=== PATIENT | female | born 1955 | race Caucasian/White ===

== ENCOUNTER 2024-04-11 13:03 | Inpatient (IN) | payer MEDICARE, SELFPAY ==
[2024-04-11] VITALS (7 sets, daily range): BP systolic 118–136; BP diastolic 56–98; BMI 32.7; BMI 31.6
--- NOTE | 2024-04-11 09:28 | ED.CVA ---
History of Present Illness
General
Chief Complaint: CVA/TIA Symptoms
Source: patient and ambulance crew
Exam Limitations: none
Time Seen by Provider: 04/11/24 09:20
Onset of Stroke Symptoms
Onset of symptoms known: Yes
Date of onset of symptoms: 04/09/24
History of Present Illness
History of Present Illness:
See MDM
Past History
Past History
ED Past Medical History: Psychiatric (Anxiety/depression, takes Lexapro 20, Wellbutrin 150, Requip 2 mg for restless leg, temazepam 15 mg at bedtime) and Other (Chronic arthritic pain, takes hydrocodone 7.5/325 as needed.)
ED Past Surgical History: Other (N/A)
Social History
Tobacco: Vaping
Alcohol: None
Living: with family
Phy Exam
Physical Exam
Physical Exam:
See MDM
NIH Stroke Score
Level of Consciousness: 0 - Alert
LOC questions: 0-Answers both correctly
LOC Commands: 0-Performs both correctly
Best Gaze: 0-Normal
Visual Goodman: 0=Normal, no visual loss
Facial palsy: 0=Normal, symmetrical
Motor - Right Arm: 0=No drift 10 seconds
Motor - Left Arm: 0=No drift 10 seconds
Motor - Right Le-No drift 5 seconds
Motor - Left Le-No drift 5 seconds
Limb Ataxia: 0-Absent
Sensation: 0-Normal
Best Language: 0-No aphasia
Dysarthria: 1-Mild slurring
Extinction and Inattention: 0-No abnormality
Total Score:: 1
Course
Orders/Labs/Results
Orders:
Orders
04/11/24 09:24
ECG [Electrocardiogram (*1)] Urgent
Reason for Study: Chest Pain
EKG- Treatment ONCE
04/11/24 09:26
CT Head W/o Iv Contrast Urgent
Comment:
Reason For Exam: slurred speech x 2 days
Cardiac Monitoring- Treatment ONCE
04/11/24 09:27
Electrocardiogram (*1) Stat
Reason for Study: Other
Other Reason for Exam: neuro symptoms
EKG- Treatment ONCE
04/11/24 09:34
Complete Blood Count/With Diff Urgent
Comprehensive Metabolic Panel Urgent
PTT Urgent
Prothrombin Time Urgent
Troponin I Urgent
04/11/24 10:56
Consult Neurology [NEUROLOGY CONSULT] Routine
Consulting Provider: Lin Calles
Was physician already notified: Yes
Aspirin Chewable [Low Strength Aspirin] 324 mg PO NOW STA
Abnormal Lab Results
04/11/24
09:34
WBC 4.1 L 10^3/uL
(4.8-10.8)
RBC 3.38 L 10^6/uL
(4.20-5.40)
Hgb 10.2 L g/dL
(12.0-16.0)
Hct 31.3 L %
(37.0-47.0)
MCHC 32.6 L g/dL
(33.0-37.0)
MPV 11.2 H fL
(7.4-10.4)
Monocytes % 12.2 H %
(1.7-9.3)
Eosinophils % 9.7 H %
(0-6)
BUN 20 H mg/dl
(7-17)
Total Protein 5.8 L g/dl
(6.3-8.2)
04/11/24 09:34
04/11/24 09:34
Vital Signs
Initial and Last Documented VS:
Initial Vital Signs
Pulse Resp BP
83 17 133/98
04/11/24 09:22 04/11/24 09:22 04/11/24 09:22
Last Documented Vital Signs
Temp Pulse Resp BP Pulse Ox
97.9 F 81 16 133/98 92
04/11/24 09:27 04/11/24 09:45 04/11/24 09:45 04/11/24 09:27 04/11/24 09:45
MDM/Problems Addressed
Differential Diagnosis Includes:
HPI and MDM Narrative:
68-year-old female presenting with slurred speech and word finding issues. She noted the symptoms on Sunday taking her evening pills. She had the sensation that a pill was stuck in her throat. She started to cough and gag and realized that her
voice was hoarse. Ever since then, she noted that her speech was slurred and she intermittently has word finding issues. She did develop jaw numbness and tingling last night but that has subsided. She called her PCP this morning and was
instructed to go to the hospital
On exam, she is well-appearing nontoxic. I do appreciate some slurred speech. No other focal neurodeficits noted. Given duration of symptoms, she is not a lytic candidate if this were to be a stroke. Will obtain CT head, basic blood work and
ultimately discussed case with neurology
Physical exam
General: Well appearing and non-toxic
HEENT: protecting airway
Neck: appears supple
CV: No evidence of cyanosis. Regular rate and rhythm
Resp: No accessory muscle use
Abd: Non-distended
Extremities: No deformities
Neuro: alert. Slurred speech. No other focal neurodeficits noted
Psych: Normal affect
Skin: Intact
Problems Addressed including Acute and Chronic Conditions affecting care:
1. Dysarthria
Acuity: acute
Prognosis: stable
Details: Potentially in the setting of subacute stroke. Will obtain CT head and discussed case with neurology
Updates
Labs without clinical significance. Given persistent symptoms, will admit. CT head negative. Neuro made aware
Differential Diagnosis (but not limited to): Stroke, hyponatremia, medication reaction
Testing considered: CT angiogram but NIH stroke scale to low for large territory clot suspicion
Drug therapy (if applicable): OTC meds, please see d/c instruction regarding Rx drugs
Amount and/or Complexity of Data Reviewed
Clinical info obtained from: Patient
External data reviewed: N/A
Labs I independently reviewed (but not limited to): Troponin normal
Radiology: The CT scan was personally and independently reviewed. In addition, official CT report reviewed.
Pulse Ox: not hypoxic
EKG independently reviewed: Sinus rhythm, normal axis, no STEMI
Information Security: Sinus rhythm
Critical Care: N/A
Risk of Complication:
Social Determinants of health: Good social support
Discussed with other providers: Hospitalist, neurologist
Escalation of Care includes Admit/Obs: Given persistent symptoms, will admit for stroke workup
Occasional wrong word or 'sound a like' substitutions may have occurred due to the inherent limitations of voice recognition software. Read the chart carefully and recognize, using context, where substitutions have occurred.
*Critical Care Note
Total Time (30-74mins, 75-104mins- exclusive of procedures): Not Applicable
ED Attending Note
-
Portions of this chart may have been created with voice recognition software.� Occasional wrong word or��sound alike� substitutions may have occurred due to the inherent limitations of voice recognition software.
Discharge Plan
Departure
Patient Disposition: Admit
Date of Disposition: 04/11/24
Time of Disposition: 10:58
Admit to: Telemetry
Presentation/result/management discussed w/ accepting MD/DO: Hospitalist
Discharge Problem:
Dysarthria
Prescriptions:
No Action
ropinirole [Requip] 1 mg Tablet
1 mg PO Q6H
hydrocodone-acetaminophen 7.5-325 mg Tablet
1 tab PO Q6H PRN (Reason: pain)
buspirone [BuSpar] 10 mg Tablet
10 mg PO BID
escitalopram oxalate [Lexapro] 10 mg Tablet
10 mg PO DAILY
bupropion HCl [Wellbutrin XL] 300 mg Tablet Extended Release 24 Hr
300 mg PO DAILY
Multivitamin Gummies 200 mcg Tablet,Chewable
1 tab PO DAILY
Thc Vape
inhalation
Rx Instructions:
THC Vape - unknown dose or usage
Referrals:
UNKNOWN - PT DOES,NOT KNOW [Family Provider] -
Interventions
Interventions:
*Risk Screen - Suicide Last Done: 04/11/24 09:27
*General Assessment Last Done: 04/11/24 09:27
*Neglect/Abuse Screening Last Done: 04/11/24 09:27
ED- Pulmonary Assessment Last Done: 04/11/24 09:49
ED- Neurological Assessment Last Done: 04/11/24 09:49
ED- Cardiac Assessment Last Done: 04/11/24 09:49
Discharge Date and Time
Print Language: HUNGARIAN
[2024-04-11 10:01] LABS: ALT (SGPT) 18 U/L (0-35); AST (SGOT) 28 U/L (14-36); Albumin 3.6 g/dl (3.5-5.0); Alkaline Phosphatase 95 U/L (38-126); Blood Urea Nitrogen 20 mg/dl (7-17); Calcium 9.2 mg/dl (8.4-10.2); Carbon Dioxide 29 mmol/L (22-30); Chloride 102 mmol/L (98-107); Estimated Creatinine Clearance 85 ml/min; Glucose 89 mg/dl (70-99); Potassium 4.4 mmol/L (3.5-5.1); Sodium 140 mmol/L (135-145); Total Bilirubin 0.2 mg/dl (0.2-1.3); Total Protein 5.8 g/dl (6.3-8.2); eGFR > 60.00
[2024-04-11 10:02] LABS: % Basophils 1.2 % (0-2); % Eosinophils 9.7 % (0-6); % Immature Granulocytes 0.2 % (0-0.5); % Lymphocytes 28.5 % (20.5-51.1); % Monocytes 12.2 % (1.7-9.3); % Neutrophils 48.2 % (42.2-75.2); Absolute Basophils 0.1 10^3/uL (0-0.2); Absolute Eosinophils 0.4 10^3/uL (0-0.7); Absolute Lymphocytes 1.2 10^3/uL (1.2-3.4); Absolute Monocytes 0.5 10^3/uL (0.1-0.6); Hematocrit 31.3 % (37.0-47.0); Hemoglobin 10.2 g/dL (12.0-16.0); Mean Corp Hgb Conc. 32.6 g/dL (33.0-37.0); Mean Corpuscular Hgb 30.2 pg (27.0-31.0); Mean Corpuscular Volume 92.6 fL (81.0-99.0); Mean Platelet Volume 11.2 fL (7.4-10.4); Nucleated Red Blood Cells % 0 %; Platelet Count 317 10^3/uL (130-400); Red Blood Cell Count 3.38 10^6/uL (4.20-5.40); Red Cell Dist. Width 13.8 % (11.5-14.5); White Blood Cell Count 4.1 10^3/uL (4.8-10.8)
[2024-04-11 10:06] LABS: INR 1.13; PT 14.4 Sec (11.4-14.6)
[2024-04-11 10:07] LABS: APTT 27.6 Sec (23.4-35.0)
[2024-04-11 10:12] LABS: Troponin I < 0.012 ng/ml
[2024-04-11] MEDS: LOW STRENGTH ASPIRIN 324 MG PO (11:03)
--- NOTE | 2024-04-11 11:39 | W.PN.NEURO.1 ---
Today's Communication / Plan
-
.
Subjective/Objective
Subjective Data
Requesting physician: Allen Vance DO
Reason for consultation: dysarthria
Date of Service: April 11, 2024
Neurology consultation note
CC: change in swallowing
HPI: This is a 68-year-old woman who presented to [facility] on April 11, 2024 with dysphagia and dysarthria. According to the patient she developed difficulty swallowing after a pill got caught as well as slurred speech on
04/09/2024. Since then, she has had trouble swallowing liquids well as intermittent nasal regurgitation and intermittent dysarthria. She has had loose dentures since 2009.
Ms. Seaman endorses transient numbness in her bilateral chin lasting for 45 minutes last night, affecting both sides of her chin. No tongue numbness, sialorrhea, dyspnea, diplopia, headaches, motor or additional sensory .deficits
ER VS:133/98, afebrile
EKG: NSR, QTc Int : 462 ms
PDMP:Oxycodone Hcl (Ir) 5 Mg 30 tabs filled in on 03/11/2024, 40 tabs filled in on 02/27/2024, Hydrocodone-Acetamin 7.5-325 120 tabs filled in on 02/14/2024
Labs: WBC�4.1, hemoglobin�10.2, normal sodium, platelets, creatinine, glucose.
CT head- mild diffuse cortical atrophy
PMH: L Chappell's palsy, anemia, chronic pain s-me, MDD, RASHARD, RLS, left Dupuytren contractures, lumbar spinal stenosis
PSH: gastric bypass, left hand surgery, R TKA, BL cataract surgery
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
FH: Not contributory to current presentation
All: Penicillin
ROS:Constitutional: Negative. Negative for chills, fever and unexpected weight change.
HENT: Negative for ear pain, hearing loss, tinnitus and trouble swallowing.
Eyes: Negative. Negative for photophobia, pain and visual disturbance.
Respiratory: Negative for cough and shortness of breath.
Cardiovascular: Negative for chest pain, palpitations
Gastrointestinal: Positive for dysphagia
Endocrine: Negative. Negative for cold intolerance.
Musculoskeletal: Positive for back pain, generalized arthralgias
Skin: Negative for rash.
Allergic/Immunologic: Negative. Negative for immunocompromised state.
Neurological: Positive for dysarthria
Psychiatric/Behavioral: Negative for behavioral problems, confusion and hallucinations.
General: Well developed. In no acute distress.
Cardio: Regular rate and rhythm without murmur. Extremities are without cyanosis or edema.
Neuro:
Mental Status: Alert, oriented to person, place, and date. Normal attention and recall. Good fund of knowledge. Follows complex requests across the midline. Comprehension, naming, and repetition intact. Immediate and delayed recall 3/3.
Cranial Nerves: . Pupils are equally round, surgical. EOMs full. Visual ferrer full to confrontation. No ptosis. No nystagmus. V1-V3 intact to light touch and pinprick bilaterally, symmetric. Face symmetric. Unable to whistle Normal hearing
AU. The palate elevated well. SCMs and traps 5/5. Tongue midline. Mild to moderate dysarthria including edentulous. Mild dysphonia.
Motor: Normal bulk and tone. No pronator or arm drift. Strength 5/5 throughout. No clonus.
Reflexes: Limited exam due to restlessness. Negative Bernie's bilaterally
Sensory: Normal vibration at the toes
Coordination: No dysmetria or tremor. Mild generalized chorea?
Gait: deferred
Bl pes cavus, hammer toes
Assessment and Plan:
I. Bulbar syndrome
II. RLS
III. Ambulatory dysfunction
-color television console monitor
-Aspiration precaution
-Dysphagia evaluation
-Please obtain brain MRI without rashard
-Mestinon trial
-Please check Lyme antibodies, MG panel, VGKC ab, ESR, CRP,-TFTs, lipoprotein-related protein 4 antibodies/agrin-binding receptor ab, SPEP, IgA; Voltage-gated calcium channel, ferritin, transferrin saturation
-Moderate regular exercise, reduce caffeine intake, regular walking, bicycling, soaking the affected limbs, and leg massage, including pneumatic compression.
-Supplemental iron if ferritin is < 50 ng/mL or transferrin saturation is < 20%
-Start Gabapentin 300 mg QHS
-Avoid medications, known to worsen RLS symptoms (dopamine antagonists, antihistamines, tricyclic antidepressants and SSRIs/SSRIs)
-Will follow
I personally reviewed all radiology and labs along with past medical records pertinent to current medical problems. Total time spent in patient care is 60 minutes.
Thank you for allowing us to participate in the care of this patient. We will continue to follow. Please do not hesitate to contact us with any questions or concerns.
Objective Data
Vital Signs
Temp Pulse Resp BP Pulse Ox
36.6 C 88 14 136/60 94
04/11/24 09:27 04/11/24 11:15 04/11/24 11:05 04/11/24 10:23 04/11/24 11:15
Lab Results
04/11/24 09:34
04/11/24 09:34
PT 14.4 Sec (11.4-14.6) 04/11/24 09:34
INR 1.13 04/11/24 09:34
APTT 27.6 Sec (23.4-35.0) 04/11/24 09:34
Sodium 140 mmol/L (135-145) 04/11/24 09:34
Potassium 4.4 mmol/L (3.5-5.1) 04/11/24 09:34
BUN 20 mg/dl (7-17) H 04/11/24 09:34
Glucose 89 mg/dl (70-99) 04/11/24 09:34
Calcium 9.2 mg/dl (8.4-10.2) 04/11/24 09:34
Patient Allergies
Penicillins Allergy (Severe, Verified 04/11/24 09:30)
Anaphylaxis
Vital Signs and Labs
-
Vital Signs and Labs:
Vital Signs
Temp Pulse Resp BP Pulse Ox
36.6 C 88 14 136/60 94
04/11/24 09:27 04/11/24 11:15 04/11/24 11:05 04/11/24 10:23 04/11/24 11:15
Lab Results
04/11/24 09:34
04/11/24 09:34
PT 14.4 Sec (11.4-14.6) 04/11/24 09:34
INR 1.13 04/11/24 09:34
APTT 27.6 Sec (23.4-35.0) 04/11/24 09:34
Sodium 140 mmol/L (135-145) 04/11/24 09:34
Potassium 4.4 mmol/L (3.5-5.1) 04/11/24 09:34
BUN 20 mg/dl (7-17) H 04/11/24 09:34
Glucose 89 mg/dl (70-99) 04/11/24 09:34
Calcium 9.2 mg/dl (8.4-10.2) 04/11/24 09:34
Home Medications
-
Home Medications
bupropion HCl 300 mg 24 hr tablet, extended release (Wellbutrin XL) 300 mg PO DAILY 10/11/22
buspirone 10 mg tablet 10 mg PO BID 10/11/22
escitalopram oxalate 10 mg tablet (Lexapro) 20 mg PO DAILY 10/11/22
hydrocodone 7.5 mg-acetaminophen 325 mg tablet 1 tab PO TIDPRN PRN SEVERE pain 10/11/22
ropinirole 1 mg tablet 2 mg PO TID 10/11/22
acetaminophen 325 mg tablet (Tylenol) 650 mg PO Q4HPRN PRN MILD PAIN 04/11/24
aspirin 81 mg tablet,delayed release 81 mg PO DAILY 04/11/24
cyclobenzaprine 5 mg tablet 5 mg PO HS 04/11/24
denosumab 60 mg/mL subcutaneous syringe (Prolia) 60 mg SC [id number] 04/11/24
trospium 20 mg tablet 20 mg PO BID 04/11/24
[2024-04-11 13:29] LABS: HDL Cholesterol 65 mg/dl; Iron 44 ug/dl (37-170); LDL Cholesterol, Calculated 54 mg/dl; Total Cholesterol 131 mg/dl (50-199); Triglyceride 60 mg/dl (10-149); Very Low Density Lipoprotein 12 mg/dl (0-30)
[2024-04-11 13:40] LABS: Percent Saturation 13 % (20-50); Total Iron Binding Capacity 318 ug/dl (265-497)
[2024-04-11 14:02] LABS: Glycohemoglobin (HgbA1c) 4.8 % (4.0-5.6)
[2024-04-11 14:29] LABS: Vitamin B12 236 pg/ml (239-931)
[2024-04-11 15:39] LABS: Erythrocyte Sed Rate 10 mm/hour (0-20)
--- NOTE | 2024-04-11 15:47 | HPS.HSE ---
Addendum entered and electronically signed by Caleb Fraser MD 04/11/24 22:50:
Attending Addendum-
I performed a history and physical exam of the patient and discussed his management with the resident. I reviewed the resident's note and agree with the documented findings and plan of care CC/HPI- patient presents to ED with dysphagia and
dysarthria. choking on pills. Currently patient states dysarthria is intermittent. 'its hard for me to follow commands' complains of RLS symptoms. Full 12 point ROS reviewed and negative except as documented Exam- vitals reviewed in EMR GEN-NAD
heart RRR lungs clear abd soft LE no edema right hi seroma present incision CDI Neuro dysarthria AAO x 3 chorea like movements UE sensation intact no cerebellar deficits poor visual tracking
Plan
# Dysarthria/Dysphagia
- r/o CVA vs TIA
- check MRI- WNL
- t/c MRA
- neuro c/s
- R/O MG- Mestinon trial
- pseudo bulbar vs bulbar
- VFSS, speech eval
- ABCD2 = 4 start dapt and statin
- monitor resp status closely
# S/P Right hip replacement 03/04
- cont asa
- WBAT
# Leukopenia
- repeat CBC in am
# MONISHA/Depression
- cont Lexapro, bupropion, buspirone
# RLS
- cont ropinerole
- start gabapentin
ACP
Patient consented to discuss, was alone, time spent explanation of advance directives, changes in health status, patient�s health care wishes if the patient becomes unable to make health decisions, goals of care, code status, and prognosis- 16
minutes
Time spent coordinating care, review of plan of care with resident, personally reviewed previous records in EMR, med rec, labs, radiology, d/w nursing, family and neuro total time documented is exclusive of any additional time listed that was spent
in advance care planning discussion -� 75 minutes
Original Note:
Family Physician
-
Family Physician: Dr. Leida Mendez
Chief Complaint
-
dysarthria; dysphagia; anomia
History of Present Illness
Sujatha Seaman, 68-year-old female with a history of dysphagia secondary to hiatal hernia and recent total right hip replacement on aspirin 81 mg, has been experiencing dysphagia and dysarthria since 04-09-24. Her symptoms began after she choked
on her pills. Also noted slurred speech and word-finding difficulties after that episode; the latter resolved, however the former has persisted. Continues to experience dysphagia as well. Also describes a brief episode of numbness in bilateral chin
last night, which lasted under an hour. Recent medical history is pertinent for total right hip replacement; she is on aspirin 81 mg for thromboprophylaxis. Does not use aspirin outside of that. No prior history of known cardiovascular or
cerebrovascular disease. No known history of neurological diseases besides restless leg syndrome.
Medical History
Past Medical History
Past Medical History: Reports Psychiatric (generalized anxiety disorder; persistent depressive disorder) and Other (restless leg syndrome; osteoarthritis; osteoporosis; overactive bladder)
Past Surgical History: Reports Orthopedic (right total hip replacement; left hand surgery)
Social History
Tobacco: Former Smoker (quit 5 years ago; 20-25 year 6-7 cigs per day)
Alcohol: Occasional
Drug: Marijuana (vaping and medical; stopped 1 year ago)
Living: With Family (with son who is POA)
Employment: Retired
Family History
Family History: Not pertinent
Allergies / Home Medications
Allergies reflects when Allergies were last updated in [facility].
Home Medications with original date entered in [facility]
Allergy/Medication List:
Allergies
Allergy/AdvReac Type Severity Reaction Status Date / Time
Penicillins Allergy Severe Anaphylaxis Verified 04/11/24 09:30
Home Medications
bupropion HCl 300 mg 24 hr tablet, extended release (Wellbutrin XL) 300 mg PO DAILY Depression 10/11/22
buspirone 10 mg tablet 10 mg PO BID Mental Health/Anxiety 10/11/22
escitalopram oxalate 10 mg tablet (Lexapro) 20 mg PO DAILY Depression 10/11/22
hydrocodone 7.5 mg-acetaminophen 325 mg tablet 1 tab PO TIDPRN PRN SEVERE pain 10/11/22
acetaminophen 325 mg tablet (Tylenol) 650 mg PO Q4HPRN PRN MILD PAIN 04/11/24
aspirin 81 mg tablet,delayed release 81 mg PO DAILY Blood Clot Prevention/Tx 04/11/24
cyclobenzaprine 5 mg tablet 5 mg PO HS pain/muscle spasms 04/11/24
denosumab 60 mg/mL subcutaneous syringe (Prolia) 60 mg SC [id number] osteoporosis 04/11/24
ropinirole 2 mg tablet 2 mg PO TID Restless legs 04/11/24
trospium 20 mg tablet 20 mg PO BID Urinary Issue 04/11/24
Review of Systems
-
History Source: Patient
Constitutional: Reports No Symptoms
EENT: Reports No Symptoms
Respiratory: Reports No Symptoms
Cardiac: Reports No Symptoms
Abdomen/GI: Reports No Symptoms
: Reports No Symptoms
Musculoskeletal: Reports No Symptoms
Skin: Reports No Symptoms
Neurological: Reports Other (difficulty swallowing; slurred speech)
Endocrine: Reports No Symptoms
Hematologic/Lymphatic: Reports No Symptoms
Psych: Reports No Symptoms
Physical Exam
Vital Signs
Vital Signs
Temp Pulse Resp BP Pulse Ox
97.9 F 88 14 136/60 94
04/11/24 09:27 04/11/24 11:15 04/11/24 11:05 04/11/24 10:23 04/11/24 11:15
Physical Exam
General: No Apparent Distress, Comfortable and Conversant
HEENT: NormoCephalic, Anicteric, Moist mucous membranes, Atraumatic and No Ptosis
Respiratory: Clear and Non Labored Respirations
Cardiac: S1/S2 and Regular Rhythm
Breast: Deferred by me
GI: Soft, Non Tender, Non Distended and No Hepatosplenomegaly
Rectal: Deferred by Provider
Genito-urinary: Deferred by me
Musculoskeletal: No Clubbing, No Cyanosis, Edema, Left Lower Extremity (1+ and chronic - at baseline per patient), Edema, Right Lower Extremity (1+ and chronic - at baseline per patient) and Other (right hip well-healing scar; underlying swelling
consistent with known seroma)
Skin: Warm, Dry and IV/Catheter Site
Neuro: Awake, Alert, Oriented and Other (dysmetria; dysphonia; dysarthria)
Hematologic/Lymphatic: No Lymphadenopathy
Psych: Calm and Intact Judgment/Insight
Laboratory Results
-
04/11/24 09:34
04/11/24 09:34
Laboratory Results
PT 14.4 Sec (11.4-14.6) 04/11/24 09:34
INR 1.13 04/11/24 09:34
APTT 27.6 Sec (23.4-35.0) 04/11/24 09:34
Total Bilirubin 0.2 mg/dl (0.2-1.3) 04/11/24 09:34
AST 28 U/L (14-36) 04/11/24 09:34
ALT 18 U/L (0-35) 04/11/24 09:34
Alkaline Phosphatase 95 U/L (38-126) 04/11/24 09:34
Troponin I < 0.012 ng/ml 04/11/24 09:34
Impression/Plan
-
Impression and plan
Bulbar syndrome or CVA/TIA
- ABCD2 Score for TIA 4 points; start DAPT and rosuvastatin.
- Monitor on telemetry.
- Aspiration precautions, speech therapy evaluation, video swallow study and soft+bite diet.
- Check MR brain.
- Trial of pyridostigmine to cover for myasthenia gravis; lab work to further evaluate for other etiologies.
- Start gabapentin.
- Neurology following.
Status-post total right hip replacement February 2024
Postprocedural seroma
- On aspirin 81 mg for thromboprophylaxis.
- Recovering well.
- Seroma stable and asymptomatic; will follow.
Restless leg syndrome
- Continue ropinirole.
Polyarticular osteoarthritis
- Continue pain management.
Generalized anxiety disorder
Persistent depressive disorder
- Continue bupropion, buspirone and escitalopram; can hold the latter for worsening RLS.
Thromboprophylaxis
- Enoxaparin.
Code status
- Full.
--- NOTE | 2024-04-11 16:37 | PTCARENOTE ---
pt admitted from ED Awake and Alert, oriented x3, NIH 1 for slight slurred speech. NSR. LCTA on RA abd soft NT +BSx4. skin CDI. right lateral hip scar s/p THR. +PP b/l trace b/l edema. CB in reach instructed for use.
[2024-04-11] MEDS: PLAVIX 300 MG PO (17:04)
[2024-04-11 17:05] LABS: C-Reactive Protein < 5.00 mg/L (0.0-10.00)
[2024-04-11] MEDS: LOVENOX 40 MG SC (17:05)
[2024-04-11] MEDS: CRESTOR 20 MG PO (17:05)
[2024-04-11 17:36] LABS: TSH Reflex To Free T4 1.92 uIU/ml (0.47-4.68)
[2024-04-11 17:40] LABS: Ferritin 29.6 ng/ml (11.1-264.0)
[2024-04-11] MEDS: MESTINON 60 MG PO ×2 (17:40→22:06)
[2024-04-11] MEDS: REQUIP 2 MG PO ×2 (17:43→22:06)
[2024-04-11] MEDS: BUSPAR 10 MG PO (22:06)
[2024-04-11] MEDS: FLEXERIL 5 MG PO (22:06)
[2024-04-11] MEDS: DETROL 1 MG PO (22:06)
--- NOTE | 2024-04-12 00:40 | PTCARENOTE ---
Patient is refusing scheduled gabapentin tonjason, states she has stopped taking that as of a couple of years ago because prior use caused her to lose balance and fall down a flight of stairs at home. She states she has not been taking that
medication for some time now. Will discuss with oncoming nurse in AM to discuss with MD.
--- NOTE | 2024-04-12 03:43 | W.PN.UPDATE ---
Update Note
Progress Note Update
RN notified ETHNOLOGY PROFESSOR patient's urine is very odorous, she is slightly confused, more forgetful tonight. Will check UA r/o UTI
[2024-04-12 03:52] VITALS: BP 110/66
[2024-04-12 07:15] LABS: Hematocrit 33.6 % (37.0-47.0); Hemoglobin 10.9 g/dL (12.0-16.0); Mean Corp Hgb Conc. 32.4 g/dL (33.0-37.0); Mean Corpuscular Hgb 30.5 pg (27.0-31.0); Mean Corpuscular Volume 94.1 fL (81.0-99.0); Mean Platelet Volume 11.1 fL (7.4-10.4); Platelet Count 323 10^3/uL (130-400); Red Blood Cell Count 3.57 10^6/uL (4.20-5.40); Red Cell Dist. Width 13.8 % (11.5-14.5); White Blood Cell Count 5.1 10^3/uL (4.8-10.8)
[2024-04-12 07:19] VITALS: BP 115/54
[2024-04-12 07:47] LABS: ALT (SGPT) 20 U/L (0-35); AST (SGOT) 32 U/L (14-36); Alkaline Phosphatase 93 U/L (38-126); Blood Urea Nitrogen 15 mg/dl (7-17); Calcium 9.5 mg/dl (8.4-10.2); Carbon Dioxide 32 mmol/L (22-30); Chloride 102 mmol/L (98-107); Estimated Creatinine Clearance 84 ml/min; Glucose 97 mg/dl (70-99); Potassium 4.2 mmol/L (3.5-5.1); Sodium 142 mmol/L (135-145); Total Bilirubin 0.3 mg/dl (0.2-1.3); Total Protein 6.3 g/dl (6.3-8.2); eGFR > 60.00
[2024-04-12] MEDS: BUSPAR 10 MG PO (09:04)
[2024-04-12] MEDS: DETROL 1 MG PO (09:04)
[2024-04-12] MEDS: MESTINON 60 MG PO (09:04)
[2024-04-12] MEDS: ASPIR LOW (ENTERIC COATED) 81 MG PO (09:04)
[2024-04-12] MEDS: WELLBUTRIN XL (24 hour extended release) 300 MG PO (09:04)
[2024-04-12] MEDS: PLAVIX 75 MG PO (09:04)
[2024-04-12] MEDS: REQUIP 2 MG PO (09:08)
--- NOTE | 2024-04-12 09:54 | W.PN.HOSP.TC ---
Today's Communication/Plan
-
- Continue pyridostigmine.
- CT chest.
- Replete iron and B12.
- Discontinue DAPT and gabapentin.
Assessment / Plan
Assessment / Plan
Assessment
Sujatha Seaman, 68-year-old female with a history of dysphagia secondary to hiatal hernia and recent total right hip replacement on aspirin 81 mg, has been experiencing dysphagia and dysarthria since 04-09-24. Her symptoms began after she choked
on her pills. Also noted slurred speech and word-finding difficulties after that episode; the latter resolved, however the former has persisted. Continues to experience dysphagia as well. Also describes a brief episode of numbness in bilateral chin
last night, which lasted under an hour. Recent medical history is pertinent for total right hip replacement; she is on aspirin 81 mg for thromboprophylaxis. Does not use aspirin outside of that. No prior history of known cardiovascular or
cerebrovascular disease. No known history of neurological diseases besides restless leg syndrome.
Impression and plan
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
- Significant improvement with pyridostigmine favors an NMJ disorder.
- NMJ work-up pending.
- CT head and MR brain with no acute changes; other blood work unremarkable.
- CT chest with IV contrast to evaluate for thymoma.
- Unlikely that this was a CVA/TIA; can stop DAPT and rosuvastatin.
- Discontinue telemetry.
- Aspiration precautions, speech therapy evaluation, video swallow study and soft+bite diet.
- Neurology following.
Iron deficiency anemia
Status-post gastric bypass
- History of MATHIEU treated with IV iron.
- IV ferric gluconate.
- Will refer to hematology for outpatient follow-up and potential infusions.
B12 deficiency
- Likely from the gastric bypass.
- IM cyanocobalamin.
Status-post total right hip replacement February 2024
Postprocedural seroma
- On aspirin 81 mg for thromboprophylaxis.
- Recovering well.
- Seroma stable and asymptomatic; will follow.
Restless leg syndrome
- Continue ropinirole.
- Patient has not tolerated gabapentin in the past and refused the medication.
- Discontinue gabapentin.
- Optimal iron stores will likely improve the restlessness.
Polyarticular osteoarthritis
- Continue pain management.
Generalized anxiety disorder
Persistent depressive disorder
- Continue bupropion, buspirone and escitalopram; can hold the latter for worsening RLS.
Overactive bladder
- Continue tolterodine.
- Pyridostigmine can potentially worsen the bladder issues.
- The overnight event was likely related to the medication; this does not warrant UTI work-up.
Thromboprophylaxis
- Enoxaparin.
Code status
- Full.
Anticipated Discharge: Today
Subjective/Interval History
-
Date of Service: April 12, 2024
Significant improvement in symptoms with pyridostigmine. Overnight urinary urgency likely related to the medication. No genitourinary symptoms to suspect a urinary tract infection.
Objective Data
-
Labs:
Laboratory Results
04/12/24
06:36
WBC 5.1
Hgb 10.9 L
Hct 33.6 L
Plt Count 323
Sodium 142
Potassium 4.2
Chloride 102
Carbon Dioxide 32 H
BUN 15
Creatinine 0.7
Glucose 97
Calcium 9.5
Total Bilirubin 0.3
AST 32
ALT 20
Alkaline Phosphatase 93
Vital Signs:
Vital Signs
Temp Pulse Resp BP Pulse Ox
98.0 F 68 16 115/54 98
04/12/24 07:19 04/12/24 07:19 04/12/24 07:19 04/12/24 07:19 04/12/24 07:19
I&O
04/11/24 04/12/24 04/13/24
06:59 06:59 05:59
Intake Total 360 / 360
Balance 360 / 360
Review of Systems
-
History Source: Patient
Constitutional: Reports No Symptoms
EENT: Reports No Symptoms Reported
Respiratory: Reports No Symptoms
Cardiac: Reports No Symptoms
Abdomen/GI: Reports No Symptoms
Breast: Reports No Symptoms
Genitourinary: Reports No Symptoms
Musculoskeletal: Reports No Symptoms
Skin: Reports No Symptoms
Neuro: Reports Other (mild difficulty swallowing - at baseline)
Endocrine: Reports No Symptoms
Hematologic / Lymphatic: Reports No Symptoms
Allergy / Immunology: Reports No Symptoms
Physical Exam
-
General: No Apparent Distress and Comfortable
HEENT: Normocephalic, Atraumatic, Moist Mucous Membranes, Anicteric, No Ptosis and Neck Non Tender
Respiratory: Clear to Auscultation and Non Labored Respirations
Cardiac: Regular Rhythm and S1/S2
GI: Soft, Nontender and Nondistended
Genito-urinary: No Costovertebral Tender
Musculoskeletal: No Clubbing, No Cyanosis, Edema, Right Lower Extrem (1+ and chronic - at baseline per patient) and Edema, Left Lower Extrem (1+ and chronic - at baseline per patient)
Skin: Warm and Dry
Neuro: Awake, Alert, Oriented and Other (dysmetria; slight dysphonia and dysarthria)
Psych: Calm and Intact Judgement/Insight
[2024-04-12] MEDS: CYANOCOBALAMIN 1000 MCG IM (10:39)
[2024-04-12] MEDS: FERRLECIT 110 MG IV (10:39)
--- NOTE | 2024-04-12 10:45 | W.PN.NEURO.1 ---
Today's Communication / Plan
-
.
Subjective/Objective
Subjective Data
Date of Service: April 12, 2024
Neurology follow up note
Ms. Seaman states that her dysarthria has resolved. No reports of diplopia, dyspnea or weakness she received 2 doses of pyridostigmine 60 mg.
Sujatha continues to have RLS symptoms. The patient states that her symptoms are being managed by her meat clerk and she has been taking Requip 2 mg 3 times a day for many years.
Ferritin level�29.6, transferrin saturation�13%.
Vit B12-236, normal TSH.
Brain MRI wo monisha(technically limited) no acute abnormaliteis.
PMH: L Chappell's palsy, anemia, chronic pain s-me, MDD, MONISHA, RLS, left Dupuytren contractures, lumbar spinal stenosis
PSH: gastric bypass, left hand surgery, R TKA, BL cataract surgery
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
FH: Not contributory to current presentation
All: Penicillin
ROS:Constitutional: Negative. Negative for chills, fever and unexpected weight change.
HENT: Negative for ear pain, hearing loss, tinnitus and trouble swallowing.
Eyes: Negative. Negative for photophobia, pain and visual disturbance.
Respiratory: Negative for cough and shortness of breath.
Cardiovascular: Negative for chest pain, palpitations
Gastrointestinal: Positive for dysphagia
Endocrine: Negative. Negative for cold intolerance.
Musculoskeletal: Positive for back pain, generalized arthralgias
Skin: Negative for rash.
Allergic/Immunologic: Negative. Negative for immunocompromised state.
Neurological: Positive for dysarthria
Psychiatric/Behavioral: Negative for behavioral problems, confusion and hallucinations.
General: Well developed. In no acute distress.
Cardio: Regular rate and rhythm without murmur. Extremities are without cyanosis or edema.
Neuro:
Mental Status: Alert, oriented to person, place, and date. Follows complex requests across midline. Fluent. No hemineglect
Cranial Nerves: . Pupils are equally round, surgical. EOMs full. Visual ferrer full to confrontation. No ptosis. No nystagmus. V1-V3 intact to light touch and pinprick bilaterally, symmetric. Face symmetric. Unable to whistle Normal hearing
AU. The palate elevated well. SCMs and traps 5/5. Tongue midline. Mild to moderate dysarthria including edentulous. Mild dysphonia.
Motor: Normal bulk and tone. No pronator or arm drift. Strength 5/5 throughout. No clonus.
Reflexes: Limited exam due to restlessness. Negative Bernie's bilaterally
Sensory: Normal vibration at the toes
Coordination: No dysmetria or tremor. Mild generalized chorea?
Gait: deferred
Bl pes cavus, hammer toes
Assessment and Plan:
I. Bulbar syndrome, resolved
II. RLS
III. Vit B12 deficiency
-Telemetry monitoring
-Please obtain brain MRI without monisha
-Continue Mestinon 60 mg 3 times a day
-Please follow up Lyme antibodies, MG panel, VGKC ab, ESR, lipoprotein-related protein 4 antibodies/agrin-binding receptor ab, SPEP, IgA;
-Start Fe SO4 325 mg QD
-Continue Gabapentin 300 mg QHS
-Start parenteral vitamin B12 1000 mcg IM once per week until the deficiency is corrected and then once per month or once every other month.
-Please check folate, MMA, HC, anti parietal cell ab, anti IF ab.
-OP neurology follow up in 2 weeks
I personally reviewed all radiology and labs along with past medical records pertinent to current medical problems. Total time spent in patient care is 60 minutes.
Thank you for allowing us to participate in the care of this patient. Please do not hesitate to contact us with any questions or concerns.
Objective Data
Vital Signs
Temp Pulse Resp BP Pulse Ox
36.7 C 68 16 115/54 98
04/12/24 07:19 04/12/24 07:19 04/12/24 07:19 04/12/24 07:19 04/12/24 07:19
Lab Results
04/12/24 06:36
04/12/24 06:36
PT 14.4 Sec (11.4-14.6) 04/11/24 09:34
INR 1.13 04/11/24 09:34
APTT 27.6 Sec (23.4-35.0) 04/11/24 09:34
Sodium 142 mmol/L (135-145) 04/12/24 06:36
Potassium 4.2 mmol/L (3.5-5.1) 04/12/24 06:36
BUN 15 mg/dl (7-17) 04/12/24 06:36
Glucose 97 mg/dl (70-99) 04/12/24 06:36
Calcium 9.5 mg/dl (8.4-10.2) 04/12/24 06:36
LDL Cholesterol, Calc 54 mg/dl 04/11/24 09:34
Vitamin B12 236 pg/ml (239-931) L 04/11/24 09:34
Patient Allergies
Penicillins Allergy (Severe, Verified 04/11/24 09:30)
Anaphylaxis
Vital Signs and Labs
-
Vital Signs and Labs:
Vital Signs
Temp Pulse Resp BP Pulse Ox
36.7 C 68 16 115/54 98
04/12/24 07:19 04/12/24 07:19 04/12/24 07:19 04/12/24 07:19 04/12/24 07:19
Lab Results
04/12/24 06:36
04/12/24 06:36
PT 14.4 Sec (11.4-14.6) 04/11/24 09:34
INR 1.13 04/11/24 09:34
APTT 27.6 Sec (23.4-35.0) 04/11/24 09:34
Sodium 142 mmol/L (135-145) 04/12/24 06:36
Potassium 4.2 mmol/L (3.5-5.1) 04/12/24 06:36
BUN 15 mg/dl (7-17) 04/12/24 06:36
Glucose 97 mg/dl (70-99) 04/12/24 06:36
Calcium 9.5 mg/dl (8.4-10.2) 04/12/24 06:36
LDL Cholesterol, Calc 54 mg/dl 04/11/24 09:34
Vitamin B12 236 pg/ml (239-931) L 04/11/24 09:34
Medications
-
Medications:
Generic Name Dose Route Start Last Admin
Trade Name Freq PRN Reason Stop Dose Admin
Acetaminophen 650 mg 04/11/24 15:54
Acetaminophen 325 Mg Tablet PO 05/09/24 15:53
Q4HPRN PRN
DE LEON, mild pain, or temp >100.4F
Hydrocodone Bitart/Acetaminophen 1 tablet 04/11/24 15:54
Hydrocodone 7.5 Mg/Acetaminophen 325 Mg Tablet PO 04/25/24 15:53
TIDPRN PRN
SEVERE pain
Bupropion HCl 300 mg 04/12/24 08:00 04/12/24 09:04
Bupropion (24hr) Extended Release 300 Mg Tablet PO 05/10/24 07:59 300 mg
DAILY ANDREA Administration
Buspirone HCl 10 mg 04/11/24 20:00 04/12/24 09:04
Buspirone 10 Mg Tablet PO 05/09/24 19:59 10 mg
BID ANDREA Administration
Cyanocobalamin 1,000 mcg 04/12/24 11:00
Cyanocobalamin (1000 Mcg/Ml) 1 Ml Vial IM 05/10/24 10:59
DAILY ANDREA
Cyclobenzaprine HCl 5 mg 04/11/24 22:00 04/11/24 22:06
Cyclobenzaprine 10 Mg Tablet PO 05/09/24 21:59 5 mg
HS ANDREA Administration
Enoxaparin Sodium 40 mg 04/11/24 18:00 04/11/24 17:05
Enoxaparin Sodium 40 Mg/0.4 Ml Syringe SC 05/09/24 17:59 40 mg
QPM ANDREA Administration
Escitalopram Oxalate 20 mg 04/13/24 08:00
Escitalopram 10 Mg Tablet PO 05/11/24 07:59
DAILY ANDREA
Ferrous Sulfate 325 mg 04/12/24 11:00
Ferrous Sulfate 325 Mg Tablet PO 05/10/24 10:59
DAILY ANDREA
Pyridostigmine [place] 60 mg 04/11/24 16:00 04/12/24 09:04
Pyridostigmine 60 Mg Tablet PO 05/09/24 15:59 60 mg
TID ANDREA Administration
Ropinirole HCl 2 mg 04/11/24 22:00 04/12/24 09:08
Ropinirole 2 Mg Tablet PO 05/09/24 21:59 2 mg
TID ANDREA Administration
Rosuvastatin Calcium 20 mg 04/11/24 18:00 04/11/24 17:05
Rosuvastatin (Crestor) 20 Mg Tablet PO 05/09/24 17:59 20 mg
QPM ANDREA Administration
Sodium Chloride 0 flush 04/11/24 17:00
Sodium Chloride 0.9% (Flush) Syringe IV 05/09/24 16:59
PER PROTOCOL ANDREA
Tolterodine Tartrate 1 mg 04/11/24 20:00 04/12/24 09:04
Tolterodine Tartrate 1 Mg Tablet PO 05/09/24 19:59 1 mg
BID ANDREA Administration
Home Medications
-
Home Medications
bupropion HCl 300 mg 24 hr tablet, extended release (Wellbutrin XL) 300 mg PO DAILY Depression 10/11/22
buspirone 10 mg tablet 10 mg PO BID Mental Health/Anxiety 10/11/22
escitalopram oxalate 10 mg tablet (Lexapro) 20 mg PO DAILY Depression 10/11/22
hydrocodone 7.5 mg-acetaminophen 325 mg tablet 1 tab PO TIDPRN PRN SEVERE pain 10/11/22
acetaminophen 325 mg tablet (Tylenol) 650 mg PO Q4HPRN PRN MILD PAIN 04/11/24
aspirin 81 mg tablet,delayed release 81 mg PO DAILY Blood Clot Prevention/Tx 04/11/24
cyclobenzaprine 5 mg tablet 5 mg PO HS pain/muscle spasms 04/11/24
denosumab 60 mg/mL subcutaneous syringe (Prolia) 60 mg SC [id number] osteoporosis 04/11/24
ropinirole 2 mg tablet 2 mg PO TID Restless legs 04/11/24
trospium 20 mg tablet 20 mg PO BID Urinary Issue 04/11/24
[2024-04-12 11:44] VITALS: BP 126/68
--- NOTE | 2024-04-12 11:55 | PTOTSP ---
ST Acute Care Evaluation
Pt currently presents with clinical signs of mild oral dysphagia characterized by prolonged mastication and bolus formation as well as known esophageal dysphagia as evidenced by pt's baseline diet of soft/ground foods, need to use slow intake, and
occasional self-elicited vomiting to reduce epigastric discomfort. Pt is at an elevated risk for aspiration 2/2 retrograde flow.
Recommendations:
- Continue with soft bite sized solids, thin liquids, meds one at a time with water. Choose foods you can tolerate.
- Aspiration & reflux precautions: HOB upright for all PO intake and for at least 60 minutes after intake; small bites/sips; small frequent meals; slow intake rate; alternate solids/liquids.
- RECEPTIONIST TELEPHONE OPERATOR to f/u briefly to monitor speech production and to re-educate pt about esophageal/reflux precautions.
- MD to consider GI consult - can be as an OP.
[2024-04-12] MEDS: FEOSOL 325 MG PO (13:14)
[2024-04-12] MEDS: LEXAPRO 20 MG PO (13:14)
--- NOTE | 2024-04-12 13:37 | W.DCSUMMARY ---
Documented by User: Genaro Rodriguez MD, Resident 04/12/24 14:28
Discharge Summary
Discharge Data
Date of Admission: 04/11/24
Date of Discharge: 04/12/24
-
Pending Results: Yes (Neuromuscular junction antibody panel results)
Hospital Course
Primary discharge diagnosis
* Acquired neuromuscular junction disorder/likely myasthenia gravis
Secondary discharge diagnoses
- Iron deficiency anemia
- Vitamin B12 deficiency
- Status-post gastric bypass
- Chronic dysphagia
- Hiatal hernia
- Restless leg syndrome
- Overactive bladder
- Status-post total right hip replacement February 2024
- Postprocedural seroma
- Polyarticular osteoarthritis
- Generalized anxiety disorder
- Persistent depressive disorder
Hospital course
Sujatha Seaman, age 68, presented to the emergency on 04-11-24 with 2 days of new-onset dysarthria and dysphonia, and worsening of known chronic dysphagia with oropharyngeal dysphagia. She was given loading doses of aspirin and clopidogrel to
initiate dual anti-platelet therapy for suspected cerebrovascular accident/transient ischemic attack. CT head and MR brain did not reveal any abnormalities that would account for her deficits. Evaluated by neurology; her presentation was found to be
more consistent with bulbar symptoms/acquired neuromuscular junction disorder and she was started on a trial of pyridostigmine. Patient noted significant improvement in her symptoms, and returned to her baseline after receiving the medication
according to the patient. Based on the rapid improvement on pyridostigmine, her condition was presumed to be a new-diagnosis of an acquired neuromuscular junction disorder. CT chest results did not reveal any mediastinal masses. Immunologic studies
for neuromuscular junction disorder were pending at the time of discharge.
Additionally, the patient was found to be deficient in iron and vitamin B12; both were repleted with intravenous and intramuscular therapy respectively. Throughout her hospital course, she remained hemodynamically stable and on the day of her
discharge, her symptoms had resolved. Other blood work was unremarkable. She will be discharged on pyridostigmine treatment and recommended to follow-up with outpatient neurology. Recommended to follow-up with hematology outpatient to consider
intravenous iron and intramuscular cyanocobalamin treatment long-term. Follow-up with primary within 1 week.
Discharge Plan
-
Patient Disposition: Home (Routine Discharge)
Discharge Diagnosis/Procedures: Acquired neuromuscular junction disorder/likely myasthenia gravis
Condition: Good
Diet: Grind all food and Chop all food
Activity: No restrictions
Driving Restrictions: As prior to admission
Bathing Restrictions: None
Blood Work: Ferritin+iron studies and B12 in 3 months
Instructions: Anemia caused by low iron, Vitamin B12 deficiency and folate deficiency, Myasthenia gravis
Referrals:
Wally Lopez DO [Active] - in one month
Milton Amaya MD [Active] - in one to two weeks
Leida Mendez DO [Non-Admitting Privileges] - in less than 1 week
Additional Discharge Medication Instructions: Start pyridostigmine 60 mg 3 times daily
Take vitamin B12 and oral iron supplement as directed
Prescriptions:
New
pyridostigmine bromide 60 mg tablet
60 mg PO TID 30 Days Qty: 90 3RF
ferrous sulfate 325 mg (65 mg iron) tablet
325 mg PO Q OTHER DAY 90 Days Qty: 45 10RF
cyanocobalamin (vitamin B-12) 1,500 mcg tablet,chewable
1,500 mcg PO DAILY 90 Days Qty: 90 10RF
Continued
hydrocodone-acetaminophen 7.5-325 mg Tablet
1 tab PO TIDPRN PRN (Reason: SEVERE pain)
buspirone 10 mg Tablet
10 mg PO BID
escitalopram oxalate [Lexapro] 10 mg Tablet
20 mg PO DAILY
bupropion HCl [Wellbutrin XL] 300 mg Tablet Extended Release 24 Hr
300 mg PO DAILY
acetaminophen [Tylenol] 325 mg Tablet
650 mg PO Q4HPRN PRN (Reason: MILD PAIN)
aspirin 81 mg Tablet,Delayed Release (Dr/Ec)
81 mg PO DAILY
cyclobenzaprine 5 mg Tablet
5 mg PO HS
trospium 20 mg Tablet
20 mg PO BID
Prolia 60 mg/mL Syringe
60 mg SC [id number]
ropinirole 2 mg tablet
2 mg PO TID
Discharge Orders:
Discharge Patient (As Directed); Ordered 04/12/24
Ordered By: Genaro Rodriguez
Discharge Date and Time
Print Language: BURMESE

Documented by User: Tanmay Sage DO 04/12/24 14:32
Discharge Summary
Discharge Data
Date of Admission: 04/11/24
Date of Discharge: 04/12/24
Discharge Plan
-
Patient Disposition: Home (Routine Discharge)
Discharge Diagnosis/Procedures: Acquired neuromuscular junction disorder/likely myasthenia gravis
Condition: Good
Diet: Grind all food and Chop all food
Activity: No restrictions
Driving Restrictions: As prior to admission
Bathing Restrictions: None
Blood Work: Ferritin+iron studies and B12 in 3 months
Instructions: Anemia caused by low iron, Vitamin B12 deficiency and folate deficiency, Myasthenia gravis
Referrals:
Wally Lopez DO [Active] - in one month
Milton Amaya MD [Active] - in one to two weeks
Leida Mendez DO [Non-Admitting Privileges] - in less than 1 week
Additional Discharge Medication Instructions: Start pyridostigmine 60 mg 3 times daily
Take vitamin B12 and oral iron supplement as directed
Prescriptions:
New
pyridostigmine bromide 60 mg tablet
60 mg PO TID 30 Days Qty: 90 3RF
ferrous sulfate 325 mg (65 mg iron) tablet
325 mg PO Q OTHER DAY 90 Days Qty: 45 10RF
cyanocobalamin (vitamin B-12) 1,500 mcg tablet,chewable
1,500 mcg PO DAILY 90 Days Qty: 90 10RF
Continued
hydrocodone-acetaminophen 7.5-325 mg Tablet
1 tab PO TIDPRN PRN (Reason: SEVERE pain)
buspirone 10 mg Tablet
10 mg PO BID
escitalopram oxalate [Lexapro] 10 mg Tablet
20 mg PO DAILY
bupropion HCl [Wellbutrin XL] 300 mg Tablet Extended Release 24 Hr
300 mg PO DAILY
acetaminophen [Tylenol] 325 mg Tablet
650 mg PO Q4HPRN PRN (Reason: MILD PAIN)
aspirin 81 mg Tablet,Delayed Release (Dr/Ec)
81 mg PO DAILY
cyclobenzaprine 5 mg Tablet
5 mg PO HS
trospium 20 mg Tablet
20 mg PO BID
Prolia 60 mg/mL Syringe
60 mg SC [id number]
ropinirole 2 mg tablet
2 mg PO TID
Discharge Orders:
Discharge Patient (As Directed); Ordered 04/12/24
Ordered By: Genaro Rodriguez
Discharge Date and Time
Print Language: BURMESE
[2024-04-12] MEDS: FLUAD (65 yr+) 2024-2025 FORMULA 0.5 ML IM (14:33)
[2024-04-12 14:57] LABS: Folate 15.4 ng/ml (2.76-20)
[2024-04-12 15:51] VITALS: BP 122/64
[2024-04-14 12:33] LABS: Transferrin 236 mg/dL (200-360)
[2024-04-14 12:34] LABS: Homocysteine 18 umol/L (0-15)
[2024-04-14 15:06] LABS: Lyme Antibody Screen, EIA Negative (Negative)
== END 2024-04-12 15:54 | disposition home or self-care (01) | DRG 57 ==
LOC: 3 WEST ACU 13:03
PROVIDERS: Psychiatry & Neurology Neurology; Student in an Organized Health Care Education/Training Program; ADMITTING PHYSICIAN Family Medicine; ATTENDING PHYSICIAN Internal Medicine; EMERGENCY PHYSICIAN Student in an Organized Health Care Education/Training Program
DX: G70.00 Myasthenia gravis without (acute) exacerbation (principal); M96.842 Postprocedural seroma of a musculoskeletal structure following a musculoskeletal system procedure; G25.81 Restless legs syndrome; M15.9 Polyosteoarthritis, unspecified; F34.1 Dysthymic disorder; F41.1 Generalized anxiety disorder; D50.9 Iron deficiency anemia, unspecified; E53.8 Deficiency of other specified B group vitamins; N32.81 Overactive bladder; Z98.84 Bariatric surgery status; K44.9 Diaphragmatic hernia without obstruction or gangrene; Z96.641 Presence of right artificial hip joint
CPT/HCPCS: 70450; 70551; 71046; 71260; 80053; 80061; 82607; 82728; 82746; 83036; 83090; 83516; 83540; 83550; 83921; 84443; 84466; 84484; 85025; 85027; 85610; 85652; 85730; 86041; 86140; 86340; 86618; 90662; 92610; 93005; 97162; 97166; 99285; G0008; J2916; Q9967

== ENCOUNTER 2024-04-24 11:14 | Inpatient (IN) | payer MEDICARE, SELFPAY ==
[2024-04-24] VITALS (42 sets, daily range): BP systolic 94–158; BP diastolic 47–79; PULSE 87–88; O2SAT 95; BMI 28.8; BMI 28.1
--- NOTE | 2024-04-24 08:36 | ED.GENMED ---
History of Present Illness
General
Chief Complaint: Weakness
Source: patient and records
Time Seen by Provider: 04/24/24 08:18
History of Present Illness
History of Present Illness:
68yoF with a history of recently diagnosed myasthenia gravis presenting for evaluation of weakness. Patient was recently hospitalized from 04/11/2024 to 04/12/2024 for slurred speech and stroke symptoms. She was evaluated by neurology and was
diagnosed with myasthenia gravis. She was discharged on pyridostigmine which she reports compliance with. Her dysphagia and speech difficulty was previously relieved with the pyridostigmine but she has not noticed any improvement with the
medication the past 2 days. She started to feel fatigued and nauseous starting yesterday. She has had 4 episodes of diarrhea in the past 24 hours. She also reports lightheadedness and feeling like she is going to pass out. Patient was scheduled for
an outpatient neurology appt this morning but was too weak to go to the appointment.
Past History
Past History
ED Past Medical History: Psychiatric (Anxiety/depression, takes Lexapro 20, Wellbutrin 150, Requip 2 mg for restless leg, temazepam 15 mg at bedtime) and Other (Chronic arthritic pain, takes hydrocodone 7.5/325 as needed.)
ED Past Surgical History: Other (N/A)
Social History
Tobacco: Vaping
Alcohol: None
Living: with family
Phy Exam
General Physical Exam
General Presentation: well appearing and no apparent distress
General age: appears stated age
General Skin: warm and dry
General Habitus: normal
General Mental: alert
ENT Exam
ENT Exam: normocephalic
Cardiovascular Exam
Cardiovascular Exam: regular rate/rhythm and no murmur
Pulmonary Exam
Pulmonary Exam: lungs clear, no respiratory distress, no crackles and no wheezing
Neurological Exam
Neurological Exam: alert, dysarthric and other (Mild dysarthria and dysphagia noted. Negative drift x4)
[place] Coma Scale
Eye Opening: Spontaneous
Verbal Response: Oriented
Motor Response: Obeys Commands
GCS Total Score: 15
Skin Exam
Skin Exam: normal color and warm/dry
Psychiatric Exam
Psychiatric Exam: normal mood/affect
Course
Orders/Labs/Results
Orders:
Orders
04/24/24 08:33
Electrocardiogram (*1) Urgent
Reason for Study: Fatigue / Weakness
Pft Nif [RESP] Urgent
04/24/24 08:34
EKG- Treatment ONCE
04/24/24 09:08
Complete Blood Count/With Diff Urgent
Comprehensive Metabolic Panel Urgent
Ferritin Urgent
Comment: ADD ON
Immunoglobulin Panel Urgent
Comment: ADD ON
Magnesium Urgent
Troponin I Urgent
04/24/24 09:12
NEUROLOGY CONSULT Urgent
Consulting Provider: Milton Amaya
Was physician already notified: Yes
04/24/24 09:24
Add On- LAB Routine
Comments:: Please add to today's labs or draw as routine
Tests Added?: Ferritin
04/24/24 09:25
Immune Globulin Per Pharmacy [Immune Globulin- Pharmacy To Place] 25 gram IV DIRECTED ONE
04/24/24 09:26
Add On- LAB Routine
Comments:: Please add to today's labs or draw as routine
Tests Added?: immunoglobulins
04/24/24 09:47
Speech Therapy Eval & Treat Routine
Treatment: Dysarthria, myasthenia gravis
04/24/24 09:50
0.9% Sodium Chloride 500 ml [Nss] 500 ml IV BOLUS
04/24/24 10:00
MethylPREDNISolone. [Solu-Medrol] 1,000 mg 0.9% Sodium Chloride 250 ml [Nss] 250 ml IV Q24H
04/24/24 22:00
0.9% Sodium Chloride [Nss (Preservative Free)] 8 ml IV HS
Famotidine [Pepcid] 20 mg IV HS
Abnormal Lab Results
04/24/24
09:08
RBC 3.67 L 10^6/uL
(4.20-5.40)
Hgb 11.3 L g/dL
(12.0-16.0)
Hct 35.0 L %
(37.0-47.0)
MCHC 32.3 L g/dL
(33.0-37.0)
MPV 11.0 H fL
(7.4-10.4)
Abs Immat Gran (auto) 0.1 H 10^3/uL
(0-0.05)
Absolute Neuts (auto) 7.8 H 10^3/uL
(1.4-6.5)
Absolute Lymphs (auto) 0.7 L 10^3/uL
(1.2-3.4)
Absolute Monos (auto) 0.9 H 10^3/uL
(0.1-0.6)
Immature Gran % 0.6 H %
(0-0.5)
Neutrophils % 82.5 H %
(42.2-75.2)
Lymphocytes % 7.0 L %
(20.5-51.1)
Chloride 97 L mmol/L
(98-107)
Carbon Dioxide 31 H mmol/L
(22-30)
BUN 19 H mg/dl
(7-17)
Glucose 113 H mg/dl
(70-99)
Total Protein 6.2 L g/dl
(6.3-8.2)
04/24/24 09:08
04/24/24 09:08
Vital Signs
Initial and Last Documented VS:
Initial Vital Signs
Temp Pulse Resp BP Pulse Ox
98.9 F 89 16 158/74 98
04/24/24 07:54 04/24/24 07:54 04/24/24 07:54 04/24/24 07:54 04/24/24 07:54
Last Documented Vital Signs
Temp Pulse Resp BP Pulse Ox
98.9 F 100 21 121/70 96
04/24/24 07:54 04/24/24 09:11 04/24/24 09:09 04/24/24 09:21 04/24/24 09:13
MDM/Problems Addressed
Differential Diagnosis Includes:
68yoF here with generalized weakness, fatigue, diarrhea x 1 day. Also having difficulty swallowing and speaking x 2 days. Recent diagnosis of myasthenia gravis and symptoms are not improving with pyridostigmine. She is afebrile and hemodynamically
stable. Mild dysarthria and dysphagia noted on exam. Differential diagnosis includes but is not limited to: Myasthenia gravis exacerbation, dehydration, electrolyte abnormality, CLARE, failure to thrive
Initial ED plan: Check cardiac labs, magnesium, and EKG. Will consult neurology and respiratory therapy to obtain NIF.
*EKG
Interpreted by ED Provider?: Yes
EKG Intrepretation Date: 04/24/24
Heart Rate: 81
Rate: normal
Rhythm: sinus
[place]: normal axis
Interval: normal interval
QRS Pattern: normal QRS
Ischemia: no ischemia
*Critical Care Note
Total Time (30-74mins, 75-104mins- exclusive of procedures): Not Applicable
Update Note
Update Note:
NIF -30. Patient was evaluated by neurology team. Patient initiated on IV Solu-Medrol and IVIG therapy. She was admitted for further evaluation and management.
ED Attending Note
-
Portions of this chart may have been created with voice recognition software.� Occasional wrong word or��sound alike� substitutions may have occurred due to the inherent limitations of voice recognition software.
Discharge Plan
Departure
Patient Disposition: Admit
Date of Disposition: 04/24/24
Time of Disposition: 09:30
Presentation/result/management discussed w/ accepting /DO: Hospitalist
Discharge Problem:
Acute exacerbation of myasthenia gravis
Prescriptions:
No Action
hydrocodone-acetaminophen 7.5-325 mg Tablet
1 tab PO TIDPRN PRN (Reason: SEVERE pain)
buspirone 10 mg Tablet
10 mg PO BID
escitalopram oxalate [Lexapro] 10 mg Tablet
20 mg PO DAILY
bupropion HCl [Wellbutrin XL] 300 mg Tablet Extended Release 24 Hr
300 mg PO DAILY
acetaminophen [Tylenol] 325 mg Tablet
650 mg PO Q4HPRN PRN (Reason: MILD PAIN)
aspirin 81 mg Tablet,Delayed Release (Dr/Ec)
81 mg PO DAILY
cyclobenzaprine 5 mg Tablet
5 mg PO HS
trospium 20 mg Tablet
20 mg PO BID
Prolia 60 mg/mL Syringe
60 mg SC [id number]
ropinirole 2 mg tablet
2 mg PO TID
pyridostigmine bromide 60 mg tablet
60 mg PO TID 30 Days Qty: 90 3RF
ferrous sulfate 325 mg (65 mg iron) tablet
325 mg PO Q OTHER DAY 90 Days Qty: 45 10RF
cyanocobalamin (vitamin B-12) 1,500 mcg tablet,chewable
1,500 mcg PO DAILY 90 Days Qty: 90 10RF
Referrals:
Leida Mendez DO [Family Provider] -
Interventions
Interventions:
*Risk Screen - Suicide Last Done: 04/24/24 07:54
*General Assessment Last Done: 04/24/24 09:11
*Neglect/Abuse Screening Last Done: 04/24/24 07:54
*ED COVID-19 Vaccine History Last Done: 04/24/24 09:11
ED- Cardiac Assessment Last Done: 04/24/24 09:24
ED- Neurological Assessment Last Done: 04/24/24 09:13
ED- Pulmonary Assessment Last Done: 04/24/24 09:13
Discharge Date and Time
Print Language: FRISIAN
[2024-04-24 09:19] LABS: % Basophils 0.5 % (0-2); % Eosinophils 0.2 % (0-6); % Immature Granulocytes 0.6 % (0-0.5); % Monocytes 9.2 % (1.7-9.3); % Neutrophils 82.5 % (42.2-75.2); Absolute Basophils 0.1 10^3/uL (0-0.2); Absolute Immature Granulocytes 0.1 10^3/uL (0-0.05); Absolute Lymphocytes 0.7 10^3/uL (1.2-3.4); Absolute Monocytes 0.9 10^3/uL (0.1-0.6); Absolute Neutrophils 7.8 10^3/uL (1.4-6.5); Hemoglobin 11.3 g/dL (12.0-16.0); Mean Corp Hgb Conc. 32.3 g/dL (33.0-37.0); Mean Corpuscular Hgb 30.8 pg (27.0-31.0); Mean Corpuscular Volume 95.4 fL (81.0-99.0); Nucleated Red Blood Cells % 0 %; Platelet Count 212 10^3/uL (130-400); Red Blood Cell Count 3.67 10^6/uL (4.20-5.40); Red Cell Dist. Width 14.4 % (11.5-14.5); White Blood Cell Count 9.5 10^3/uL (4.8-10.8)
--- NOTE | 2024-04-24 09:23 | CON.NEURO4 ---
Addendum entered and electronically signed by Milton Amaya MD 04/24/24 16:11:
Studies reviewed.
I have personally examined the patient. I reviewed and agree with the SURGICAL FORCEPS FABRICATOR's Note.
My addenda:
Awake, alert, interactive. No acute distress.
Speech nasal and rarely dysarthric.
Follows 2-step requests w/o difficulty. No tremor.
Extra-ocular movements with minimal reduction in upgaze bilaterally, otherwise intact.
Facial movements reduced bilaterally with horizontal smile. Hearing intact to normal conversational volume.
Normal UE movements bilaterally.
Neck: full ROM.
Chest: no dyspnea
Heart: no JVD
Ext: (-) Clubbing, (-) Cyanosis, (-) Edema
IMPRESSIONS/RECOMMENDATIONS:
Abrupt onset of exacerbation of myasthenia gravis as the patient is experiencing symptomatic dysphagia as well as limb weakness
With restless legs into open diagnosis previously secondary to low ferritin
Initiate immunoglobulin 400 mg/kg/day x 5 days
Initiate methylprednisolone 1 g IV x 5 days
Follow pulmonary function through repeated testing
Restart Pyridostigmine when patient able to take by mouth
Continue to provide IV iron
Close monitoring for respiratory support
D/W patient / family
All questions answered.
Will continue to follow patient.
Original Note:
Consultation - Neurology 4
-
CONSULTING PHYSICIAN: Milton Amaya MD
REFERRING PHYSICIAN: SAMANTHA/Jaelyn Patino PA-C
DICTATED BY: VALERIE Gandhi
DATE/TIME OF REQUEST: 04/24/24
DATE/TIME OF CONSULTATION: 04/24/24
Reason for Consultation: Concern for myasthenia gravis acute exacerbation
History of Present Illness:
This is a 68-year-old right-handed female who has presented to the hospital with report of severe dysarthria, difficulty swallowing, and weakness. Patient was previously hospitalized at from 04/11/24-04/12/24 with similar symptoms. MRI brain was
negative for any acute findings. Myasthenia antibody testing was positive and patient's symptoms improved with initiation of pyridostigmine.
From previous evaluation by Neurology Dr. Calles on 04/10/24:
'This is a 68-year-old woman who presented to [facility] on April 11, 2024 with dysphagia and dysarthria. According to the patient she developed difficulty swallowing after a pill got caught as well as slurred speech on
04/09/2024. Since then, she has had trouble swallowing liquids well as intermittent nasal regurgitation and intermittent dysarthria. She has had loose dentures since 2009.
Ms. Seaman endorses transient numbness in her bilateral chin lasting for 45 minutes last night, affecting both sides of her chin. No tongue numbness, sialorrhea, dyspnea, diplopia, headaches, motor or additional sensory deficits.'
Patient reports that since hospital discharge on 04/12/24 her speech had been back to normal at times but still wasn't completely normal and she was still feeling like food was getting stuck in her throat. She has been taking pyridostigmine 60mg TID
and reports tolerating it until two days ago. Two days ago on 04/22/24 she reports that her speech started sounding 'nasally'/dysarthric again and swallowing significantly worsened. When she goes to drink water, it is coming back up out of her nose
and food feels like it is stuck in her throat. She endorses being significantly incontinent of urine and started having to wear depends two days ago which is unusual for her. She had been tolerating pyridostigmine but yesterday she endorses several
episodes of explosive diarrhea. She had a R THR in 02/2024 and has been ambulating with a rolling walker or can since then. For the past two days she endorses being severely weak compared to baseline. She also notes feeling very nauseous, short of
breath and mildly dizzy, she denies any vomiting. This morning (04/24/24), she tried to shower prior to her outpatient Neurology appointment, and she was unable to brazing furnace feeder the shower or get herself dressed due to severe leg and arm fatigue,
prompting her to come to the ER for evaluation. She denies any headache, diplopia, numbness, chest pain, and palpitations.
Past Medical History: L Chappell's palsy, iron deficiency anemia, chronic pain syndrome, MDD, MONISHA, RLS, left Dupuytren contractures, osteoarthritis, lumbar spinal stenosis, vitamin B12 deficiency, stress incontinence
Surgical History: R DEE 02/2024, gastric bypass, left hand surgery, R TKR, BL cataract removal.
Family History: Reviewed and noncontributory.
Social History: Occasional alcohol. Former marijuana. Denies tobacco. Lives with son. 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
Allergies: Penicillins.
Home Medications: See below.
Review of Symptoms:
Patient denies any fever, headache, chest pain, or symptoms.
�Per the HPI.�All systems are reviewed negative except above.
Physical Exam:
The patient is afebrile, abdomen is nondistended, breathing is unlabored, skin is warm and dry, BLE +2 edema, R hip seroma.
Neurologic Examination:
The patient is awake, alert and oriented x 3. She is able to follow commands and answer questions appropriately. There is no aphasia. Speech is nasally/dysarthria. On cranial nerve assessment, pupils are 3 mm bilateral, round and reactive to light
and accommodation. Visual ferrer are full. Extraocular movements are intact. Facial sensations are intact and bilaterally symmetrical, there is no facial asymmetry but facial movements are diminished bilaterally. Hearing is intact bilaterally to
normal conversation volume. Tongue palate and uvula are midline. Sternocleidomastoid strengths are 5- on the right. Motor strengths are 5/5 bilateral upper and left lower extremities, RLE 4/5 (limited due to pain) on medical research [place] scale.
Neck flexion/extension 5/5. There is no drift or involuntary movement noted. Babinski is absent bilaterally. Sensations of touch, temperature and vibration are intact and bilaterally symmetrical. There was no extinction noted on double simultaneous
stimulation. Coordination is intact by finger to nose bilaterally.
Lab Results: See below.
Neuro Imaging:
1. MRI brain 04/11/24: Limited exam. No overt acute intracranial abnormality noted.
2. CT Chest 04/12/24: No acute findings in the chest. Scattered pulmonary micronodules which are likely infectious/inflammatory. No evidence of mediastinal lesion. Hepatic steatosis. Patulous esophagus with small hiatal hernia and postoperative
changes along the gastroesophageal junction.
Differentials for the patient's presentation include:
1. Acute exacerbation of myasthenia gravis.
2. RLS.
3. CT chest negative for thymoma.
Patient has the following risk factors for their symptoms: Myasthenia gravis
Recommendations:
-Initiate a 5 day course of IV immunoglobulin and methylprednisolone 1000mg IV.
-PT/OT/ST evaluations.
-Daily NIF testing.
-Holding pyridostigmine due to dysphagia.
-DVT prophylaxis.
-Will follow.
Discussed patient care with: Dr. Amaya, the patient, patient's son
Vital Signs and Labs
-
Vital Signs and Labs:
Vital Signs
Temp Pulse Resp BP Pulse Ox
98.9 F 124 21 125/65 96
04/24/24 07:54 04/24/24 10:00 04/24/24 09:09 04/24/24 10:00 04/24/24 09:13
Lab Results
04/24/24 09:08
04/24/24 09:08
Sodium 137 mmol/L (135-145) 04/24/24 09:08
Potassium 4.0 mmol/L (3.5-5.1) 04/24/24 09:08
BUN 19 mg/dl (7-17) H 04/24/24 09:08
Glucose 113 mg/dl (70-99) H 04/24/24 09:08
Calcium 9.2 mg/dl (8.4-10.2) 04/24/24 09:08
Medications
-
Active Medications
Generic Name Dose Route Start Last Admin
Trade Name Freq PRN Reason Stop Dose Admin
Famotidine 20 mg 04/24/24 22:00
Famotidine 20 Mg/2 Ml Vial IV 04/29/24 21:59
HS ANDREA
Methylprednisolone Sodium 258 mls @ 258 mls/hr 04/24/24 10:00 04/24/24 10:32
Succinate 1,000 mg/ Sodium IV 04/28/24 10:59 258 mls
Chloride Q24H ANDREA Administration
Immune Globulin 20 gram in 200 mls @ 0 mls/hr 04/24/24 10:00
Gammagard IV 04/28/24 10:01
DAILY@1000 ANDREA
Protocol
Per Protocol
Immune Globulin 5 gram in 50 mls @ 0 mls/hr 04/24/24 10:00
Gammagard IV 04/28/24 10:01
DAILY@1000 ANDREA
Protocol
Per Protocol
Sodium Chloride 8 ml 04/24/24 22:00
Nss 8 Ml Qhs IV 05/22/24 21:59
HS ANDREA
Home Medications
�Medication �Instructions �Recorded
bupropion HCl 300 mg 24 hr tablet, 300 mg PO DAILY Depression 10/11/22
extended release (Wellbutrin XL)
buspirone 10 mg tablet 10 mg PO BID Mental Health/Anxiety 10/11/22
hydrocodone 7.5 mg-acetaminophen 1 tab PO QIDPRN PRN SEVERE pain 10/11/22
325 mg tablet
cyclobenzaprine 5 mg tablet 5 mg PO HS pain/muscle spasms 04/11/24
denosumab 60 mg/mL subcutaneous 60 mg SC [id number] osteoporosis 04/11/24
syringe (Prolia)
ropinirole 2 mg tablet 4 mg PO TID Restless legs 04/11/24
pyridostigmine bromide 60 mg tablet 60 mg PO TID 30 days #90 tabs 04/12/24
acetaminophen 500 mg tablet 1,000 mg PO Q6HPRN PRN MILD PAIN 04/24/24
escitalopram oxalate 20 mg tablet 20 mg PO DAILY 04/24/24
loperamide 2 mg capsule 2 mg PO DAILY PRN DIARRHEA 04/24/24
[2024-04-24 09:35] LABS: ALT (SGPT) 20 U/L (0-35); AST (SGOT) 32 U/L (14-36); Albumin 3.8 g/dl (3.5-5.0); Alkaline Phosphatase 89 U/L (38-126); Blood Urea Nitrogen 19 mg/dl (7-17); Calcium 9.2 mg/dl (8.4-10.2); Carbon Dioxide 31 mmol/L (22-30); Chloride 97 mmol/L (98-107); Estimated Creatinine Clearance 67 ml/min; Glucose 113 mg/dl (70-99); Magnesium 1.9 mg/dl (1.6-2.3); Sodium 137 mmol/L (135-145); Total Bilirubin 0.5 mg/dl (0.2-1.3); Total Protein 6.2 g/dl (6.3-8.2); eGFR > 60.00
[2024-04-24 09:45] LABS: Troponin I < 0.012 ng/ml
[2024-04-24] MEDS: SOLU-MEDROL 258 MG IV (10:32)
[2024-04-24] MEDS: NSS 500 IV (10:36)
--- NOTE | 2024-04-24 11:23 | CM ---
CM reviewed chart. CM introduced self and role. Patient is here for Acute exacerbation of myasthenia gravis. She is independent. She lives in a split-level home. She has a ramp which enters into her home. She lives with her son (who is a
parapelegic) and '4 others'. She drives. She denies +SDOHs. Her PCP is Dr. Tonia Mendez and she uses the [facility] on [address]. 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
ANTICIPATED DISCHARGE DISPO: Discharge to home once medically cleared.
--- NOTE | 2024-04-24 11:45 | HPS.HSE ---
Family Physician
-
Family Physician: Leida Mendez,
Chief Complaint
-
Slurred speech/difficulty swallowing
History of Present Illness
Patient is a 68-year-old female with past medical history of recent diagnosed myasthenia gravis, depression/anxiety, history of iron deficiency anemia, history of gastric bypass, history of right TKR, restless leg syndrome, osteoarthritis, history
of vitamin B12 deficiency, overactive bladder came to ER for worsening swallowing difficulty and slurred speech. Patient has been diagnosed for myasthenia gravis earlier this month and was started on palliative treatment and discharged home.
Patient was having appropriate response and was feeling well overall. Over the last 2 to 3 days patient started having more generalized weakness/fatigue. Started to noticing having choking episode/regurgitation with food coming out of nose at
point. Patient also had slurring of words and change in speech. Denies any diplopia/neck weakness. Does have some dyspnea on exertion as well.
Patient denies of having any recent upper respiratory tract infection/afebrile/no productive cough reported.
Patient tachycardic in the ER although denies of having any chest pain/palpitation/dizziness episode.
No GI/ complaints.
Medical History
Past Medical History
Past Medical History: Reports Other
Additional Past Medical History:
myasthenia gravis, depression/anxiety, history of iron deficiency anemia, history of gastric bypass, history of right TKR, restless leg syndrome, osteoarthritis, history of vitamin B12 deficiency, overactive bladder
Past Surgical History: Reports None and Other
Social History
Tobacco: Non-smoker
Alcohol: Occasional
Drug: Marijuana (Not current )
Personal:
Living: With Family
Employment: Not Employed
Family History
Family History: Not pertinent
Allergies / Home Medications
Allergies reflects when Allergies were last updated in [facility].
Home Medications with original date entered in [facility]
Allergy/Medication List:
Allergies
Allergy/AdvReac Type Severity Reaction Status Date / Time
Penicillins Allergy Severe Anaphylaxis Verified 04/24/24 07:54
Home Medications
bupropion HCl 300 mg 24 hr tablet, extended release (Wellbutrin XL) 300 mg PO DAILY Depression 10/11/22
buspirone 10 mg tablet 10 mg PO BID Mental Health/Anxiety 10/11/22
hydrocodone 7.5 mg-acetaminophen 325 mg tablet 1 tab PO QIDPRN PRN SEVERE pain 10/11/22
cyclobenzaprine 5 mg tablet 5 mg PO HS pain/muscle spasms 04/11/24
denosumab 60 mg/mL subcutaneous syringe (Prolia) 60 mg SC [id number] osteoporosis 04/11/24
ropinirole 2 mg tablet 4 mg PO TID Restless legs 04/11/24
pyridostigmine bromide 60 mg tablet 60 mg PO TID 30 days #90 tabs 04/12/24
acetaminophen 500 mg tablet 1,000 mg PO Q6HPRN PRN MILD PAIN 04/24/24
escitalopram oxalate 20 mg tablet 20 mg PO DAILY 04/24/24
loperamide 2 mg capsule 2 mg PO DAILY PRN DIARRHEA 04/24/24
Review of Systems
-
A 12 point ROS was completed and negative except as noted: Yes
Physical Exam
Vital Signs
Vital Signs
Temp Pulse Resp BP Pulse Ox
98.9 F 125 32 126/70 92
04/24/24 07:54 04/24/24 11:00 04/24/24 11:00 04/24/24 11:00 04/24/24 11:00
Physical Exam
General: Well Developed, Well Nourished and No Apparent Distress
HEENT: NormoCephalic, Moist mucous membranes and Atraumatic
Respiratory: Clear
Cardiac: S1/S2 and Regular Rhythm; No Murmur or Rub
GI: Soft, Non Tender, Non Distended and Normal Bowel Sounds; No Organomegaly
Rectal: Deferred by Provider
Musculoskeletal: No Clubbing, No Cyanosis and No Edema
Skin: No Rash
Neuro: Nonfocal/grossly intact
Laboratory Results
-
04/24/24 09:08
04/24/24 09:08
Laboratory Results
Total Bilirubin 0.5 mg/dl (0.2-1.3) 04/24/24 09:08
AST 32 U/L (14-36) 04/24/24 09:08
ALT 20 U/L (0-35) 04/24/24 09:08
Alkaline Phosphatase 89 U/L (38-126) 04/24/24 09:08
Troponin I < 0.012 ng/ml 04/24/24 09:08
Data Reviewed
-
Lab Data: Labs Reviewed by me and Discussed with Patient
Impression/Plan
-
1. Myasthenia gravis flare up
-Recent diagnosis earlier in the month and was on pyridostigmine 60 mg 3 times daily
-Came in with difficulty with swallowing/dyspnea/slurred speech
-Evaluated by neurologist in ER, recommended to be started on IVIG/high-dose Solu-Medrol
-Patient to be admitted to IMU for closer monitor
-Check NIP/VC q6h
-O2 support if needed
-ST evaluation before starting diet
2 Depression/anxiety
-Maintain on home dose of Wellbutrin/escitalopram
-Hold buspirone as sedative in nature
3. Sinus tachycardia
-Related to pyridostigmine use ?
-No signs of secondary infection. monitor
history of iron deficiency anemia
history of gastric bypass
history of right TKR
restless leg syndrome
osteoarthritis
history of vitamin B12 deficiency
overactive bladder
DVT PPX - lovenox
Full code
Total time spent : 79 mins
I personally saw and examined the patient.
I have reviewed all diagnostic interpretations and treatment plans as written.
Time includes patient management by me, time spent at the patients bedside, time to review lab and imaging results, discussing patient care, documentation in the medical record, and time spent with the family or caregiver and discussing care plan
with RN/Consultants.
[2024-04-24] MEDS: GAMMAGARD 200 IV (12:13)
[2024-04-24] MEDS: GAMMAGARD 50 IV (12:14)
--- NOTE | 2024-04-24 13:09 | PTCARENOTE ---
1230: Patient arrived to IMU by stretcher. Patient assist x1 with rolling walker from stretcher to bed. Patient AOx3. Patient on RA with SpO2 greater than 92%. HR in 120's and patient asymptomatic. Dr. Segura made aware and lopressor ordered. IVIG
running per order. Call hernandez within reach, bed in lowest position, and wheels locked. Care ongoing at this time.
[2024-04-24] MEDS: LEXAPRO 20 MG PO (13:50)
[2024-04-24] MEDS: WELLBUTRIN XL (24 hour extended release) 300 MG PO (13:50)
--- NOTE | 2024-04-24 14:50 | PTOTSP ---
Speech Language Pathology
Pt seen for speech evaluation. Pt has finished 1 round of IVIG this date and already feels much better. She reported that both speech and swallowing are much improved since earlier this date. Mild dysarthria noted characterized by hypernasality
with nasal emission and imprecise consonant production. However, pt was 100% intelligible in both known and unknown contexts. Will monitor.
Pt also seen for clinical bedside swallow evaluation. Pt edentulous. Stated she has dentures, but she does not wear them to eat. Baseline diet is typically softer foods, with meats being pureed. This has been since gastric bypass and resultant
issues following this, not for an oropharyngeal dysphagia. P.O. trials of puree, regular solids, and thin liquids provided. Slightly prolonged mastication noted secondary to edentulous status. No overt signs of aspiration.
Recommend:
(1) IDDSI Level 6 (soft/bite-sized) and thin liquids, as this most resembles pt's baseline diet
(2) Aspiration precautions: sit upright, eat only when alert, take break if fatigued
(3) Meds as tolerated
(4) PUBLIC SPEAKING TEACHER to continue to follow
--- NOTE | 2024-04-24 15:53 | PTOTSP ---
pt currently requires supervision to complete simple ADLs, functional transfers, ambulation. pt reports feeling better after first treatment for myasthenia gravis. no acute OT needs identified at this time, will sign off.
[2024-04-24 16:17] LABS: IgA 174 mg/dl (70-400); IgG 696 mg/dl (700-1600); IgM 31 mg/dl (40-230)
[2024-04-24] MEDS: REQUIP 4 MG PO ×2 (17:02→21:56)
[2024-04-24] MEDS: LOVENOX 40 MG SC (17:02)
--- NOTE | 2024-04-24 17:08 | PTCARENOTE ---
Patient AOx3. Patient stated that speech and swallowing 'feels much better after IVIG infusion'. Patient cleared by speech for IDDSI 6. Patient on RA with SpO2 greater than 92%. Sinus arrhythmia on monitor. Assist x1 with RW. Call hernandez within reach,
bed in lowest position, wheels locked.
--- NOTE | 2024-04-24 21:40 | PTCARENOTE ---
received pt from day shift. pt aaox3. NSR on the monitor. Hygeine completed and ANDREA meds administered. (see MAR) Pt resting in bed with call hernandez in reach.
[2024-04-24] MEDS: LOPRESSOR 12.5 MG PO (21:55)
[2024-04-24] MEDS: NSS (PRESERVATIVE FREE) 8 ML IV (21:56)
[2024-04-24] MEDS: PEPCID 20 MG IV (21:56)
[2024-04-25] VITALS (28 sets, daily range): BP systolic 81–148; BP diastolic 50–103; BMI 28.2
--- NOTE | 2024-04-25 02:08 | RESPNOTE ---
pt disinterested at this time for VC and NIF
[2024-04-25 06:09] LABS: Hematocrit 35.2 % (37.0-47.0); Hemoglobin 11.2 g/dL (12.0-16.0); Mean Corp Hgb Conc. 31.8 g/dL (33.0-37.0); Mean Corpuscular Hgb 30.4 pg (27.0-31.0); Mean Corpuscular Volume 95.7 fL (81.0-99.0); Platelet Count 246 10^3/uL (130-400); Red Blood Cell Count 3.68 10^6/uL (4.20-5.40); Red Cell Dist. Width 13.8 % (11.5-14.5)
[2024-04-25 06:27] LABS: Blood Urea Nitrogen 23 mg/dl (7-17); Carbon Dioxide 29 mmol/L (22-30); Chloride 103 mmol/L (98-107); Estimated Creatinine Clearance 85 ml/min; Glucose 143 mg/dl (70-99); Potassium 5.1 mmol/L (3.5-5.1); Sodium 142 mmol/L (135-145); eGFR > 60.00
[2024-04-25] MEDS: LOPRESSOR 12.5 MG PO (08:15)
[2024-04-25] MEDS: REQUIP 4 MG PO (08:15)
[2024-04-25] MEDS: SOLU-MEDROL 258 MG IV (08:16)
[2024-04-25] MEDS: WELLBUTRIN XL (24 hour extended release) 300 MG PO (08:16)
[2024-04-25] MEDS: LEXAPRO 20 MG PO (08:16)
[2024-04-25] MEDS: GAMMAGARD 50 IV (10:19)
--- NOTE | 2024-04-25 10:41 | RESPNOTE ---
Pt was agitated by doing VC, didn't have a good seal and refused to perform NIF/ MIP
--- NOTE | 2024-04-25 11:21 | PTOTSP ---
Dysphagia Therapy
Worsened dysarthria and dysphagia observed. Patient with sensation of pharyngeal stasis, wet vocal quality, and coughing with small single sips of thin water.
Recommend:
1. Temporary NPO
2. Medications: non-oral
3. Aspiration Risk Hydration Protocol - hold at this time
4. Oral care 3x daily with suctioning
5. SENIOR RELIABILITY ENGINEER to continue to follow and determine if/when able to reinitiate oral diet and/or when video swallow study is appropriate.
[2024-04-25] MEDS: GAMMAGARD 200 IV (11:26)
[2024-04-25] MEDS: MESTINON PO ×6 (11:37→21:57)
--- NOTE | 2024-04-25 12:37 | CON.ONC ---
Documented by User: VALERIE Estevez 04/25/24 12:56
Impression
Impression
myasthenia gravis
Plan
Plan
management per neurology
[facility] starting today as recommended by neurology every other day for 5 treatments
daily cbc, bmp, magnesium, phosphorus, LDH, fibrinogen, coags.
Patient History
History of Present Illness
68-year-old female with past medical history of recent diagnosed myasthenia gravis presented the to ER for worsening swallowing difficulty and slurred speech. Patient has been diagnosed for myasthenia gravis earlier this month and was started
pyridostigmine by neurology and discharged home. Patient initially reported improvement of symptoms, however, over the last 2 to 3 days patient started having more generalized weakness/fatigue, choking episodes, and regurgitation of food, and
speech disturbance. She denies any diplopia/neck weakness. Brain MRI wo rashard(technically limited) no acute abnormalities.
Denies fever, chills, cough, sob at rest, n/v/d/c or abomimal pain.
Past-Medical/Surgical History
PMH myasthenia gravis, depression/anxiety, history of iron deficiency anemia,restless leg syndrome, osteoarthritis, history of vitamin B12 deficiency, overactive bladder
PSH R DEE 02/2024, gastric bypass, left hand surgery, R TKR, BL cataract removal.
Social occasional alcohol. Former marijuana. Denies tobacco. Lives with son. 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
Family non-contributory
Patient Medication
�Medication �Instructions �Recorded �Confirmed �Last Taken �Type
bupropion HCl 300 mg 24 hr tablet, 300 mg PO DAILY Depression 10/11/22 04/24/24 04/24/24 History
extended release (Wellbutrin XL)
buspirone 10 mg tablet 10 mg PO BID Mental Health/Anxiety 10/11/22 04/24/24 04/11/24 History
hydrocodone 7.5 mg-acetaminophen 1 tab PO QIDPRN PRN SEVERE pain 10/11/22 04/24/24 04/11/24 History
325 mg tablet
cyclobenzaprine 5 mg tablet 5 mg PO HS pain/muscle spasms 04/11/24 04/24/24 04/23/24 History
denosumab 60 mg/mL subcutaneous 60 mg SC [id number] osteoporosis 04/11/24 04/24/24 Unknown History
syringe (Prolia)
ropinirole 2 mg tablet 4 mg PO TID Restless legs 04/11/24 04/24/24 04/24/24 History
pyridostigmine bromide 60 mg tablet 60 mg PO TID 30 days #90 tabs 04/12/24 04/24/24 04/24/24 Rx
acetaminophen 500 mg tablet 1,000 mg PO Q6HPRN PRN MILD PAIN 04/24/24 04/24/24 04/24/24 History
escitalopram oxalate 20 mg tablet 20 mg PO DAILY 04/24/24 04/24/24 Unknown History
loperamide 2 mg capsule 2 mg PO DAILY PRN DIARRHEA 04/24/24 04/24/24 04/23/24 History
Active Medications
Generic Name Dose Route Start Last Admin
Trade Name Freq PRN Reason Stop Dose Admin
Acetaminophen 650 mg 04/24/24 12:26
Acetaminophen 325 Mg Tablet PO 05/22/24 12:25
Q4HPRN PRN
mild pain/DE LEON/temp> 100.4F
Bisacodyl 10 mg 04/24/24 12:26
Bisacodyl 10 Mg Rectal Suppository RECTAL 05/22/24 12:25
[id number] PRN
constipation
Bupropion HCl 300 mg 04/24/24 12:26 04/25/24 08:16
Bupropion (24hr) Extended Release 300 Mg Tablet PO 05/22/24 12:25 300 mg
DAILY ANDREA Administration
Enoxaparin Sodium 40 mg 04/24/24 18:00 04/24/24 17:02
Enoxaparin Sodium 40 Mg/0.4 Ml Syringe SC 05/22/24 17:59 40 mg
QPM ANDREA Administration
Escitalopram Oxalate 20 mg 04/24/24 12:26 04/25/24 08:16
Escitalopram 20 Mg Tablet PO 05/22/24 12:25 20 mg
DAILY ANDREA Administration
Famotidine 20 mg 04/24/24 22:00 04/24/24 21:56
Famotidine 20 Mg/2 Ml Vial IV 04/29/24 21:59 20 mg
HS ANDREA Administration
Methylprednisolone Sodium 258 mls @ 258 mls/hr 04/25/24 08:00 04/25/24 08:16
Succinate 1,000 mg/ Sodium IV 04/28/24 08:59 258 mls
Chloride Q24H ANDREA Administration
Metoprolol Tartrate 12.5 mg 04/24/24 20:00 04/25/24 08:15
Metoprolol 12.5 Mg Regular Release Dose (1/2 Of 25 Mg Tablet) PO 05/22/24 19:59 12.5 mg
BID ANDREA Administration
Polyethylene Glycol 17 grams 04/24/24 12:26
Polyethylene Glycol Powder 17 Grams Packet PO 05/22/24 12:25
DAILYPRN PRN
constipation
Pyridostigmine [place] 60 mg 04/25/24 10:00 04/25/24 12:24
Pyridostigmine 60 Mg Tablet PO 05/23/24 09:59 Not Given
QID ANDREA
Ropinirole HCl 4 mg 04/24/24 16:00 04/25/24 08:15
Ropinirole 2 Mg Tablet PO 05/22/24 15:59 4 mg
TID ANDREA Administration
Senna/Docusate Sodium 1 tablet 04/24/24 12:26
Docusate W/Senna (Sofie-Colace) Tablet PO 05/22/24 12:25
BIDPRN PRN
constipation
Sodium Chloride 8 ml 04/24/24 22:00 04/24/24 21:56
Nss 8 Ml Qhs IV 05/22/24 21:59 8 ml
HS ANDREA Administration
Sodium Chloride 0 flush 04/24/24 13:00
Sodium Chloride 0.9% (Flush) Syringe IV 05/22/24 12:59
PER PROTOCOL ANDREA
Review of Systems
-
ROS notable for HPI, otherwise negative
Physical Exam
-
HEENT: Moist Mucous Membranes; Negative Jaundice
Cardiology: S1 and S2
Pulmonary: Clear
GI: Soft
Extremities: Negative Edema
Skin: Warm
Psych: Calm
Labs
Lab Results
WBC 8.0 10^3/uL (4.8-10.8) 04/25/24 05:42
RBC 3.68 10^6/uL (4.20-5.40) L 04/25/24 05:42
Hgb 11.2 g/dL (12.0-16.0) L 04/25/24 05:42
Hct 35.2 % (37.0-47.0) L 04/25/24 05:42
MCV 95.7 fL (81.0-99.0) 04/25/24 05:42
MCH 30.4 pg (27.0-31.0) 04/25/24 05:42
MCHC 31.8 g/dL (33.0-37.0) L 04/25/24 05:42
RDW 13.8 % (11.5-14.5) 04/25/24 05:42
Plt Count 246 10^3/uL (130-400) 04/25/24 05:42
MPV 11.0 fL (7.4-10.4) H 04/25/24 05:42
Abs Immat Gran (auto) 0.1 10^3/uL (0-0.05) H 04/24/24 09:08
Absolute Neuts (auto) 7.8 10^3/uL (1.4-6.5) H 04/24/24 09:08
Absolute Lymphs (auto) 0.7 10^3/uL (1.2-3.4) L 04/24/24 09:08
Absolute Monos (auto) 0.9 10^3/uL (0.1-0.6) H 04/24/24 09:08
Absolute Eos (auto) 0.0 10^3/uL (0-0.7) 04/24/24 09:08
Absolute Basos (auto) 0.1 10^3/uL (0-0.2) 04/24/24 09:08
Immature Gran % 0.6 % (0-0.5) H 04/24/24 09:08
Neutrophils % 82.5 % (42.2-75.2) H 04/24/24 09:08
Lymphocytes % 7.0 % (20.5-51.1) L 04/24/24 09:08
Monocytes % 9.2 % (1.7-9.3) 04/24/24 09:08
Eosinophils % 0.2 % (0-6) 04/24/24 09:08
Basophils % 0.5 % (0-2) 04/24/24 09:08
Creatinine 0.7 mg/dL (0.6-1.0) 04/25/24 05:42
Vital Signs
Vital Signs
Temp Pulse Resp BP Pulse Ox
98.1 F 76 16 118/65 95
04/25/24 11:40 04/25/24 11:30 04/25/24 06:00 04/25/24 11:30 04/25/24 06:00

Documented by User: Tanmay Yang MD 04/25/24 15:12
Plan
Plan
management per neurology
[facility] starting today as recommended by neurology every other day for 5 treatments
daily cbc, bmp, magnesium, phosphorus, LDH, fibrinogen, coags.
Hematology Addendum:
Agree w/ FOREST OFFICER note and plan as outlined
-request by neurology to facilitate plasmapheresis treatment
-[place] was contacted and will coordinate plasmapheresis as per protocol for MG - as per neurology recommendations
-follow CBC, fibrinogen, coags daily
[2024-04-25 14:01] LABS: LDH 197 U/L (120-246); Magnesium 2.2 mg/dl (1.6-2.3); Phosphorus 3.8 mg/dl (2.5-4.5)
--- NOTE | 2024-04-25 14:33 | PTCARENOTE ---
Patient AAOx3, pleasant, tearful. States she is overwhelmed and scared. Comfort provided. Speech worse than yesterday. Patient reports tongue feels different today, MDs aware. IVIG DCd, to start plasmapheresis later today. Patient just returned from
getting R IJ apheresis catheter. Dressing CDI, patient with no complaints. Bed alarm on. Strict NPO. Speech to follow up. VSS. Continuing to closely monitor.
[2024-04-25 15:10] LABS: INR 1.09; PT 14.4 Sec (11.4-14.6)
[2024-04-25 15:11] LABS: APTT 34.6 Sec (23.4-35.0); Fibrinogen 516 MG/DL (199-459)
--- NOTE | 2024-04-25 15:23 | PTOTSP ---
Speech Language Pathology
Asked to return to see pt again, as pt is requesting to have her RLS meds and feels her swallowing is better. Initially 100% intelligible. Provided ice chip x2, sip of thin water, and 1/4 tsp of puree. Brief throat clear post thin water. With
puree, multiple swallows per bolus noted with pt endorsing pharyngeal residue, followed by throat clearing. During 10 minutes with pt, notable decrease in speech intelligibility noted secondary to fatigue. Discussed fatigue with MG and swallowing
fatiguing with talking. Discussed not talking for at least 20 minutes prior to attempting med.
Recommend:
(1) NPO
(2) Allow necessary meds with small sip of water if speech intelligible. If unintelligible, hold, as pt too fatigued to take P.O.
(3) Hold on ARHP until status more consistent
(4) PIPE WRAPPING MACHINE OPERATOR to continue to follow
--- NOTE | 2024-04-25 15:30 | W.PN.NEURO.1 ---
Addendum entered and electronically signed by Milton Amaya MD 04/25/24 17:57:
Studies reviewed.
I have personally examined the patient. I reviewed and agree with the CIGAR HEAD PEGGER's Note.
My addenda:
Awake, alert, interactive. No acute distress.
Speech thick to the point of unintelligible.
Follows 2-step requests w/o difficulty. No tremor.
Extra-ocular movements grossly intact. On the left eye nearly closing the eye, not on the right although lid does touch the iris
Facial movements reduced bilaterally equally. Hearing intact to normal conversational volume.
Normal UE movements reduced strength in bilateral upper extremities.
Neck: full ROM.
Chest: no dyspnea
Heart: no JVD
Ext: (-) Clubbing, (-) Cyanosis, (-) Edema
IMPRESSIONS/RECOMMENDATIONS:
Abrupt onset of exacerbation of myasthenia gravis
Suggested allergic reaction to initiation of immunoglobulin
Replace use of immunoglobulin with plasma exchange
Appreciate hematology consultation
Goal of plasma exchange will be 5 treatments leading to approximately 4 to 5 L of exchange
Continue methylprednisolone 1 g, IV, patient will have received 2 doses
Consider placement of Dobbhoff tube
Restart Pyridostigmine when oral access has been regained
Follow respiratory status
D/W patient
Will continue to follow patient.
Original Note:
Today's Communication / Plan
-
-may need to switch to plasmapheresis if no improvement of symptoms on IVIG
-continue methylprednisone
-consider Dobbhoff if unable to tolerate PO, would benefit from pyridostigmine
Neuro Assessment/Plan
Assessment
This is a 68-year-old right-handed female who has presented to the hospital with report of severe dysarthria, difficulty swallowing, and weakness. Patient was previously hospitalized at from 04/11/24-04/12/24 with similar symptoms. MRI brain was
negative for any acute findings. Myasthenia antibody testing was positive. Dysarthria had improved on pyridostigmine, but then worsened with increased difficulty swallowing. Now receiving IVIG and on methylprednisone with no significant
improvement of symptoms. Unable to take pyridostigmine d/t dysphagia.
Plan
-pt was cleared for soft diet, will attempt to give oral pyridostigmine, can crush if needed
-continue IVIG, consider plasmapheresis if no improvement with IVIG
-continue methylprednisone 1000 mg IV
-continue ongoing speech evaluations
-continue PT/OT
-daily NIF, closely monitor respiratory status
-DVT prophylaxis
Subjective/Objective
Subjective Data
Date of Service: April 25, 2024
Pt feels speech has worsened.
Objective Data
Vital Signs
Temp Pulse Resp BP Pulse Ox
98.3 F 76 27 131/60 96
04/25/24 12:40 04/25/24 14:00 04/25/24 14:00 04/25/24 14:00 04/25/24 14:00
Lab Results
04/25/24 05:42
04/25/24 05:42
PT 14.4 Sec (11.4-14.6) 04/25/24 14:52
INR 1.09 04/25/24 14:52
APTT 34.6 Sec (23.4-35.0) 04/25/24 14:52
Sodium 142 mmol/L (135-145) 04/25/24 05:42
Potassium 5.1 mmol/L (3.5-5.1) D 04/25/24 05:42
BUN 23 mg/dl (7-17) H 04/25/24 05:42
Glucose 143 mg/dl (70-99) H 04/25/24 05:42
Calcium 9.0 mg/dl (8.4-10.2) 04/25/24 05:42
Phosphorus 3.8 mg/dl (2.5-4.5) 04/25/24 05:42
Patient Allergies
Penicillins Allergy (Severe, Verified 04/24/24 07:54)
Anaphylaxis
Review of Systems
-
History Source: Patient
Constitutional: Weakness
EENT: No Symptoms Reported
Respiratory: No Symptoms
Cardiac: No Symptoms
Abdomen/GI: Other (difficulty with swallowing)
Musculoskeletal: Muscle Weakness
Skin: No Symptoms
Neuro: Weakness, Speech Problem and See existing Neuro Note
Endocrine: No Symptoms
Hematologic / Lymphatic: No Symptoms
Allergy / Immunology: No Symptoms
Physical Exam
-
General: Appears in Distress and Other (tearful)
Eyes: Round OU, No Ptosis (left eye ptosis) and PERRLA
HEENT: Normocephalic
Neck: Full Range of Motion
Respiratory: No Dyspnea
Cardiac: Regular Rhythm
GI: Soft
Skin: Unremarkable
Extremities: No Clubbing
Psych: Other (tearful)
Extended Neurological Exam
Mood & Affect: Other (tearful)
Attention Span & Concentration: Awake, Alert and No Difficulty with 2 Step Request
Memory: Unremarkable
Tremor: Hand Tremor Absent and Head Tremor Absent
Involuntary Movement: None
Speech: Dysarthric (severe)
Cranial Nerve II: Left Eye: Pupillary Reactivity Unremarkable and Pupillary Size Unremarkable
Cranial Nerve II: Right Eye: Pupillary Reactivity Unremarkable and Pupillary Size Unremarkable
Cranial Nerves III, IV, : Extraocular Movement: Extraocular Movement Full in all Directions and Ptosis on Left
Cranial Nerve V: Facial Sensation: Facial Sensation Unremarkable to Cold
Cranial Nerve VII: Facial Symmetry: Normal Facial Symmetry
Cranial Nerve VIII: Hearing: Unremarkable Hearing to Normal Conversational Volume
Cranial Nerves IX, X: Palate Movement: Palate Elevation Symmetric
Cranial Nerve XI: Shoulder Shrug: Unremarkable
Cranial Nerve XII: Tongue Protusion: Midline
Muscle Strength, Overall: Full Throughout
Muscle Bulk & Tone: Bulk Unremarkable and Tone Unremarkable
Pronator Drift: No Drift in Upper Extremities
Coordination: [id number] Testing Unremarkable
Data Reviewed
-
Labs: Report Reviewed
Reviewed with: Physician, Nurse and Other (speech therapist)
--- NOTE | 2024-04-25 15:58 | CM ---
Chart reviewed and recommendation from physical therapy is home with visiting nurses, options reviewed with patient and she has selected [facility] visiting [facility].
[facility]
[phone]
--- NOTE | 2024-04-25 16:22 | W.PN.HOSP.TC ---
Today's Communication/Plan
-
see note
Assessment / Plan
Assessment / Plan
1. Myasthenia gravis flare up
-Recent diagnosis earlier in the month and was on pyridostigmine 60 mg 3 times daily
-Came in with difficulty with swallowing/dyspnea/slurred speech
-Check NIP/VC q12h
-Maintain on steroids per neurology
-Patient have tongue swelling/slurred speech today suspected allergic reaction to IVIG, stopping further IVIG
-Discussed with neurology and recommended to initiate plasmapheresis. Hemorrhage oncology requested
-[facility] consulted and patient underwent having temporary catheter
-[place] has been notified and consent has been obtained from patient. Son has been notified about the process as well.
-Neurology also recommended Dobbhoff tube placement as patient has been failing speech therapy evaluation today, GI help requested in this regard
2 Depression/anxiety
-Maintain on home dose of Wellbutrin/escitalopram
-Hold buspirone as sedative in nature
3. Sinus tachycardia -resolved
-Related to pyridostigmine use ?
history of iron deficiency anemia
history of gastric bypass
history of right TKR
restless leg syndrome
osteoarthritis
history of vitamin B12 deficiency
overactive bladder
DVT PPX - lovenox
Full code
Patient at high risk of respiratory compromise/need of invasive ventilation. Continue close monitoring at intermediate care unit.
Total critical care time 45 mins . Total critical care time documented does not include time spent on separately billed procedures or the services of residents, students, nurses or physician assistants. I personally saw and examined the patient. I
have reviewed all diagnostic interpretations and treatment plans as written. I was present for the alexander portions of any procedures performed and the inclusive time noted in any critical care statement. Critical care time includes patient management
by me, time spent at the patients bedside, time to review lab and imaging results, discussing patient care, documentation in the medical record, and time spent with the family or caregiver.
Anticipated Discharge: > 48 hours
Subjective/Interval History
-
Date of Service: April 25, 2024
Reported tongue swelling the morning and garbled speech
No dyspnea/hypoxia
Afebrile overnight
Objective Data
-
Labs:
Laboratory Results
04/25/24 04/25/24
05:42 14:52
WBC 8.0
Hgb 11.2 L
Hct 35.2 L
Plt Count 246
PT 14.4
INR 1.09
APTT 34.6
Sodium 142
Potassium 5.1 D
Chloride 103
Carbon Dioxide 29
BUN 23 H
Creatinine 0.7
Glucose 143 H
Calcium 9.0
Vital Signs:
Vital Signs
Temp Pulse Resp BP Pulse Ox
98.2 F 76 27 131/60 96
04/25/24 15:33 04/25/24 14:00 04/25/24 14:00 04/25/24 14:00 04/25/24 14:00
I&O
04/24/24 04/25/24 04/26/24
06:59 06:59 06:59
Intake Total 480 / 480
Balance 480 / 480
Review of Systems
-
Respiratory: Reports No Symptoms
Cardiac: Reports No Symptoms
Abdomen/GI: Reports No Symptoms
Physical Exam
-
General: No Apparent Distress and Comfortable
HEENT: Negative Oxygen
Respiratory: Clear to Auscultation
Cardiac: Regular Rhythm and S1/S2; Negative Murmur or Rub
GI: Soft, Nontender, Nondistended and Normal Bowel Sounds
Musculoskeletal: No Edema
Neuro: Awake, Alert, Oriented and Slurred Speech
Psych: Calm
--- NOTE | 2024-04-25 16:52 | RESPNOTE ---
Patient had a better seal, 'I'm feeling better then this morning', a leak remains with NIF
[2024-04-25] MEDS: REQUIP PO ×3 (17:08→21:57)
[2024-04-25] MEDS: LOVENOX 40 MG SC (19:17)
--- NOTE | 2024-04-25 19:52 | RESPNOTE ---
pt declines NIF and VC as plasmapheresis starting and pt feels overwhelmed
[2024-04-25] MEDS: HEPARIN 10000 UNITS INTRACATH (21:29)
[2024-04-25] MEDS: CALCIUM GLUCONATE 10% INJECTION 283 MG IV (21:29)
[2024-04-25] MEDS: LOPRESSOR PO ×2 (21:46→21:57)
[2024-04-25] MEDS: PEPCID 20 MG IV (21:46)
[2024-04-25] MEDS: NSS (PRESERVATIVE FREE) 8 ML IV (21:47)
[2024-04-26] VITALS (66 sets, daily range): BP systolic 62–154; BP diastolic 49–119; PULSE 49; BMI 28.2
--- NOTE | 2024-04-26 01:00 | PTCARENOTE ---
assumed care of patient. pt is AAOx3- able to make needs known. garbled speech, some words able to be understood, other times patient will write down what she needs. no complaints of pain. pt unable to swallow any pills safely. at start of shift pt
getting 1st round of plasmapheresis. 96% RA. pt able to walk into bathroom x1 with RW without issues. care ongoing.
[2024-04-26 06:02] LABS: % Immature Granulocytes 0.7 % (0-0.5); % Lymphocytes 4.2 % (20.5-51.1); % Monocytes 4.9 % (1.7-9.3); % Neutrophils 90.2 % (42.2-75.2); Absolute Immature Granulocytes 0.1 10^3/uL (0-0.05); Absolute Lymphocytes 0.5 10^3/uL (1.2-3.4); Absolute Monocytes 0.6 10^3/uL (0.1-0.6); Absolute Neutrophils 11.5 10^3/uL (1.4-6.5); Hematocrit 37.6 % (37.0-47.0); Hemoglobin 12.1 g/dL (12.0-16.0); Mean Corp Hgb Conc. 32.2 g/dL (33.0-37.0); Mean Corpuscular Hgb 30.8 pg (27.0-31.0); Mean Corpuscular Volume 95.7 fL (81.0-99.0); Mean Platelet Volume 11.9 fL (7.4-10.4); Nucleated Red Blood Cells % 0 %; Platelet Count 274 10^3/uL (130-400); Red Blood Cell Count 3.93 10^6/uL (4.20-5.40); Red Cell Dist. Width 13.5 % (11.5-14.5); White Blood Cell Count 12.7 10^3/uL (4.8-10.8)
[2024-04-26 06:08] LABS: INR 1.29; PT 16.4 Sec (11.4-14.6)
[2024-04-26 06:09] LABS: APTT 32.1 Sec (23.4-35.0); Fibrinogen 210 MG/DL (199-459)
[2024-04-26 06:30] LABS: Blood Urea Nitrogen 27 mg/dl (7-17); Calcium 9.2 mg/dl (8.4-10.2); Carbon Dioxide 30 mmol/L (22-30); Chloride 103 mmol/L (98-107); Estimated Creatinine Clearance 85 ml/min; Glucose 114 mg/dl (70-99); LDH 179 U/L (120-246); Magnesium 2.2 mg/dl (1.6-2.3); Phosphorus 2.9 mg/dl (2.5-4.5); Potassium 3.5 mmol/L (3.5-5.1); Sodium 144 mmol/L (135-145); eGFR > 60.00
[2024-04-26] MEDS: BENADRYL 50 MG IV (06:52)
[2024-04-26] MEDS: SOLU-MEDROL 258 MG IV (06:52)
--- NOTE | 2024-04-26 07:08 | W.PN.UPDATE ---
Update Note
Progress Note Update
Rapid response called. Patient noted to be tachycardia on the monitor, patient reported having difficulty breathing. RN noted left eye slightly droopy, also with audible stridor, RT confirmed no strider noted. Patient AAO, noted to protruding tongue
in and out, with thick speech. tachypneic 24, tachycardic 120, oxygen level 96-100%. Will give Benadryl IV 50mg , Methylprednisolone IV infusion, stat ABG. Distress likely due to Myasthenia Gravis flare up, will transfer patient to ICU.
[2024-04-26 07:16] LABS: Hematocrit 42.3 % (37.0-47.0); Hemoglobin 13.2 g/dL (12.0-16.0); Mean Corp Hgb Conc. 31.2 g/dL (33.0-37.0); Mean Corpuscular Hgb 30.3 pg (27.0-31.0); Mean Corpuscular Volume 97.2 fL (81.0-99.0); Mean Platelet Volume 11.3 fL (7.4-10.4); Platelet Count 333 10^3/uL (130-400); Red Blood Cell Count 4.35 10^6/uL (4.20-5.40); Red Cell Dist. Width 13.8 % (11.5-14.5); White Blood Cell Count 15.4 10^3/uL (4.8-10.8)
[2024-04-26 07:17] LABS: INR 1.17; PT 15.2 Sec (11.4-14.6)
[2024-04-26 07:18] LABS: APTT 30.1 Sec (23.4-35.0)
--- NOTE | 2024-04-26 07:22 | RR ---
A Rapid Response was called on this patient, please see Rapid Response form.
pt noted to be setting off bed alarm, HR 140s, pt restless and thrashing in bed. pt with an audible stridor, oxygen dropping to 88%, rapid response called, non-rebreather placed on patient. left eye noted to be droopy, which is new. pt more weak
this morning, unable to walk now. pt feels like tongue is swelling. speech now unable to be understood. TOOL KEEPER to floor, PATIENT ACCESS SPECIALIST at bedside, IV benadryl given STAT, IV steroids hung early per TOOL KEEPER. pt transferred to ICU. report given at bedside. son
called twice with no answer per TOOL KEEPER.
[2024-04-26 07:30] LABS: ALT (SGPT) 21 U/L (0-35); AST (SGOT) 31 U/L (14-36); Albumin 4.6 g/dl (3.5-5.0); Alkaline Phosphatase 50 U/L (38-126); Blood Urea Nitrogen 28 mg/dl (7-17); Calcium 9.7 mg/dl (8.4-10.2); Carbon Dioxide 30 mmol/L (22-30); Chloride 103 mmol/L (98-107); Estimated Creatinine Clearance 85 ml/min; Glucose 119 mg/dl (70-99); Potassium 3.6 mmol/L (3.5-5.1); Sodium 145 mmol/L (135-145); Total Bilirubin 0.5 mg/dl (0.2-1.3); Total Protein 6.7 g/dl (6.3-8.2); eGFR > 60.00
[2024-04-26 07:31] LABS: Troponin I < 0.012 ng/ml
[2024-04-26 07:40] LABS: B.E. 2.2 mmol/L; HCO3 29.1 mmol/L (21-28); O2 Saturation % 98.5 % (94-98); PCO2 54 mmHg (32-35); PO2 93 mmHg (83-108); pH 7.34 (7.35-7.45)
--- NOTE | 2024-04-26 07:45 | SUR.PHASEI ---
Pt arrived to Rm [id number] via bed from IMU at 0705 s/p Rapid response. Pt awake and in notable distress, sitting upright in bed w/ RR mid 30's and using accessory muscles to breathe. HR 130-140's. Sinus Tach. POx 97-98% on O2 at 2l/min via NC.
Bilateral breath sounds w/ few scattered bibasilar crackles and diminished in bases. Pt's tongue protruding from mouth. Speech garbled and very difficult to understand- pt also using gestures and writing to communicate. Pt flailing in bed- legs
moving continuously and at times jerking her whole body forward. Pt confirms hx of restless leg syndrome. [place] texts to Dr Segura and Dr Amaya w/ update on pt's condition. Phone call placed to Dr Segura at his request and update provided over phone-
telephone order for Racemic Epi via nebulizer and Hiflow received and Resp Therapy at bedside notified of orders- placed pt on Hiflow 50l/50% w/ minimal reported improvement from pt in dyspnea. Pox 98-100%. Physical assessment completed as
documented. Close supervision provided for pt safety- at times swinging legs OOB. Emotional support and comfort care provided.
[2024-04-26] MEDS: VAPONEFRIN NEBS 0.5 ML INH (08:00)
[2024-04-26] MEDS: ATIVAN 1 MG IV (08:11)
--- NOTE | 2024-04-26 08:15 | PTCARENOTE ---
Dr Segura to room at 0750 to evaluate pt. Ativan given as ordered per AUG. Pt remains restless- flailing arms/legs in bed. Dyspnea unchanged. Pt notable diaphoretic. Dr Segura to call pt's son w/ update.
--- NOTE | 2024-04-26 08:16 | W.PN.HOSP.TC ---
Today's Communication/Plan
-
see note
Assessment / Plan
Assessment / Plan
1. Myasthenia gravis flare up
-Recent diagnosis earlier in the month and was on pyridostigmine 60 mg 3 times daily
-Came in with difficulty with swallowing/dyspnea/slurred speech
-Maintained on 1g solumedrol daily
04/25
-Patient have tongue swelling/slurred speech 04/25 in morning suspected allergic reaction to IVIG, stopping further IVIG
-Discussed with neurology and recommended to initiate plasmapheresis. Hem/onc and IRAD consulted. Patient got a temp cath
-[facility] has been notified and consent has been obtained from patient. Son has been notified about the process as well.
-Neurology also recommended Dobbhoff tube placement as patient has been failing speech therapy evaluation today, GI help requested in this regard
04/26
-Patient had rapid response 7 in the morning and was in some resp distress/anxious and more restless
-Stat ABG showing Ph 7.35 pco2 54 and pow 93 on o2
-Moved to ICU for further monitoring, provided racemic epinephrine
-Provided Ativan 0.5mg x2 to help the restlessness- patient tiring herself out more with constant activity and feeling of dyspnea.
-Discussed with on-call ICU/Son/Patient and possibly may require to be intubated.
2 Depression/anxiety
-Unable to get oral meds currently with dysphagia. no oral access
3. Sinus tachycardia -resolved
-Related to pyridostigmine use ?
-again tachycardic today
history of iron deficiency anemia
history of gastric bypass
history of right TKR
restless leg syndrome
osteoarthritis
history of vitamin B12 deficiency
overactive bladder
DVT PPX - lovenox
Full code
Total critical care time 40 mins . Total critical care time documented does not include time spent on separately billed procedures or the services of residents, students, nurses or physician assistants. I personally saw and examined the patient. I
have reviewed all diagnostic interpretations and treatment plans as written. I was present for the alexander portions of any procedures performed and the inclusive time noted in any critical care statement. Critical care time includes patient management
by me, time spent at the patients bedside, time to review lab and imaging results, discussing patient care, documentation in the medical record, and time spent with the family or caregiver.
Anticipated Discharge: > 48 hours
Subjective/Interval History
-
Date of Service: April 26, 2024
patient had rapid response early in morning for worsening tongue swelling
having worsening dyspnea and patient dyspneic
afebrile in the night
Objective Data
-
Labs:
Laboratory Results
04/26/24 04/26/24 04/26/24
05:24 06:50 07:27
WBC 12.7 H 15.4 H
Hgb 12.1 13.2
Hct 37.6 42.3
Plt Count 274 333 D
PT 16.4 H 15.2 H
INR 1.29 1.17
APTT 32.1 30.1
HCO3 29.1 H
Sodium 144 145
Potassium 3.5 D 3.6
Chloride 103 103
Carbon Dioxide 30 30
BUN 27 H 28 H
Creatinine 0.7 0.7
Glucose 114 H 119 H
Calcium 9.2 9.7
Total Bilirubin 0.5
AST 31
ALT 21
Alkaline Phosphatase 50
Vital Signs:
Vital Signs
Temp Pulse Resp BP Pulse Ox
98.4 F 107 21 154/98 100
04/26/24 03:08 04/26/24 06:12 04/26/24 06:12 04/26/24 06:12 04/26/24 07:42
I&O
04/25/24 04/26/24 04/27/24
06:59 06:59 06:59
Intake Total 480 / 480
Balance 480 / 480
Review of Systems
-
Respiratory: Reports Trouble Breathing; Denies Wheezing
Cardiac: Reports No Symptoms
Abdomen/GI: Reports No Symptoms
Physical Exam
-
General: Respiratory Distress; Negative Comfortable
HEENT: Oxygen (High flow 50L/min)
Respiratory: Clear to Auscultation; Negative Crackles
Cardiac: Regular Rhythm, S1/S2 and Tachycardic
GI: Soft, Nontender and Nondistended
Neuro: Awake, Alert, Oriented and Slurred Speech
--- NOTE | 2024-04-26 08:35 | CON.INTV ---
Addendum entered and electronically signed by Dc Gallardo MD 04/26/24 11:15:
Family history: Noncontributory
Original Note:
Consultation
Consultation Request
Date/Time Consultation Requested: 04/26/2024803
Date/Time Consultation Performed: 04/26/2024 - 832
Requesting Provider: Dr. Segura
Performing Provider: Dr. Gallardo
Reason for Consultation: Respiratory distress
Medical History
-
Chief Complaint: Nausea/diarrhea + difficulty swallowing
History of Present Illness:
68-year-old female non-smoker with a past medical history of Chappell's palsy syndrome, chronic pain syndrome, MDD, RLS, diffusions contractures, vitamin B12 deficiency, lumbar spinal stenosis and stress incontinence who presents with nausea + diarrhea
x 1 day. She denied abdominal pain. She recently had an iron infusion due to MATHIEU. She is also been having difficulty swallowing liquids with intermittent nasal regurgitation and trouble speaking. She had chin numbness 1 day TRANSITIONAL CARE LIAISON for about 45
minutes. She was recently hospitalized from 04/11 - 04/12/2024 where she was diagnosed with suspected myasthenia gravis at the presenting with worsening dysphagia. She was started on trial of pyridostigmine at that time with improvement of her
symptoms. Her acetylcholine receptor binding antibody levels are elevated at 8.1 from 04/11/2024. In the ER she was afebrile to 98.9 �F, pulse rate 89, breathing at 16 breaths/minute, BP 158/74 and saturating 98% on room air. Her initial MIP was
30 cmH2O with VC 2.7 L (106% predicted). Initial labs significant for mild anemia to 11.3, serum bicarbonate level 31, troponin negative at <0.012, IgG level mildly low at 696, and IgM level also reduced at 31. In the ER she was given IVF with a
500cc bolus of NS 0.9% and solumedrol 1g. She was initially admitted to the IMU for further care with neurology consulted. She was continued on pulse dose steroids, IVIG and continued on Mestinon. Unfortunately she became more short of breath and
tachycardic and rapid response called this morning she was transferred to the ICU for further management and started on high flow nasal cannula. Pack Room Operator consulted for additional management/recommendations.
When I saw the patient she was in respiratory distress, with conversational dyspnea and accessory muscle use. Heart rate 125, BP 155/102, and saturating 96% on high flow nasal cannula at 50% FiO2. Decision made to intubate (see separate procedure
note).
PMHx: Chappell's palsy syndrome, MATHIEU, chronic pain syndrome, major depression disorder, MONISHA, RLS, history of left Dupuytren's contractures, osteoarthritis, lumbar spinal stenosis, vitamin B12 deficiency, stress incontinence
PSHx: R�DEE (02/2024), gastric bypass, left hand surgery, R�TKA, bilateral cataract resection
Past Medical History
Past Medical History: Other (Above as per HPI)
Past Surgical History: Other (Above as per HPI)
Social History
Tobacco: Non-smoker
Alcohol: Occasional
Drug: Other (Former THC)
Living: With Family (Son)
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
Allergies / Home Medications
Allergies
Allergy/AdvReac Type Severity Reaction Status Date / Time
Penicillins Allergy Severe Anaphylaxis Verified 04/24/24 07:54
Home Medications
�Medication �Instructions �Recorded �Confirmed �Last Taken �Type
bupropion HCl 300 mg 24 hr tablet, 300 mg PO DAILY Depression 10/11/22 04/24/24 04/24/24 History
extended release (Wellbutrin XL)
buspirone 10 mg tablet 10 mg PO BID Mental Health/Anxiety 10/11/22 04/24/24 04/11/24 History
hydrocodone 7.5 mg-acetaminophen 1 tab PO QIDPRN PRN SEVERE pain 10/11/22 04/24/24 04/11/24 History
325 mg tablet
cyclobenzaprine 5 mg tablet 5 mg PO HS pain/muscle spasms 04/11/24 04/24/24 04/23/24 History
denosumab 60 mg/mL subcutaneous 60 mg SC [id number] osteoporosis 04/11/24 04/24/24 Unknown History
syringe (Prolia)
ropinirole 2 mg tablet 4 mg PO TID Restless legs 04/11/24 04/24/24 04/24/24 History
pyridostigmine bromide 60 mg tablet 60 mg PO TID 30 days #90 tabs 04/12/24 04/24/24 04/24/24 Rx
acetaminophen 500 mg tablet 1,000 mg PO Q6HPRN PRN MILD PAIN 04/24/24 04/24/24 04/24/24 History
escitalopram oxalate 20 mg tablet 20 mg PO DAILY 04/24/24 04/24/24 Unknown History
loperamide 2 mg capsule 2 mg PO DAILY PRN DIARRHEA 04/24/24 04/24/24 04/23/24 History
Review of Systems
-
Unable to Obtain full review of systems at this time due to: Acuity
Vitals / Labs / Diagnostic Testing
Vital Signs
Temp Pulse Resp BP Pulse Ox
98.4 F 107 21 154/98 100
04/26/24 03:08 04/26/24 06:12 04/26/24 06:12 04/26/24 06:12 04/26/24 07:42
Lab Data
04/26/24 06:50
04/26/24 06:50
Laboratory Results
04/25/24 04/26/24 04/26/24
14:52 05:24 06:50
PT 14.4 16.4 H 15.2 H
INR 1.09 1.29 1.17
APTT 34.6 32.1 30.1
pH
pCO2
pO2
HCO3
O2 Delivery Level
04/26/24
07:27
PT
INR
APTT
pH 7.34 L
pCO2 54 H
pO2 93
HCO3 29.1 H
O2 Delivery Level
Diagnostic Testing:
Physical Exam
-
HEENT: Normocephalic and Anicteric
Cardiovascular: S1/S2, Peripheral Edema (negative) and Other (Tachycardic)
Respiratory: Wheeze (negative), Rales (negative), Rhonchi (negative), Accessory Resp Muscle Use (Positive) and Other (Respiratory distress)
GI: Soft, Non Distended, Non Tender and Normal Bowel Sounds
Neurology: Awake, Alert and Tremors (negative)
Skin: Warm and Dry
General: Respiratory Distress (positive), Fever (negative), Chills (negative) and Sweats (negative)
Assessment
-
Assessment: 68-year-old female non-smoker with a PMHx of Chappell's palsy syndrome, chronic pain syndrome, MDD, RLS, diffusions contractures, vitamin B12 deficiency, lumbar spinal stenosis and stress incontinence who presents with nausea + diarrhea x 1
day. She was recently hospitalized from 04/11 - 04/12/2024 where she was diagnosed with suspected MG and discharged home on pyridostigmine he advised to follow-up with neurology. Her acetylcholine receptor binding antibody levels are elevated at 8.1
from 04/11/2024. She has been having difficulty swallowing liquids with intermittent nasal regurgitation and trouble speaking. Also had chin numbness 1 day TRANSITIONAL CARE LIAISON for about 45 minutes. She was admitted to the IMU where her VC was found to be normal
and MIP was 30 cmH2O. She was started on pulse dose steroids, IVIG, continued on her Mestinon and neurology consulted. Unfortunately she became more tachypneic with worsening work of breathing and transferred to the ICU and started on high flow
nasal cannula. Pack Room Operator services consulted and she was ultimately intubated. She remains in the ICU for further care.
Chronic conditions TRANSITIONAL CARE LIAISON: Chappell's palsy syndrome, MATHIEU, chronic pain syndrome, major depression disorder, MONISHA, RLS, history of left Dupuytren's contractures, osteoarthritis, lumbar spinal stenosis, vitamin B12 deficiency, stress incontinence
Impression:
#Acute respiratory failure with hypoxia + hypercapnia due to respiratory muscle weakness with suspected MG (elevated AChR-Ab levels: 8.1 on 04/11/2024) now on high flow nasal cannula
#Suspected myasthenia gravis acute exacerbation on pulse dose steroids and s/p IVIG x 2 doses c/b tongue swelling
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
#Leukocytosis � likely steroid-induced
#History of RLS due to iron deficiency anemia on outpatient iron infusions
#Major depression disorder
#Osteoarthritis
#Lumbar spinal stenosis
#History of stress incontinence
Plan:
- Emergently intubated in the ICU by tongue and groove machine feeder
- Continue mechanical ventilation with daily SAT/SBT if clinically appropriate
- Titrate PEEP + FiO2 to maintain SpO2 >90-94%
- Maintain plateau pressure <30
- prn DuoNebs (not currently bronchospastic)
- prn suctioning
- Lightly sedated with goal RASS 0 to -1
- Continuous EtCO2 monitoring
- Continue with pulse dose steroids and maintain euglycemia with goal BG 140�180
- Neurology consulted and recs appreciated
- Continue Mestinon
- She reportedly had tongue swelling that is suspected to be an adverse reaction to IVIG --> hold off on additional IVIG for now and continue to monitor tongue for worsening edema
- May need Benadryl +/- epi for tongue swelling if worsens
- Of note, her vital capacity checked on admission was WNL; unable to adequately perform NIF/MIP due to poor seal (edentulous)
- Awaiting to start plasma exchange --> if little improvement in respiratory status despite PLEX and pulse-dose steroids, she may need trach - continue to monitor
- Maintain MAP>65
- Replete electrolytes with K>4, Mg>2
- Trend H/H and transfuse if needed to keep Hb>7g/dL; keep plt>20k, unless there is concern for bleeding then keep plt>50k
- Continue pepcid mainly due to tongue swelling; stress ulcer ppx not indicated currently
- Start tube feeds
- DVT ppx: LMWH
Critical care statement: A total of 40 minutes of critical care time was provided for this patient today. This includes management of unstable vital signs, evaluation of the patient at bedside, reviewing the patient's pertinent medical records
including radiographs, microbiology, laboratory evaluations, and discussion with primary team, consultants, pharmacy, nutrition, physical therapy, case management, charge nurse, critical care nursing, and respiratory therapy.
[2024-04-26] MEDS: ANECTINE 80 MG IV (09:00)
[2024-04-26] MEDS: AMIDATE 25 MG IV (09:00)
--- NOTE | 2024-04-26 09:07 | W.SUR.POST ---
Surgical Immediate Post Op
Note
Endotracheal Intubation Procedure
Date of procedure: 04/26/2024
Pre Op Diagnosis: Acute respiratory distress
Post Op Diagnosis: Same as above
Procedure Performed: Endotracheal intubation
Primary Surgeon/proceduralist: Dr. Gallardo
Secondary Surgeons: N/A
Anesthesia: RSI with 25 mg etomidate +80 mg succinylcholine
Estimated Blood Loss: None
Fluids: N/A
Drains/Shunts: N/A
Specimens/Cultures: N/A
Doppler/Duplex/Angio (Y/N): N/A
Complications: No immediate complications
Operative Findings: Verbal consent obtained by patient due to emergent nature of clinical status. Patient was preoxygenated with 100% FiO2 via high flow nasal cannula and then changed to BVM for further support. RSI given with etomidate 25 mg +
succinylcholine 80 mg and then successfully intubated using video laryngoscope with size S3 blade. ETT size 7.5 used. Cords were easily visualized with no swelling or abnormality seen. ETT passed through the glottis without resistance. Stylette
removed and successful intubation confirmed with color capnometry and presence of bilateral breath sounds. CXR is pending and vent settings were communicated with respiratory therapist.
[2024-04-26] MEDS: SUBLIMAZE 50 MCG IV ×4 (09:18→20:30)
[2024-04-26] MEDS: PRECEDEX 100 IV (09:58)
[2024-04-26] MEDS: DIPRIVAN 100 IV ×3 (09:59→21:28)
[2024-04-26 10:05] LABS: B.E. 0 mmol/L; HCO3 26.8 mmol/L (21-28); O2 Saturation % 99.8 % (94-98); PCO2 52 mmHg (32-35); PO2 164 mmHg (83-108); pH 7.32 (7.35-7.45)
[2024-04-26] MEDS: MESTINON 60 MG PO ×4 (10:08→22:11)
[2024-04-26] MEDS: LEXAPRO 20 MG PO (10:08)
[2024-04-26] MEDS: LOPRESSOR 12.5 MG PO (10:08)
[2024-04-26] MEDS: WELLBUTRIN XL (24 hour extended release) PO (10:09)
--- NOTE | 2024-04-26 10:29 | W.PN.NEURO.1 ---
Today's Communication / Plan
-
Appreciate hematology oncology assistance with plasma exchange
Continue plasma exchange for total of 5, tomorrow will be the second
continue methylprednisone 1000 mg IV total of 5 doses, patient has received 2 doses
Replace ropinirole with rotigotine patch if unable to provide via Dobbhoff tube
Neuro Assessment/Plan
Assessment
Acute onset of severe dysarthria, difficulty swallowing, and weakness, due to myasthenia gravis exacerbation for unclear reasons
Patient experienced likely allergic reaction to immunoglobulins on 04/25/2024
Replaced immunoglobulins (single dose) with plasmapheresis due to probable allergic reaction, patient has received plasma exchange since 04/25/2024
Intubated 04/26/2024 due to airway protection need
Plan
Appreciate hematology oncology assistance with plasma exchange
Continue plasma exchange for total of 5, tomorrow will be the second
continue methylprednisone 1000 mg IV total of 5 doses, patient has received 2 doses
Replace ropinirole with rotigotine patch if unable to provide via Dobbhoff tube
Attempt extubation when possible
Attempt to reduce sedation when possible
Will follow
Subjective/Objective
Subjective Data
Date of Service: April 26, 2024
Objective Data
Vital Signs
Temp Pulse Resp BP Pulse Ox
36.9 C 117 21 132/84 99
04/26/24 03:08 04/26/24 10:08 04/26/24 06:12 04/26/24 10:08 04/26/24 09:54
Lab Results
04/26/24 06:50
04/26/24 06:50
PT 15.2 Sec (11.4-14.6) H 04/26/24 06:50
INR 1.17 04/26/24 06:50
APTT 30.1 Sec (23.4-35.0) 04/26/24 06:50
Sodium 145 mmol/L (135-145) 04/26/24 06:50
Potassium 3.6 mmol/L (3.5-5.1) 04/26/24 06:50
BUN 28 mg/dl (7-17) H 04/26/24 06:50
Glucose 119 mg/dl (70-99) H 04/26/24 06:50
Calcium 9.7 mg/dl (8.4-10.2) 04/26/24 06:50
Phosphorus 2.9 mg/dl (2.5-4.5) 04/26/24 05:24
Patient Allergies
Penicillins Allergy (Severe, Verified 04/24/24 07:54)
Anaphylaxis
Review of Systems
-
Unable to obtain full review of systems at this time due to: Patient Intubation and Lethargy
History Source: Patient
All other systems: Reviewed and negative
Physical Exam
-
General: No Apparent Distress, Intubated, Appears Stated Age and Other (Near continuous restless movements of bilateral lower extremities)
Eyes: Round OU, [place] Conjunctivae and No Ptosis
HEENT: Anicteric and Moist Mucous Membranes
Neck: Full Range of Motion
Respiratory: No Dyspnea
Cardiac: No JVD
GI: Non-distended
Skin: Unremarkable
Extremities: No Clubbing, No Cyanosis, No Edema and Other ([place]ammertoes)
Psych: Unable to Assess
Extended Neurological Exam
Mood & Affect: Unable to Assess
Attention Span & Concentration: Unresponsive to Verbal Stimuli; Negative Awake, Alert, Interactive or Unresponsive to Physical Stimuli
Memory: Unable to Assess
Tremor: Hand Tremor Absent and Head Tremor Absent
Speech: Unable to Assess
Cranial Nerve II: Left Eye: Unable to Assess Visual Goodman
Cranial Nerve II: Right Eye: Unable to Assess Visual Goodman
Cranial Nerve VII: Facial Symmetry: Normal Facial Symmetry
Cranial Nerve VIII: Hearing: Unable to Assess
Cranial Nerves IX, X: Palate Movement: Unable to Assess
Cranial Nerve XI: Shoulder Shrug: Other (Grossly intact)
Muscle Strength, Overall: Spontaneously Moves (All extremities)
Muscle Bulk & Tone: Bulk Unremarkable and Tone Unremarkable
Pronator Drift: Unable to Assess
Cold Sensation: Unable to Assess
Vibration Sensation: Unable to Assess
Touch Sensation: Unremarkable
Coordination: Unable to Assess
Gait & Station: Unable to Assess
Data Reviewed
-
Labs: Report Reviewed
Reviewed with: Physician and Nurse
Old Records: Summarized
Past History
Past History
ED Past Medical History: Psychiatric (Anxiety/depression, takes Lexapro 20, Wellbutrin 150, Requip 2 mg for restless leg, temazepam 15 mg at bedtime), Other (Myasthenia gravis, restless leg syndrome) and Other (Chronic arthritic pain, takes
hydrocodone 7.5/325 as needed.)
ED Past Surgical History: Other (N/A)
Social History
Tobacco: Vaping
Alcohol: None
Living: with family
Employment: Retired
Family History
Family History: Other (Reviewed and noncontributory)
Medications
-
Medications:
Generic Name Dose Route Start Last Admin
Trade Name Freq PRN Reason Stop Dose Admin
Acetaminophen 650 mg 04/24/24 12:26
Acetaminophen 325 Mg Tablet PO 05/22/24 12:25
Q4HPRN PRN
mild pain/DE LEON/temp> 100.4F
Bisacodyl 10 mg 04/24/24 12:26
Bisacodyl 10 Mg Rectal Suppository RECTAL 05/22/24 12:25
[id number] PRN
constipation
Bupropion HCl 300 mg 04/24/24 12:26 04/26/24 10:09
Bupropion (24hr) Extended Release 300 Mg Tablet PO 05/22/24 12:25 Not Given
DAILY ANDREA
Enoxaparin Sodium 40 mg 04/24/24 18:00 04/25/24 19:17
Enoxaparin Sodium 40 Mg/0.4 Ml Syringe SC 05/22/24 17:59 40 mg
QPM ANDREA Administration
Escitalopram Oxalate 20 mg 04/24/24 12:26 04/26/24 10:08
Escitalopram 20 Mg Tablet PO 05/22/24 12:25 20 mg
DAILY ANDREA Administration
Famotidine 20 mg 04/24/24 22:00 04/25/24 21:46
Famotidine 20 Mg/2 Ml Vial IV 04/29/24 21:59 20 mg
HS ANDREA Administration
Fentanyl Citrate 50 mcg 04/26/24 09:11 04/26/24 09:48
Fentanyl (50 Mcg/Ml) 100 Mcg/2 Ml Ampul IV 05/10/24 09:10 50 mcg
[id number] PRN Administration
see protocol
Protocol
Heparin Sodium 0 units 04/27/24 10:00
Heparin (1000 Units/Ml) 10,000 Units/10 Ml Vial INTRACATH 04/27/24 10:01
ONCE ONE
Methylprednisolone Sodium 258 mls @ 258 mls/hr 04/25/24 08:00 04/26/24 06:52
Succinate 1,000 mg/ Sodium IV 04/28/24 08:59 258 mls
Chloride Q24H ANDREA Administration
Albumin Human 12.5 grams in 250 mls @ 1,666.667 mls/hr 04/27/24 10:00
Albumin 5% INTRACATH 04/27/24 11:56
.Q9M ANDREA
Calcium Gluconate 3,300 mg/ 283 mls @ 0 mls/hr 04/27/24 10:00
Sodium Chloride IV 04/27/24 10:01
ONCE ONE
As Directed
Propofol 1,000,000 mcg in 100 mls @ 0 mls/hr 04/26/24 09:15 04/26/24 09:59
Diprivan IV 100 mls
PER PROTOCOL ANDREA Administration
Protocol
Per Protocol
Dexmedetomidine HCl 400 mcg in 100 mls @ 0 mls/hr 04/26/24 09:45 04/26/24 09:58
Precedex IV 100 mls
PER PROTOCOL ANDREA Administration
Protocol
Per Protocol
Metoprolol Tartrate 12.5 mg 04/24/24 20:00 04/26/24 10:08
Metoprolol 12.5 Mg Regular Release Dose (1/2 Of 25 Mg Tablet) PO 05/22/24 19:59 12.5 mg
BID ANDREA Administration
Midazolam HCl 1 mg 04/26/24 12:30
Midazolam (Preservative Free) 1 Mg/Ml 2 Ml Vial IV 05/24/24 12:29
Q2HPRN PRN
Agitation/anxiety
Polyethylene Glycol 17 grams 04/24/24 12:26
Polyethylene Glycol Powder 17 Grams Packet PO 05/22/24 12:25
DAILYPRN PRN
constipation
Polyethylene Glycol 17 grams 04/27/24 08:00
Polyethylene Glycol Powder 17 Grams Packet TUBE 05/25/24 07:59
DAILY ANDREA
Pyridostigmine [place] 60 mg 04/25/24 10:00 04/26/24 10:08
Pyridostigmine 60 Mg Tablet PO 05/23/24 09:59 60 mg
QID ANDREA Administration
Ropinirole HCl 4 mg 04/24/24 16:00 04/25/24 21:57
Ropinirole 2 Mg Tablet PO 05/22/24 15:59 Not Given
TID ANDREA
Rotigotine 4 mg 04/26/24 11:15
Rotigotine (Neupro) 4 Mg Patch TRANSDERM 05/24/24 11:14
DAILY ANDREA
Senna/Docusate Sodium 1 tablet 04/24/24 12:26
Docusate W/Senna (Sofie-Colace) Tablet PO 05/22/24 12:25
BIDPRN PRN
constipation
Sodium Chloride 8 ml 04/24/24 22:00 04/25/24 21:47
Nss 8 Ml Qhs IV 05/22/24 21:59 8 ml
HS ANDREA Administration
Sodium Chloride 0 flush 04/24/24 13:00
Sodium Chloride 0.9% (Flush) Syringe IV 05/22/24 12:59
PER PROTOCOL ANDREA
[2024-04-26] MEDS: VERSED 2 MG IV (10:33)
--- NOTE | 2024-04-26 10:35 | PTCARENOTE ---
Dr Gallardo to bedside at 0850 and pre-intubation meds (Etomidate/Succinylcholine) administered w/ supervision prior to intubation (see MAR). Resp Therapy placed pt on vent at ordered settings (AC 18/450/.40/+5). POx 99-100%. Bilateral breath sounds
equal. Bilateral soft wrist restraints applied per order. DHT placed w/o difficulty to 55cm noah w/ auscultation of air bolus over region of stomach. Waiting on ordered CXR to confirm placement prior to administering ordered PO meds per Dr Gallardo.
Pt's son here to visit- updated on pt's condition/plan of care.
At 0918 pt moving all extremities restlessly and grimacing. Fentanyl bolus given and Propofol gtt started per protocol.
1004- Dr Amaya to bedside to evaluate pt. DHT advanced to 60cm noah per Dr Gallardo and OK to administer PO meds via tube w/o repeat CXR.Pt remains restless/pulling on restraints and flailing legs. Precedex gtt started per order.
1033- pt remains restless/agitated despite max Propofol. Dr Gallardo made aware- Versed 2mg IV ordered and given w/o change in pt's restlessness.
[2024-04-26] MEDS: REQUIP 4 MG TUBE ×3 (10:45→22:11)
--- NOTE | 2024-04-26 11:30 | PTCARENOTE ---
Pt's SBP in 70-80's w/ MAP <65. Dr Monae notified- Levophed gtt started per order to keep MAP >65
[2024-04-26 12:55] LABS: Glucose - Point of Care 197 mg/dl (70-99)
[2024-04-26] MEDS: REQUIP PO (13:03)
--- NOTE | 2024-04-26 13:04 | PTCARENOTE ---
Pt continues to move restlessly in bed, attempts to sit up. pulling on restraints. Dr Monae aware- order for Zyprexa received.
[2024-04-26] MEDS: ZYPREXA 10 MG IM (13:12)
[2024-04-26] MEDS: STERILE WATER FOR INJECTION 2.1 ML IM (13:13)
[2024-04-26] MEDS: NOVOLOG FLEXPEN-MODERATE RESISTANCE 1 UNITS SC ×2 (13:47→19:12)
--- NOTE | 2024-04-26 14:15 | PTCARENOTE ---
Pt w/ intermittent periods of restless legs/agitation. Precedex gtt off at 1215 due to zhen in 50's. Continuing to monitor closely, providing emotional support to pt and her son. At Dr Segura's request, TT to heme/onc Nataliia PADILLA confirming
plasmaphoresis scheduled for tomorrow- 'it is set up every other day for five doses'.
--- NOTE | 2024-04-26 15:30 | PTCARENOTE ---
Pt found to be incont of large soft formed BM. Pericare provided. Bladder scan due to no urine output since arrival to ICU. Bladder scan= 412ml. Straight cath completed w/ 400ml cloudy malik urine. Pt continues to rest quietly w/ intermittent
restlessness. Frequent comfort care/emotional support.
--- NOTE | 2024-04-26 17:45 | PTCARENOTE ---
Pt's HR 40's to 70's[address] Dr Monae notified- EKG completed as ordered. Pt's son and her sister in room. Tapering Propofol.
[2024-04-26 18:24] LABS: Glucose - Point of Care 196 mg/dl (70-99)
[2024-04-26] MEDS: LOVENOX 40 MG SC (19:12)
[2024-04-26] MEDS: LOPRESSOR PO (19:25)
--- NOTE | 2024-04-26 20:00 | PTCARENOTE ---
Received pt. intubated and sedated on propofol gtt. Awakens briefly to voice and touch. Follows some simple commands but gets agitated quickly when awoken. Restraints in place for safety. SB/SR with PACs on tele. HR 50-70s. Occasionally dips to 48
but comes back up quickly. On levophed gtt to maintain MAP>65- titrating as able. Trace LE edema. + pulses. Afebrile. #7.5 ETT @ 24cm- moved to center. Tolerating A/C 22/450/+5/40%. Spo2 98%. Lungs CTA but dim at bases. Dobhoff in place. Placement
verified. Hypoactive bowel sounds. Straight cath'd on dayshift- will monitor bladder scans PRN. R DL PICC with propofol and levophed gtts. See worklist.
Spoke with [facility]- they confirmed orders needed for plasmapheresis tomorrow morning, they will be here 9-9:30AM.
Family at bedside- updated.
[2024-04-26] MEDS: NSS (PRESERVATIVE FREE) 8 ML IV (20:31)
[2024-04-26] MEDS: PEPCID 20 MG IV (20:31)
[2024-04-26] MEDS: LEVOPHED 250 IV (22:18)
[2024-04-26 22:59] LABS: Triglycerides 351 mg/dl (10-149)
[2024-04-27] VITALS (77 sets, daily range): BP systolic 78–140; BP diastolic 48–90; BMI 27.2
[2024-04-27] MEDS: NOVOLOG FLEXPEN-MODERATE RESISTANCE SC ×2 (00:15→05:45)
[2024-04-27 00:21] LABS: Glucose - Point of Care 129 mg/dl (70-99)
--- NOTE | 2024-04-27 00:23 | PTCARENOTE ---
Pt reassessed. No changes. Weaning levophed gtt.
[2024-04-27] MEDS: SUBLIMAZE 50 MCG IV ×2 (00:53→05:52)
[2024-04-27] MEDS: DIPRIVAN 100 IV ×4 (01:39→21:10)
[2024-04-27] MEDS: VERSED 1 MG IV (01:56)
[2024-04-27 03:59] LABS: % Basophils 0.2 % (0-2); % Immature Granulocytes 0.5 % (0-0.5); % Lymphocytes 7.6 % (20.5-51.1); % Monocytes 7.7 % (1.7-9.3); Absolute Immature Granulocytes 0.1 10^3/uL (0-0.05); Absolute Lymphocytes 0.9 10^3/uL (1.2-3.4); Absolute Monocytes 0.9 10^3/uL (0.1-0.6); Hemoglobin 11.5 g/dL (12.0-16.0); Mean Corp Hgb Conc. 32.9 g/dL (33.0-37.0); Mean Corpuscular Hgb 29.9 pg (27.0-31.0); Mean Corpuscular Volume 91.1 fL (81.0-99.0); Mean Platelet Volume 11.5 fL (7.4-10.4); Nucleated Red Blood Cells % 0 %; Platelet Count 349 10^3/uL (130-400); Red Blood Cell Count 3.84 10^6/uL (4.20-5.40); Red Cell Dist. Width 14.1 % (11.5-14.5); White Blood Cell Count 11.9 10^3/uL (4.8-10.8)
[2024-04-27 04:21] LABS: Blood Urea Nitrogen 39 mg/dl (7-17); Calcium 8.7 mg/dl (8.4-10.2); Carbon Dioxide 24 mmol/L (22-30); Chloride 108 mmol/L (98-107); Estimated Creatinine Clearance 85 ml/min; Glucose 121 mg/dl (70-99); LDH 216 U/L (120-246); Magnesium 2.3 mg/dl (1.6-2.3); Phosphorus 2.2 mg/dl (2.5-4.5); Potassium 3.2 mmol/L (3.5-5.1); Sodium 144 mmol/L (135-145); eGFR > 60.00
--- NOTE | 2024-04-27 04:39 | PTCARENOTE ---
Pt. has not voided this shift. Bladder scan = 387. SUPERVISOR FISHING notified. Order for nix for acute retention. 16F nix placed. 350ml malik/yellow output. UA collected. Pt. bathed with CHG. Labs drawn. Pt. on 35mcg propofol, RASS 0. Following commands,
nodding head yes and no. Resting when undisturbed mostly. Levophed gtt off. Monitoring
[2024-04-27 04:47] LABS: B.E. 3.3 mmol/L; HCO3 24.4 mmol/L (21-28); O2 Saturation % 98.7 % (94-98); PCO2 26 mmHg (32-35); PO2 85 mmHg (83-108); pH 7.58 (7.35-7.45)
[2024-04-27 04:55] LABS: APTT 30.5 Sec (23.4-35.0); INR 1.21; PT 15.6 Sec (11.4-14.6)
[2024-04-27 05:12] LABS: Urine Albumin Trace (Neg - Trace); Urine Bilirubin Negative (Negative); Urine Character Very Cloudy (Clear); Urine Color Yellow; Urine Glucose Negative (Negative); Urine Ketone 2+ (Negative); Urine Leukocyte 1+ (Negative); Urine Nitrite Negative (Negative); Urine Occult Blood Negative (Negative); Urine Urobilinogen Negative (Neg - 1+)
[2024-04-27 05:12] LABS: Fibrinogen 187 MG/DL (199-459)
[2024-04-27 05:25] LABS: Urine Bacteria Many (Negative); Urine Red Blood Cell 0-2 /HPF (0-2); Urine White Cell 30-40 /HPF (0-5)
[2024-04-27] MEDS: KCL ELIXIR 40 MEQ TUBE (05:48)
[2024-04-27 05:55] LABS: Glucose - Point of Care 113 mg/dl (70-99)
--- NOTE | 2024-04-27 06:07 | PTCARENOTE ---
QTc 437 on AM EKG. APPLICATIONS PROCESSOR notified. Wellbutrin put on hold. Remains SB/SR, HR 50s-60s.
[2024-04-27] MEDS: NSS (PRESERVATIVE FREE) 8 ML IV ×2 (08:05→19:18)
[2024-04-27] MEDS: PEPCID 20 MG IV ×2 (08:05→19:19)
[2024-04-27] MEDS: LOPRESSOR PO ×2 (08:05→20:20)
[2024-04-27] MEDS: MESTINON 60 MG PO (08:05)
[2024-04-27] MEDS: REQUIP 4 MG TUBE ×3 (08:05→22:00)
[2024-04-27] MEDS: SOLU-MEDROL 258 MG IV (08:06)
[2024-04-27] MEDS: MIRALAX TUBE (08:06)
[2024-04-27] MEDS: LEXAPRO 20 MG PO (08:12)
--- NOTE | 2024-04-27 08:25 | PTCARENOTE ---
Assumed care of pt at 0715 following shift report. Pt arousable to name, calmly following commands and nodding/shaking head appropriately. Denies c/of pain. Remains on vent at ordered settings as documented. Pox 99%. No respiratory distress noted.
Oropharyngeal suctioned for large amounts of clear secretions, small amount of clear secretions via ETT. Oral care provided. Reynolds patent and draining clear malik urine. Reynolds hygiene completed. Rt nare DHT noted at 60 cm w/ placement confirmed
w/auscultation of air bolus. Tube feedings started as ordered: Vital 1.2 @ 10ml/hr w/ q1hr auto water flush of 10ml/hr. Turned and repositioned. Hygiene and comfort care provided. Safe environment maintained.
--- NOTE | 2024-04-27 08:27 | W.PN.INTV ---
Today's Communication / Plan
Recommendations
Continue mechanical ventilation
Continue PLEX
Pulse dose steroids
Maintain euglycemia while on steroids
Start lidocaine drip and monitor for worsening ectopy
Cardiology consulted and recs pending
Mestinon
Continue to monitor tongue swelling
Daily SAT/SBT
If difficulty weaning from ventilator then she may need tracheostomy for long-term vent weaning
Tube feeds
Continue with ICU level of care
Assessment
-
Assessment: 68-year-old female non-smoker with a PMHx of Chappell's palsy syndrome, chronic pain syndrome, MDD, RLS, diffusions contractures, vitamin B12 deficiency, lumbar spinal stenosis and stress incontinence who presents with nausea + diarrhea x 1
day. She was recently hospitalized from 04/11 - 04/12/2024 where she was diagnosed with suspected MG and discharged home on pyridostigmine he advised to follow-up with neurology. Her acetylcholine receptor binding antibody levels are elevated at 8.1
from 04/11/2024. She has been having difficulty swallowing liquids with intermittent nasal regurgitation and trouble speaking. Also had chin numbness 1 day RN CONCURRENT REVIEW for about 45 minutes. She was admitted to the IMU where her VC was found to be normal
and MIP was 30 cmH2O. She was started on pulse dose steroids, IVIG, continued on her Mestinon and neurology consulted. Unfortunately she became more tachypneic with worsening work of breathing and transferred to the ICU and started on high flow
nasal cannula. Paper Plate Machine Tender services consulted and she was ultimately intubated. She remains in the ICU for further care.
Chronic conditions RN CONCURRENT REVIEW: Chappell's palsy syndrome, MATHIEU, chronic pain syndrome, major depression disorder, MONISHA, RLS, history of left Dupuytren's contractures, osteoarthritis, lumbar spinal stenosis, vitamin B12 deficiency, stress incontinence
Impression:
#Acute respiratory failure with hypoxia + hypercapnia due to respiratory muscle weakness with suspected MG (elevated AChR-Ab levels: 8.1 on 04/11/2024) now on mechanical ventilation
- Intubated 04/26/2024 in ICU
#NSVT
#Suspected myasthenia gravis acute exacerbation on pulse dose steroids + PLEX s/p IVIG x 2 doses c/b tongue swelling
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
#Leukocytosis � likely steroid-induced
#History of RLS due to iron deficiency anemia on outpatient iron infusions
#Major depression disorder
#Osteoarthritis
#Lumbar spinal stenosis
#History of stress incontinence
Plan:
- Emergently intubated in the ICU by airworthiness inspector on 04/26/2024
- Continue mechanical ventilation with daily SAT/SBT if clinically appropriate
- Titrate PEEP + FiO2 to maintain SpO2 >90-94%
- Maintain plateau pressure <30
- prn DuoNebs (not currently bronchospastic)
- prn suctioning
- Lightly sedate with goal RASS 0 to -1
- Continuous EtCO2 monitoring
- Continue with pulse dose steroids and maintain euglycemia with goal BG 140�180
- Neurology consulted and recs appreciated
- Continue Mestinon
- She reportedly had tongue swelling that is suspected to be an adverse reaction to IVIG --> hold off on additional IVIG for now and continue to monitor tongue for worsening edema
- May need Benadryl +/- epi for tongue swelling if worsens
- Of note, her vital capacity checked on admission was WNL; unable to adequately perform NIF/MIP due to poor seal (edentulous)
- Started first plasma exchange on 04/25/2024 --> getting her 2nd session today (04/27) --> if little improvement in respiratory status despite PLEX and pulse-dose steroids, she may need trach - continue to monitor
- Given her prolonged QTc which is >500ms and with increasing period of VT, lidocaine gtt started on 04/27/2024 and cardiology consulted
- Maintain MAP>65
- Replete electrolytes with K>4, Mg>2
- Trend H/H and transfuse if needed to keep Hb>7g/dL; keep plt>20k, unless there is concern for bleeding then keep plt>50k
- Continue pepcid mainly due to tongue swelling; stress ulcer ppx not indicated currently
- Start tube feeds
- DVT ppx: LMWH
Critical care statement: A total of 42 minutes of critical care time was provided for this patient today. This includes management of unstable vital signs, evaluation of the patient at bedside, reviewing the patient's pertinent medical records
including radiographs, microbiology, laboratory evaluations, and discussion with primary team, consultants, pharmacy, nutrition, physical therapy, case management, charge nurse, critical care nursing, and respiratory therapy.
Subjective Dataa
Subjective Data
Date of Service:
Date of Service: April 27, 2024
Chief Complaint: Paper Plate Machine Tender Follow Up
Subjective:
Patient seen and evaluated this morning. Second plasmapheresis session starting this morning. Heart rate 53, saturating 97% and BP 136/72. Currently sedated on propofol at 30mcg/kg/min and on Levophed at 4mcg/min. Currently intubated on AC/CMV
at 18/450/5/40%, with PIP 18 cmH2O, VTe 431mL and breathing at 19 breaths/min. She is awake, calm, following all commands and in no acute distress.
Review of Systems
General: Unobtainable - Sedation (Intubated)
Objective Data
Data Reviewed
Vital Signs / I&O / Oxygen:
Vital Signs
Temp Pulse Resp BP Pulse Ox
98.5 F 53 18 88/51 97
04/27/24 07:33 04/27/24 08:05 04/27/24 06:30 04/27/24 06:30 04/27/24 07:47
Intake and Output
04/26/24 04/27/24 04/28/24
06:59 06:59 06:59
Intake Total 696.5 / 696.5
Output Total 795 / 795
Balance -98.5 / -98.5
SaO2 [A/C] 40
SaO2 97
Nasal Cannula flow liters per 2
minute
Physical Exam
General: Respiratory Distress (negative), Comfortable, Chills (negative) and Sweats (negative)
HEENT: Normocephalic, Anicteric and Other (ETT in place)
Cardiovascular: S1-S2 and Peripheral Edema (Trace lower extremity edema (L>R))
Respiratory: Wheeze (negative), Crackles (negative), Rhonchi (negative), Non-Labored Respirations and ET Tube (Mechanical breath sounds heard bilaterally)
GI: Soft, Non Distended, Non Tender and Normal Bowel Sounds
Neurology: Awake, Alert and Tremors (negative)
Skin: Warm, Dry, Cyanosis (negative) and Jaundice (negative)
Labs/Micro/Reports
Lab Data
04/27/24 03:40
04/27/24 03:40
Laboratory Results
04/26/24 04/27/24 04/27/24
09:51 03:40 04:25
PT 15.6 H
INR 1.21
APTT 30.5
pH 7.32 L 7.58 H
pCO2 52 H 26 L
pO2 164 H 85
HCO3 26.8 24.4
O2 Delivery Level
--- NOTE | 2024-04-27 08:52 | W.PN.NEURO.1 ---
Today's Communication / Plan
-
Continue plasma exchange for total of 5, second on 04/27/2024
continue methylprednisone 1000 mg IV total of 5 doses, fourth dose on 04/27/2024
Due to bradycardia, will reduce dosing of pyridostigmine from 60 mg 4 times a day to dosing of 30 mg 4 times a day
Neuro Assessment/Plan
Assessment
Acute onset of severe dysarthria, difficulty swallowing, and weakness, due to myasthenia gravis exacerbation for unclear reasons
Patient experienced likely allergic reaction to immunoglobulins on 04/25/2024
Replaced immunoglobulins (single dose) with plasmapheresis due to probable allergic reaction, patient has received plasma exchange since 04/25/2024
Intubated 04/26/2024 due to airway protection need
Plan
Continue plasma exchange for total of 5, second on 04/27/2024
continue methylprednisone 1000 mg IV total of 5 doses, fourth dose on 04/27/2024
Due to bradycardia, will reduce dosing of pyridostigmine from 60 mg 4 times a day to dosing of 30 mg 4 times a day
Continue ropinirole 4 mg 3 times a day via Dobbhoff tube
Attempt extubation when possible
Attempt to reduce sedation when possible
Will follow
Subjective/Objective
Subjective Data
Date of Service: April 27, 2024
Patient unable to provide history due to intubation.
Objective Data
Vital Signs
Temp Pulse Resp BP Pulse Ox
36.9 C 53 18 88/51 97
04/27/24 07:33 04/27/24 08:05 04/27/24 06:30 04/27/24 06:30 04/27/24 07:47
Lab Results
04/27/24 03:40
04/27/24 03:40
PT 15.6 Sec (11.4-14.6) H 04/27/24 03:40
INR 1.21 04/27/24 03:40
APTT 30.5 Sec (23.4-35.0) 04/27/24 03:40
Sodium 144 mmol/L (135-145) 04/27/24 03:40
Potassium 3.2 mmol/L (3.5-5.1) L 04/27/24 03:40
BUN 39 mg/dl (7-17) H 04/27/24 03:40
Glucose 121 mg/dl (70-99) H 04/27/24 03:40
Calcium 8.7 mg/dl (8.4-10.2) 04/27/24 03:40
Phosphorus 2.2 mg/dl (2.5-4.5) L 04/27/24 03:40
Patient Allergies
Penicillins Allergy (Severe, Verified 04/24/24 07:54)
Anaphylaxis
immune globulin,gamma (IgG) human Allergy (Verified 04/26/24 10:48)
Unknown
Review of Systems
-
Unable to obtain full review of systems at this time due to: Patient Intubation and Lethargy
History Source: Patient
All other systems: Reviewed and negative
Physical Exam
-
General: No Apparent Distress, Intubated, Appears Stated Age and Restrained
Eyes: Round OU, [place] Conjunctivae and No Ptosis
HEENT: Anicteric and Moist Mucous Membranes
Neck: Full Range of Motion
Respiratory: No Dyspnea
Cardiac: No JVD
GI: Non-distended
Skin: Unremarkable
Extremities: No Clubbing, No Cyanosis, No Edema and Other (Hammertoes)
Psych: Unable to Assess
Extended Neurological Exam
Mood & Affect: Unable to Assess
Attention Span & Concentration: Awake, Interactive and Other (Does follow some single step requests, appears to nod head appropriately); Negative Alert
Memory: Unable to Assess
Tremor: Hand Tremor Absent and Head Tremor Absent
Speech: Unable to Assess
Cranial Nerve II: Left Eye: Pupillary Size Unremarkable and Visual Goodman Grossly Intact
Cranial Nerve II: Right Eye: Pupillary Size Unremarkable and Visual Goodman Grossly Intact
Cranial Nerves III, IV, : Extraocular Movement: Ptosis on Right and Other (moderate resistance to passive eyelid opening bilaterally); Negative Ptosis on Left
Cranial Nerve VII: Facial Symmetry: Normal Facial Symmetry
Cranial Nerve VIII: Hearing: Unremarkable Hearing to Normal Conversational Volume
Cranial Nerves IX, X: Palate Movement: Unable to Assess
Cranial Nerve XI: Shoulder Shrug: Other (Grossly intact)
Cranial Nerve XII: Tongue Protusion: Unable to Assess
Muscle Strength, Overall: Reduced (Bilateral lower extremities 4- out of 5, questionably reduced left upper extremity 4- out of 5, 4 out of 5 in the right upper extremity)
Muscle Bulk & Tone: Bulk Unremarkable and Tone Unremarkable
Pronator Drift: Unable to Assess
Cold Sensation: Unable to Assess
Vibration Sensation: Unable to Assess
Coordination: Unable to Assess
Gait & Station: Unable to Assess
Data Reviewed
-
Labs: Report Reviewed
Reviewed with: Nurse and Patient
Old Records: Summarized
Past History
Past History
ED Past Medical History: Psychiatric (Anxiety/depression, takes Lexapro 20, Wellbutrin 150, Requip 2 mg for restless leg, temazepam 15 mg at bedtime), Other (Myasthenia gravis, restless leg syndrome) and Other (Chronic arthritic pain, takes
hydrocodone 7.5/325 as needed.)
ED Past Surgical History: Other (N/A)
Social History
Tobacco: Vaping
Alcohol: None
Living: with family
Employment: Retired
Family History
Family History: Other (Reviewed and noncontributory)
Medications
-
Medications:
Generic Name Dose Route Start Last Admin
Trade Name Freq PRN Reason Stop Dose Admin
Acetaminophen 650 mg 04/24/24 12:26
Acetaminophen 325 Mg Tablet PO 05/22/24 12:25
Q4HPRN PRN
mild pain/DE LEON/temp> 100.4F
Bisacodyl 10 mg 04/24/24 12:26
Bisacodyl 10 Mg Rectal Suppository RECTAL 05/22/24 12:25
[id number] PRN
constipation
Bupropion HCl 300 mg 04/24/24 12:26 04/26/24 10:09
Bupropion (24hr) Extended Release 300 Mg Tablet PO 05/22/24 12:25 Not Given
DAILY ANDREA
Enoxaparin Sodium 40 mg 04/24/24 18:00 04/26/24 19:12
Enoxaparin Sodium 40 Mg/0.4 Ml Syringe SC 05/22/24 17:59 40 mg
QPM ANDREA Administration
Escitalopram Oxalate 20 mg 04/24/24 12:26 04/27/24 08:12
Escitalopram 20 Mg Tablet PO 05/22/24 12:25 20 mg
DAILY ANDREA Administration
Famotidine 20 mg 04/26/24 20:00 04/27/24 08:05
Famotidine 20 Mg Iv Push Bid IV 05/24/24 19:59 20 mg
BID ANDREA Administration
Fentanyl Citrate 50 mcg 04/26/24 09:11 04/27/24 05:52
Fentanyl (50 Mcg/Ml) 100 Mcg/2 Ml Ampul IV 05/10/24 09:10 50 mcg
[id number] PRN Administration
see protocol
Protocol
Heparin Sodium 0 units 04/27/24 10:00
Heparin (1000 Units/Ml) 10,000 Units/10 Ml Vial INTRACATH 04/27/24 10:01
ONCE ONE
Methylprednisolone Sodium 258 mls @ 258 mls/hr 04/25/24 08:00 04/27/24 08:06
Succinate 1,000 mg/ Sodium IV 04/28/24 08:59 258 mls
Chloride Q24H ANDREA Administration
Albumin Human 12.5 grams in 250 mls @ 1,666.667 mls/hr 04/27/24 10:00
Albumin 5% INTRACATH 04/27/24 11:56
.Q9M ANDREA
Calcium Gluconate 3,300 mg/ 283 mls @ 0 mls/hr 04/27/24 10:00
Sodium Chloride IV 04/27/24 10:01
ONCE ONE
As Directed
Propofol 1,000,000 mcg in 100 mls @ 0 mls/hr 04/26/24 09:15 04/27/24 08:49
Diprivan IV 100 mls
PER PROTOCOL ANDREA Administration
Protocol
Per Protocol
Dexmedetomidine HCl 400 mcg in 100 mls @ 0 mls/hr 04/26/24 09:45 04/26/24 09:58
Precedex IV 100 mls
PER PROTOCOL ANDREA Administration
Protocol
Per Protocol
Norepinephrine Bitartrate 4 mg in 250 mls @ 0 mls/hr 04/26/24 11:45 04/26/24 22:18
Levophed IV 250 mls
PER PROTOCOL ANDREA Administration
Protocol
Per Protocol
Insulin Aspart 0 units 04/26/24 12:00 04/27/24 05:45
Insulin Aspart Moderate Resistance 300 Units/3 Ml Pen.Injctr SC 05/24/24 11:59 Not Given
Q6 ANDREA
Protocol
Metoprolol Tartrate 12.5 mg 04/24/24 20:00 04/27/24 08:05
Metoprolol 12.5 Mg Regular Release Dose (1/2 Of 25 Mg Tablet) PO 05/22/24 19:59 Not Given
BID ANDREA
Midazolam HCl 1 mg 04/26/24 12:30 04/27/24 01:56
Midazolam (Preservative Free) 1 Mg/Ml 2 Ml Vial IV 05/24/24 12:29 1 mg
Q2HPRN PRN Administration
Agitation/anxiety
Polyethylene Glycol 17 grams 04/24/24 12:26
Polyethylene Glycol Powder 17 Grams Packet PO 05/22/24 12:25
DAILYPRN PRN
constipation
Polyethylene Glycol 17 grams 04/27/24 08:00 04/27/24 08:06
Polyethylene Glycol Powder 17 Grams Packet TUBE 05/25/24 07:59 Not Given
DAILY ANDREA
Pyridostigmine Roe 60 mg 04/25/24 10:00 04/27/24 08:05
Pyridostigmine 60 Mg Tablet PO 05/23/24 09:59 60 mg
QID ANDREA Administration
Ropinirole HCl 4 mg 04/26/24 10:40 04/27/24 08:05
Ropinirole 2 Mg Tablet TUBE 05/22/24 15:59 4 mg
TID ANDREA Administration
Senna/Docusate Sodium 1 tablet 04/24/24 12:26
Docusate W/Senna (Sofie-Colace) Tablet PO 05/22/24 12:25
BIDPRN PRN
constipation
Sodium Chloride 0 flush 04/24/24 13:00
Sodium Chloride 0.9% (Flush) Syringe IV 05/22/24 12:59
PER PROTOCOL ANDREA
Sodium Chloride 8 ml 04/26/24 20:00 04/27/24 08:05
Nss 8 Ml Bid IV 05/24/24 19:59 8 ml
BID ANDREA Administration
[2024-04-27] MEDS: CALCIUM GLUCONATE 10% INJECTION 283 MG IV (09:25)
[2024-04-27] MEDS: HEPARIN 10000 UNITS INTRACATH (09:27)
--- NOTE | 2024-04-27 09:35 | PTCARENOTE ---
Lucas Stoll RN in room to do plasmapheresis and provided ordered meds. Pt remains arousable to name- nodding/shaking head appropriately to questions. Continues to deny pain.
--- NOTE | 2024-04-27 09:51 | PTCARENOTE ---
Addendum entered by Holly Winn RN 04/27/24 09:52:
Dr Segura in room to evaluate pt. Updated on pt's bradycardia/rhythm, K=3.2 this AM. No new orders received at this time.
Original Note:
Phone call received from pt's son- update provided on pt's present condition/plan of care. Questions answered
--- NOTE | 2024-04-27 09:57 | W.PN.HOSP.TC ---
Today's Communication/Plan
-
see note
Assessment / Plan
Assessment / Plan
1. Myasthenia gravis flare up
-Recent diagnosis earlier in the month and was on pyridostigmine 60 mg 3 times daily
-Came in with difficulty with swallowing/dyspnea/slurred speech
-Maintained on 1g solumedrol daily
04/25
-Patient have tongue swelling/slurred speech 04/25 in morning suspected allergic reaction to IVIG, stopping further IVIG
-Discussed with neurology and recommended to initiate plasmapheresis. Hem/onc and IRAD consulted. Patient got a temp cath
-[facility] has been notified and consent has been obtained from patient. Son has been notified about the process as well.
-Neurology also recommended Dobbhoff tube placement as patient has been failing speech therapy evaluation today, GI help requested in this regard
04/26
-Patient had rapid response 7 in the morning and was in some resp distress/anxious and more restless
-Stat ABG showing Ph 7.35 pco2 54 and pow 93 on o2
-Moved to ICU for further monitoring, provided racemic epinephrine
-Provided Ativan 0.5mg x2 to help the restlessness- patient tiring herself out more with constant activity and feeling of dyspnea.
-Discussed with on-call licensed pesticide applicator and patient intubated electively for persistent dyspnea
04/27
-Patient was quite restless yesterday despite being on propofol, finally settled after resumption of Requip/Wellbutrin/BuSpar
-Getting second round of plasmapheresis today
-Dose 3/4 of solumedrol getting today
-Patient may not able to tolerate higher dose of pyridostigmine due to bradycardia
2. Ventilator dependent respiratory failure
-Intubated on 04/26 morning for airway protection and hypoxia/dyspnea
-ABG did not significant hypoxia, was requiring high flow o2 nonetheless.
2 Depression/anxiety
-Patient resumed back on home medication of Wellbutrin/buspirone/escitalopram through double
3. Sinus tachycardia -resolved
Sinus bradycardia
-Patient fluctuates between bradycardia and tachycardia already depending on mestinon use
-Lopressor as needed use ordered if patient gets tachycardic
history of iron deficiency anemia
history of gastric bypass
history of right TKR
restless leg syndrome
osteoarthritis
history of vitamin B12 deficiency
overactive bladder
DVT PPX - lovenox
Full code
Total critical care time 38 mins . Total critical care time documented does not include time spent on separately billed procedures or the services of residents, students, nurses or physician assistants. I personally saw and examined the patient. I
have reviewed all diagnostic interpretations and treatment plans as written. I was present for the alexander portions of any procedures performed and the inclusive time noted in any critical care statement. Critical care time includes patient management
by me, time spent at the patients bedside, time to review lab and imaging results, discussing patient care, documentation in the medical record, and time spent with the family or caregiver.
Anticipated Discharge: > 48 hours
Subjective/Interval History
-
Date of Service: April 27, 2024
patient sedated and mechanically ventilated
much more relaxed and calm today
afebrile in night
Objective Data
-
Labs:
Laboratory Results
04/27/24 04/27/24
03:40 04:25
WBC 11.9 H
Hgb 11.5 L
Hct 35.0 L
Plt Count 349
PT 15.6 H
INR 1.21
APTT 30.5
HCO3 24.4
Sodium 144
Potassium 3.2 L
Chloride 108 H
Carbon Dioxide 24
BUN 39 H
Creatinine 0.7
Glucose 121 H
Calcium 8.7
Vital Signs:
Vital Signs
Temp Pulse Resp BP Pulse Ox
98.5 F 53 18 88/51 97
04/27/24 07:33 04/27/24 08:05 04/27/24 06:30 04/27/24 06:30 04/27/24 07:47
I&O
04/26/24 04/27/24 04/28/24
06:59 06:59 06:59
Intake Total 696.5 / 696.5
Output Total 795 / 795
Balance -98.5 / -98.5
Review of Systems
-
Unable to obtain full review of systems at this time due to: Patient Intubation
Physical Exam
-
General: Comfortable
HEENT: Other (intubated on MV)
Respiratory: Clear to Auscultation
Cardiac: Regular Rhythm, S1/S2 and Bradycardic; Negative Murmur or Rub
GI: Soft and Nondistended
Neuro: Sedated
Psych: Calm
[2024-04-27] MEDS: NOVOLOG FLEXPEN-MODERATE RESISTANCE 1 UNITS SC (11:57)
[2024-04-27] MEDS: BUSPAR 10 MG PO ×2 (12:00→19:18)
[2024-04-27 12:07] LABS: Glucose - Point of Care 168 mg/dl (70-99)
--- NOTE | 2024-04-27 13:03 | PTCARENOTE ---
Pt continues to rest quietly, shaking head 'no' when asked if having any pain. HR 50-70's. Propofol and Levophed titrations per worklist documentation. No additional changes from previous assessment findings. Pt's sister visiting in room- updated
and questions answered. Ordered EKG obtained and Dr Segura notified of [id number]. No new orders received at this time.
--- NOTE | 2024-04-27 13:33 | W.PN.ONC ---
Today's Communication / Plan
-
plasmapheresis - 2nd of 5 planned treatments today
continue to monitor CBC, coags, fibrinogen
Impression
Impression
myasthenia gravis
Plan
Plan
management per neurology
continue plasmapheresis facilitated by [place] - as per neurology recommendations - every other day x5
daily cbc, fibrinogen, coags.
Subjective/Objective
Subjective/Objective
Intubated in ICU
Vital Signs:
Vital Signs
Temp Pulse Resp BP Pulse Ox
98.4 F 67 18 112/69 98
04/27/24 11:12 04/27/24 13:00 04/27/24 13:00 04/27/24 13:00 04/27/24 13:00
Lab Results:
Laboratory Data
WBC 11.9 10^3/uL (4.8-10.8) H 04/27/24 03:40
Hgb 11.5 g/dL (12.0-16.0) L 04/27/24 03:40
Plt Count 349 10^3/uL (130-400) 04/27/24 03:40
PT 15.6 Sec (11.4-14.6) H 04/27/24 03:40
INR 1.21 04/27/24 03:40
APTT 30.5 Sec (23.4-35.0) 04/27/24 03:40
eGFR > 60.00 04/27/24 03:40
Exam: unchanged
[2024-04-27] MEDS: MESTINON 30 MG PO ×3 (14:04→22:01)
--- NOTE | 2024-04-27 15:15 | PTCARENOTE ---
Pt with runs of Vtach and increased ventricular ectopy. TT to Nino Monae and [place]. New orders received. Labs drawn and sent
[2024-04-27] MEDS: CORDARONE 103 MG IV (15:37)
--- NOTE | 2024-04-27 15:45 | PTCARENOTE ---
Ordered Amio bolus infusing. Levophed gtt off. Prop decreased to 20mcg/kg/min. Pt's son and sister at bedside. Pt easily arousable and shakes head 'no' when questioned if having any pain. Will continue to monitor closely
[2024-04-27 15:51] LABS: ALT (SGPT) 15 U/L (0-35); AST (SGOT) 21 U/L (14-36); Albumin 3.9 g/dl (3.5-5.0); Alkaline Phosphatase < 20 U/L (38-126); Blood Urea Nitrogen 36 mg/dl (7-17); Calcium 8.3 mg/dl (8.4-10.2); Carbon Dioxide 26 mmol/L (22-30); Chloride 107 mmol/L (98-107); Estimated Creatinine Clearance 88 ml/min; Glucose 206 mg/dl (70-99); Phosphorus 2.6 mg/dl (2.5-4.5); Potassium 3.8 mmol/L (3.5-5.1); Sodium 145 mmol/L (135-145); Total Bilirubin 0.6 mg/dl (0.2-1.3); Total Protein 5.1 g/dl (6.3-8.2); eGFR > 60.00
--- NOTE | 2024-04-27 16:22 | PTCARENOTE ---
Pt now with very infrequent ectopy- SR in 60's. BP 101/61. Dr Monae update on lab results and rhythm- order for electrolyte replacement and Lido gtt received.
[2024-04-27] MEDS: NEUTRA-PHOS POWDER PACKET 500 MG TUBE (16:35)
[2024-04-27] MEDS: KCL ELIXIR 20 MEQ TUBE (16:35)
[2024-04-27] MEDS: XYLOCAINE 2 GRAM 500 IV (16:36)
--- NOTE | 2024-04-27 17:30 | PTCARENOTE ---
Lido gtt infusing - rare vent ectopy noted. Dr Ramirez in room to see pt. Pt's son remains at bedside. No additional changes noted
--- NOTE | 2024-04-27 17:40 | CON.CAR ---
Consultation
Consultation Request
Date/Time Consultation Requested: 04/27/2024 16: 30
Date/Time Consultation Performed: 04/27/2024 17: 00
Requesting Provider: Colton
Performing Provider: Ashley
Reason for Consultation: Ventricular tachycardia, prolonged QT interval
Medical History
Past Medical History
Past Medical History: Other (History of myasthenia gravis, depression/anxiety, history of iron deficiency anemia, history of gastric bypass, restless leg syndrome, osteoarthritis, B12 deficiency, overactive bladder)
Past Surgical History: Other (History of gastric bypass, history of right total knee replacement)
Social History
Tobacco: Non-Smoker
Alcohol: None
Drug: None
Personal:
Living: With Family
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
Family History
Family History: Reviewed & Not Pertinent
Allergies / Home Medications
Allergy/AdvReac Type Severity Reaction Status Date / Time
Penicillins Allergy Severe Anaphylaxis Verified 04/24/24 07:54
immune globulin,gamma (IgG) Allergy Unknown Verified 04/26/24 10:48
human
�Medication �Instructions �Recorded �Confirmed �Type
bupropion HCl 300 mg 24 hr tablet, 300 mg PO DAILY Depression 10/11/22 04/24/24 History
extended release (Wellbutrin XL)
buspirone 10 mg tablet 10 mg PO BID Mental Health/Anxiety 10/11/22 04/24/24 History
hydrocodone 7.5 mg-acetaminophen 1 tab PO QIDPRN PRN SEVERE pain 10/11/22 04/24/24 History
325 mg tablet
cyclobenzaprine 5 mg tablet 5 mg PO HS pain/muscle spasms 04/11/24 04/24/24 History
denosumab 60 mg/mL subcutaneous 60 mg SC [id number] osteoporosis 04/11/24 04/24/24 History
syringe (Prolia)
ropinirole 2 mg tablet 4 mg PO TID Restless legs 04/11/24 04/24/24 History
pyridostigmine bromide 60 mg tablet 60 mg PO TID 30 days #90 tabs 04/12/24 04/24/24 Rx
acetaminophen 500 mg tablet 1,000 mg PO Q6HPRN PRN MILD PAIN 04/24/24 04/24/24 History
escitalopram oxalate 20 mg tablet 20 mg PO DAILY 04/24/24 04/24/24 History
loperamide 2 mg capsule 2 mg PO DAILY PRN DIARRHEA 04/24/24 04/24/24 History
Review of Systems
-
History Source: Patient
All other systems: Negative unless noted
Constitutional: No Symptoms
EENT: No Symptoms
Respiratory: Trouble Breathing
Cardiac: No Symptoms
Abdomen/GI: Other (Presented with dysphagia)
: No Symptoms
Musculoskeletal: No Symptoms
Skin: No Symptoms
Neurological: Other (Presented with slurred speech)
Endocrine: No Symptoms
Hematologic/Lymphatic: No Symptoms
Physical Exam
Vital Signs
Temp Pulse Resp BP Pulse Ox
98.4 F 64 20 101/57 92
04/27/24 11:12 04/27/24 17:30 04/27/24 17:30 04/27/24 17:30 04/27/24 17:07
Lab Results
04/27/24 03:40
04/27/24 15:15
Troponin I < 0.012 ng/ml 04/26/24 06:50
General: Awake on the ventilator
Neck: Supple, no JVD, HJR, carotids +2 B/L, no bruits bilaterally.
Heart: Non displaced PMI, RRR, no murmurs, No S3, S4, no rubs.
Lungs: Scattered rhonchi
Abdomen: Normal bowel sounds, soft, non-tender, non-distended.
Extremities: No clubbing, cyanosis or edema bilaterally.
Neuro: Awake on the vent
Impression / Plan
-
Impression:
Nonsustained V. tach/prolonged QT interval
VDRF 04/27/2024
History of myasthenia gravis
History of anxiety/depression
History of gastric bypass
History of iron deficiency anemia
Anemia
Hyperglycemia
Plan:
She had episode of nonsustained V. tach in the setting of prolonged QT interval
This improved with IV amiodarone
Currently on IV lidocaine and agree with current plan
Etiology of prolonged QT interval is unclear at present
Will discuss further with EP
Will check echocardiogram in a.m.
Discussed with nursing staff as well as son at bedside
Data Reviewed
-
EKG: Tracing Personally Visualized and interpreted
Radiology: Report Reviewed by me
Medical Tests (Nuc Med, Echo etc): Report Reviewed by me
Labs: Labs Reviewed by me
Old Records: Reviewed
[2024-04-27] MEDS: LOVENOX 40 MG SC (18:02)
[2024-04-27] MEDS: NOVOLOG FLEXPEN-MODERATE RESISTANCE 3 UNITS SC (18:06)
[2024-04-27 18:17] LABS: Glucose - Point of Care 207 mg/dl (70-99)
--- NOTE | 2024-04-27 20:00 | PTCARENOTE ---
Received pt intubated and lightly sedated on propofol. Easily arousable to voice, calm, following commands, nodding head appropriately. SR with occasional PACs and PVCs on tele. HR 60s. QTc monitoring on (630-650). Remains on lidocaine gtt at
1mg/min. Levo remains off. Maintaining MAP>65. Trace LE edema. Afebrile. + pulses. #7.5 ETT 24 in the center. Tolerating A/C 18/450/+5/40%. Spo2 98%. Mouth care provided. Dh tube with vital 1.2 @ 10ml/hr with 10ml/hr h20 flush. Hypoactive bowel
sounds. Reynolds cath draining yellow/malik urine. See I&O. R DL PICC with prop and lido gtts. R HD cath in place. Turning q2
Family at bedside - questions answered.
[2024-04-27 23:50] LABS: Glucose - Point of Care 125 mg/dl (70-99)
[2024-04-28] VITALS (42 sets, daily range): BP systolic 90–142; BP diastolic 54–99; BMI 27.2
--- NOTE | 2024-04-28 | PTCARENOTE ---
Attempted to wean propofol but pt. became anxious/restless on 15mcg. Attempted to redirect and calm pt down but not effective. Increased back to 20mcg and pt. relaxed quickly. Remains SB/SR with occ. PACs and PVCs. HR high 50s-70. BP stable off
levophed.
[2024-04-28] MEDS: NOVOLOG FLEXPEN-MODERATE RESISTANCE SC ×2 (01:51→05:58)
[2024-04-28] MEDS: SUBLIMAZE 50 MCG IV (03:56)
[2024-04-28 04:03] LABS: % Basophils 0.1 % (0-2); % Immature Granulocytes 0.4 % (0-0.5); % Monocytes 5.7 % (1.7-9.3); % Neutrophils 82.8 % (42.2-75.2); Absolute Lymphocytes 0.8 10^3/uL (1.2-3.4); Absolute Monocytes 0.4 10^3/uL (0.1-0.6); Absolute Neutrophils 5.7 10^3/uL (1.4-6.5); Hematocrit 34.5 % (37.0-47.0); Mean Corp Hgb Conc. 31.9 g/dL (33.0-37.0); Mean Corpuscular Hgb 29.9 pg (27.0-31.0); Mean Corpuscular Volume 93.8 fL (81.0-99.0); Mean Platelet Volume 11.4 fL (7.4-10.4); Nucleated Red Blood Cells % 0 %; Platelet Count 254 10^3/uL (130-400); Red Blood Cell Count 3.68 10^6/uL (4.20-5.40); Red Cell Dist. Width 14.6 % (11.5-14.5); White Blood Cell Count 6.9 10^3/uL (4.8-10.8)
[2024-04-28 04:06] LABS: APTT 31.4 Sec (23.4-35.0); INR 1.31; PT 16.5 Sec (11.4-14.6)
[2024-04-28 04:13] LABS: HCO3 26.9 mmol/L (21-28); PCO2 30 mmHg (32-35); PO2 150 mmHg (83-108); pH 7.56 (7.35-7.45)
[2024-04-28 04:18] LABS: ALT (SGPT) 16 U/L (0-35); AST (SGOT) 21 U/L (14-36); Albumin 3.5 g/dl (3.5-5.0); Alkaline Phosphatase < 20 U/L (38-126); Blood Urea Nitrogen 33 mg/dl (7-17); Calcium 8.1 mg/dl (8.4-10.2); Carbon Dioxide 26 mmol/L (22-30); Chloride 109 mmol/L (98-107); Estimated Creatinine Clearance 88 ml/min; Glucose 111 mg/dl (70-99); LDH 179 U/L (120-246); Magnesium 2.2 mg/dl (1.6-2.3); Phosphorus 2.5 mg/dl (2.5-4.5); Potassium 3.7 mmol/L (3.5-5.1); Sodium 144 mmol/L (135-145); Total Bilirubin 0.5 mg/dl (0.2-1.3); Total Protein 4.9 g/dl (6.3-8.2); eGFR > 60.00
[2024-04-28 04:20] LABS: Fibrinogen 107 MG/DL (199-459)
--- NOTE | 2024-04-28 04:58 | PTCARENOTE ---
Pt. very cooperative with care, nodding yes and no, giving thumbs up, assisting with turning. Remains on 20mcg propofol. SB/SR HR 58-60s. Occ. ectopy noted. EKG obtained. QTc 614. [employer] aware. Lidocaine gtt continues at 1mg/min. ETT moved to left
side. Tolerating vent settings. Resting calmly when undisturbed. Suctioned orally for mod. thick clear secretions, mouth care provided. Bathed with CHG.
[2024-04-28] MEDS: DIPRIVAN 100 IV (05:54)
[2024-04-28 06:04] LABS: Glucose - Point of Care 110 mg/dl (70-99)
--- NOTE | 2024-04-28 07:30 | PTCARENOTE ---
Received pt intubated, sedated with bilateral soft wrist restraints intact. She awakened to verbal and tactile stimuli. She was informed of the time of day and the plan of care. She is communicating by nodding her head and using hand gestures.
PERRLA, good strength all extremities. Right eye slight ptosis. She denies feeling weaker on one side vs the other, denies any numbness or tingling anywhere, denies visual deficits, denies difficulty breathing, denies discomfort. #7.5 ETT secured
24 left lip. Tolerating current vent settings. Pulse ox 99%. Lungs CTA anteriorly/posteriorly. Good inspiratory effort. Right upper extremity DL PICC with Propofol@ 20cg/kg/min and other port with Lidocaine @ 1mg/min. Prolong QT. Discussed the plan
of care with Dr. Jaramillo and Dr. James Segura. Reviewed recent potassium level and QT/QTc. Right nare DHT secured @ 60cm. Tolerating tube feeds, no residual. Hypoactive BSX4. Reynolds catheter secured. Draining clear malik urine. Safe environment maintained.
Will continue supportive care.
--- NOTE | 2024-04-28 07:58 | W.PN.INTV ---
Today's Communication / Plan
Recommendations
Adjust ventilator
Spontaneous breathing trial
Pulse steroids
Plasma exchange
Appreciate neurology input
Monitor QTc
Assessment
-
Assessment: 68-year-old female non-smoker with a PMHx of Chappell's palsy syndrome, chronic pain syndrome, MDD, RLS, diffusions contractures, vitamin B12 deficiency, lumbar spinal stenosis and stress incontinence who presents with nausea + diarrhea x 1
day. She was recently hospitalized from 04/11 - 04/12/2024 where she was diagnosed with suspected MG and discharged home on pyridostigmine he advised to follow-up with neurology. Her acetylcholine receptor binding antibody levels are elevated at 8.1
from 04/11/2024. She has been having difficulty swallowing liquids with intermittent nasal regurgitation and trouble speaking. Also had chin numbness 1 day [employer] GU[employer] for about 45 minutes. She was admitted to the IMU where her VC was found to be normal
and MIP was 30 cmH2O. She was started on pulse dose steroids, IVIG, continued on her Mestinon and neurology consulted. Unfortunately she became more tachypneic with worsening work of breathing and transferred to the ICU and started on high flow
nasal cannula. Senior Branch Manager services consulted and she was ultimately intubated. She remains in the ICU for further care.
Chronic conditions W[employer]: Chappell's palsy syndrome, MATHIEU, chronic pain syndrome, major depression disorder, MONISHA, RLS, history of left Dupuytren's contractures, osteoarthritis, lumbar spinal stenosis, vitamin B12 deficiency, stress incontinence
Impression:
#Acute respiratory failure with hypoxia + hypercapnia due to respiratory muscle weakness with suspected MG (elevated AChR-Ab levels: 8.1 on 04/11/2024) now on mechanical ventilation
- Intubated 04/26/2024 in ICU
#NSVT/prolonged QTc
#Suspected myasthenia gravis acute exacerbation on pulse dose steroids + PLEX s/p IVIG x 2 doses c/b tongue swelling
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
#Leukocytosis � likely steroid-induced
#History of RLS due to iron deficiency anemia on outpatient iron infusions
#Major depression disorder
#Osteoarthritis
#Lumbar spinal stenosis
#History of stress incontinence
Plan:
Respiratory status stable on the ventilator
Ventilator settings reviewed
Airway pressures monitored
Wean FiO2
Spontaneous breathing trial once neurologic status stabilizes
VAP prevention protocol
Light sedation with goal RASS 0 to -1
Continuous end-tidal CO2 monitoring
Nebulizers as needed-currently not bronchospastic
Monitor neurologic status closely
Pulse steroids
Neurology following-correspondence reviewed
Mestinon continues
IVIG-first dose had some tongue swelling-discontinued
Plasmapheresis-status post 2 exchanges 04/25/2024 and 04/27/2024
Monitor QTc
Cardiology consulted-correspondence reviewed
Check echocardiogram
Amiodarone
Lidocaine drip as needed
Maintain MAP greater than 65
Replace electrolytes
Monitor hemoglobin
Transfuse as needed
DVT prophylaxis-low molecular weight heparin
GI prophylaxis while on the ventilator-PPI
Nutrition
Early mobilization/physical/Occupational Therapy
Critical care statement: A total of 50 minutes of critical care time was provided for this patient today. This includes management of unstable vital signs, evaluation of the patient at bedside, reviewing the patient's pertinent medical records
including radiographs, ventilator management, spontaneous breathing trial management, pressor management, microbiology, laboratory evaluations, and discussion with primary team, consultants, pharmacy, nutrition, physical therapy, case management,
charge nurse, critical care nursing, and respiratory therapy.
Subjective Dataa
Subjective Data
Date of Service:
Date of Service: April 28, 2024
Chief Complaint: Senior Branch Manager Follow Up and Pulmonary Follow Up
Subjective:
Still on the ventilator, no increased secretions, sedated, monitoring QTc,
Review of Systems
General: Unobtainable - Sedation
Objective Data
Data Reviewed
Vital Signs / I&O / Oxygen:
Vital Signs
Temp Pulse Resp BP Pulse Ox
97.5 F 64 18 108/62 99
04/28/24 04:27 04/28/24 06:30 04/28/24 06:30 04/28/24 06:30 04/28/24 07:51
Intake and Output
04/27/24 04/28/24 04/29/24
06:59 06:59 06:59
Intake Total 696.5 / 729.1 979.9 / 979.9
Output Total 795 / 820 935 / 935
Balance -98.5 / -90.9 44.9 / 44.9
SaO2 [A/C] 97
SaO2 99
Nasal Cannula flow liters per 2
minute
Physical Exam
General: Respiratory Distress (negative), Comfortable, Chills (negative) and Sweats (negative)
HEENT: Normocephalic, Anicteric and Other (ETT in place)
Cardiovascular: Regular Rhythm and Peripheral Edema (Trace lower extremity edema (L>R))
Respiratory: Wheeze (negative), Crackles (negative), Rhonchi (negative), Non-Labored Respirations and ET Tube (Mechanical breath sounds heard bilaterally)
GI: Soft, Non Distended, Non Tender and Normal Bowel Sounds
Neurology: Awake, Alert and Tremors (negative)
Skin: Warm, Dry, Cyanosis (negative), Jaundice (negative) and Rash (n)
Labs/Micro/Reports
Lab Data
04/28/24 03:37
04/28/24 03:37
Laboratory Results
04/28/24 04/28/24
03:36 03:37
PT 16.5 H
INR 1.31
APTT 31.4
pH 7.56 H
pCO2 30 L
pO2 150 H
HCO3 26.9
O2 Delivery Level
[2024-04-28] MEDS: MESTINON 30 MG PO ×4 (08:04→21:43)
[2024-04-28] MEDS: SOLU-MEDROL 258 MG IV (08:04)
--- NOTE | 2024-04-28 08:05 | W.PN.NEURO.1 ---
Today's Communication / Plan
-
.
Neuro Assessment/Plan
Assessment
Acute onset of severe dysarthria, difficulty swallowing, and weakness, due to myasthenia gravis exacerbation for unclear reasons
Patient experienced likely allergic reaction to immunoglobulins on 04/25/2024
Replaced immunoglobulins (single dose) with plasmapheresis due to probable allergic reaction, patient has received plasma exchange since 04/25/2024
Intubated 04/26/2024 due to airway protection need
Plan
Continue plasma exchange for total of 5, second on 04/27/2024
continue methylprednisone 1000 mg IV total of 5 doses, fourth dose on 04/27/2024
Due to bradycardia, will reduce dosing of pyridostigmine from 60 mg 4 times a day to dosing of 30 mg 4 times a day
Continue ropinirole 4 mg 3 times a day via Dobbhoff tube
Attempt extubation when possible
Attempt to reduce sedation when possible
Will follow
Subjective/Objective
Subjective Data
Date of Service: April 28, 2024
Neurology Follow-up Note.
HPI: This is a 68-year-old woman with recently diagnosed myasthenia gravis on Mestinon who presented to [facility] on 04/24/2024 with generalized weakness and worsening of dysarthria and dysphagia.
Ms. Seaman was started on methylprednisolone 1 g IV and IVIG. She developed angioedema on04/25/24 that felt to be secondary to IVIG and was switched to PLEX. Ms. Seaman was intubated for hypoxic respiratory failure on 04/26/2024.
24-hour events: Intermittently hypotensive down to 92/56, afebrile.
Day 3 on mechanical ventilation-CMV 40% on FIO2.
Off Propofol, Fentanyl and Precedex in AM
Labs:AcH receptor binding ab-8.1(0.0-0.4), striated muscle ab-positive <1:40 (04/12/2024).
Labs: ua(04/27/2024) LE 1+, EBC 30-40, alma-many
MH: seropositive generalized myasthenia gravis; h/o L Chappell's palsy, anemia, chronic pain s-me, MDD, MONISHA, RLS, left Dupuytren contractures, lumbar spinal stenosis
PSH: R IJ, gastric bypass, left hand surgery, R TKA, BL cataract surgery
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
FH: Not contributory to current presentation
All: Penicillin, IVIG
ROS: Limited due to intubation
General: Intubated
Cardio: Regular rate and rhythm
Neuro:
Mental Status: Awake follows complex requests consistently. No hemineglect.
Motor: Normal bulk and tone. No pronator or arm drift. All limbs are antigravity equally symmetrically purposeful
Reflexes: No clonus at the ankles
Sensory: Localizes noxious stim
Coordination: No tremors myoclonic movements
Gait: deferred
Assessment and Plan:
I. Seropositive generalized myasthenia gravis. Myasthenic crisis.
II. Acute hypoxic respiratory failure
III. RLS
-Avoid cerebral hypoperfusion
-Aspiration precautions
-Continue PLEX for 5 doses total(second treatment was on 04/27/2024)
-Continue Methylprednisone 1000 mg IV total of 5 doses(today is the last dose)
-Continue Mestinon 30 mg QID(higher doses caused bradycardia)
-Restart Fe SO4
-Continue Ropinirole 4 mg TID
I personally reviewed all radiology and labs along with past medical records pertinent to current medical problems. Total time spent in patient care is 35 minutes.
Thank you for allowing us to participate in the care of this patient. We will continue to follow. Please do not hesitate to contact us with any questions or concerns.
Objective Data
Vital Signs
Temp Pulse Resp BP Pulse Ox
36.4 C 64 18 108/62 99
04/28/24 04:27 04/28/24 06:30 04/28/24 06:30 04/28/24 06:30 04/28/24 07:51
Lab Results
04/28/24 03:37
04/28/24 03:37
PT 16.5 Sec (11.4-14.6) H 04/28/24 03:37
INR 1.31 04/28/24 03:37
APTT 31.4 Sec (23.4-35.0) 04/28/24 03:37
Sodium 144 mmol/L (135-145) 04/28/24 03:37
Potassium 3.7 mmol/L (3.5-5.1) 04/28/24 03:37
BUN 33 mg/dl (7-17) H 04/28/24 03:37
Glucose 111 mg/dl (70-99) H 04/28/24 03:37
Calcium 8.1 mg/dl (8.4-10.2) L 04/28/24 03:37
Phosphorus 2.5 mg/dl (2.5-4.5) 04/28/24 03:37
Patient Allergies
Penicillins Allergy (Severe, Verified 04/24/24 07:54)
Anaphylaxis
immune globulin,gamma (IgG) human Allergy (Verified 04/26/24 10:48)
Unknown
Vital Signs and Labs
-
Vital Signs and Labs:
Vital Signs
Temp Pulse Resp BP Pulse Ox
36.4 C 60 18 100/58 99
04/28/24 04:27 04/28/24 08:19 04/28/24 06:30 04/28/24 08:19 04/28/24 07:51
Lab Results
04/28/24 03:37
04/28/24 03:37
PT 16.5 Sec (11.4-14.6) H 04/28/24 03:37
INR 1.31 04/28/24 03:37
APTT 31.4 Sec (23.4-35.0) 04/28/24 03:37
Sodium 144 mmol/L (135-145) 04/28/24 03:37
Potassium 3.7 mmol/L (3.5-5.1) 04/28/24 03:37
BUN 33 mg/dl (7-17) H 04/28/24 03:37
Glucose 111 mg/dl (70-99) H 04/28/24 03:37
Calcium 8.1 mg/dl (8.4-10.2) L 04/28/24 03:37
Phosphorus 2.5 mg/dl (2.5-4.5) 04/28/24 03:37
Medications
-
Medications:
Generic Name Dose Route Start Last Admin
Trade Name Freq PRN Reason Stop Dose Admin
Acetaminophen 650 mg 04/24/24 12:26
Acetaminophen 325 Mg Tablet PO 05/22/24 12:25
Q4HPRN PRN
mild pain/DE LEON/temp> 100.4F
Bisacodyl 10 mg 04/24/24 12:26
Bisacodyl 10 Mg Rectal Suppository RECTAL 05/22/24 12:25
[id number] PRN
constipation
Bupropion HCl 300 mg 04/24/24 12:26 04/26/24 10:09
Bupropion (24hr) Extended Release 300 Mg Tablet PO 05/22/24 12:25 Not Given
DAILY ANDREA
Buspirone HCl 10 mg 04/27/24 11:00 04/28/24 08:15
Buspirone 10 Mg Tablet PO 05/25/24 10:59 10 mg
BID ANDREA Administration
Enoxaparin Sodium 40 mg 04/24/24 18:00 04/27/24 18:02
Enoxaparin Sodium 40 Mg/0.4 Ml Syringe SC 05/22/24 17:59 40 mg
QPM ANDREA Administration
Escitalopram Oxalate 20 mg 04/24/24 12:26 04/27/24 08:12
Escitalopram 20 Mg Tablet PO 05/22/24 12:25 20 mg
DAILY ANDREA Administration
Famotidine 20 mg 04/26/24 20:00 04/28/24 08:16
Famotidine 20 Mg Iv Push Bid IV 05/24/24 19:59 20 mg
BID ANDREA Administration
Fentanyl Citrate 50 mcg 04/26/24 09:11 04/28/24 03:56
Fentanyl (50 Mcg/Ml) 100 Mcg/2 Ml Ampul IV 05/10/24 09:10 50 mcg
[id number] PRN Administration
see protocol
Protocol
Methylprednisolone Sodium 258 mls @ 258 mls/hr 04/25/24 08:00 04/28/24 08:04
Succinate 1,000 mg/ Sodium IV 04/28/24 08:59 258 mls
Chloride Q24H ANDREA Administration
Propofol 1,000,000 mcg in 100 mls @ 0 mls/hr 04/26/24 09:15 04/28/24 05:54
Diprivan IV 100 mls
PER PROTOCOL ANDREA Administration
Protocol
Per Protocol
Norepinephrine Bitartrate 4 mg in 250 mls @ 0 mls/hr 04/26/24 11:45 04/26/24 22:18
Levophed IV 250 mls
PER PROTOCOL ANDREA Administration
Protocol
Per Protocol
Lidocaine HCl/Dextrose 2,000 mg in 500 mls @ 15 mls/hr 04/27/24 16:15 04/27/24 16:36
Xylocaine 2 Gram IV 500 mls
ORDERED RATE ANDREA Administration
1 MG/MIN
Insulin Aspart 0 units 04/26/24 12:00 04/28/24 05:58
Insulin Aspart Moderate Resistance 300 Units/3 Ml Pen.Injctr SC 05/24/24 11:59 Not Given
Q6 ANDREA
Protocol
Metoprolol Tartrate 12.5 mg 04/24/24 20:00 04/28/24 08:19
Metoprolol 12.5 Mg Regular Release Dose (1/2 Of 25 Mg Tablet) PO 05/22/24 19:59 12.5 mg
BID ANDREA Administration
Midazolam HCl 1 mg 04/26/24 12:30 04/27/24 01:56
Midazolam (Preservative Free) 1 Mg/Ml 2 Ml Vial IV 05/24/24 12:29 1 mg
Q2HPRN PRN Administration
Agitation/anxiety
Polyethylene Glycol 17 grams 04/24/24 12:26
Polyethylene Glycol Powder 17 Grams Packet PO 05/22/24 12:25
DAILYPRN PRN
constipation
Polyethylene Glycol 17 grams 04/27/24 08:00 04/28/24 08:15
Polyethylene Glycol Powder 17 Grams Packet TUBE 05/25/24 07:59 17 grams
DAILY ANDREA Administration
Pyridostigmine [place] 30 mg 04/27/24 09:58 04/28/24 08:04
Pyridostigmine 60 Mg Tablet PO 05/23/24 09:59 30 mg
QID ANDREA Administration
Ropinirole HCl 4 mg 04/26/24 10:40 04/28/24 08:15
Ropinirole 2 Mg Tablet TUBE 05/22/24 15:59 4 mg
TID ANDREA Administration
Senna/Docusate Sodium 1 tablet 04/24/24 12:26
Docusate W/Senna (Sfoie-Colace) Tablet PO 05/22/24 12:25
BIDPRN PRN
constipation
Sodium Chloride 0 flush 04/24/24 13:00
Sodium Chloride 0.9% (Flush) Syringe IV 05/22/24 12:59
PER PROTOCOL ANDREA
Sodium Chloride 8 ml 04/26/24 20:00 04/28/24 08:16
Nss 8 Ml Bid IV 05/24/24 19:59 8 ml
BID ANDREA Administration
Home Medications
-
Home Medications
bupropion HCl 300 mg 24 hr tablet, extended release (Wellbutrin XL) 300 mg PO DAILY Depression 10/11/22
buspirone 10 mg tablet 10 mg PO BID Mental Health/Anxiety 10/11/22
hydrocodone 7.5 mg-acetaminophen 325 mg tablet 1 tab PO QIDPRN PRN SEVERE pain 10/11/22
cyclobenzaprine 5 mg tablet 5 mg PO HS pain/muscle spasms 04/11/24
denosumab 60 mg/mL subcutaneous syringe (Prolia) 60 mg SC [id number] osteoporosis 04/11/24
ropinirole 2 mg tablet 4 mg PO TID Restless legs 04/11/24
pyridostigmine bromide 60 mg tablet 60 mg PO TID 30 days #90 tabs 04/12/24
acetaminophen 500 mg tablet 1,000 mg PO Q6HPRN PRN MILD PAIN 04/24/24
escitalopram oxalate 20 mg tablet 20 mg PO DAILY 04/24/24
loperamide 2 mg capsule 2 mg PO DAILY PRN DIARRHEA 04/24/24
[2024-04-28] MEDS: MIRALAX 17 GRAMS TUBE (08:15)
[2024-04-28] MEDS: BUSPAR 10 MG PO ×2 (08:15→19:56)
[2024-04-28] MEDS: REQUIP 4 MG TUBE ×3 (08:15→21:42)
[2024-04-28] MEDS: NSS (PRESERVATIVE FREE) 8 ML IV ×2 (08:16→19:56)
[2024-04-28] MEDS: PEPCID 20 MG IV ×2 (08:16→19:57)
[2024-04-28] MEDS: LOPRESSOR 12.5 MG PO ×2 (08:19→19:56)
--- NOTE | 2024-04-28 08:24 | W.PN.CARDCBS ---
Today's Communication / Plan
-
Renew lidocaine -hopefully to stop in 24 hours
Stop propofol-Precedex caused bradycardia, hopefully to extubate
Fentanyl as backup if unable to wean
Continue to hold Lexapro and bupropion
Supplementation of magnesium and potassium as needed
Impression / Plan
-
Impression:
Nonsustained V. tach/prolonged QT interval
VDRF 04/27/2024
History of myasthenia gravis
History of anxiety/depression
History of gastric bypass
History of iron deficiency anemia
Anemia
Hyperglycemia
Plan:
Overall stable, but QT interval remains very long. No nonsustained VT since yesterday afternoon. VT was polymorphic and consistent with torsade.
Patient is on lidocaine at 1 mg/min. Will continue for 24 hours.
We will need to stop propofol. Continue to hold escitalopram and bupropion.
Magnesium and potassium have been adequate but continue to monitor and supplement. Concerns regarding electrolyte shifts during plasmapheresis.
Patient hopefully to extubate. Await decision regarding spontaneous breathing trial.
Await echocardiogram.
Discussed with Dr. Segura and nursing. I spoke with son
Progress Note - Refined Syrup Operator
Subjective
Date of Service: April 28, 2024:
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 On bupropion, escitalopram, bupropion.
Awake, alert, being considered for spontaneous breathing trial, currently on propofol, Precedex stopped because of bradycardia, has fentanyl boluses. Patient denies any deviation in intake of citalopram, etc. receiving plasmapheresis.
PMH: As above, osteoarthritis, B12 deficiency, hyperactive bladder, restless legs, anemia
PSH: Gastric bypass, right total knee arthroplasty
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
ROS negative except as above/not readily obtainable
Outpatient meds: Wellbutrin, buspirone, cyclobenzaprine, escitalopram, hydroxy codon, Imodium, Prolia, pyridostigmine, ropinirole
Current meds: Wellbutrin on hold, escitalopram on hold, enoxaparin, metoprolol 12.5 twice daily, methylprednisolone 1000 mg every 24, polyethylene, propofol, ropinirole, insulin, norepinephrine, famotidine, pyridostigmine, buspirone
100/58, pulse 60, respiratory to 18, afebrile, sats 99%, Weight is 81 kg, elderly, alert, head neck exam unremarkable, lungs relatively clear, JVD okay, regular rate and rhythm, no obvious murmurs, abdomen benign extremities without edema, neuro
intact
Chest x-ray from the 16: Possible left lower lobe pneumonia versus atelectasis
White count 6.9, hemoglobin 11, platelets 254
7.56/30/250/27
Sodium 144, BUN/creatinine 33 and 0.6, potassium 3.7, magnesium 2.2
ECG sinus rhythm, marked QT prolongation, cannot exclude inferior NV
Objective
Labs:
04/28/24 03:37
04/28/24 03:37
Labs
Hgb 11.0 g/dL (12.0-16.0) L 04/28/24 03:37
Hct 34.5 % (37.0-47.0) L 04/28/24 03:37
Plt Count 254 10^3/uL (130-400) D 04/28/24 03:37
PT 16.5 Sec (11.4-14.6) H 04/28/24 03:37
INR 1.31 04/28/24 03:37
APTT 31.4 Sec (23.4-35.0) 04/28/24 03:37
Sodium 144 mmol/L (135-145) 04/28/24 03:37
Potassium 3.7 mmol/L (3.5-5.1) 04/28/24 03:37
BUN 33 mg/dl (7-17) H 04/28/24 03:37
Creatinine 0.6 mg/dL (0.6-1.0) 04/28/24 03:37
Glucose 111 mg/dl (70-99) H 04/28/24 03:37
Troponins
04/26/24
06:50
Troponin I < 0.012
Vital Signs and I&O:
Vital Signs
Temp Pulse Resp BP Pulse Ox
36.4 C 60 18 100/58 99
04/28/24 04:27 04/28/24 08:19 04/28/24 06:30 04/28/24 08:19 04/28/24 07:51
Vital Signs
Temp Pulse Resp BP Pulse Ox
36.4 C 60 18 100/58 99
04/28/24 04:27 04/28/24 08:19 04/28/24 06:30 04/28/24 08:19 04/28/24 07:51
Intake & Output
04/26/24 04/27/24 04/28/24 04/29/24
07:59 07:59 07:59 07:59
Intake Total 729.1 / 781.7 947.3 / 947.3
Output Total 820 / 830 910 / 910
Balance -90.9 / -48.3 37.3 / 37.3
Physical Exam
Physical Exam
See above
--- NOTE | 2024-04-28 08:54 | W.PN.HOSP.TC ---
Addendum entered and electronically signed by Sanjiv Segura MD 04/28/24 15:27:
Add on to diagnosis:
Asymptomatic bacteriuria
Acute delirium due to psych medication withdrawal and high dose steroid use related.
Addendum entered and electronically signed by Sanjiv Segura MD 04/28/24 09:53:
Hypokalemia
Hypophosphatemia
-Likely worsened by plasmapheresis
-Will provide pre-plasmapheresis potassium/magnesium/phosphorus to avoid any cardiac complication
-replace as needed
Original Note:
Today's Communication/Plan
-
see note
Assessment / Plan
Assessment / Plan
1. Myasthenia gravis flare up
-Recent diagnosis earlier in the month and was on pyridostigmine 60 mg 3 times daily
-Came in with difficulty with swallowing/dyspnea/slurred speech
-Maintained on 1g solumedrol daily
04/25
-Patient have tongue swelling/slurred speech 04/25 in morning suspected allergic reaction to IVIG, stopping further IVIG
-Discussed with neurology and recommended to initiate plasmapheresis. Hem/onc and IRAD consulted. Patient got a temp cath
-[place] has been notified and consent has been obtained from patient. Son has been notified about the process as well.
-Neurology also recommended Dobbhoff tube placement as patient has been failing speech therapy evaluation today, GI help requested in this regard
04/26
-Patient had rapid response 7 in the morning and was in some resp distress/anxious and more restless
-Stat ABG showing Ph 7.35 pco2 54 and pow 93 on o2
-Moved to ICU for further monitoring, provided racemic epinephrine
-Provided Ativan 0.5mg x2 to help the restlessness- patient tiring herself out more with constant activity and feeling of dyspnea.
-Discussed with on-call senior cognos developer and patient intubated electively for persistent dyspnea
04/27
-Patient was quite restless yesterday despite being on propofol, finally settled after resumption of Requip/Wellbutrin/BuSpar
-Getting second round of plasmapheresis today
-Dose 3/4 of solumedrol getting today
-Patient may not able to tolerate higher dose of pyridostigmine due to bradycardia
04/28
-Finished 4/4 of 1g solumedrol dosing
-Got Plasma-pharesis Sunday and sunday
-Discussed with senior cognos developer, may get trial of SBT
2. Ventilator dependent respiratory failure
-Intubated on 04/26 morning for airway protection and hypoxia/dyspnea
-ABG did not significant hypoxia, was requiring high flow o2 nonetheless.
3. QTc prolongation
Episode of NSVT
-Patient QTc of 650ms yesterday
-Medication reviewed and patient discontinued from Lexapro/wellbutrin
-Repleted potassium/magnesium/phosphorus, goal more than 4/2/2.5 respectively
-Patient had run of NSVT and started on lidocaine drip
-Cardiology involved in care and help appreciated
4. Low fibrinogen
-Fibrinogen ~ 110, INR 1.3
-Likely effect from plasmapheresis, patient is getting albumin as replacement
-No bleeding diathesis, continue monitoring
-on DVT PPX with lovenox and will need to be held if not improved
5. Depression/anxiety
-Patient resumed back on home medication of Wellbutrin/buspirone/escitalopram through double
6. Sinus tachycardia -resolved
Sinus bradycardia
-Patient fluctuates between bradycardia and tachycardia already depending on mestinon use
-Lopressor as needed use ordered if patient gets tachycardic
history of iron deficiency anemia
history of gastric bypass
history of right TKR
restless leg syndrome
osteoarthritis
history of vitamin B12 deficiency
overactive bladder
DVT PPX - lovenox
Full code
Case discussed with cardiology/senior cognos developer
Total critical care time 40 mins . Total critical care time documented does not include time spent on separately billed procedures or the services of residents, students, nurses or physician assistants. I personally saw and examined the patient. I
have reviewed all diagnostic interpretations and treatment plans as written. I was present for the alexander portions of any procedures performed and the inclusive time noted in any critical care statement. Critical care time includes patient management
by me, time spent at the patients bedside, time to review lab and imaging results, discussing patient care, documentation in the medical record, and time spent with the family or caregiver.
Anticipated Discharge: > 48 hours
Subjective/Interval History
-
Date of Service: April 28, 2024
Remains intubated on ventilator
Patient on lower dose of propofol and waking up without any issues
QTc remains prolonged, 614 ms
Had run of NSVT last evening
on small dose of levophed for BP support
Objective Data
-
Labs:
Laboratory Results
04/28/24 04/28/24
03:36 03:37
WBC 6.9
Hgb 11.0 L
Hct 34.5 L
Plt Count 254 D
PT 16.5 H
INR 1.31
APTT 31.4
HCO3 26.9
Sodium 144
Potassium 3.7
Chloride 109 H
Carbon Dioxide 26
BUN 33 H
Creatinine 0.6
Glucose 111 H
Calcium 8.1 L
Total Bilirubin 0.5
AST 21
ALT 16
Alkaline Phosphatase < 20 L
Vital Signs:
Vital Signs
Temp Pulse Resp BP Pulse Ox
98.7 F 60 18 100/58 99
04/28/24 08:37 04/28/24 08:19 04/28/24 06:30 04/28/24 08:19 04/28/24 08:37
I&O
04/27/24 04/28/24 04/29/24
06:59 06:59 06:59
Intake Total 696.5 / 729.1 979.9 / 1025.0 180.2 / 180.2
Output Total 795 / 820 935 / 960 50 / 50
Balance -98.5 / -90.9 44.9 / 65.0 130.2 / 130.2
Review of Systems
-
Unable to obtain full review of systems at this time due to: Acuity and Patient Intubation
Physical Exam
-
General: Comfortable
HEENT: Other (intubated on MV)
Respiratory: Clear to Auscultation
Cardiac: Regular Rhythm, S1/S2, Tachycardic and Bradycardic; Negative Murmur or Rub
GI: Soft and Nondistended
Neuro: Sedated
Psych: Calm
--- NOTE | 2024-04-28 10:16 | W.PN.INTV ---
Today's Communication / Plan
Recommendations
Spontaneous breathing trial
Continue steroids
Plasma exchange
Neurology appreciated
Cardiology following to monitor QTc
Assessment
-
Assessment: 68-year-old female with past medical history of recent diagnosis of myasthenia gravis, Chappell's palsy syndrome, chronic pain syndrome, depression/anxiety, iron deficiency anemia, gastric bypass, restless leg syndrome, osteoarthritis,
overactive bladder, iron deficiency anemia, vitamin D deficiency, lumbar spinal stenosis presented to the hospital hospital with increased difficulty swallowing and slurred speech. She was recently hospitalized from 04/11 to 04/12 where she presented
with similar symptoms. Improved with pyridostigmine. Acetylcholine receptor binding antibodies levels elevated at 8.1 and diagnosed with myasthenia gravis. Upon arriving here, she was admitted to IMU. She was started on steroids, IVIG and
continued on pyridostigmine with neurology following. Unfortunately, she started to develop increased tongue swelling suspected to be an allergic reaction to IVIG. Plasmapheresis was started. Her respiratory distress continued to worsen. She is
ultimately transferred to ICU and intubated on 04/26/2024. Cardiology now following as well due to prolonged QTc with unknown etiology on lidocaine drip. Heme-onc following for plasmapheresis. Today, patient growing increasingly awake and alert.
Able to write out thoughts on paper to let us know how she is doing.
Impression:
#Acute respiratory failure with hypoxemia and hypercapnia secondary to respiratory muscle weakness with myasthenia gravis (acetylcholine receptor antibodies 8.1 on 04/11/2024)
-Now on mechanical ventilation, intubated 04/26/2024 in ICU
#NSVT/prolonged QTc
#Myasthenia gravis acute exacerbation on pulse dose steroids + plasmapheresis s/p IVIG x2 complicated by tongue swelling
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
# Leukocytosis likely secondary to steroids
#History of restless leg syndrome due to history of MATHIEU on outpatient iron infusions
#Major depression disorder/anxiety
#Osteoarthritis
#Lumbar spinal stenosis
#History of stress incontinence
Plan:
Respiratory
-Acute respiratory failure with hypoxia�emergently intubated in ICU on 04/26/2024
- Continue mechanical ventilation with daily SAT/SBT if clinically appropriate
- Wean FiO2
- Maintain plateau pressure <30
- prn DuoNebs if bronchospastic
- prn suctioning/ VAP prevention protocol
- Light sedation with goal RASS 0 to -1
- Continuous EtCO2 monitoring
- Wean FiO2
- Spontaneous breathing trial once neurologic status stabilizes
Neurologic
-Currently light sedation with goal RASS 0 to -1
- Pulse steroids methylprednisone 1000 mg IV total of 4/4 doses today
- Neurology following
- Allergic reaction to IVIG with tongue swelling/edema -> plasmapheresis
- Plasmapheresis status post 2/5 exchanges on 04/25 and 04/27/2024 (every other day)
- Monitor fibrinogen and coags per hemeonc
- Continue pyridostigmine at lower dose 30mg QID (decreased due to bradycardia)
-Continue ropinirole 4 mg 3 times a day via Dobbhoff tube for restless leg
Cardiovascular
- Long QTc
- Monitor QTc
- Cardiology following
- NSVT on 04/27 -> 150cc amio now on lidocaine gtt
- Propofol discontinued, escitalopram and bupropion on hold
- Keep K > 4, mg > 2.5
- Echo pending
- Maintain MAP greater than 65
-Low fibrinogen
-Fibrinogen 107, INR 1.3
-Likely secondary to plasmapheresis - receiving albumin as replacement
-Monitor per heme/onc recommendation -no signs of active bleeding
- Monitor H&H -Transfuse <7
- Monitor ptl. Keep >20 unless signs of bleeding then keep >50
Gastric
- Hx gastric bypass surgery
- GI prophylaxis while on vent - famotidine rather than pantoprazole due to history of bypass
- Nutrition - Tube feeds 10 mls an hour of vital AF trickle feed due to gastric bypass
Renal
- On nix due to urinary retention - inserted 04/26. d/c 04/30
- Hx stress incontinence - wears depends at home
- U/A revealed E.coli - afebrile, denies any burning sensation, subprapubic tenderness -likely asymptomatic bacteriuria
- Hyperglycemia in setting of high dose steroids - maintain euglycemia goal 140-180 sliding scale insulin, AccuCheck
DVT - Lovenox 40
Early mobilization/PT/OT
Subjective Dataa
Subjective Data
Date of Service:
Date of Service: April 28, 2024
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
Objective Data
Data Reviewed
Vital Signs / I&O / Oxygen:
Vital Signs
Temp Pulse Resp BP Pulse Ox
98.7 F 60 18 100/58 99
04/28/24 08:37 04/28/24 08:19 04/28/24 06:30 04/28/24 08:19 04/28/24 08:37
Intake and Output
04/27/24 04/28/24 04/29/24
06:59 06:59 06:59
Intake Total 696.5 / 729.1 979.9 / 1025.0 180.2 / 180.2
Output Total 795 / 820 935 / 960 50 / 50
Balance -98.5 / -90.9 44.9 / 65.0 130.2 / 130.2
SaO2 [A/C] 99
SaO2 99
Nasal Cannula flow liters per 2
minute
Physical Exam
General: Respiratory Distress (negative), Comfortable, Fever (Negative), Chills (Negative) and Sweats (Negative)
HEENT: Normocephalic, Anicteric and Other (ETT in place)
Cardiovascular: Regular Rhythm and Peripheral Edema (Trace lower extremity edema (L>R))
Respiratory: Wheeze (negative), Crackles (negative), Rhonchi (negative), Non-Labored Respirations and ET Tube (Mechanical breath sounds heard bilaterally)
GI: Soft, Non Distended, Non Tender, Normal Bowel Sounds and Other (No suprapubic tenderness)
Neurology: Awake, Alert and Tremors (negative)
Skin: Warm, Dry, Cyanosis (negative), Jaundice (negative) and Rash (Negative)
Labs/Micro/Reports
Lab Data
04/28/24 03:37
04/28/24 03:37
Laboratory Results
04/28/24 04/28/24
03:36 03:37
PT 16.5 H
INR 1.31
APTT 31.4
pH 7.56 H
pCO2 30 L
pO2 150 H
HCO3 26.9
O2 Delivery Level
Microbiology
04/27/24 04:43 Urine Urine Culture - Preliminary
Escherichia coli
--- NOTE | 2024-04-28 10:41 | PN.CDI ---
CDI
- -
CDI:
Physician Documentation Request
Admit Date: 04/24/24 11:14
Dear Doctor Colton,
Patient admitted for Myasthenia gravis flare.
04/27 urine culture positive for e coli.
UA
Laboratory Tests
04/27/24
04:43
Urine Color Yellow
Urine Clarity Very cloudy
Ur Occult Blood Reflex Negative
Urine Nitrite (Reflex) Negative
Leukocyte Esterase Rfl 1+ A
Urine WBC (Reflex) 30-40 A
Urine Bacteria (Reflex) Many A
Could you please provide a diagnosis that supports the above lab abnormalities and additional evaluation/ monitoring:
UTI
Asymptomatic bacteruria
Other
Use of terms such as suspected, likely, concern for, or probable (associated with a specific diagnosis that is being evaluated, monitored, or treated as if it exists) are acceptable and can be coded in the inpatient setting, when documented at the
time of discharge.
Thank you,
Rachelle Valencia RN, BSN
CDI Specialist
tiger text
Please use your independent medical judgment in providing your response.
--- NOTE | 2024-04-28 10:44 | PN.CDI ---
CDI
- -
CDI:
Physician Documentation Request
Admit Date: 04/24/24 11:14
Dear Doctor Colton,
On the morning of 04/26 nursing notes state 'pt noted to be setting off bed alarm, HR 140s, pt restless and thrashing in bed.... Ativan given as ordered...
Pt remains restless/pulling on restraints and flailing legs'
Based on the above, could you clarify in the Progress Notes the most likely etiology of the altered mental status.
Encephalopathy - indicate type, such as metabolic, toxic, septic, alcoholic, anoxic, hypertensive etc. due to a specific condition such as UTI, CVA, hyponatremia etc.
Acute Delirium - indicate known or suspected etiology such as postoperative, due to opioids or other drugs etc. Can also indicate unknown or mixed etiologies.
Acute or subacute confusional state due to ____ (specify known or suspected etiology)
Other
Use of terms such as suspected, likely, concern for, or probable (associated with a specific diagnosis that is being evaluated, monitored, or treated as if it exists) are acceptable and can be coded in the inpatient setting, when documented at the
time of discharge.
Thank you,
Rachelle Valencia RN, BSN
CDI Specialist
tiger text
Please use your independent medical judgment in providing your response.
[2024-04-28 12:11] LABS: Glucose - Point of Care 158 mg/dl (70-99)
[2024-04-28] MEDS: KCL ELIXIR 40 MEQ PO (12:16)
[2024-04-28] MEDS: NOVOLOG FLEXPEN-MODERATE RESISTANCE 1 UNITS SC ×2 (12:16→17:38)
--- NOTE | 2024-04-28 14:26 | W.PN.ONC ---
Today's Communication / Plan
-
Tolerating pheresis well. Fibrinogen on the low side at 107, should improve by the morning. Continue to monitor closely.
Impression
Impression
myasthenia gravis
Plan
Plan
management per neurology
continue plasmapheresis facilitated by [place] - as per neurology recommendations - every other day x5
daily cbc, fibrinogen, coags.
Subjective/Objective
Subjective/Objective
She offers no new complaints. She remains on a ventilator. Examination is unchanged.
Vital Signs:
Vital Signs
Temp Pulse Resp BP Pulse Ox
98 F 65 29 114/68 94
04/28/24 11:32 04/28/24 13:00 04/28/24 13:00 04/28/24 13:00 04/28/24 12:00
Lab Results:
Laboratory Data
WBC 6.9 10^3/uL (4.8-10.8) 04/28/24 03:37
Hgb 11.0 g/dL (12.0-16.0) L 04/28/24 03:37
Plt Count 254 10^3/uL (130-400) D 04/28/24 03:37
PT 16.5 Sec (11.4-14.6) H 04/28/24 03:37
INR 1.31 04/28/24 03:37
APTT 31.4 Sec (23.4-35.0) 04/28/24 03:37
eGFR > 60.00 04/28/24 03:37
--- NOTE | 2024-04-28 14:39 | CM ---
CM following re: discharge planning.
Discussed in Rounds, reviewed pt's chart, met with pt. Per Rounds meeting, pt remains intubated, sedated with bilateral soft wrist restraints intact, awakened to verbal and tactile stimuli, spontaneous breathing trial today, continue supportive
care.
Original plan was to return back home with Alon[facility] VELASCO. PT and OT will re-evaluate the pt when clinically appropriate to determine a level of care at discharge.
D/C plan: uncertain at this time and will depend on pt's progress.
CM will follow with discharge plan updates as hospitalization progresses.
[2024-04-28 15:21] LABS: B.E. 2.6 mmol/L; HCO3 27.2 mmol/L (21-28); O2 Saturation % 99.7 % (94-98); PCO2 41 mmHg (32-35); PO2 124 mmHg (83-108); pH 7.43 (7.35-7.45)
--- NOTE | 2024-04-28 15:35 | PTCARENOTE ---
Dr. Leon informed of ABG result. Plan for extubation.
--- NOTE | 2024-04-28 15:45 | PTCARENOTE ---
Extubated to 3liters nasal cannula and titrated oxygen to maintain pulse ox >90%. Very moist non-productive cough. Gargly voice quality. Oropharyngeally suctioned three times for moderate amount of thick clear secretions, with improved moist cough.
She was instructed on the use of the yankauer and the incentive spirometer. She is not able to move the bellow with inspiration. Safe environment maintained.
--- NOTE | 2024-04-28 16:57 | PTCARENOTE ---
Repositioned in the bed. Pt asking to sit in the chair. She was placed in the chair position in the bed. Pulse ox probe replaced, ill fitting.
[2024-04-28] MEDS: LOVENOX 40 MG SC (17:34)
--- NOTE | 2024-04-28 17:47 | PTCARENOTE ---
Pt speech clearer. Pulse ox 98% on 6 liters, tapered to 4 liters nasal cannula. Prefers chair position and a cool room.
[2024-04-28 17:48] LABS: Glucose - Point of Care 171 mg/dl (70-99)
--- NOTE | 2024-04-28 17:53 | PTCARENOTE ---
Pt repositioned in the bed. Feet touching the foot board, RR 47, NRB mask off pulse ox 71%. Mask reapplied, repositioned, sitting upright. Pt's son is at the bedside.
[2024-04-28 20:51] LABS: Blood Urea Nitrogen 31 mg/dl (7-17); Calcium 8.2 mg/dl (8.4-10.2); Carbon Dioxide 28 mmol/L (22-30); Chloride 108 mmol/L (98-107); Estimated Creatinine Clearance 75 ml/min; Glucose 170 mg/dl (70-99); Magnesium 2.4 mg/dl (1.6-2.3); Potassium 4.8 mmol/L (3.5-5.1); Sodium 144 mmol/L (135-145); eGFR > 60.00
[2024-04-29] VITALS (29 sets, daily range): BP systolic 106–163; BP diastolic 57–141; PULSE 98; O2SAT 98; BMI 27.1
[2024-04-29] MEDS: NOVOLOG FLEXPEN-MODERATE RESISTANCE SC ×2 (00:39→07:30)
[2024-04-29] MEDS: XYLOCAINE 2 GRAM 500 IV (00:39)
[2024-04-29] MEDS: MELATONIN 10 MG PO ×2 (00:40→21:30)
[2024-04-29 00:49] LABS: Glucose - Point of Care 112 mg/dl (70-99)
--- NOTE | 2024-04-29 01:33 | PTCARENOTE ---
Pt received at 19:00, initial assessment as documented. Pt Ox3, soft speech. Received on 4L NC, titrated down to 2L. Pulse ox 95%. Shallow respirations, diminished at the bases. SR with prolonged QT, HR 60s-80s. Remains on Lidocaine gtt as ordered.
R nare DHT remains in place, TF infusing. Reynolds in place, malik urine, 40-65/hr. Safe environment maintained, call hernandez within reach, assisted with repositioning.
--- NOTE | 2024-04-29 03:32 | RESPNOTE ---
Got an order for NT suction for this PT, as she is unable to clear her secretions, which were pooled in the back of her throat. Performed NT suction with lube on a 14 F x 2 and got a large amt of thick hernandez secretions. PT stated that she felt much
better, sats improved as well.
[2024-04-29 03:40] LABS: % Basophils 0.1 % (0-2); % Immature Granulocytes 0.5 % (0-0.5); % Lymphocytes 5.9 % (20.5-51.1); % Monocytes 4.6 % (1.7-9.3); % Neutrophils 88.9 % (42.2-75.2); Absolute Immature Granulocytes 0.1 10^3/uL (0-0.05); Absolute Lymphocytes 1.2 10^3/uL (1.2-3.4); Absolute Neutrophils 18.6 10^3/uL (1.4-6.5); Hematocrit 41.1 % (37.0-47.0); Hemoglobin 12.9 g/dL (12.0-16.0); Mean Corp Hgb Conc. 31.4 g/dL (33.0-37.0); Mean Corpuscular Volume 95.6 fL (81.0-99.0); Mean Platelet Volume 11.5 fL (7.4-10.4); Nucleated Red Blood Cells % 0 %; Platelet Count 319 10^3/uL (130-400); Red Cell Dist. Width 14.6 % (11.5-14.5)
--- NOTE | 2024-04-29 03:41 | PTCARENOTE ---
Weak moist cough, unable to clear secretions. Attempted oropharyngeal suction, minimally successful. Respiratory NT suctioned pt, moderate amount of thick clear/yellow secretions. Desat with suctioning to mid 80s, NC increased to 6L immediately post
suction, and titrated back to 2L.
[2024-04-29 03:47] LABS: INR 1.13; PT 14.8 Sec (11.4-14.6)
[2024-04-29 03:48] LABS: APTT 25.5 Sec (23.4-35.0); Fibrinogen 194 MG/DL (199-459)
[2024-04-29 04:04] LABS: Blood Urea Nitrogen 30 mg/dl (7-17); Calcium 8.6 mg/dl (8.4-10.2); Carbon Dioxide 31 mmol/L (22-30); Chloride 108 mmol/L (98-107); Estimated Creatinine Clearance 75 ml/min; Glucose 117 mg/dl (70-99); LDH 231 U/L (120-246); Magnesium 2.5 mg/dl (1.6-2.3); Phosphorus 3.2 mg/dl (2.5-4.5); Potassium 4.2 mmol/L (3.5-5.1); Sodium 148 mmol/L (135-145); Triglycerides 140 mg/dl (10-149); eGFR > 60.00
[2024-04-29 05:38] LABS: Glucose - Point of Care 122 mg/dl (70-99)
--- NOTE | 2024-04-29 07:41 | W.PN.INTV ---
Today's Communication / Plan
Recommendations
Tolerated extubation
Speech therapy
Monitor DC and MIP
Plasma exchange
If remains stable then transfer to telemetry-pulmonary will follow briefly
Assessment
-
Assessment: 68-year-old female non-smoker with a PMHx of Chappell's palsy syndrome, chronic pain syndrome, MDD, RLS, diffusions contractures, vitamin B12 deficiency, lumbar spinal stenosis and stress incontinence who presents with nausea + diarrhea x 1
day. She was recently hospitalized from 04/11 - 04/12/2024 where she was diagnosed with suspected MG and discharged home on pyridostigmine he advised to follow-up with neurology. Her acetylcholine receptor binding antibody levels are elevated at 8.1
from 04/11/2024. She has been having difficulty swallowing liquids with intermittent nasal regurgitation and trouble speaking. Also had chin numbness 1 day CORPORATE SECRETARY for about 45 minutes. She was admitted to the IMU where her VC was found to be normal
and MIP was 30 cmH2O. She was started on pulse dose steroids, IVIG, continued on her Mestinon and neurology consulted. Unfortunately she became more tachypneic with worsening work of breathing and transferred to the ICU and started on high flow
nasal cannula. Redrying Machine Operator services consulted and she was ultimately intubated. She remains in the ICU for further care.
Chronic conditions CORPORATE SECRETARY: Chappell's palsy syndrome, MATHIEU, chronic pain syndrome, major depression disorder, MONISHA, RLS, history of left Dupuytren's contractures, osteoarthritis, lumbar spinal stenosis, vitamin B12 deficiency, stress incontinence
Impression:
#Acute respiratory failure with hypoxia + hypercapnia due to respiratory muscle weakness with suspected MG (elevated AChR-Ab levels: 8.1 on 04/11/2024) now on mechanical ventilation
- Intubated 04/26/2024 in ICU
#NSVT/prolonged QTc
#Suspected myasthenia gravis acute exacerbation on pulse dose steroids + PLEX s/p IVIG x 2 doses c/b tongue swelling
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
#Leukocytosis � likely steroid-induced
#History of RLS due to iron deficiency anemia on outpatient iron infusions
#Major depression disorder
#Osteoarthritis
#Lumbar spinal stenosis
#History of stress incontinence
Plan:
Tolerated extubation
Wean FiO2
Aspiration precautions
Speech therapy evaluation
Nebulizers as needed-currently not bronchospastic
Monitor VC and MIP
Monitor neurologic status closely
Pulse steroids
Neurology following-correspondence reviewed
Mestinon continues
IVIG-first dose had some tongue swelling-discontinued
Plasmapheresis-status post 2 exchanges 04/25/2024 and 04/27/2024 and 04/29/2024 pending
Continue to monitor QTc
Cardiology consulted-correspondence reviewed
Echocardiogram 04/28/2024-EF 50-55%, mild mitral regurgitation
Amiodarone Continues
Lidocaine drip if needed
Maintain MAP greater than 65
Replace electrolytes
Follow-up hemoglobin
Transfuse as needed
DVT prophylaxis-low molecular weight heparin
GI prophylaxis while on the ventilator-PPI
Nutrition-has nasogastric tube-if speech evaluation deems can safely swallow then we can discontinue nasogastric tube
Early mobilization/physical/Occupational Therapy
If remains stable and could be transferred out of ICU-pulmonary will follow briefly-monitor VC and MIP
Critical care statement: A total of 40 minutes of critical care time was provided for this patient today. This includes management of unstable vital signs, evaluation of the patient at bedside, reviewing the patient's pertinent medical records
including radiographs, ventilator management, spontaneous breathing trial management, pressor management, microbiology, laboratory evaluations, and discussion with primary team, consultants, pharmacy, nutrition, physical therapy, case management,
charge nurse, critical care nursing, and respiratory therapy.
Subjective Dataa
Subjective Data
Date of Service:
Date of Service: April 29, 2024
Chief Complaint: Redrying Machine Operator Follow Up and Pulmonary Follow Up
Subjective:
Tolerated extubation, some oral secretions, no complaints of shortness of breath, chest pain or abdominal pain
Review of Systems
General: Other (Per HPI)
Objective Data
Data Reviewed
Vital Signs / I&O / Oxygen:
Vital Signs
Temp Pulse Resp BP Pulse Ox
97.6 F 68 27 106/57 96
04/29/24 07:29 04/29/24 02:00 04/29/24 02:00 04/29/24 02:00 04/29/24 02:00
Intake and Output
04/28/24 04/29/24 04/30/24
06:59 06:59 06:59
Intake Total 979.9 / 1025.0 1105.2 / 1105.2
Output Total 935 / 960 1035 / 1035
Balance 44.9 / 65.0 70.2 / 70.2
SaO2 [CPAP/PSV] 94
SaO2 [A/C] 99
SaO2 96
Nasal Cannula flow liters per 4
minute
Physical Exam
General: Respiratory Distress (negative), Comfortable, Fever (Negative), Chills (Negative) and Sweats (Negative)
HEENT: Normocephalic, Anicteric and Other (ETT in place)
Cardiovascular: Regular Rhythm and Peripheral Edema (Trace lower extremity edema (L>R))
Respiratory: Wheeze (negative), Crackles (negative), Rhonchi (negative), Non-Labored Respirations and Accessory Resp Muscle Use (n)
GI: Soft, Non Distended, Non Tender, Normal Bowel Sounds and Other (No suprapubic tenderness)
Neurology: Awake, Alert and No Motor Deficits
Skin: Warm, Dry, Cyanosis (negative), Jaundice (negative) and Rash (Negative)
Labs/Micro/Reports
Lab Data
04/29/24 03:08
04/29/24 03:08
Laboratory Results
04/28/24 04/29/24
15:14 03:08
PT 14.8 H
INR 1.13
APTT 25.5
pH 7.43
pCO2 41 H
pO2 124 H
HCO3 27.2
O2 Delivery Level
Microbiology
04/27/24 04:43 Urine Urine Culture - Preliminary
Escherichia coli
--- NOTE | 2024-04-29 08:26 | W.PN.CARDCBS ---
Today's Communication / Plan
-
QT interval improved
Stop lidocaine
Do not restart Lexapro or Wellbutrin
Consider psych consult for reconfiguration of psych regimen
Check EKG in a.m.
Could leave ICU from cardiac standpoint
Impression / Plan
-
Impression:
Nonsustained V. tach/prolonged QT interval
VDRF 04/27/2024
History of myasthenia gravis
History of anxiety/depression
History of gastric bypass
History of iron deficiency anemia
Anemia
Hyperglycemia
Echocardiogram 04/28/2024: EF 50-55%, mild mitral regurgitation, mild pulmonic regurgitation, RV and atria are normal, aortic sclerosis presents, pulmonary artery systolic pressure 40-45 mmHg
Plan:
Regarding her prolonged QT interval, on telemetry QTc is better with Wellbutrin, Lexapro and propofol all currently discontinued. I would not restart Wellbutrin or Lexapro, consider psychiatry consultation to come up with alternative regimen that
will not affect QT interval.
EKG is pending. This will confirm that QT interval is improved. Suspect it is not yet normal. Half-life of Lexapro was extremely long measured 8 weeks, so QT interval will not normalize immediately.
No further nonsustained VT, so okay to discontinue lidocaine.
Magnesium is 2.5 today, potassium is 4.2.
We will repeat EKG in AM.
Heart rate is up but will not increase metoprolol at present.
Her echocardiogram looks good.
With regards to myasthenia, vent dependent respiratory failure, etc. she is improved, defer to hospitalist and manufacturer. Breath sounds still somewhat diminished in left base greater than right.
From my standpoint would be okay to leave ICU to IMU.
Progress Note - Tea Room Manager
Subjective
Date of Service: April 29, 2024:
Patient extubated, feeding tube in place, conversant with soft voice feels weak, scheduled for plasmapheresis later today
PMH: Myasthenia gravis, anxiety depression, history of gastric bypass, hyperglycemia
PSH: Gastric bypass, right total knee arthroplasty
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
Outpatient meds: Wellbutrin, BuSpar, cyclobenzaprine, escitalopram, hydroxycodone, Imodium, Prolia, pyridostigmine, ropinirole inpatient Meds: Still written for norepinephrine, which is off, lidocaine is at 1 mg/min, bupropion and escitalopram both
on hold, subcu Lovenox, Lopressor 12.5 twice daily, ropinirole 4 3 times daily, insulin, famotidine, pyridostigmine, BuSpar, methylprednisolone 500 mg, calcium, albumin
106/57, pulse 68, 80.7 kg, sats 96%, on 4 L, respiratory 26, appears frail but extubated, Dobbhoff in place, conversant, head neck exam on remarkable, diminished breath sounds left base, regular rate and rhythm without obvious murmurs or gallops JVD
okay, abdomen benign, 1+ edema neuro grossly nonfocal but weak
White count 21, hemoglobin 12.9, platelets 319, potassium 4.2, BUN and creatinine 30 and 0.9
Telemetry: No VT, QT interval is improved.
ECG: Pending
Objective
Labs:
04/29/24 03:08
04/29/24 03:08
Labs
Hgb 12.9 g/dL (12.0-16.0) 04/29/24 03:08
Hct 41.1 % (37.0-47.0) 04/29/24 03:08
Plt Count 319 10^3/uL (130-400) D 04/29/24 03:08
PT 14.8 Sec (11.4-14.6) H 04/29/24 03:08
INR 1.13 04/29/24 03:08
APTT 25.5 Sec (23.4-35.0) 04/29/24 03:08
Sodium 148 mmol/L (135-145) H 04/29/24 03:08
Potassium 4.2 mmol/L (3.5-5.1) 04/29/24 03:08
BUN 30 mg/dl (7-17) H 04/29/24 03:08
Creatinine 0.7 mg/dL (0.6-1.0) 04/29/24 03:08
Glucose 117 mg/dl (70-99) H 04/29/24 03:08
Vital Signs and I&O:
Vital Signs
Temp Pulse Resp BP Pulse Ox
36.4 C 68 27 106/57 96
04/29/24 07:29 04/29/24 02:00 04/29/24 02:00 04/29/24 02:00 04/29/24 02:00
Vital Signs
Temp Pulse Resp BP Pulse Ox
36.4 C 68 27 106/57 96
04/29/24 07:29 04/29/24 02:00 04/29/24 02:00 04/29/24 02:00 04/29/24 02:00
Intake & Output
04/27/24 04/28/24 04/29/24 04/30/24
07:59 07:59 07:59 07:59
Intake Total 729.1 / 781.7 992.4 / 1037.5 1060.1 / 1060.1
Output Total 820 / 830 935 / 960 1010 / 1010
Balance -90.9 / -48.3 57.4 / 77.5 50.1 / 50.1
Physical Exam
Physical Exam
See above
--- NOTE | 2024-04-29 08:47 | PTOTSP ---
Pt was extubated yesterday but requires new orders for PT and OT when stable to resume therapy activity.
--- NOTE | 2024-04-29 09:00 | PTCARENOTE ---
pt awake and alert , ST on monitor , BP 130/75 , lungs with exp wheezes , on 2L NC sats 97% , pt weak non productive cough needing frequent suction , pt is very anxious , needs frequent reassurance , plan to have plasmapheresis later today
[2024-04-29] MEDS: PROTONIX IV 40 MG IV (09:26)
[2024-04-29] MEDS: NSS (PRESERVATIVE FREE) 10 ML IV (09:26)
[2024-04-29] MEDS: PEPCID 20 MG IV (09:27)
[2024-04-29] MEDS: LOPRESSOR 12.5 MG PO (09:28)
[2024-04-29] MEDS: MIRALAX 17 GRAMS TUBE (09:28)
[2024-04-29] MEDS: MESTINON 30 MG PO (09:28)
[2024-04-29] MEDS: BUSPAR 10 MG PO (09:29)
[2024-04-29] MEDS: REQUIP 4 MG TUBE ×3 (09:29→21:30)
[2024-04-29] MEDS: SOLU-MEDROL 108 MG IV (09:30)
[2024-04-29] MEDS: NSS (PRESERVATIVE FREE) 8 ML IV (09:35)
--- NOTE | 2024-04-29 09:40 | W.PN.HOSP.TC ---
Today's Communication/Plan
-
see note
Assessment / Plan
Assessment / Plan
1. Myasthenia gravis flare up
-Recent diagnosis earlier in the month and was on pyridostigmine 60 mg 3 times daily
-Came in with difficulty with swallowing/dyspnea/slurred speech
04/25
-Patient have tongue swelling/slurred speech 04/25 in morning suspected allergic reaction to IVIG, stopping further IVIG
-Discussed with neurology and recommended to initiate plasmapheresis. Hem/onc and IRAD consulted. Patient got a temp cath
-Kimberly has been notified and consent has been obtained from patient. Son has been notified about the process as well.
-Neurology also recommended Dobbhoff tube placement as patient has been failing speech therapy evaluation today, GI help requested in this regard
04/26
-Patient had rapid response 7 in the morning and was in some resp distress/anxious and more restless
-Stat ABG showing Ph 7.35 pco2 54 and pow 93 on o2
-Moved to ICU for further monitoring, provided racemic epinephrine
-Provided Ativan 0.5mg x2 to help the restlessness- patient tiring herself out more with constant activity and feeling of dyspnea.
-Discussed with on-call professor of kinesiology and patient intubated electively for persistent dyspnea
04/27
-Patient was quite restless yesterday despite being on propofol, finally settled after resumption of Requip/Wellbutrin/BuSpar
-Getting second round of plasmapheresis today
-Dose 3/4 of solumedrol getting today
-Patient may not able to tolerate higher dose of pyridostigmine due to bradycardia
04/28
-Finished 4/4 of 1g solumedrol dosing
-Got Plasma-pharesis Sunday and sunday
-Discussed with professor of kinesiology, may get trial of SBT
04/29
-currently extubated on o2 through NC
-speech remains mumbled/low volume
-Finished steroid course
-Plan to get Plasma-pheresis round 3 today
-Maintain on Mestinon per neuro recommendation
-will provide pre-pharesis Kphos to prevent sev electrolyte depletion and resultant increased risk of ventricular arrthymia
2. Ventilator dependent respiratory failure - Extubated 04/28
-Intubated on 04/26 morning for airway protection and hypoxia/dyspnea
-ABG did not significant hypoxia, was requiring high flow o2 nonetheless.
-Currently on o2 through NC
3. QTc prolongation
Episode of NSVT
-Patient QTc of 650ms yesterday
-Medication reviewed and patient discontinued from Lexapro/Wellbutrin
-Repleted potassium/magnesium/phosphorus, goal more than 4/2/2.5 respectively
-Patient had run of NSVT and started on lidocaine drip 04/27 evening
-Taken off lidocaine drip today
-TTE reviewed, preserved EF, no wall motion deficit
-Repeat EKG pending today
4. Low fibrinogen
-Fibrinogen ~ 110, INR 1.3 yesterday. Improved ~ 200 today
-Likely effect from plasmapheresis, patient is getting albumin as replacement
-No bleeding diathesis, continue monitoring
-on DVT PPX with lovenox and will need to be held if not improved
5. Depression/anxiety
-Patient resumed back on home medication of Wellbutrin/buspirone/escitalopram through double
6. Sinus tachycardia -resolved
Sinus bradycardia
-Patient fluctuates between bradycardia and tachycardia already depending on mestinon use
-Lopressor as needed use ordered if patient gets tachycardic
7. Hypernatremia
-increase liquid intake if cleared by speech otherwise will increase FWF
8. Asymptomatic bacteriuria
-no dysuria/discomfort at admission
-UA reviewed, minimal pyuria present. WBC elevated from high dose steroids. Afebrile
-Urine cs growing Ecoli.
-Monitor off abx.
history of iron deficiency anemia
history of gastric bypass
history of right TKR
restless leg syndrome
osteoarthritis
history of vitamin B12 deficiency
overactive bladder
DVT PPX - lovenox
Full code
Case discussed with professor of kinesiology
Total critical care time 45 mins . Total critical care time documented does not include time spent on separately billed procedures or the services of residents, students, nurses or physician assistants. I personally saw and examined the patient. I
have reviewed all diagnostic interpretations and treatment plans as written. I was present for the alexander portions of any procedures performed and the inclusive time noted in any critical care statement. Critical care time includes patient management
by me, time spent at the patients bedside, time to review lab and imaging results, discussing patient care, documentation in the medical record, and time spent with the family or caregiver.
Anticipated Discharge: 24 - 48 hours
Subjective/Interval History
-
Date of Service: April 29, 2024
patient extubated yesterday
remains somewhat aphonic/low volume speech
on o2 through NC 2L
Objective Data
-
Labs:
Laboratory Results
04/29/24
03:08
WBC 21.0 H
Hgb 12.9
Hct 41.1
Plt Count 319 D
PT 14.8 H
INR 1.13
APTT 25.5
Sodium 148 H
Potassium 4.2
Chloride 108 H
Carbon Dioxide 31 H
BUN 30 H
Creatinine 0.7
Glucose 117 H
Calcium 8.6
Vital Signs:
Vital Signs
Temp Pulse Resp BP Pulse Ox
97.6 F 95 27 147/88 96
04/29/24 07:29 04/29/24 09:28 04/29/24 02:00 04/29/24 09:28 04/29/24 02:00
I&O
04/28/24 04/29/24 04/30/24
06:59 06:59 06:59
Intake Total 979.9 / 1025.0 1105.2 / 1105.2
Output Total 935 / 960 1035 / 1035
Balance 44.9 / 65.0 70.2 / 70.2
Review of Systems
-
Respiratory: Reports Cough
Cardiac: Reports No Symptoms
Abdomen/GI: Reports No Symptoms
Physical Exam
-
General: Comfortable
HEENT: Oxygen (2L NC) and Other (Dobhoff tube in place)
Respiratory: Clear to Auscultation
Cardiac: Regular Rhythm, S1/S2, Tachycardic and Bradycardic; Negative Murmur or Rub
GI: Soft, Nontender and Nondistended
Genito-urinary: Reynolds (Clear urine)
Neuro: Awake, Alert, Oriented and Other (Low volume speech)
Psych: Calm
--- NOTE | 2024-04-29 10:28 | W.PN.INTV ---
Today's Communication / Plan
Recommendations
Plasmapheresis
downgrade to IMU after
continue to wean FiO2
speech therapy
Assessment
-
Assessment: 68-year-old female with past medical history of recent diagnosis of myasthenia gravis, Chappell's palsy syndrome, chronic pain syndrome, depression/anxiety, iron deficiency anemia, gastric bypass, restless leg syndrome, osteoarthritis,
overactive bladder, iron deficiency anemia, vitamin D deficiency, lumbar spinal stenosis presented to the hospital hospital with increased difficulty swallowing and slurred speech. She was recently hospitalized from 04/11 to 04/12 where she presented
with similar symptoms. Improved with pyridostigmine. Acetylcholine receptor binding antibodies levels elevated at 8.1 and diagnosed with myasthenia gravis. Upon arriving here, she was admitted to IMU. She was started on steroids, IVIG and
continued on pyridostigmine with neurology following. Unfortunately, she started to develop increased tongue swelling suspected to be an allergic reaction to IVIG. Plasmapheresis was started. Her respiratory distress continued to worsen. She is
ultimately transferred to ICU and intubated on 04/26/2024. Cardiology now following as well due to prolonged QTc with unknown etiology on lidocaine drip. Heme-onc following for plasmapheresis. Extubated 04/28/24 now on 2L O2. Able to communicate,
but difficult to understand with ongoing speech difficulties secondary to the MG.
Impression:
#Acute respiratory failure with hypoxemia and hypercapnia secondary to respiratory muscle weakness with myasthenia gravis (acetylcholine receptor antibodies 8.1 on 04/11/2024)
-Now on mechanical ventilation, intubated 04/26/2024 in ICU
#NSVT/prolonged QTc
#Myasthenia gravis acute exacerbation on pulse dose steroids + plasmapheresis s/p IVIG x2 complicated by tongue swelling
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
# Leukocytosis likely secondary to steroids
#History of restless leg syndrome due to history of MATHIEU on outpatient iron infusions
#Major depression disorder/anxiety
#Osteoarthritis
#Lumbar spinal stenosis
#History of stress incontinence
Respiratory
-Acute respiratory failure with hypoxia�emergently intubated in ICU on 04/26/2024- >Extubated 04/28 now comfortable on 2L O2
-Nebulizers as needed -not currently bronchospastic
-Wean FiO2
-Aspiration percautions
-Speech evaluation
-Monitor VC and MIP. Consider re-intubation for VC ( <30) and MIP (0 to -30)
-Consider downgrade to IMU
Neurologic
-Currently AAOx3
- Pulse steroids methylprednisone course completed per neurology
- Neurology following
- Allergic reaction to IVIG with tongue swelling/edema -> plasmapheresis
- Plasmapheresis status post 2/5 exchanges on 04/25 and 04/27/2024 (every other day) ->3/04/29
- Monitor fibrinogen and coags per hemeonc
- Continue pyridostigmine at lower dose 30mg QID (decreased due to bradycardia)
-Continue ropinirole 4 mg 3 times a day via Dobbhoff tube for restless leg
-Buspirone for depression
Cardiovascular
- Long QTc
- Monitor. Improvement, today 468
- Cardiology following
- NSVT on 04/27 -> 150cc amio -> lidocaine gtt -> d/c today per cards rec
Off propofol now extubated. escitalopram and bupropion on hold. Buspirone added
- Keep K > 4, mg > 2.5
- Echo 50-55%
- Maintain MAP greater than 65
-Low fibrinogen
-Fibrinogen 107 ->194, INR 1.3 ->1.13
-Likely secondary to plasmapheresis - receiving albumin as replacement
-Monitor per heme/onc recommendation -no signs of active bleeding
- Monitor H&H -Transfuse <7
- Monitor ptl. Keep >20 unless signs of bleeding then keep >50
-Leukocytoses in setting of high dose steroids
Gastric
- Hx gastric bypass surgery
- GI prophylaxis pantoprazole
- Nutrition - Tube feeds increase. Speech eval for diet
Renal
- On nix due to urinary retention - inserted 04/26. d/c today
- Hx stress incontinence - wears depends at home
- U/A revealed E.coli - afebrile, denies any burning sensation, subprapubic tenderness -likely asymptomatic bacteriuria
- Hyperglycemia in setting of high dose steroids - maintain euglycemia goal 140-180 sliding scale insulin, AccuCheck
DVT - Lovenox 40
Early mobilization/PT/OT
Subjective Dataa
Subjective Data
Date of Service:
Date of Service: April 29, 2024
Patient awake, alert, oriented, still some difficulty speaking likely secondary to the MG. Able to communicate well via writing. Low voice. Satting well on 2 L after extubation.
Chief Complaint: Vice President Of Marketing Follow Up and Pulmonary Follow Up
Review of Systems
General: Fever (Negative), Sweats (Negative) and Chills (Negative)
Cardiopulmonary: Cough (Negative), Wheezing, Chest Pain (Negative) and Edema (Negative)
GI: Abdominal Pain (Negative), Nausea (Negative), Vomiting (Negative) and Tube Feeding
Neuro: Headache (Negative)
Genitourinary: Nix
Objective Data
Data Reviewed
Vital Signs / I&O / Oxygen:
Vital Signs
Temp Pulse Resp BP Pulse Ox
97.6 F 95 27 147/88 96
04/29/24 07:29 04/29/24 09:28 04/29/24 02:00 04/29/24 09:28 04/29/24 02:00
Intake and Output
04/28/24 04/29/24 04/30/24
06:59 06:59 06:59
Intake Total 979.9 / 1025.0 1105.2 / 1105.2
Output Total 935 / 960 1035 / 1035
Balance 44.9 / 65.0 70.2 / 70.2
SaO2 [CPAP/PSV] 94
SaO2 [A/C] 99
SaO2 96
Nasal Cannula flow liters per 4
minute
Physical Exam
General: Respiratory Distress (negative), Comfortable, Fever (Negative), Chills (Negative) and Sweats (Negative)
HEENT: Normocephalic, Anicteric and Other (ETT in place)
Cardiovascular: Regular Rhythm and Peripheral Edema (Trace lower extremity edema (L>R))
Respiratory: Wheeze (negative), Crackles (negative), Rhonchi (negative), Non-Labored Respirations and Accessory Resp Muscle Use (n)
GI: Soft, Non Distended, Non Tender, Normal Bowel Sounds and Other (No suprapubic tenderness)
Neurology: Awake, Alert and No Motor Deficits
Skin: Warm, Dry, Cyanosis (negative), Jaundice (negative) and Rash (Negative)
Labs/Micro/Reports
Lab Data
04/29/24 03:08
04/29/24 03:08
Laboratory Results
04/28/24 04/29/24
15:14 03:08
PT 14.8 H
INR 1.13
APTT 25.5
pH 7.43
pCO2 41 H
pO2 124 H
HCO3 27.2
O2 Delivery Level
Microbiology
04/27/24 04:43 Urine Urine Culture - Final
Escherichia coli
--- NOTE | 2024-04-29 10:36 | W.PN.NEURO.1 ---
Today's Communication / Plan
-
.
Subjective/Objective
Subjective Data
Date of Service: April 29, 2024
Neurology Follow-up Note.
24 h events: extubated, complains about generalized weakness. No reports of diplopia, remains dysphonic.
Off Wellbutrin, Lexapro due to Prolonged QTc interval.
Labs: Na 148, WBC 6.9� 21. Received last dose of methylprednisolone today in the morning.
EKG: NSR, QTc Int : 468 ms.
PMH: seropositive generalized myasthenia gravis; h/o L Chappell's palsy, anemia, chronic pain s-me, MDD, MONISHA, RLS, left Dupuytren contractures, lumbar spinal stenosis
PSH: R IJ, gastric bypass, left hand surgery, R TKA, BL cataract surgery
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
FH: Not contributory to current presentation
All: Penicillin, IVIG
ROS: Limited due to intubation
General: In no acute distress
Cardio: Regular rate and rhythm
Neuro:
Mental Status: Awake, fully oriented, follows complex requests.
CN: Orthophoric primary gaze. Pupils 3 mm, reactive. Extraocular movement intact. No ptosis. Severe hypophonia, mild dysarthria
Motor: Normal tone and bulk. Strength 5 out of 5 including neck flexor and extensors except for bilateral deltoides 4 out of 5.
Reflexes: No clonus at the ankles
Coordination: No tremors myoclonic movements
Gait: deferred
Assessment and Plan:
I. Seropositive generalized myasthenia gravis, clinically improved.
II. Prolonged QTc interval, improved
III. RLS
-Aspiration precautions
-Dysphagia evaluation
-Continue PLEX for 5 doses total
-Continue Mestinon 30 mg QID(higher doses caused bradycardia)
-Continue Ropinirole 4 mg TID
-PT
-DVT and GI prophylaxis
I personally reviewed all radiology and labs along with past medical records pertinent to current medical problems. Total time spent in patient care is 40 minutes.
Thank you for allowing us to participate in the care of this patient. We will continue to follow. Please do not hesitate to contact us with any questions or concerns.
Objective Data
Vital Signs
Temp Pulse Resp BP Pulse Ox
36.4 C 95 27 147/88 96
04/29/24 07:29 04/29/24 09:28 04/29/24 02:00 04/29/24 09:28 04/29/24 02:00
Lab Results
04/29/24 03:08
04/29/24 03:08
PT 14.8 Sec (11.4-14.6) H 04/29/24 03:08
INR 1.13 04/29/24 03:08
APTT 25.5 Sec (23.4-35.0) 04/29/24 03:08
Sodium 148 mmol/L (135-145) H 04/29/24 03:08
Potassium 4.2 mmol/L (3.5-5.1) 04/29/24 03:08
BUN 30 mg/dl (7-17) H 04/29/24 03:08
Glucose 117 mg/dl (70-99) H 04/29/24 03:08
Calcium 8.6 mg/dl (8.4-10.2) 04/29/24 03:08
Phosphorus 3.2 mg/dl (2.5-4.5) 04/29/24 03:08
Patient Allergies
Penicillins Allergy (Severe, Verified 04/24/24 07:54)
Anaphylaxis
immune globulin,gamma (IgG) human Allergy (Verified 04/28/24 14:54)
See comments
Vital Signs and Labs
-
Vital Signs and Labs:
Vital Signs
Temp Pulse Resp BP Pulse Ox
36.4 C 95 27 147/88 96
04/29/24 07:29 04/29/24 09:28 04/29/24 02:00 04/29/24 09:28 04/29/24 02:00
Lab Results
04/29/24 03:08
04/29/24 03:08
PT 14.8 Sec (11.4-14.6) H 04/29/24 03:08
INR 1.13 04/29/24 03:08
APTT 25.5 Sec (23.4-35.0) 04/29/24 03:08
Sodium 148 mmol/L (135-145) H 04/29/24 03:08
Potassium 4.2 mmol/L (3.5-5.1) 04/29/24 03:08
BUN 30 mg/dl (7-17) H 04/29/24 03:08
Glucose 117 mg/dl (70-99) H 04/29/24 03:08
Calcium 8.6 mg/dl (8.4-10.2) 04/29/24 03:08
Phosphorus 3.2 mg/dl (2.5-4.5) 04/29/24 03:08
Medications
-
Medications:
Generic Name Dose Route Start Last Admin
Trade Name Freq PRN Reason Stop Dose Admin
Acetaminophen 650 mg 04/24/24 12:26
Acetaminophen 325 Mg Tablet PO 05/22/24 12:25
Q4HPRN PRN
mild pain/DE LEON/temp> 100.4F
Bisacodyl 10 mg 04/24/24 12:26
Bisacodyl 10 Mg Rectal Suppository RECTAL 05/22/24 12:25
[id number] PRN
constipation
Bupropion HCl 300 mg 04/24/24 12:26 04/26/24 10:09
Bupropion (24hr) Extended Release 300 Mg Tablet PO 05/22/24 12:25 Not Given
DAILY ANDREA
Buspirone HCl 10 mg 04/27/24 11:00 04/29/24 09:29
Buspirone 10 Mg Tablet PO 05/25/24 10:59 10 mg
BID ANDREA Administration
Enoxaparin Sodium 40 mg 04/24/24 18:00 04/28/24 17:34
Enoxaparin Sodium 40 Mg/0.4 Ml Syringe SC 05/22/24 17:59 40 mg
QPM ANDREA Administration
Escitalopram Oxalate 20 mg 04/24/24 12:26 04/27/24 08:12
Escitalopram 20 Mg Tablet PO 05/22/24 12:25 20 mg
DAILY ANDREA Administration
Famotidine 20 mg 04/26/24 20:00 04/29/24 09:27
Famotidine 20 Mg Iv Push Bid IV 05/24/24 19:59 20 mg
BID ANDREA Administration
Heparin Sodium 0 units 04/29/24 11:00
Heparin (1000 Units/Ml) 10,000 Units/10 Ml Vial INTRACATH 04/29/24 11:01
ONCE ONE
Albumin Human 12.5 grams in 250 mls @ 1,666.667 mls/hr 04/29/24 11:00
Albumin 5% INTRACATH 04/29/24 12:56
.Q9M ANDREA
Calcium Gluconate 3,300 mg/ 283 mls @ 0 mls/hr 04/29/24 11:00
Sodium Chloride IV 04/29/24 11:01
ONCE ONE
As Directed
Insulin Aspart 0 units 04/26/24 12:00 04/29/24 07:30
Insulin Aspart Moderate Resistance 300 Units/3 Ml Pen.Injctr SC 05/24/24 11:59 Not Given
Q6 ANDREA
Protocol
Metoprolol Tartrate 12.5 mg 04/24/24 20:00 04/29/24 09:28
Metoprolol 12.5 Mg Regular Release Dose (1/2 Of 25 Mg Tablet) PO 05/22/24 19:59 12.5 mg
BID ANDREA Administration
Polyethylene Glycol 17 grams 04/24/24 12:26
Polyethylene Glycol Powder 17 Grams Packet PO 05/22/24 12:25
DAILYPRN PRN
constipation
Polyethylene Glycol 17 grams 04/27/24 08:00 04/29/24 09:28
Polyethylene Glycol Powder 17 Grams Packet TUBE 05/25/24 07:59 17 grams
DAILY ANDREA Administration
Pyridostigmine [place] 30 mg 04/27/24 09:58 04/29/24 09:28
Pyridostigmine 60 Mg Tablet PO 05/23/24 09:59 30 mg
QID ANDREA Administration
Ropinirole HCl 4 mg 04/26/24 10:40 04/29/24 09:29
Ropinirole 2 Mg Tablet TUBE 05/22/24 15:59 4 mg
TID ANDREA Administration
Senna/Docusate Sodium 1 tablet 04/24/24 12:26
Docusate W/Senna (Sofie-Colace) Tablet PO 05/22/24 12:25
BIDPRN PRN
constipation
Sodium Chloride 0 flush 04/24/24 13:00
Sodium Chloride 0.9% (Flush) Syringe IV 05/22/24 12:59
PER PROTOCOL ANDREA
Sodium Chloride 8 ml 04/26/24 20:00 04/28/24 19:56
Nss 8 Ml Bid IV 05/24/24 19:59 8 ml
BID ANDREA Administration
Home Medications
-
Home Medications
bupropion HCl 300 mg 24 hr tablet, extended release (Wellbutrin XL) 300 mg PO DAILY Depression 10/11/22
buspirone 10 mg tablet 10 mg PO BID Mental Health/Anxiety 10/11/22
hydrocodone 7.5 mg-acetaminophen 325 mg tablet 1 tab PO QIDPRN PRN SEVERE pain 10/11/22
cyclobenzaprine 5 mg tablet 5 mg PO HS pain/muscle spasms 04/11/24
denosumab 60 mg/mL subcutaneous syringe (Prolia) 60 mg SC [id number] osteoporosis 04/11/24
ropinirole 2 mg tablet 4 mg PO TID restless legs 04/11/24
acetaminophen 500 mg tablet 1,000 mg PO Q6HPRN PRN MILD PAIN 04/24/24
escitalopram oxalate 20 mg tablet 20 mg PO DAILY Mental Health/Anxiety 04/24/24
loperamide 2 mg capsule 2 mg PO DAILY PRN DIARRHEA 04/24/24
pyridostigmine bromide 60 mg tablet 60 mg PO TID Neurological Condition 04/28/24
--- NOTE | 2024-04-29 11:05 | PTOTSP ---
Speech Language Pathology
Pt seen for dysphagia tx. Dysphonia noted with decreased breath support. Pt only able to verbalize 1-2 words per breath. Decreased vocal intensity noted. She reported some fatigue with voice since waking up this morning. Seen with ice chips and
3ccs of thin water via pipetted straw. Multiple swallows per bolus noted indicative of weak deglutition and pharyngeal residue. 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 Further P.O. trials deferred.
Pt not yet ready for P.O. diet. She is at high risk for aspiration given myasthenia gravis exacerbation and recent intubation. Will consider VSE as needed when more appropriate.
Recommend:
(1) NPO
(2) Oral care 4x/day with suctioning as needed
(3) Allow ice chips sparingly when speech intelligible and able to swallows secretions (given supervision and after oral care per Aspiration Risk Hydration Protocol)
(4) Non-oral meds
(5) [employer] APPRAIS[employer] to continue to follow
--- NOTE | 2024-04-29 11:17 | W.PN.ONC ---
Today's Communication / Plan
-
3rd plasmapheresis today
Impression
Impression
myasthenia gravis
Plan
Plan
management per neurology
continue plasmapheresis facilitated by [facility] - as per neurology recommendations - every other day x5
daily cbc, fibrinogen, coags.
Subjective/Objective
Subjective/Objective
extubated yesterday
was found sliding out of bed, repositioned with help from nursing
c/o restless legs, prefers to have them dangling
Vital Signs:
Vital Signs
Temp Pulse Resp BP Pulse Ox
97.6 F 95 27 147/88 96
04/29/24 07:29 04/29/24 09:28 04/29/24 02:00 04/29/24 09:28 04/29/24 02:00
Lab Results:
Laboratory Data
WBC 21.0 10^3/uL (4.8-10.8) H 04/29/24 03:08
Hgb 12.9 g/dL (12.0-16.0) 04/29/24 03:08
Plt Count 319 10^3/uL (130-400) D 04/29/24 03:08
PT 14.8 Sec (11.4-14.6) H 04/29/24 03:08
INR 1.13 04/29/24 03:08
APTT 25.5 Sec (23.4-35.0) 04/29/24 03:08
eGFR > 60.00 04/29/24 03:08
[2024-04-29] MEDS: CALCIUM GLUCONATE 10% INJECTION 283 MG IV (11:36)
[2024-04-29] MEDS: HEPARIN 10000 UNITS INTRACATH (11:56)
[2024-04-29] MEDS: NOVOLOG FLEXPEN-MODERATE RESISTANCE 5 UNITS SC (11:58)
[2024-04-29 12:06] LABS: Glucose - Point of Care 285 mg/dl (70-99)
--- NOTE | 2024-04-29 12:58 | PTCARENOTE ---
pt off of lidocaine gtt since 899 , pt currently having plasmapheresis , continues with anxiety ,very restless in bed
[2024-04-29] MEDS: NEUTRAPHOS 250 MG PO (13:45)
[2024-04-29] MEDS: SOLU-MEDROL 104 MG IV (14:54)
[2024-04-29] MEDS: MESTINON 30 MG TUBE ×3 (15:05→21:30)
--- NOTE | 2024-04-29 15:05 | CM ---
CM following re: discharge planning.
Discussed in Rounds, reviewed pt's chart, met with pt. Per Rounds meeting, pt extubated yesterday to 4L NC of O2, now requires 2L NC, continue supportive care.
PT and OT will re-evaluate the pt when clinically appropriate to determine a level of care at discharge.
D/C plan: most likely home with [facility] and family support. PT/OT to confirm the plan.
CM will follow with discharge plan updates as hospitalization progresses.
--- NOTE | 2024-04-29 15:30 | PTCARENOTE ---
pt oob in chair , tolerated well, less anxious , pt has improved with her speech and she has a stronger cough since she has completed plasmapheresis , she is able to speak more clearly
[2024-04-29 17:54] LABS: Glucose - Point of Care 158 mg/dl (70-99)
[2024-04-29] MEDS: LOVENOX 40 MG SC (18:36)
[2024-04-29] MEDS: NOVOLOG FLEXPEN-MODERATE RESISTANCE 1 UNITS SC ×2 (18:38→23:14)
[2024-04-29] MEDS: BUSPAR 10 MG TUBE (20:11)
[2024-04-29] MEDS: PEPCID 20 MG TUBE (20:11)
[2024-04-29] MEDS: LOPRESSOR 12.5 MG TUBE (20:12)
[2024-04-29 23:24] LABS: Glucose - Point of Care 154 mg/dl (70-99)
[2024-04-30] VITALS (20 sets, daily range): BP systolic 99–182; BP diastolic 59–146; BMI 26.5
[2024-04-30 03:59] LABS: % Basophils 0.1 % (0-2); % Lymphocytes 3.9 % (20.5-51.1); % Monocytes 4.5 % (1.7-9.3); % Neutrophils 90.5 % (42.2-75.2); Absolute Immature Granulocytes 0.2 10^3/uL (0-0.05); Absolute Lymphocytes 0.8 10^3/uL (1.2-3.4); Absolute Neutrophils 19.3 10^3/uL (1.4-6.5); Hematocrit 44.8 % (37.0-47.0); Hemoglobin 14.1 g/dL (12.0-16.0); Mean Corp Hgb Conc. 31.5 g/dL (33.0-37.0); Mean Corpuscular Hgb 30.1 pg (27.0-31.0); Mean Corpuscular Volume 95.7 fL (81.0-99.0); Mean Platelet Volume 12.1 fL (7.4-10.4); Nucleated Red Blood Cells % 0 %; Platelet Count 306 10^3/uL (130-400); Red Blood Cell Count 4.68 10^6/uL (4.20-5.40); Red Cell Dist. Width 14.1 % (11.5-14.5); White Blood Cell Count 21.3 10^3/uL (4.8-10.8)
[2024-04-30 04:01] LABS: INR 1.23; PT 15.8 Sec (11.4-14.6)
[2024-04-30 04:07] LABS: Fibrinogen 156 MG/DL (199-459)
[2024-04-30 04:16] LABS: Blood Urea Nitrogen 25 mg/dl (7-17); Calcium 8.6 mg/dl (8.4-10.2); Carbon Dioxide 33 mmol/L (22-30); Chloride 100 mmol/L (98-107); Estimated Creatinine Clearance 88 ml/min; Glucose 122 mg/dl (70-99); LDH 269 U/L (120-246); Magnesium 2.3 mg/dl (1.6-2.3); Phosphorus 2.3 mg/dl (2.5-4.5); Sodium 142 mmol/L (135-145); eGFR > 60.00
[2024-04-30 05:20] LABS: Glucose - Point of Care 121 mg/dl (70-99)
[2024-04-30] MEDS: NOVOLOG FLEXPEN-MODERATE RESISTANCE SC ×3 (06:15→17:58)
--- NOTE | 2024-04-30 07:37 | W.PN.INTV ---
Today's Communication / Plan
Recommendations
Tolerated extubation
Wean FiO2
Increase activity
Continue Mestinon, steroids, and plasma exchange tomorrow
Monitor VC and MIP
Assessment
-
Assessment: 68-year-old female non-smoker with a PMHx of Chappell's palsy syndrome, chronic pain syndrome, MDD, RLS, diffusions contractures, vitamin B12 deficiency, lumbar spinal stenosis and stress incontinence who presents with nausea + diarrhea x 1
day. She was recently hospitalized from 04/11 - 04/12/2024 where she was diagnosed with suspected MG and discharged home on pyridostigmine he advised to follow-up with neurology. Her acetylcholine receptor binding antibody levels are elevated at 8.1
from 04/11/2024. She has been having difficulty swallowing liquids with intermittent nasal regurgitation and trouble speaking. 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 She was admitted to the IMU where her VC was found to be normal
and MIP was 30 cmH2O. She was started on pulse dose steroids, IVIG, continued on her Mestinon and neurology consulted. Unfortunately she became more tachypneic with worsening work of breathing and transferred to the ICU and started on high flow
nasal cannula. [facility] services consulted and she was ultimately intubated. She remains in the ICU for further care.
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
Impression:
#Acute respiratory failure with hypoxia + hypercapnia due to respiratory muscle weakness with suspected MG (elevated AChR-Ab levels: 8.1 on 04/11/2024) now on mechanical ventilation
- Intubated 04/26/2024 in ICU
Extubated 04/28/2024
#NSVT/prolonged QTc
#Suspected myasthenia gravis acute exacerbation on pulse dose steroids + PLEX s/p IVIG x 2 doses c/b tongue swelling
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
#Leukocytosis � likely steroid-induced
#History of RLS due to iron deficiency anemia on outpatient iron infusions
#Major depression disorder
#Osteoarthritis
#Lumbar spinal stenosis
#History of stress incontinence
Plan:
Neurologic and hemodynamic status has improved
Tolerated extubation
Wean FiO2
Aspiration precautions
Speech therapy evaluation
Nebulizers as needed-currently not bronchospastic
Monitor VC and MIP-VC 1.1 L - 43%, MIP 10 cm-both down a bit from yesterday
Monitor neurologic status closely
Pulse steroids continue
Neurology following-correspondence reviewed
Mestinon continues
IVIG-first dose had some tongue swelling-discontinued
Plasmapheresis-status post 2 exchanges 04/25/2024 and 04/27/2024 and 04/29/2024
Hematology following-correspondence reviewed
Follow fibrinogen
Continue to monitor QTc-much improved
Cardiology consulted-correspondence reviewed
Echocardiogram 04/28/2024-EF 50-55%, mild mitral regurgitation
Amiodarone Continues
Lidocaine drip if needed
Maintain MAP greater than 65
Replace electrolytes
Monitor leukocytosis-suspect steroid induced
Monitor temperature curve as well
Patient with chronic incontinence
Follow hemoglobin
Transfuse as needed
DVT prophylaxis-low molecular weight heparin
GI prophylaxis while on the ventilator-PPI
Nutrition-has nasogastric tube-if speech evaluation deems can safely swallow then we can discontinue nasogastric tube
Early mobilization/physical/Occupational Therapy
Patient now IMU status holding in ICU-pulmonary will follow briefly-monitor VC and MIP
Reviewed the patient's pertinent medical records including radiographs, microbiology, laboratory evaluations, and discussion with primary team, consultants, pharmacy, nutrition, physical therapy, case management, charge nurse, critical care
nursing, and respiratory therapy.
Subjective Dataa
Subjective Data
Date of Service:
Date of Service: April 30, 2024
Chief Complaint: [facility] Follow Up and Pulmonary Follow Up
Subjective:
Still feels weak, denies any swallowing difficulties, feels short of breath with exertion, able to take deep breaths, complains of diarrhea and abdominal issues
Review of Systems
General: Other
Objective Data
Data Reviewed
Vital Signs / I&O / Oxygen:
Vital Signs
Temp Pulse Resp BP Pulse Ox
97.6 F 89 27 139/89 100
04/30/24 03:21 04/30/24 06:00 04/30/24 06:00 04/30/24 04:00 04/30/24 06:00
Intake and Output
04/29/24 04/30/24 05/01/24
06:59 06:59 06:59
Intake Total 1105.2 / 1165.2 1680 / 1680
Output Total 1035 / 1035 870 / 870
Balance 70.2 / 130.2 810 / 810
SaO2 [CPAP/PSV] 94
SaO2 [A/C] 99
SaO2 100
Nasal Cannula flow liters per 2
minute
Physical Exam
General: Respiratory Distress (negative), Comfortable, Fever (Negative), Chills (Negative) and Sweats (Negative)
HEENT: Normocephalic, Anicteric and Other (ETT in place)
Cardiovascular: Regular Rhythm and Peripheral Edema (Trace lower extremity edema (L>R))
Respiratory: Wheeze (negative), Crackles (negative), Rhonchi (negative), Non-Labored Respirations and Accessory Resp Muscle Use (n)
GI: Soft, Non Distended, Non Tender, Normal Bowel Sounds and Other (No suprapubic tenderness)
Neurology: Awake, Alert and No Motor Deficits
Skin: Warm, Dry, Cyanosis (negative), Jaundice (negative) and Rash (Negative)
Labs/Micro/Reports
Lab Data
04/30/24 03:29
04/30/24 03:29
Laboratory Results
04/30/24
03:29
PT 15.8 H
INR 1.23
APTT 29.0
Microbiology
04/27/24 04:43 Urine Urine Culture - Final
Escherichia coli
[2024-04-30] MEDS: REQUIP 4 MG TUBE ×3 (08:38→20:23)
[2024-04-30] MEDS: MESTINON 30 MG TUBE ×2 (08:39→13:40)
[2024-04-30] MEDS: LOPRESSOR 12.5 MG TUBE ×2 (08:39→20:24)
[2024-04-30] MEDS: BUSPAR 10 MG TUBE ×2 (08:39→20:24)
[2024-04-30] MEDS: PEPCID 20 MG TUBE ×2 (08:39→20:24)
[2024-04-30] MEDS: FEOSOL 325 MG TUBE (08:39)
[2024-04-30] MEDS: MIRALAX TUBE (08:40)
--- NOTE | 2024-04-30 08:49 | W.PN.ONC2 ---
Today's Communication / Plan
-
PLEX # 4 tomorrow. Last Tx Sunday
Impression
Impression
myasthenia gravis
Plan
Plan
management per neurology
continue plasmapheresis facilitated by [facility] - as per neurology recommendations - every other day x5.
For PLEX # 4 of 5 05/01
daily cbc, fibrinogen, coags.
Subjective/Objective
Chief Complaint
ACS Heme F/U
Subjective
Remains SOB and very anxious. Extubated.
Vital Signs:
Vital Signs
Temp Pulse Resp BP Pulse Ox
97 F 96 27 160/102 100
04/30/24 07:39 04/30/24 08:39 04/30/24 06:00 04/30/24 08:39 04/30/24 06:00
Lab Results:
Laboratory Data
WBC 21.3 10^3/uL (4.8-10.8) H 04/30/24 03:29
Hgb 14.1 g/dL (12.0-16.0) 04/30/24 03:29
Plt Count 306 10^3/uL (130-400) 04/30/24 03:29
PT 15.8 Sec (11.4-14.6) H 04/30/24 03:29
INR 1.23 04/30/24 03:29
APTT 29.0 Sec (23.4-35.0) 04/30/24 03:29
eGFR > 60.00 04/30/24 03:29
Laboratory Tests
04/30/24
03:29
Fibrinogen 156 L
Calcium 8.6
Physical Exam
comfortable and no respiratory distress
Cardiology: S1, S2 and Irregular rate/rhythm (tachy with P waves - sinus rhythm)
Pulmonary: Clear
--- NOTE | 2024-04-30 09:11 | W.PN.CARDCBS ---
Today's Communication / Plan
-
QTc improved.
Check EKG today, if QTc remains improved, outpt cardiac follow up after d/c
Consider psych eval
Impression / Plan
-
.
Impression:
Nonsustained V. tach/prolonged QT interval, improved
VDRF 04/27/2024, extubated
History of myasthenia gravis
History of anxiety/depression
History of gastric bypass
History of iron deficiency anemia
Anemia
Hyperglycemia
Echo 04/28/2024: EF 50-55%, mild mitral regurgitation, mild pulmonic regurgitation, RV and atria are normal, aortic sclerosis presents, pulmonary artery systolic pressure 40-45 mmHg
Plan:
QTc improved as of Apr 29 and Apr 30 EKG is pending.
QTc improved with stopping Wellbutrin, Lexapro and propofol
Consider psych input regarding replacements meds for her psychiatry illness that would not affect the QTc.
Lidocaine has been stopped as no further NSVT.
Cont Metoprolol. Echo is stable with preserved EF
Stable from cardiac standpoint for IMU.
If EKG remains stable, likely sign off.
Cont tx for myasthenia gravis as per primary service.
Outpt follow up to reeval QT.
Discussed with nursing.
Progress Note - Physical Anthropologist
Subjective
Date of Service: April 30, 2024
Pt seen and examined. No cp or dyspnea.
Objective
Labs:
04/30/24 03:29
04/30/24 03:29
Labs
Hgb 14.1 g/dL (12.0-16.0) 04/30/24 03:29
Hct 44.8 % (37.0-47.0) 04/30/24 03:29
Plt Count 306 10^3/uL (130-400) 04/30/24 03:29
PT 15.8 Sec (11.4-14.6) H 04/30/24 03:29
INR 1.23 04/30/24 03:29
APTT 29.0 Sec (23.4-35.0) 04/30/24 03:29
Sodium 142 mmol/L (135-145) 04/30/24 03:29
Potassium 4.0 mmol/L (3.5-5.1) 04/30/24 03:29
BUN 25 mg/dl (7-17) H 04/30/24 03:29
Creatinine 0.5 mg/dL (0.6-1.0) L 04/30/24 03:29
Glucose 122 mg/dl (70-99) H 04/30/24 03:29
Vital Signs and I&O:
Vital Signs
Temp Pulse Resp BP Pulse Ox
97 F 96 27 160/102 100
04/30/24 07:39 04/30/24 08:39 04/30/24 06:00 04/30/24 08:39 04/30/24 06:00
Vital Signs
Temp Pulse Resp BP Pulse Ox
97 F 96 27 160/102 100
04/30/24 07:39 04/30/24 08:39 04/30/24 06:00 04/30/24 08:39 04/30/24 06:00
Intake & Output
04/28/24 04/29/24 04/30/24 05/01/24
06:59 06:59 06:59 06:59
Intake Total 979.9 / 1025.0 1105.2 / 1165.2 1680 / 1680
Output Total 935 / 960 1035 / 1035 870 / 870
Balance 44.9 / 65.0 70.2 / 130.2 810 / 810
Physical Exam
Physical Exam
General: No acute distress, AAOX3
Neck: Negative JVD
Heart: Regular, Negative S3 positive S1/S2, Negative S4, No murmur
Lungs: CTA b/l, negative wheezes/rales/rhonchi
Abd: Positive BS, NT/ND, neg rebound/rigidity/guarding
Ext: Negative cyanosis/clubbing/edema
Neuro: nonfocal
[2024-04-30] MEDS: WELLBUTRIN XL (24 hour extended release) PO (10:32)
--- NOTE | 2024-04-30 10:39 | W.PN.INTV ---
Today's Communication / Plan
Recommendations
Repeat ABG if changes in neurostatus noticed
Plasmapheresis been scheduled
Continue to wean O2 as possible
Assessment
-
Assessment: 68-year-old female with past medical history of recent diagnosis of myasthenia gravis, Chappell's palsy syndrome, chronic pain syndrome, depression/anxiety, iron deficiency anemia, gastric bypass, restless leg syndrome, osteoarthritis,
overactive bladder, iron deficiency anemia, vitamin D deficiency, lumbar spinal stenosis presented to the hospital hospital with increased difficulty swallowing and slurred speech. She was recently hospitalized from 04/11 to 04/12 where she presented
with similar symptoms. Improved with pyridostigmine. Acetylcholine receptor binding antibodies levels elevated at 8.1 and diagnosed with myasthenia gravis. Upon arriving here, she was admitted to IMU. She was started on steroids, IVIG and
continued on pyridostigmine with neurology following. Unfortunately, she started to develop increased tongue swelling suspected to be an allergic reaction to IVIG. Plasmapheresis was started. Her respiratory distress continued to worsen. She is
ultimately transferred to ICU and intubated on 04/26/2024. Cardiology now following as well due to prolonged QTc with unknown etiology on lidocaine drip. Heme-onc following for plasmapheresis. Extubated 04/28/24 now on 2L O2 for comfort. Able to
communicate, but difficult to understand with ongoing speech difficulties secondary to the MG.
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
#Acute respiratory failure with hypoxemia and hypercapnia secondary to respiratory muscle weakness with myasthenia gravis (acetylcholine receptor antibodies 8.1 on 04/11/2024)
intubated 04/26/2024 in ICU - extubated 04/28
#NSVT/prolonged QTc
#Myasthenia gravis acute exacerbation on pulse dose steroids + plasmapheresis s/p IVIG x2 complicated by tongue swelling
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
# Leukocytosis likely secondary to steroids
#History of restless leg syndrome due to history of MATHIEU on outpatient iron infusions
#Major depression disorder/anxiety
#Osteoarthritis
#Lumbar spinal stenosis
#History of stress incontinence
Plan:
Respiratory
-Acute respiratory failure with hypoxia�emergently intubated in ICU on 04/26/2024- >Extubated 04/28 now comfortable on 2L O2
-Nebulizers as needed -not currently bronchospastic
-Wean FiO2
-Aspiration percautions
-Speech evaluation
-Monitor VC and MIP q shift. Consider re-intubation for VC ( <30) and MIP (0 to -30)
-Downgraded to IMU
- Repeat ABG if decrease in neuro status as VC 55 -> 43 and slight increase in HCO3.
Neurologic
-Currently AAOx3
- Pulse steroids methylprednisone course completed per neurology
- Neurology following
- Allergic reaction to IVIG with tongue swelling/edema -> plasmapheresis
- Plasmapheresis status post 3/5 exchanges on 04/25, 04/27/2024, 04/29/2024
- Low fibrinogen - Monitor fibrinogen and coags per hemeonc
- Continue pyridostigmine at lower dose 30mg QID (decreased due to bradycardia)
-Continue ropinirole 4 mg 3 times a day via Dobbhoff tube for restless leg
-Buspirone and Wellbutrin for depression Neurologic and hemodynamic status has improved
Cardiovascular
- Long QTc
- Improved after d/c escitalopram, bupropion and propofol gtt
- Cardiology following
- NSVT on 04/27 -> 150cc amio -> lidocaine gtt -> d/c today per cards rec
- Keep K > 4, mg > 2.5
- Echo 50-55%
- Maintain MAP greater than 65
- Monitor H&H -Transfuse <7
- Monitor ptl. Keep >20 unless signs of bleeding then keep >50
-Leukocytoses in setting of high dose steroids
Gastric
- Hx gastric bypass surgery
- GI prophylaxis famotidine
- Nutrition - Tube feeds increase. Speech eval for diet
- 3 episodes of diarrhea this morning - monitor
Renal
- On nix due to urinary retention - inserted 04/26. d/c 04/29
- Hx stress incontinence - wears depends at home
- U/A revealed E.coli - afebrile, denies any burning sensation, subprapubic tenderness -likely asymptomatic bacteriuria
- Hyperglycemia in setting of high dose steroids - maintain euglycemia goal 140-180 sliding scale insulin, AccuCheck
DVT - Lovenox 40
Early mobilization/PT/OT
Subjective Dataa
Subjective Data
Date of Service:
Date of Service: April 30, 2024
Chief Complaint: Low Vision Therapist Follow Up and Pulmonary Follow Up
Review of Systems
General: Fever (n), Sweats (n) and Chills (n)
HEENT: Other (Difficulty speaking, aphonia )
Cardiopulmonary: Dyspnea, Cough (n), Wheezing (n), Chest Pain (n) and Edema (n)
GI: Abdominal Pain
Genitourinary: Nix
Objective Data
Data Reviewed
Vital Signs / I&O / Oxygen:
Vital Signs
Temp Pulse Resp BP Pulse Ox
97 F 96 27 160/102 100
04/30/24 07:39 04/30/24 08:39 04/30/24 06:00 04/30/24 08:39 04/30/24 06:00
Intake and Output
04/29/24 04/30/24 05/01/24
06:59 06:59 06:59
Intake Total 1105.2 / 1165.2 1680 / 1680
Output Total 1035 / 1035 870 / 870
Balance 70.2 / 130.2 810 / 810
SaO2 [CPAP/PSV] 94
SaO2 [A/C] 99
SaO2 100
Nasal Cannula flow liters per 2
minute
Physical Exam
General: Respiratory Distress (negative), Comfortable, Fever (Negative), Chills (Negative) and Sweats (Negative)
HEENT: Normocephalic, Anicteric and Other (ETT in place)
Cardiovascular: Regular Rhythm and Peripheral Edema (Trace lower extremity edema (L>R))
Respiratory: Wheeze (End expiratory wheezes ), Crackles (negative), Rhonchi (negative), Non-Labored Respirations and Accessory Resp Muscle Use (n)
GI: Soft, Non Distended, Non Tender, Normal Bowel Sounds and Other (No suprapubic tenderness)
Neurology: Awake, Alert and No Motor Deficits
Skin: Warm, Dry, Cyanosis (negative), Jaundice (negative) and Rash (Negative)
Labs/Micro/Reports
Lab Data
04/30/24 03:29
04/30/24 03:29
Laboratory Results
04/30/24
03:29
PT 15.8 H
INR 1.23
APTT 29.0
Microbiology
04/27/24 04:43 Urine Urine Culture - Final
Escherichia coli
--- NOTE | 2024-04-30 11:17 | PTCARENOTE ---
pt aaox3. states no pain 2lnc breath sounds diminished. pt oob to bathroom with min one person and rolling walker. having loose stool. pt removed dht. tube feeding on hold.
[2024-04-30 12:23] LABS: Glucose - Point of Care 125 mg/dl (70-99)
--- NOTE | 2024-04-30 12:43 | CM ---
CM following re: discharge planning.
Reviewed pt's chart, met with pt. Pt requires 2L NC, continue supportive care.
PT and OT evaluations noted - SNF level of care recommended. Pt is aware, expressed her agreement. A list of SNFs provided, pt preferred [facility]. A referral to [facility] made. Awaiting for determination.
D/C plan: [facility].
CM will follow with discharge plan updates as hospitalization progresses.
[2024-04-30] MEDS: WELLBUTRIN REGULAR RELEASE 150 MG TUBE ×2 (13:40→20:24)
--- NOTE | 2024-04-30 14:18 | W.PN.HOSP.TC ---
Today's Communication/Plan
-
see note
Increase Mestinon dose
continue plasmapheresis
repeat ST eval
pt/ot
Assessment / Plan
Assessment / Plan
1. Myasthenia gravis flare up
-Recent diagnosis earlier in the month and was on pyridostigmine 60 mg 3 times daily
-Came in with difficulty with swallowing/dyspnea/slurred speech
04/25
-Patient have tongue swelling/slurred speech 04/25 in morning suspected allergic reaction to IVIG, stopping further IVIG
-Discussed with neurology and recommended to initiate plasmapheresis. Hem/onc and IRAD consulted. Patient got a temp cath
-[facility] has been notified and consent has been obtained from patient. Son has been notified about the process as well.
-Neurology also recommended Dobbhoff tube placement as patient has been failing speech therapy evaluation today, GI help requested in this regard
04/26
-Patient had rapid response 7 in the morning and was in some resp distress/anxious and more restless
-Stat ABG showing Ph 7.35 pco2 54 and pow 93 on o2
-Moved to ICU for further monitoring, provided racemic epinephrine
-Provided Ativan 0.5mg x2 to help the restlessness- patient tiring herself out more with constant activity and feeling of dyspnea.
-Discussed with on-call physician practice market manager and patient intubated electively for persistent dyspnea
04/27
-Patient was quite restless yesterday despite being on propofol, finally settled after resumption of Requip/Wellbutrin/BuSpar
-Getting second round of plasmapheresis today
-Dose 3/4 of solumedrol getting today
-Patient may not able to tolerate higher dose of pyridostigmine due to bradycardia
04/28
-Finished 4/4 of 1g solumedrol dosing
-Got Plasma-pharesis Sunday and sunday
-Discussed with physician practice market manager, may get trial of SBT
04/29
-currently extubated on o2 through NC
-speech remains mumbled/low volume
-Finished steroid course
-Plan to get Plasma-pheresis round 3 today
-Maintain on Mestinon per neuro recommendation
-will provide pre-pheresis Kphos to prevent severe electrolyte depletion and resultant increased risk of ventricular arrhythmia
04/30
-got 3 round Plasmapheresis so far, next one tomorrow
-increased dose of Mestinon to 60mg QID - monitor for bradycardia
-Failed speech therapy evaluation yesterday, Robert got pulled out accidentally.
2. Ventilator dependent respiratory failure - Extubated 04/28
-Intubated on 04/26 morning for airway protection and hypoxia/dyspnea
-ABG did not significant hypoxia, was requiring high flow o2 nonetheless.
-Currently on o2 through NC
3. QTc prolongation -resolved
Episode of NSVT
-Patient QTc of 650ms yesterday
-Medication reviewed and patient discontinued from Lexapro/Wellbutrin
-Repleted potassium/magnesium/phosphorus, goal more than 4/2/2.5 respectively
-Patient had run of NSVT and started on lidocaine drip 04/27 evening
-Required 48 hours of lidocaine drip
-TTE reviewed, preserved EF, no wall motion deficit
-Continue daily EKG. QTc 468 ms yesterday, 490 ms today
4. Low fibrinogen - resolved
-Fibrinogen ~ 110 > 200 > 160 today
-Likely effect from plasmapheresis, patient is getting albumin as replacement
-No bleeding diathesis, continue monitoring
-on DVT PPX with lovenox and will need to be held if not improved
5. Depression/anxiety
-Resume back on buspirone/Wellbutrin. Hold Lexapro due to QTc prolongation effect
6. Sinus tachycardia -resolved
Sinus bradycardia
-Patient fluctuates between bradycardia and tachycardia already depending on mestinon use
-Lopressor as needed use ordered if patient gets tachycardic
7. Hypernatremia - Resolved
-Improved with free water flushes
8. Asymptomatic bacteriuria
-no dysuria/discomfort at admission
-UA reviewed, minimal pyuria present. WBC elevated from high dose steroids. Afebrile
-Urine cs growing Ecoli.
-Monitor off abx.
history of iron deficiency anemia
history of gastric bypass
history of right TKR
restless leg syndrome
osteoarthritis
history of vitamin B12 deficiency
overactive bladder
DVT PPX - lovenox
Full code
Case discussed with physician practice market manager
Total critical care time 46 mins . Total critical care time documented does not include time spent on separately billed procedures or the services of residents, students, nurses or physician assistants. I personally saw and examined the patient. I
have reviewed all diagnostic interpretations and treatment plans as written. I was present for the alexander portions of any procedures performed and the inclusive time noted in any critical care statement. Critical care time includes patient management
by me, time spent at the patients bedside, time to review lab and imaging results, discussing patient care, documentation in the medical record, and time spent with the family or caregiver.
Anticipated Discharge: > 48 hours
Subjective/Interval History
-
Date of Service: April 30, 2024
Dobbhoff tube accidentally got pulled out in the morning today
Patient has been tachycardic again today
Speech is better and much more comprehensible
Remains on oxygen through nasal cannula
Objective Data
-
Labs:
Laboratory Results
04/30/24
03:29
WBC 21.3 H
Hgb 14.1
Hct 44.8
Plt Count 306
PT 15.8 H
INR 1.23
APTT 29.0
Sodium 142
Potassium 4.0
Chloride 100
Carbon Dioxide 33 H
BUN 25 H
Creatinine 0.5 L
Glucose 122 H
Calcium 8.6
Vital Signs:
Vital Signs
Temp Pulse Resp BP Pulse Ox
98 F 106 34 156/105 85
04/30/24 11:02 04/30/24 13:00 04/30/24 13:00 04/30/24 13:00 04/30/24 13:00
I&O
04/29/24 04/30/24 05/01/24
06:59 06:59 06:59
Intake Total 1105.2 / 1165.2 1680 / 1750 350 / 350
Output Total 1035 / 1035 870 / 870
Balance 70.2 / 130.2 810 / 880 350 / 350
Review of Systems
-
Respiratory: Reports No Symptoms
Cardiac: Reports No Symptoms
Abdomen/GI: Reports No Symptoms
Physical Exam
-
General: Comfortable
HEENT: Oxygen (2L NC) and Other (Dobhoff out)
Respiratory: Clear to Auscultation
Cardiac: Regular Rhythm, S1/S2, Tachycardic and Bradycardic; Negative Murmur or Rub
GI: Soft, Nontender and Nondistended
Genito-urinary: Reynolds (Clear urine)
Neuro: Awake, Alert and Oriented
Psych: Calm
[2024-04-30] MEDS: MESTINON 60 MG TUBE ×2 (15:34→20:23)
[2024-04-30] MEDS: LOVENOX 40 MG SC (17:58)
[2024-04-30 18:09] LABS: Glucose - Point of Care 146 mg/dl (70-99)
--- NOTE | 2024-04-30 18:12 | PTCARENOTE ---
pt dht fell out due will replace. tf on hold
[2024-04-30] MEDS: ZOFRAN 4 MG IV (21:44)
[2024-04-30] MEDS: MELATONIN 10 MG PO (21:44)
[2024-04-30 23:28] LABS: Glucose - Point of Care 97 mg/dl (70-99)
[2024-05-01] VITALS (16 sets, daily range): BP systolic 87–118; BP diastolic 53–79; PULSE 109; O2SAT 96–99; BMI 26.4
[2024-05-01] MEDS: MESTINON 60 MG TUBE ×5 (00:27→21:22)
[2024-05-01] MEDS: NOVOLOG FLEXPEN-MODERATE RESISTANCE SC ×5 (00:28→23:52)
[2024-05-01 03:41] LABS: Hematocrit 42.5 % (37.0-47.0); Hemoglobin 13.4 g/dL (12.0-16.0); Mean Corp Hgb Conc. 31.5 g/dL (33.0-37.0); Mean Corpuscular Hgb 30.5 pg (27.0-31.0); Mean Corpuscular Volume 96.8 fL (81.0-99.0); Mean Platelet Volume 11.6 fL (7.4-10.4); Platelet Count 310 10^3/uL (130-400); Red Blood Cell Count 4.39 10^6/uL (4.20-5.40); Red Cell Dist. Width 14.3 % (11.5-14.5); White Blood Cell Count 14.7 10^3/uL (4.8-10.8)
[2024-05-01 04:11] LABS: Blood Urea Nitrogen 28 mg/dl (7-17); Calcium 8.6 mg/dl (8.4-10.2); Carbon Dioxide 36 mmol/L (22-30); Chloride 98 mmol/L (98-107); Estimated Creatinine Clearance 88 ml/min; Glucose 106 mg/dl (70-99); Magnesium 2.2 mg/dl (1.6-2.3); Potassium 3.8 mmol/L (3.5-5.1); Sodium 144 mmol/L (135-145); eGFR > 60.00
--- NOTE | 2024-05-01 04:16 | PTCARENOTE ---
DHT in place, TF restarted--pt tolerating. Pt given x1 melatonin--effective. Continues to have weak cough, compliant with I/S--200cc.
--- NOTE | 2024-05-01 07:44 | W.PN.INTV ---
Today's Communication / Plan
Recommendations
Speech therapy evaluation
Prednisone continues
Mestinon continues
Plasma exchange today
Transfer to telemetry-pulmonary will follow briefly
Assessment
-
68-year-old female non-smoker with a PMHx of Chappell's palsy syndrome, chronic pain syndrome, MDD, RLS, diffusions contractures, vitamin B12 deficiency, lumbar spinal stenosis and stress incontinence who presents with nausea + diarrhea x 1 day. She
was recently hospitalized from 04/11 - 04/12/2024 where she was diagnosed with suspected MG and discharged home on pyridostigmine he advised to follow-up with neurology. Her acetylcholine receptor binding antibody levels are elevated at 8.1 from
04/11/2024. She has been having difficulty swallowing liquids with intermittent nasal regurgitation and trouble speaking. 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 She was admitted to the IMU where her VC was found to be normal and
MIP was 30 cmH2O. She was started on pulse dose steroids, IVIG, continued on her Mestinon and neurology consulted. Unfortunately she became more tachypneic with worsening work of breathing and transferred to the ICU and started on high flow nasal
cannula. Waste Salvager services consulted and she was ultimately intubated. She remains in the ICU for further care.
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
Impression:
#Acute respiratory failure with hypoxia + hypercapnia due to respiratory muscle weakness with suspected MG (elevated AChR-Ab levels: 8.1 on 04/11/2024) now on mechanical ventilation
Intubated 04/26/2024 in ICU
Extubated 04/28/2024
#NSVT/prolonged QTc
#Suspected myasthenia gravis acute exacerbation on pulse dose steroids + PLEX s/p IVIG x 2 doses c/b tongue swelling
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
#Leukocytosis � likely steroid-induced
#History of RLS due to iron deficiency anemia on outpatient iron infusions
#Major depression disorder
#Osteoarthritis
#Lumbar spinal stenosis
#History of stress incontinence
Plan:
Neurologic and hemodynamic status continues to slowly improve
Tolerated extubation
Wean FiO2
Aspiration precautions
Speech therapy evaluation
Nebulizers as needed-currently not bronchospastic
Monitor VC and MIP-VC 1.4 L and MIP still poor
Monitor neurologic status closely
Finish course of pulse steroids
Neurology following-correspondence reviewed
Mestinon continues
Prednisone 60 mg initiated
IVIG-first dose had some tongue swelling-discontinued
Plasmapheresis-status post 2 exchanges 04/25/2024 and 04/27/2024 and 04/29/2024 and 05/01/2024 pending
Hematology following-correspondence reviewed
Follow fibrinogen
Continue to monitor QTc-much improved
Cardiology consulted-correspondence reviewed
Echocardiogram 04/28/2024-EF 50-55%, mild mitral regurgitation
Amiodarone Continues
Lidocaine drip if needed
Maintain MAP greater than 65
Continue to replace electrolytes especially potassium and magnesium
Monitor leukocytosis-suspect steroid induced-decreasing
Monitor temperature curve as well
Patient with chronic incontinence
Follow hemoglobin
Transfuse as needed
DVT prophylaxis-low molecular weight heparin
GI prophylaxis while on the ventilator-PPI
Nutrition-has nasogastric tube-if speech evaluation deems can safely swallow then we can discontinue nasogastric tube
Early mobilization/physical/Occupational Therapy
Patient now IMU status holding in ICU-pulmonary will follow briefly-monitor VC and MIP-could be downgraded to telemetry
Reviewed the patient's pertinent medical records including radiographs, microbiology, laboratory evaluations, and discussion with primary team, consultants, pharmacy, nutrition, physical therapy, case management, charge nurse, critical care
nursing, and respiratory therapy.
Subjective Dataa
Subjective Data
Date of Service:
Date of Service: May 01, 2024
Chief Complaint: Waste Salvager Follow Up and Pulmonary Follow Up
Subjective:
Feels better, stronger, no complaints of shortness of breath at rest, mild swallowing difficulties, no abdominal pain
Review of Systems
General: Other (Per HPI)
Objective Data
Data Reviewed
Vital Signs / I&O / Oxygen:
Vital Signs
Temp Pulse Resp BP Pulse Ox
98.2 F 88 26 98/59 98
05/01/24 04:08 05/01/24 04:00 05/01/24 04:00 05/01/24 02:28 05/01/24 04:00
Intake and Output
04/30/24 05/01/24 05/02/24
06:59 06:59 06:59
Intake Total 1680 / 1750 1240 / 1240
Output Total 870 / 870
Balance 810 / 880 1240 / 1240
SaO2 [CPAP/PSV] 94
SaO2 [A/C] 99
SaO2 98
Nasal Cannula flow liters per 2
minute
Physical Exam
General: Respiratory Distress (negative), Comfortable, Fever (Negative), Chills (Negative) and Sweats (Negative)
HEENT: Normocephalic, Anicteric and Other (ETT in place)
Cardiovascular: Regular Rhythm and Peripheral Edema (Trace lower extremity edema (L>R))
Respiratory: Wheeze (End expiratory wheezes ), Crackles (negative), Rhonchi (negative), Non-Labored Respirations and Accessory Resp Muscle Use (n)
GI: Soft, Non Distended, Non Tender, Normal Bowel Sounds and Other (No suprapubic tenderness)
Neurology: Awake, Alert and No Motor Deficits
Skin: Warm, Dry, Cyanosis (negative), Jaundice (negative) and Rash (Negative)
Labs/Micro/Reports
Lab Data
05/01/24 03:31
05/01/24 03:31
Microbiology
04/27/24 04:43 Urine Urine Culture - Final
Escherichia coli
--- NOTE | 2024-05-01 08:11 | W.PN.CARDCBS ---
Addendum entered and electronically signed by Lonnie Webster, DO 05/01/24 19:23:
.
EKG remains stable with stable QTc despite Wellbutrin being resumed.
Please recall if needed.
Original Note:
Today's Communication / Plan
-
QTc improved as of Apr 29 and Apr 30. EKG May 01 pending.
QTc improved with stopping Wellbutrin, Lexapro and propofol
Wellbutrin resumed Apr 30 and on Buspar. Lexapro remains on hold.
Consider psych input regarding replacements meds for her psychiatry illness that would not affect the QTc.
Lidocaine has been stopped as no further NSVT.
Cont Metoprolol. Echo is stable with preserved EF
Remains stable from cardiac standpoint
Cont tx for myasthenia gravis as per primary service.
Outpt follow up to reeval QT.
Impression / Plan
-
.
Impression:
s/p Nonsustained V. tach/prolonged QT interval, improved
VDRF 04/27/2024, extubated
History of myasthenia gravis with exacerbation
History of anxiety/depression
History of gastric bypass
History of iron deficiency anemia
Anemia
Hyperglycemia
Echo 04/28/2024: EF 50-55%, mild mitral regurgitation, mild pulmonic regurgitation, RV and atria are normal, aortic sclerosis presents, pulmonary artery systolic pressure 40-45 mmHg
Plan:
QTc improved as of Apr 29 and Apr 30. EKG May 01 pending.
QTc improved with stopping Wellbutrin, Lexapro and propofol
Wellbutrin resumed Apr 30 and on Buspar. Lexapro remains on hold.
Consider psych input regarding replacements meds for her psychiatry illness that would not affect the QTc.
Lidocaine has been stopped as no further NSVT.
Cont Metoprolol. Echo is stable with preserved EF
Remains stable from cardiac standpoint
Cont tx for myasthenia gravis as per primary service.
Outpt follow up to reeval QT.
Progress Note - Parts Identifier
Subjective
Date of Service: May 01, 2024
Pt seen and examined. No complaints. No chest pain or shortness of breath.
Objective
Labs:
05/01/24 03:31
05/01/24 03:31
Labs
Hgb 13.4 g/dL (12.0-16.0) 05/01/24 03:31
Hct 42.5 % (37.0-47.0) 05/01/24 03:31
Plt Count 310 10^3/uL (130-400) 05/01/24 03:31
PT 15.8 Sec (11.4-14.6) H 04/30/24 03:29
INR 1.23 04/30/24 03:29
APTT 29.0 Sec (23.4-35.0) 04/30/24 03:29
Sodium 144 mmol/L (135-145) 05/01/24 03:31
Potassium 3.8 mmol/L (3.5-5.1) 05/01/24 03:31
BUN 28 mg/dl (7-17) H 05/01/24 03:31
Creatinine 0.5 mg/dL (0.6-1.0) L 05/01/24 03:31
Glucose 106 mg/dl (70-99) H 05/01/24 03:31
Vital Signs and I&O:
Vital Signs
Temp Pulse Resp BP Pulse Ox
98.2 F 88 26 98/59 98
05/01/24 04:08 05/01/24 04:00 05/01/24 04:00 05/01/24 02:28 05/01/24 04:00
Vital Signs
Temp Pulse Resp BP Pulse Ox
98.2 F 88 26 98/59 98
05/01/24 04:08 05/01/24 04:00 05/01/24 04:00 05/01/24 02:28 05/01/24 04:00
Intake & Output
04/29/24 04/30/24 05/01/24 05/02/24
06:59 06:59 06:59 06:59
Intake Total 1105.2 / 1165.2 1680 / 1750 1240 / 1240
Output Total 1035 / 1035 870 / 870
Balance 70.2 / 130.2 810 / 880 1240 / 1240
Physical Exam
Physical Exam
General: No acute distress, AAOX3
HEENT: Dobhoff in place
Neck: Negative JVD
Heart: Regular, Negative S3 positive S1/S2, Negative S4, No murmur
Lungs: CTA b/l, negative wheezes/rales/rhonchi
Abd: Positive BS, NT/ND, neg rebound/rigidity/guarding
Ext: Negative cyanosis/clubbing/edema
Neuro: nonfocal
[2024-05-01] MEDS: REQUIP 4 MG TUBE ×3 (08:55→21:22)
[2024-05-01] MEDS: WELLBUTRIN REGULAR RELEASE 150 MG TUBE ×2 (08:55→21:22)
--- NOTE | 2024-05-01 08:55 | W.PN.INTV ---
Today's Communication / Plan
Recommendations
Plasmapheresis today
Monitor VC, MIP
Speech eval for any diet change
Downgrade to tele
Assessment
-
Assessment: 68-year-old female with past medical history of recent diagnosis of myasthenia gravis, Chappell's palsy syndrome, chronic pain syndrome, depression/anxiety, iron deficiency anemia, gastric bypass, restless leg syndrome, osteoarthritis,
overactive bladder, iron deficiency anemia, vitamin D deficiency, lumbar spinal stenosis presented to the hospital hospital with increased difficulty swallowing and slurred speech. She was recently hospitalized from 04/11 to 04/12 where she presented
with similar symptoms. Improved with pyridostigmine. Acetylcholine receptor binding antibodies levels elevated at 8.1 and diagnosed with myasthenia gravis. Upon arriving here, she was admitted to IMU. She was started on steroids, IVIG and
continued on pyridostigmine with neurology following. Unfortunately, she started to develop increased tongue swelling suspected to be an allergic reaction to IVIG. Plasmapheresis was started. Her respiratory distress continued to worsen. She is
ultimately transferred to ICU and intubated on 04/26/2024. Cardiology now following as well due to prolonged QTc with unknown etiology on lidocaine drip. Heme-onc following for plasmapheresis. Extubated 04/28/24 now on 2L O2 for comfort. Able to
communicate, but difficult to understand with ongoing speech difficulties secondary to the MG.
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
#Acute respiratory failure with hypoxemia and hypercapnia secondary to respiratory muscle weakness with myasthenia gravis (acetylcholine receptor antibodies 8.1 on 04/11/2024)
intubated 04/26/2024 in ICU - extubated 04/28
#NSVT/prolonged QTc
#Myasthenia gravis acute exacerbation on pulse dose steroids + plasmapheresis s/p IVIG x2 complicated by tongue swelling
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
# Leukocytosis likely secondary to steroids
#History of restless leg syndrome due to history of MATHIEU on outpatient iron infusions
#Major depression disorder/anxiety
#Osteoarthritis
#Lumbar spinal stenosis
#History of stress incontinence
Plan:
Respiratory
-Acute respiratory failure with hypoxia�emergently intubated in ICU on 04/26/2024- >Extubated 04/28 now comfortable on 2L O2
-Nebulizers as needed -not currently bronchospastic
-Wean FiO2
-Aspiration percautions
-Speech evaluation to eval whether still NPO
-Monitor VC and MIP q shift. Consider re-intubation for VC ( <30) and MIP (0 to -30)
- VC 43->55 and MIP 12 and slight increase in HCO3.
-Repeat ABG if neuro status declines
-Downgrade to tele
Neurologic
-Currently AAOx3
- Pulse steroids methylprednisone course completed per neurology
- Neurology following
- Allergic reaction to IVIG with tongue swelling/edema -> plasmapheresis
- Plasmapheresis status post 4/5 exchanges on 04/25, 04/27/2024, 04/29/2024, 05/01/24
- Monitor fibrinogen and coags per hemeonc
- Pyridostigmine increase back to 60mg QID as no longer bradycardic
-Continue ropinirole 4 mg 3 times a day via Dobbhoff tube for restless leg
-Prednisone 60 qd for MG maintancence
-Buspirone and Wellbutrin for depression
-Neurologic and hemodynamic status has improved
Cardiovascular
- Long QTc
- Improved after d/c escitalopram, bupropion and propofol gtt -> Restart bupropion, cont to hold escitalopram
- Today 483
- Cardiology following
- NSVT on 04/27 -> 150cc amio -> lidocaine gtt -> d/c now monitor
- Keep K > 4, mg > 2.5
- Echo 50-55%
- Cont. metoprolol
- Maintain MAP greater than 65
- Monitor H&H -Transfuse <7
- Monitor ptl. Keep >20 unless signs of bleeding then keep >50
-Leukocytoses in setting of high dose steroids - downtrending
Gastric
- Hx gastric bypass surgery
- GI prophylaxis famotidine
- Nutrition - Tube feeds increase. Speech eval for diet
- Diarrhea resolved
Renal
- On nix due to urinary retention - inserted 04/26. d/c 04/29
- Hx stress incontinence - wears depends at home
- U/A revealed E.coli - afebrile, denies any burning sensation, subprapubic tenderness -likely asymptomatic bacteriuria
- Hyperglycemia in setting of high dose steroids - maintain euglycemia goal 140-180 sliding scale insulin, AccuCheck
DVT - Lovenox 40
Early mobilization/PT/OT
Subjective Dataa
Subjective Data
Date of Service:
Date of Service: May 01, 2024
Chief Complaint: [employer] Follow Up and Pulmonary Follow Up
Review of Systems
General: Fever (n) and Chills (n)
Cardiopulmonary: Dyspnea (n), Cough (n) and Chest Pain (n)
GI: Abdominal Pain (n), Nausea (last night, better after zofran ), Vomiting (n) and Diarrhea (n)
Neuro: Weakness (n)
Objective Data
Data Reviewed
Vital Signs / I&O / Oxygen:
Vital Signs
Temp Pulse Resp BP Pulse Ox
97.9 F 88 26 98/59 98
05/01/24 08:00 05/01/24 04:00 05/01/24 04:00 05/01/24 02:28 05/01/24 04:00
Intake and Output
04/30/24 05/01/24 05/02/24
06:59 06:59 06:59
Intake Total 1680 / 1750 1240 / 1240
Output Total 870 / 870
Balance 810 / 880 1240 / 1240
SaO2 [CPAP/PSV] 94
SaO2 [A/C] 99
SaO2 98
Nasal Cannula flow liters per 2
minute
Physical Exam
General: Respiratory Distress (negative), Comfortable, Fever (Negative), Chills (Negative) and Sweats (Negative)
HEENT: Normocephalic, Anicteric and Other (ETT in place)
Cardiovascular: Regular Rhythm and Peripheral Edema (Trace lower extremity edema (L>R))
Respiratory: Wheeze (End expiratory wheezes ), Crackles (negative), Rhonchi (negative), Non-Labored Respirations and Accessory Resp Muscle Use (n)
GI: Soft, Non Distended, Non Tender, Normal Bowel Sounds and Other (No suprapubic tenderness)
Neurology: Awake, Alert and No Motor Deficits
Skin: Warm, Dry, Cyanosis (negative), Jaundice (negative) and Rash (Negative)
Labs/Micro/Reports
Lab Data
05/01/24 03:31
05/01/24 03:31
Microbiology
04/27/24 04:43 Urine Urine Culture - Final
Escherichia coli
[2024-05-01] MEDS: LOPRESSOR 12.5 MG TUBE (08:57)
[2024-05-01] MEDS: BUSPAR 10 MG TUBE ×2 (08:58→21:22)
[2024-05-01] MEDS: FEOSOL 325 MG TUBE (08:58)
[2024-05-01] MEDS: PEPCID 20 MG TUBE ×2 (08:58→21:22)
[2024-05-01] MEDS: MIRALAX TUBE (08:59)
--- NOTE | 2024-05-01 09:00 | PTCARENOTE ---
pt awake and alert, ST on monitor BP 110/71, plan for plasmapheresis today , tolerating tube feeds at 45ml hour , oob in chair with assist x 1 wheeled walker, pt is speaking more clearly than previous , she has no complaints of SOB , sats on 2L 98%
--- NOTE | 2024-05-01 10:16 | W.PN.ONC ---
Today's Communication / Plan
-
Management per neurology
Plasmapheresis facilitated by [place]
Fibrinogen remains >100 at 156 04/30 INR 1.23
Proceed with Plex 4/5
Impression
Impression
myasthenia gravis exacerbation
Subjective/Objective
Subjective/Objective
Patient beginning to feel better. Sitting up in bed.
Vital Signs:
Vital Signs
Temp Pulse Resp BP Pulse Ox
97.9 F 109 26 114/77 98
05/01/24 08:00 05/01/24 08:57 05/01/24 04:00 05/01/24 08:57 05/01/24 04:00
HEENT NG tube no scleral icterus
Lungs clear
Extremities without asymmetry
Lab Results:
Laboratory Data
WBC 14.7 10^3/uL (4.8-10.8) H 05/01/24 03:31
Hgb 13.4 g/dL (12.0-16.0) 05/01/24 03:31
Plt Count 310 10^3/uL (130-400) 05/01/24 03:31
PT 15.8 Sec (11.4-14.6) H 04/30/24 03:29
INR 1.23 04/30/24 03:29
APTT 29.0 Sec (23.4-35.0) 04/30/24 03:29
eGFR > 60.00 05/01/24 03:31
[2024-05-01] MEDS: CALCIUM GLUCONATE 10% INJECTION 283 MG IV (11:42)
[2024-05-01] MEDS: HEPARIN 10000 UNITS INTRACATH (11:43)
[2024-05-01 12:01] LABS: Glucose - Point of Care 106 mg/dl (70-99)
[2024-05-01] MEDS: DELTASONE 60 MG TUBE (12:46)
--- NOTE | 2024-05-01 13:24 | PTCARENOTE ---
pt now telemetry status , plasmapheresis being done now , pt to go to room 319-1 , report given to receiving RN
--- NOTE | 2024-05-01 13:54 | W.PN.HOSP.TC ---
Today's Communication/Plan
-
Continue plasmapheresis /
Start prednisone 60 mg daily
Check hepatitis/QuantiFERON TB test
Continue ST evaluation
Maintain on TF until clears speech evaluation
Assessment / Plan
Assessment / Plan
1. Myasthenia gravis flare up
-Recent diagnosis earlier in the month and was on pyridostigmine 60 mg 3 times daily
-Came in with difficulty with swallowing/dyspnea/slurred speech
04/25
-Patient have tongue swelling/slurred speech 04/25 in morning suspected allergic reaction to IVIG, stopping further IVIG
-Discussed with neurology and recommended to initiate plasmapheresis. Hem/onc and IRAD consulted. Patient got a temp cath
-[facility] has been notified and consent has been obtained from patient. Son has been notified about the process as well.
-Neurology also recommended Dobbhoff tube placement as patient has been failing speech therapy evaluation today, GI help requested in this regard
04/26
-Patient had rapid response 7 in the morning and was in some resp distress/anxious and more restless
-Stat ABG showing Ph 7.35 pco2 54 and pow 93 on o2
-Moved to ICU for further monitoring, provided racemic epinephrine
-Provided Ativan 0.5mg x2 to help the restlessness- patient tiring herself out more with constant activity and feeling of dyspnea.
-Discussed with on-call director payment and patient intubated electively for persistent dyspnea
04/27
-Patient was quite restless yesterday despite being on propofol, finally settled after resumption of Requip/Wellbutrin/BuSpar
-Getting second round of plasmapheresis today
-Dose 3/4 of solumedrol getting today
-Patient may not able to tolerate higher dose of pyridostigmine due to bradycardia
04/28
-Finished 4/4 of 1g solumedrol dosing
-Got Plasma-pharesis Sunday and sunday
-Discussed with director payment, may get trial of SBT
04/29
-currently extubated on o2 through NC
-speech remains mumbled/low volume
-Finished steroid course
-Plan to get Plasma-pheresis round 3 today
-Maintain on Mestinon per neuro recommendation
-will provide pre-pheresis Kphos to prevent severe electrolyte depletion and resultant increased risk of ventricular arrhythmia
04/30
-got 3 round Plasmapheresis so far, next one tomorrow
-increased dose of Mestinon to 60mg QID - monitor for bradycardia
-Failed speech therapy evaluation yesterday, Robert got pulled out accidentally.
05/01
-Discussed with neurology and patient started on prednisone 60 mg daily
-Neurology considering to eventually start patient on azathioprine, hepatitis panel/QuantiFERON check ordered per neurology recommendation
-Currently on pyridostigmine 60 mg 4 times daily, further dose adjustment deferred to neurology
-Patient getting 4/5 of plasmapheresis today
2. Ventilator dependent respiratory failure
Extubated 04/28
-Intubated on 04/26 morning for airway protection and hypoxia/dyspnea
-ABG did not significant hypoxia, was requiring high flow o2 nonetheless.
-Currently on o2 through NC
3. QTc prolongation -resolved
Episode of NSVT
-Patient QTc of 650ms yesterday
-Medication reviewed and patient discontinued from Lexapro/Wellbutrin
-Repleted potassium/magnesium/phosphorus, goal more than 4/2/2.5 respectively
-Patient had run of NSVT and started on lidocaine drip 04/27 evening
-Required 48 hours of lidocaine drip
-TTE reviewed, preserved EF, no wall motion deficit
-Continue daily EKG. QTc 483ms today, continue monitoring
4. Low fibrinogen - resolved
-Fibrinogen ~ 110 > 200 > 160 today
-Likely effect from plasmapheresis, patient is getting albumin as replacement
-No bleeding diathesis, continue monitoring
-on DVT PPX with lovenox and will need to be held if not improved
5. Depression/anxiety
-Resume back on buspirone/Wellbutrin. Hold Lexapro due to QTc prolongation effect
6. Sinus tachycardia -resolved
Sinus bradycardia
-Patient fluctuates between bradycardia and tachycardia already depending on mestinon use
-Lopressor as needed use ordered if patient gets tachycardic
7. Hypernatremia - Resolved
-Improved with free water flushes
8. Asymptomatic bacteriuria
-no dysuria/discomfort at admission
-UA reviewed, minimal pyuria present. WBC elevated from high dose steroids. Afebrile
-Urine cs growing Ecoli.
-Monitor off abx.
history of iron deficiency anemia
history of gastric bypass
history of right TKR
restless leg syndrome
osteoarthritis
history of vitamin B12 deficiency
overactive bladder
DVT PPX - lovenox
Full code
Anticipated Discharge: > 48 hours
Subjective/Interval History
-
Date of Service: May 01, 2024
Resting comfortably in chair
Oxygen requirement stable
Patient clinically feeling significantly better, speech is improved
Has been tachybradycardia at some point
Objective Data
-
Labs:
Laboratory Results
05/01/24
03:31
WBC 14.7 H
Hgb 13.4
Hct 42.5
Plt Count 310
Sodium 144
Potassium 3.8
Chloride 98
Carbon Dioxide 36 H
BUN 28 H
Creatinine 0.5 L
Glucose 106 H
Calcium 8.6
Vital Signs:
Vital Signs
Temp Pulse Resp BP Pulse Ox
97.5 F 80 18 114/67 100
05/01/24 12:00 05/01/24 13:00 05/01/24 13:00 05/01/24 13:00 11/21/24 12:00
I&O
04/30/24 05/01/24 05/02/24
06:59 06:59 06:59
Intake Total 1680 / 1750 1240 / 1310 720 / 720
Output Total 870 / 870
Balance 810 / 880 1240 / 1310 720 / 720
Review of Systems
-
Respiratory: Reports No Symptoms
Cardiac: Reports No Symptoms
Abdomen/GI: Reports No Symptoms
Physical Exam
-
General: Comfortable
HEENT: Oxygen (2L NC) and Other (Dobhoff out)
Respiratory: Clear to Auscultation
Cardiac: Regular Rhythm, S1/S2, Tachycardic and Bradycardic; Negative Murmur or Rub
GI: Soft, Nontender and Nondistended
Genito-urinary: [place] (Clear urine)
Neuro: Awake, Alert and Oriented
Psych: Calm
--- NOTE | 2024-05-01 14:06 | CM ---
CM following re: discharge planning.
Reviewed pt's chart, met with pt. Pt for plasmapheresis today , tolerating tube feeds, continue supportive care.
[facility] team evaluating a referral, no decision of accepting the pt made yet.
D/C plan: [facility].
CM will follow with discharge plan updates as hospitalization progresses.
--- NOTE | 2024-05-01 14:45 | PTOTSP ---
Speech Language Pathology
Pt seen for dysphagia tx. Improved vocal intensity and speech intelligibility noted compared to 05/03. Over course of session, nasal emission started to be noted indicative of fatigue. Seen with ice chips, thin liquids via straw, and puree.
Adequate oral phase noted with limited trials. No overt signs of aspiration. Pt reported slightly increased difficulty on 2nd tsp of puree. Pt is at a high risk for aspiration given myasthenia gravis and fatigue.
Recommend:
(1) VSE 05/02
(2) NPO until VSE completed
(3) Oral care 4x/day with suctioning as needed
(4) Allow ice chips sparingly when speech intelligible and able to swallows secretions (given supervision and after oral care per Aspiration Risk Hydration Protocol)
(5) Non-oral meds
(6) COMMISSARY WORKER to continue to follow
--- NOTE | 2024-05-01 15:29 | PTCARENOTE ---
pt now going to room 332 , report given to receiving RN
--- NOTE | 2024-05-01 15:53 | PTCARENOTE ---
pt received from ICU in wheelchair. pt is A/Ox3, cooperative and pleasant. tube feeding was restarted upon arrival, as ordered. pt oriented to room, VS taken, telemetry applied
[2024-05-01] MEDS: LOVENOX 40 MG SC (16:38)
[2024-05-01] MEDS: TYLENOL 650 MG TUBE (16:38)
--- NOTE | 2024-05-01 17:00 | W.PN.NEURO.1 ---
Today's Communication / Plan
-
.
Neuro Assessment/Plan
Assessment
Acute onset of severe dysarthria, difficulty swallowing, and weakness, due to myasthenia gravis exacerbation for unclear reasons
Patient experienced likely allergic reaction to immunoglobulins on 04/25/2024
Replaced immunoglobulins (single dose) with plasmapheresis due to probable allergic reaction, patient has received plasma exchange since 04/25/2024
Intubated 04/26/2024 due to airway protection need
Plan
Continue plasma exchange for total of 5, second on 04/27/2024
continue methylprednisone 1000 mg IV total of 5 doses, fourth dose on 04/27/2024
Due to bradycardia, will reduce dosing of pyridostigmine from 60 mg 4 times a day to dosing of 30 mg 4 times a day
Continue ropinirole 4 mg 3 times a day via Dobbhoff tube
Attempt extubation when possible
Attempt to reduce sedation when possible
Will follow
Subjective/Objective
Subjective Data
Date of Service: May 01, 2024
Neurology Follow-up Note.
Ms. Seaman reports no acute complaints. She is thrilled that her dysphonia has significantly improved. No reports of dyspnea, diplopia.
No recurrent bradycardia after Mestinon increase in restarting buspirone and bupropion.
QTc Int : 483 ms from 468 ms.
Next Plex therapy scheduled for today
PMH: seropositive generalized myasthenia gravis; h/o L Chappell's palsy, anemia, chronic pain s-me, MDD, MONISHA, RLS, left Dupuytren contractures, lumbar spinal stenosis
PSH: R IJ, gastric bypass, left hand surgery, R TKA, BL cataract surgery
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
FH: Not contributory to current presentation
All: Penicillin, IVIG
ROS: Negative for headache, chest pain, dizziness, abdominal pain, cramping
General: In no acute distress
Cardio: Regular rate and rhythm
Neuro:
Mental Status: Awake, fully oriented, follows complex requests.
CN: Orthophoric primary gaze. Pupils 3 mm, reactive. Extraocular movement intact. No ptosis. No dysarthria, mild dysphonia
Motor: Normal tone and bulk. Strength 5 out of 5 including neck flexor and extensors except for bilateral deltoides 4 out of 5.
Reflexes: No clonus at the ankles
Coordination: No tremors myoclonic movements
Gait: deferred
Assessment and Plan:
I. Seropositive generalized myasthenia gravis, clinically improved.
II. Prolonged QTc interval
III. RLS
-Aspiration precautions
-Dysphagia evaluation
-Continue PLEX for 5 doses total
-QuantiFERON, Thiopurine S-methyltransferase, hep B
-Titrate Mestinon by 30 mg with close monitoring as tolerated
-PT
-DVT and GI prophylaxis
I personally reviewed all radiology and labs along with past medical records pertinent to current medical problems. Total time spent in patient care is 37 minutes.
Thank you for allowing us to participate in the care of this patient. We will continue to follow. Please do not hesitate to contact us with any questions or concerns
Objective Data
Vital Signs
Temp Pulse Resp BP Pulse Ox
36.6 C 98 17 95/57 98
05/01/24 16:00 05/01/24 16:00 05/01/24 16:00 05/01/24 16:00 05/01/24 16:00
Lab Results
05/01/24 03:31
05/01/24 03:31
PT 15.8 Sec (11.4-14.6) H 04/30/24 03:29
INR 1.23 04/30/24 03:29
APTT 29.0 Sec (23.4-35.0) 04/30/24 03:29
Sodium 144 mmol/L (135-145) 05/01/24 03:31
Potassium 3.8 mmol/L (3.5-5.1) 05/01/24 03:31
BUN 28 mg/dl (7-17) H 05/01/24 03:31
Glucose 106 mg/dl (70-99) H 05/01/24 03:31
Calcium 8.6 mg/dl (8.4-10.2) 05/01/24 03:31
Phosphorus 2.3 mg/dl (2.5-4.5) L 04/30/24 03:29
Patient Allergies
immune globulin,gamma (IgG) human Allergy (Verified 04/28/24 14:54)
See comments
Penicillins Allergy (Verified 04/29/24 21:10)
Anaphylaxis
Vital Signs and Labs
-
Vital Signs and Labs:
Vital Signs
Temp Pulse Resp BP Pulse Ox
36.6 C 98 17 95/57 98
05/01/24 16:00 05/01/24 16:00 05/01/24 16:00 05/01/24 16:00 05/01/24 16:00
Lab Results
05/01/24 03:31
05/01/24 03:31
PT 15.8 Sec (11.4-14.6) H 04/30/24 03:29
INR 1.23 04/30/24 03:29
APTT 29.0 Sec (23.4-35.0) 04/30/24 03:29
Sodium 144 mmol/L (135-145) 05/01/24 03:31
Potassium 3.8 mmol/L (3.5-5.1) 05/01/24 03:31
BUN 28 mg/dl (7-17) H 05/01/24 03:31
Glucose 106 mg/dl (70-99) H 05/01/24 03:31
Calcium 8.6 mg/dl (8.4-10.2) 05/01/24 03:31
Phosphorus 2.3 mg/dl (2.5-4.5) L 04/30/24 03:29
Medications
-
Medications:
Generic Name Dose Route Start Last Admin
Trade Name Freq PRN Reason Stop Dose Admin
Acetaminophen 650 mg 04/29/24 11:41 05/01/24 16:38
Acetaminophen 325 Mg Tablet TUBE 05/22/24 12:25 650 mg
Q4HPRN PRN Administration
mild pain/DE LEON/temp> 100.4F
Bisacodyl 10 mg 04/24/24 12:26
Bisacodyl 10 Mg Rectal Suppository RECTAL 05/22/24 12:25
[id number] PRN
constipation
Bupropion HCl 150 mg 04/30/24 11:00 05/01/24 08:55
Bupropion Regular Release 75 Mg Tablet TUBE 05/28/24 10:59 150 mg
BID ANDREA Administration
Buspirone HCl 10 mg 04/29/24 11:41 05/01/24 08:58
Buspirone 10 Mg Tablet TUBE 05/25/24 10:59 10 mg
BID ANDREA Administration
Enoxaparin Sodium 40 mg 04/24/24 18:00 05/01/24 16:38
Enoxaparin Sodium 40 Mg/0.4 Ml Syringe SC 05/22/24 17:59 40 mg
QPM ANDREA Administration
Escitalopram Oxalate 20 mg 04/24/24 12:26 04/27/24 08:12
Escitalopram 20 Mg Tablet PO 05/22/24 12:25 20 mg
DAILY ANDREA Administration
Famotidine 20 mg 04/29/24 20:00 05/01/24 08:58
Famotidine 20 Mg Tablet TUBE 05/27/24 19:59 20 mg
BID ANDREA Administration
Ferrous Sulfate 325 mg 04/29/24 11:42 05/01/24 08:58
Ferrous Sulfate 325 Mg Tablet TUBE 05/27/24 10:59 325 mg
DAILY ANDREA Administration
Heparin Sodium 0 units 05/03/24 10:00
Heparin (1000 Units/Ml) 10,000 Units/10 Ml Vial INTRACATH 05/03/24 10:01
ONCE ONE
Albumin Human 12.5 grams in 250 mls @ 1,666.667 mls/hr 05/03/24 10:00
Albumin 5% INTRACATH 05/03/24 11:56
.Q9M ADNREA
Calcium Gluconate 3,300 mg/ 283 mls @ 0 mls/hr 05/03/24 10:00
Sodium Chloride IV 05/03/24 10:01
ONCE ONE
As Directed
Insulin Aspart 0 units 04/26/24 12:00 05/01/24 12:40
Insulin Aspart Moderate Resistance 300 Units/3 Ml Pen.Injctr SC 05/24/24 11:59 Not Given
Q6 ANDREA
Protocol
Metoprolol Tartrate 12.5 mg 04/29/24 11:42 05/01/24 08:57
Metoprolol 12.5 Mg Regular Release Dose (1/2 Of 25 Mg Tablet) TUBE 05/22/24 19:59 12.5 mg
BID ANDREA Administration
Polyethylene Glycol 17 grams 04/27/24 08:00 05/01/24 08:59
Polyethylene Glycol Powder 17 Grams Packet TUBE 05/25/24 07:59 Not Given
DAILY ANDREA
Polyethylene Glycol 17 grams 04/29/24 11:43
Polyethylene Glycol Powder 17 Grams Packet TUBE 05/22/24 12:25
DAILYPRN PRN
constipation
Prednisone 60 mg 05/01/24 12:00 05/01/24 12:46
Prednisone 20 Mg Tablet TUBE 05/29/24 11:59 60 mg
DAILY ANDREA Administration
Pyridostigmine [place] 60 mg 04/30/24 15:00 05/01/24 16:38
Pyridostigmine 60 Mg Tablet TUBE 05/23/24 14:59 60 mg
QID ANDREA Administration
Ropinirole HCl 4 mg 04/26/24 10:40 05/01/24 15:33
Ropinirole 2 Mg Tablet TUBE 05/22/24 15:59 4 mg
TID ANDREA Administration
Senna/Docusate Sodium 1 tablet 04/29/24 11:42
Docusate W/Senna (Sofie-Colace) Tablet TUBE 05/22/24 12:25
BIDPRN PRN
constipation
Sodium Chloride 0 flush 04/24/24 13:00
Sodium Chloride 0.9% (Flush) Syringe IV 05/22/24 12:59
PER PROTOCOL ANDREA
Home Medications
-
Home Medications
bupropion HCl 300 mg 24 hr tablet, extended release (Wellbutrin XL) 300 mg PO DAILY Depression 10/11/22
buspirone 10 mg tablet 10 mg PO BID Mental Health/Anxiety 10/11/22
hydrocodone 7.5 mg-acetaminophen 325 mg tablet 1 tab PO QIDPRN PRN SEVERE pain 10/11/22
cyclobenzaprine 5 mg tablet 5 mg PO HS pain/muscle spasms 04/11/24
denosumab 60 mg/mL subcutaneous syringe (Prolia) 60 mg SC [id number] osteoporosis 04/11/24
ropinirole 2 mg tablet 4 mg PO TID restless legs 04/11/24
acetaminophen 500 mg tablet 1,000 mg PO Q6HPRN PRN MILD PAIN 04/24/24
escitalopram oxalate 20 mg tablet 20 mg PO DAILY Mental Health/Anxiety 04/24/24
loperamide 2 mg capsule 2 mg PO DAILY PRN DIARRHEA 04/24/24
pyridostigmine bromide 60 mg tablet 60 mg PO TID Neurological Condition 04/28/24
[2024-05-01 18:05] LABS: Glucose - Point of Care 168 mg/dl (70-99)
--- NOTE | 2024-05-01 19:59 | RESPNOTE ---
pt unable to obtain a reading on the spirometer
[2024-05-01] MEDS: LOPRESSOR TUBE (21:22)
[2024-05-01 23:51] LABS: Glucose - Point of Care 83 mg/dl (70-99)
[2024-05-01] MEDS: TYLENOL ORAL SOLUTION 650 MG TUBE (23:52)
[2024-05-02] VITALS (8 sets, daily range): BP systolic 98–119; BP diastolic 48–69; PULSE 93; BMI 26.3
[2024-05-02 05:54] LABS: Glucose - Point of Care 95 mg/dl (70-99)
[2024-05-02] MEDS: NOVOLOG FLEXPEN-MODERATE RESISTANCE SC ×3 (06:51→17:52)
[2024-05-02] MEDS: DELTASONE 60 MG TUBE (08:49)
[2024-05-02] MEDS: WELLBUTRIN REGULAR RELEASE 150 MG TUBE ×2 (08:50→20:50)
[2024-05-02] MEDS: LOPRESSOR 12.5 MG TUBE (08:50)
[2024-05-02] MEDS: FEOSOL 325 MG TUBE (08:50)
[2024-05-02] MEDS: PEPCID 20 MG TUBE ×2 (08:50→20:50)
[2024-05-02] MEDS: BUSPAR 10 MG TUBE ×2 (08:50→20:47)
[2024-05-02] MEDS: MESTINON 60 MG TUBE ×4 (08:51→20:59)
[2024-05-02] MEDS: MIRALAX TUBE (08:51)
[2024-05-02] MEDS: REQUIP 4 MG TUBE ×3 (08:51→20:59)
--- NOTE | 2024-05-02 09:35 | PTOTSP ---
Speech Language Pathology
VIDEOFLUOROSCOPIC SWALLOWING EXAMINATION (VSE) completed. Overall, pt with mild oral and mild-mod pharyngeal dysphagia. Supraglottic penetration noted at times with responsive aspiration only noted with thin liquids via straw when utilized as a
liquid wash post puree. No other aspiration noted. Pharyngeal residue noted, which decreased with dry swallows and liquid washes.
Recommend:
(1) Initiate IDDSI Level 4 (Puree) and mildly thick liquids
(2) Aspiration precautions: sit upright, single sips, slow rate, intermittently clear throat and reswallow, frequent sips of liquids during meals, only eat when not fatigued
(3) Meds crushed in puree or via DHT
(4) Allow sips of thin liquids via straw between meals post oral care per Aspiration Risk Hydration Protocol (ARHP)
(5) STUD SETTER to continue to follow
--- NOTE | 2024-05-02 09:55 | CM ---
Chart reviewed and catalytic case operator met with patient this am and patient is requesting acute rehab at [facility], catalytic case operator will follow with patient progress with physial therapy and reached out to patient's physician for PM&R evaluation. Referral sent to
[facility] and message left for admissions at [facility].
Plan; Acute rehab at [facility] if approved.
--- NOTE | 2024-05-02 10:47 | W.PN.NEURO.1 ---
Today's Communication / Plan
-
.
Subjective/Objective
Subjective Data
Date of Service: May 02, 2024
Neurology Follow-up Note.
Ms. Seaman states that her dysphonia has been stable. No change in vision, GI symptoms or new weakness
No recurrent bradycardia on Tele. Tolerates Mestinon 60 mg 4 times daily and prednisone 60 mg well.
QuantiFERON, hep B�pending
Scheduled for barium swallow today.
PMH: seropositive generalized myasthenia gravis; h/o L Chappell's palsy, anemia, chronic pain s-me, MDD, MONISHA, RLS, left Dupuytren contractures, lumbar spinal stenosis
PSH: R IJ, gastric bypass, left hand surgery, R TKA, BL cataract surgery
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
FH: Not contributory to current presentation
All: Penicillin, IVIG
ROS: Negative for headache, chest pain, dizziness, abdominal pain, cramping
General: In no acute distress
Cardio: Regular rate and rhythm
Neuro:
Mental Status: Awake, fully oriented, follows complex requests.
CN: Orthophoric primary gaze. Pupils 3 mm, reactive. Extraocular movement intact. No ptosis. No dysarthria, mild dysphonia
Motor: Normal tone and bulk. Strength 5 out of 5 including neck flexor and extensors except for bilateral deltoides 4 out of 5.
Reflexes: No clonus at the ankles
Coordination: No tremors myoclonic movements
Gait: deferred
Assessment and Plan:
I. Seropositive generalized myasthenia gravis, clinically improved.
II. Prolonged QTc interval
III. RLS
-Aspiration precautions
-Follow-up barium swallow test
-Continue PLEX for 5 doses total
-QuantiFERON, Thiopurine S-methyltransferase, hep B
-Continue Mestinon 60 mg 4 times daily and prednisone 60 mg once a
-PT
-DVT and GI prophylaxis
I personally reviewed all radiology and labs along with past medical records pertinent to current medical problems. Total time spent in patient care is 40 minutes.
Objective Data
Vital Signs
Temp Pulse Resp BP Pulse Ox
36.4 C 89 18 110/54 97
05/02/24 07:14 05/02/24 08:50 05/02/24 07:14 05/02/24 08:50 05/02/24 07:14
Lab Results
05/01/24 03:31
05/01/24 03:31
PT 15.8 Sec (11.4-14.6) H 04/30/24 03:29
INR 1.23 04/30/24 03:29
APTT 29.0 Sec (23.4-35.0) 04/30/24 03:29
Sodium 144 mmol/L (135-145) 05/01/24 03:31
Potassium 3.8 mmol/L (3.5-5.1) 05/01/24 03:31
BUN 28 mg/dl (7-17) H 05/01/24 03:31
Glucose 106 mg/dl (70-99) H 05/01/24 03:31
Calcium 8.6 mg/dl (8.4-10.2) 05/01/24 03:31
Phosphorus 2.3 mg/dl (2.5-4.5) L 04/30/24 03:29
Patient Allergies
immune globulin,gamma (IgG) human Allergy (Verified 04/28/24 14:54)
See comments
Penicillins Allergy (Verified 04/29/24 21:10)
Anaphylaxis
Vital Signs and Labs
-
Vital Signs and Labs:
Vital Signs
Temp Pulse Resp BP Pulse Ox
36.4 C 89 18 110/54 97
05/02/24 07:14 05/02/24 08:50 05/02/24 07:14 05/02/24 08:50 05/02/24 07:14
Lab Results
05/01/24 03:31
05/01/24 03:31
PT 15.8 Sec (11.4-14.6) H 04/30/24 03:29
INR 1.23 04/30/24 03:29
APTT 29.0 Sec (23.4-35.0) 04/30/24 03:29
Sodium 144 mmol/L (135-145) 05/01/24 03:31
Potassium 3.8 mmol/L (3.5-5.1) 05/01/24 03:31
BUN 28 mg/dl (7-17) H 05/01/24 03:31
Glucose 106 mg/dl (70-99) H 05/01/24 03:31
Calcium 8.6 mg/dl (8.4-10.2) 05/01/24 03:31
Phosphorus 2.3 mg/dl (2.5-4.5) L 04/30/24 03:29
Medications
-
Medications:
Generic Name Dose Route Start Last Admin
Trade Name Freq PRN Reason Stop Dose Admin
Acetaminophen 650 mg 05/01/24 23:46 05/01/24 23:52
Acetaminophen (Oral Solution) 650 Mg/20.3 Ml Cup TUBE 05/29/24 23:45 650 mg
Q4HPRN PRN Administration
mild pain/DE LEON/temp> 100.4F
Bisacodyl 10 mg 04/24/24 12:26
Bisacodyl 10 Mg Rectal Suppository RECTAL 05/22/24 12:25
[id number] PRN
constipation
Bupropion HCl 150 mg 04/30/24 11:00 05/02/24 08:50
Bupropion Regular Release 75 Mg Tablet TUBE 05/28/24 10:59 150 mg
BID ANDREA Administration
Buspirone HCl 10 mg 04/29/24 11:41 05/02/24 08:50
Buspirone 10 Mg Tablet TUBE 05/25/24 10:59 10 mg
BID ANDREA Administration
Enoxaparin Sodium 40 mg 04/24/24 18:00 05/01/24 16:38
Enoxaparin Sodium 40 Mg/0.4 Ml Syringe SC 05/22/24 17:59 40 mg
QPM ANDREA Administration
Escitalopram Oxalate 20 mg 04/24/24 12:26 04/27/24 08:12
Escitalopram 20 Mg Tablet PO 05/22/24 12:25 20 mg
DAILY ANDREA Administration
Famotidine 20 mg 04/29/24 20:00 05/02/24 08:50
Famotidine 20 Mg Tablet TUBE 05/27/24 19:59 20 mg
BID ANDREA Administration
Ferrous Sulfate 325 mg 04/29/24 11:42 05/02/24 08:50
Ferrous Sulfate 325 Mg Tablet TUBE 05/27/24 10:59 325 mg
DAILY ANDREA Administration
Heparin Sodium 0 units 05/03/24 10:00
Heparin (1000 Units/Ml) 10,000 Units/10 Ml Vial INTRACATH 05/03/24 10:01
ONCE ONE
Albumin Human 12.5 grams in 250 mls @ 1,666.667 mls/hr 05/03/24 10:00
Albumin 5% INTRACATH 05/03/24 11:56
.Q9M ANDREA
Calcium Gluconate 3,300 mg/ 283 mls @ 0 mls/hr 05/03/24 10:00
Sodium Chloride IV 05/03/24 10:01
ONCE ONE
As Directed
Insulin Aspart 0 units 04/26/24 12:00 05/02/24 06:51
Insulin Aspart Moderate Resistance 300 Units/3 Ml Pen.Injctr SC 05/24/24 11:59 Not Given
Q6 ANDREA
Protocol
Metoprolol Tartrate 12.5 mg 04/29/24 11:42 05/02/24 08:50
Metoprolol 12.5 Mg Regular Release Dose (1/2 Of 25 Mg Tablet) TUBE 05/22/24 19:59 12.5 mg
BID ANDREA Administration
Polyethylene Glycol 17 grams 04/27/24 08:00 05/02/24 08:51
Polyethylene Glycol Powder 17 Grams Packet TUBE 05/25/24 07:59 Not Given
DAILY ANDREA
Polyethylene Glycol 17 grams 04/29/24 11:43
Polyethylene Glycol Powder 17 Grams Packet TUBE 05/22/24 12:25
DAILYPRN PRN
constipation
Prednisone 60 mg 05/01/24 12:00 05/02/24 08:49
Prednisone 20 Mg Tablet TUBE 05/29/24 11:59 60 mg
DAILY ANDREA Administration
Pyridostigmine Addison 60 mg 04/30/24 15:00 05/02/24 08:51
Pyridostigmine 60 Mg Tablet TUBE 05/23/24 14:59 60 mg
QID ANDREA Administration
Ropinirole HCl 4 mg 04/26/24 10:40 05/02/24 08:51
Ropinirole 2 Mg Tablet TUBE 05/22/24 15:59 4 mg
TID ANDREA Administration
Senna/Docusate Sodium 1 tablet 04/29/24 11:42
Docusate W/Senna (Sofie-Colace) Tablet TUBE 05/22/24 12:25
BIDPRN PRN
constipation
Sodium Chloride 0 flush 04/24/24 13:00
Sodium Chloride 0.9% (Flush) Syringe IV 05/22/24 12:59
PER PROTOCOL ANDREA
Home Medications
-
Home Medications
bupropion HCl 300 mg 24 hr tablet, extended release (Wellbutrin XL) 300 mg PO DAILY Depression 10/11/22
buspirone 10 mg tablet 10 mg PO BID Mental Health/Anxiety 10/11/22
hydrocodone 7.5 mg-acetaminophen 325 mg tablet 1 tab PO QIDPRN PRN SEVERE pain 10/11/22
cyclobenzaprine 5 mg tablet 5 mg PO HS pain/muscle spasms 04/11/24
denosumab 60 mg/mL subcutaneous syringe (Prolia) 60 mg SC [id number] osteoporosis 04/11/24
ropinirole 2 mg tablet 4 mg PO TID restless legs 04/11/24
acetaminophen 500 mg tablet 1,000 mg PO Q6HPRN PRN MILD PAIN 04/24/24
escitalopram oxalate 20 mg tablet 20 mg PO DAILY Mental Health/Anxiety 04/24/24
loperamide 2 mg capsule 2 mg PO DAILY PRN DIARRHEA 04/24/24
pyridostigmine bromide 60 mg tablet 60 mg PO TID Neurological Condition 04/28/24
[2024-05-02 11:05] LABS: Hepatitis B Surface Antigen Negative (Negative)
--- NOTE | 2024-05-02 11:08 | W.PN.PUL3 ---
Today's Communication / Plan
-
Doing well, stable on RA
Continue VC/NIF measures q shift
Diet advanced, likely to d/c NGT tomorrow
PT/OT
Ongoing neurologic management for MG
Discharge to SNF, likely Sunday
Assessment
-
68-year-old female with past medical history of recent diagnosis of myasthenia gravis, Chappell's palsy syndrome, chronic pain syndrome, depression/anxiety, iron deficiency anemia, gastric bypass, restless leg syndrome, osteoarthritis, overactive
bladder, iron deficiency anemia, vitamin D deficiency, lumbar spinal stenosis presented to the hospital hospital with increased difficulty swallowing and slurred speech. She was recently hospitalized from 04/11 to 04/12 where she presented with
similar symptoms. Improved with pyridostigmine. Acetylcholine receptor binding antibodies levels elevated at 8.1 and diagnosed with myasthenia gravis. Upon arriving here, she was admitted to IMU. She was started on steroids, IVIG and continued
on pyridostigmine with neurology following. Unfortunately, she started to develop increased tongue swelling suspected to be an allergic reaction to IVIG. Plasmapheresis was started. Her respiratory distress continued to worsen. She is ultimately
transferred to ICU and intubated on 04/26/2024. Cardiology now following as well due to prolonged QTc with unknown etiology on lidocaine drip. Heme-onc following for plasmapheresis. Extubated 04/28/24 now on 2L O2 for comfort. Able to
communicate, but difficult to understand with ongoing speech difficulties secondary to the MG.
Acute respiratory failure with hypoxemia and hypercapnia secondary to respiratory muscle weakness with myasthenia gravis (acetylcholine receptor antibodies 8.1 on 04/11/2024)
intubated 04/26/2024 in ICU - extubated 04/28
NSVT/prolonged QTc
Myasthenia gravis acute exacerbation on pulse dose steroids + plasmapheresis s/p IVIG x2 complicated by tongue swelling
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
Leukocytosis likely secondary to steroids
Chronic conditions DOPEMAN:
Chappell's palsy syndrome
MATHIEU
Chronic pain syndrome
Major depression disorder/MONISHA
RLS
History of left Dupuytren's contractures
Osteoarthritis
Lumbar spinal stenosis
Vitamin B12 deficiency
Stress incontinence
Plan:
Acute respiratory failure with hypoxia�emergently intubated in ICU on 04/26/2024
Extubated 04/28
Currently stable on RA, off O2
Nebulizers as needed -not currently bronchospastic
Monitor VC and MIP q shift
VC 2.95L and MIP -30
Continue NIV/FC, reviewed measurements and have been stable
NPO w/ NGT in place, diet advanced
Aspiration percautions
Speech following
Can likely d/c tube tomorrow if tolerating
MG flare noted, neurology following
Currently AAOx3
Pulse steroids methylprednisone course completed per neurology
Allergic reaction to IVIG with tongue swelling/edema -> plasmapheresis
Plasmapheresis status post 4/5 exchanges on 04/25, 04/27/2024, 04/29/2024, 05/01/24
Monitor fibrinogen and coags per heme onc
Pyridostigmine increase back to 60mg QID as no longer bradycardic
Prednisone 60 qd for MG maintenance
RLS - Continue ropinirole 4 mg 3 times a day via Dobbhoff tube for restless leg
Buspirone and Wellbutrin for depression
Long QTc
Improved after d/c escitalopram, bupropion and propofol gtt -> Restart bupropion, cont to hold escitalopram
Resolved, now 483
Cardiology following
NSVT on 04/27 -> 150cc amio -> lidocaine gtt -> d/c now monitor
Keep K > 4, mg > 2.5
Echo 50-55%
Cont. metoprolol
Maintain MAP greater than 65
Monitor H&H -Transfuse <7
Monitor ptl. Keep >20 unless signs of bleeding then keep >50
Leukocytoses in setting of high dose steroids - downtrending
DVT ppx
PT/OT
Diagnostic Data
CXR 04/26/24- Progressed probable atelectasis in left lower lung field. Developing pneumonia not excluded.
CT Chest 04/12/24- 1. No acute findings in the chest. Scattered pulmonary micronodules which are likely infectious/inflammatory.
2. No evidence of mediastinal lesion.
3. Hepatic steatosis.
4. Patulous esophagus with small hiatal hernia and postoperative changes along the gastroesophageal junction.
ECHO 04/28/24- Normal left ventricular size, wall thickness and systolic function. No regional wall motion abnormalities are seen. LV ejection fraction is 50-55% by visual assessment. Mild mitral regurgitation. Mild pulmonic regurgitation.No prior
study available for comparison.
Total time spent on this encounter __50__ minutes which includes review of history, physical exam, medications, laboratory data, personal review of imaging, extensive review of outpatient records, discussion with care team and respiratory therapy.
Subjective Data
-
Date of Service:
Date of Service: May 02, 2024
Chief Complaint: Pulmonary Follow Up
Subjective:
Doing well today, stable on RA
No new complaints
DHT remains in place, diet advancement
Objective Data
Data Reviewed
Vital Signs / I&O / Oxygen:
Vital Signs
Temp Pulse Resp BP Pulse Ox
97.5 F 89 18 110/54 97
05/02/24 07:14 05/02/24 08:50 05/02/24 07:14 05/02/24 08:50 05/02/24 07:14
Intake and Output
05/01/24 05/02/24 05/03/24
06:59 06:59 06:59
Intake Total 1240 / 1310 1340 / 1340
Balance 1240 / 1310 1340 / 1340
SaO2 [CPAP/PSV] 94
SaO2 [A/C] 99
SaO2 97
Nasal Cannula flow liters per 3
minute
Physical Exam
General: Comfortable and Other (NAD)
HEENT: Normocephalic, Anicteric and Moist Mucous Membranes (edentulous)
Cardiovascular: S1-S2 and Regular Rhythm
Respiratory: Clear and Non-Labored Respirations
GI: Soft, Non Distended, Non Tender and NG Tube
Neurology: Awake, Alert and Oriented
Skin: Warm, Dry and Good Color
Labs/Micro/Reports
Lab Data
05/01/24 03:31
05/01/24 03:31
Microbiology
04/27/24 04:43 Urine Urine Culture - Final
Escherichia coli
[2024-05-02 11:24] LABS: Hepatitis B Core Ab, Total Reactive (Negative); Hepatitis B Surface Antibody Positive; Hepatitis C Antibody Negative (Negative)
[2024-05-02 11:57] LABS: Glucose - Point of Care 142 mg/dl (70-99)
[2024-05-02 12:29] LABS: Hematocrit 38.4 % (37.0-47.0); Mean Corp Hgb Conc. 31.3 g/dL (33.0-37.0); Mean Corpuscular Hgb 30.1 pg (27.0-31.0); Mean Corpuscular Volume 96.2 fL (81.0-99.0); Mean Platelet Volume 11.7 fL (7.4-10.4); Platelet Count 306 10^3/uL (130-400); Red Blood Cell Count 3.99 10^6/uL (4.20-5.40); Red Cell Dist. Width 14.6 % (11.5-14.5); White Blood Cell Count 14.2 10^3/uL (4.8-10.8)
[2024-05-02 12:38] LABS: INR 1.12; PT 14.7 Sec (11.4-14.6)
[2024-05-02 12:39] LABS: Fibrinogen 215 MG/DL (199-459)
--- NOTE | 2024-05-02 13:05 | W.PN.HOSP.TC ---
Today's Communication/Plan
-
[facility] evaluation
plasmapheresis 5th round tomorrow
continue on steroids
Assessment / Plan
Assessment / Plan
1. Myasthenia gravis flare up
-Recent diagnosis earlier in the month and was on pyridostigmine 60 mg 3 times daily
-Came in with difficulty with swallowing/dyspnea/slurred speech
04/25
-Patient have tongue swelling/slurred speech 04/25 in morning suspected allergic reaction to IVIG, stopping further IVIG
-Discussed with neurology and recommended to initiate plasmapheresis. Hem/onc and IRAD consulted. Patient got a temp cath
-[place] has been notified and consent has been obtained from patient. Son has been notified about the process as well.
-Neurology also recommended Dobbhoff tube placement as patient has been failing speech therapy evaluation today, GI help requested in this regard
04/26
-Patient had rapid response 7 in the morning and was in some resp distress/anxious and more restless
-Stat ABG showing Ph 7.35 pco2 54 and pow 93 on o2
-Moved to ICU for further monitoring, provided racemic epinephrine
-Provided Ativan 0.5mg x2 to help the restlessness- patient tiring herself out more with constant activity and feeling of dyspnea.
-Discussed with on-call data management manager and patient intubated electively for persistent dyspnea
04/27
-Patient was quite restless yesterday despite being on propofol, finally settled after resumption of Requip/Wellbutrin/BuSpar
-Getting second round of plasmapheresis today
-Dose 3/4 of solumedrol getting today
-Patient may not able to tolerate higher dose of pyridostigmine due to bradycardia
04/28
-Finished 4/4 of 1g solumedrol dosing
-Got Plasma-pharesis Sunday and sunday
-Discussed with data management manager, may get trial of SBT
04/29
-currently extubated on o2 through NC
-speech remains mumbled/low volume
-Finished steroid course
-Plan to get Plasma-pheresis round 3 today
-Maintain on Mestinon per neuro recommendation
-will provide pre-pheresis Kphos to prevent severe electrolyte depletion and resultant increased risk of ventricular arrhythmia
04/30
-got 3 round Plasmapheresis so far, next one tomorrow
-increased dose of Mestinon to 60mg QID - monitor for bradycardia
-Failed speech therapy evaluation yesterday, Dobbhoff got pulled out accidentally.
05/01
-Discussed with neurology and patient started on prednisone 60 mg daily
-Neurology considering to eventually start patient on azathioprine, hepatitis panel/QuantiFERON check ordered per neurology recommendation
-Currently on pyridostigmine 60 mg 4 times daily, further dose adjustment deferred to neurology
-Patient getting 4/5 of plasmapheresis today
05/02
-Last round of plasmapheresis tomorrow
-Cleared VSE today and started on IDDSI 4/thickened liquid, maintain dobhoff another 24-48hrs for backup
2. Ventilator dependent respiratory failure -resolved
Extubated 04/28
-Intubated on 04/26 morning for airway protection and hypoxia/dyspnea
-ABG did not significant hypoxia, was requiring high flow o2 nonetheless.
-Currently on o2 through NC
3. QTc prolongation -resolved
Episode of NSVT
-Patient QTc of 650ms yesterday
-Medication reviewed and patient discontinued from Lexapro/Wellbutrin
-Repleted potassium/magnesium/phosphorus, goal more than 4/2/2.5 respectively
-Patient had run of NSVT and started on lidocaine drip 04/27 evening
-Required 48 hours of lidocaine drip
-TTE reviewed, preserved EF, no wall motion deficit
-Continue daily EKG. QTc 483ms yesterday, EKG repeat pending today
4. Low fibrinogen - resolved
-Fibrinogen ~ 110 > 200 > 160 > 215 today
-Likely effect from plasmapheresis, patient is getting albumin as replacement
-No bleeding diathesis, continue monitoring
-on DVT PPX with lovenox and will need to be held if not improved
5. Depression/anxiety
-Resume back on buspirone/Wellbutrin. Hold Lexapro due to QTc prolongation effect
6. Sinus tachycardia -resolved
Sinus bradycardia
-Patient fluctuates between bradycardia and tachycardia already depending on mestinon use
-Lopressor as needed use ordered if patient gets tachycardic
7. Hypernatremia - Resolved
-Improved with free water flushes
8. Asymptomatic bacteriuria
-no dysuria/discomfort at admission
-UA reviewed, minimal pyuria present. WBC elevated from high dose steroids. Afebrile
-Urine cs growing Ecoli.
-Monitor off abx.
history of iron deficiency anemia
history of gastric bypass
history of right TKR
restless leg syndrome
osteoarthritis
history of vitamin B12 deficiency
overactive bladder
DVT PPX - lovenox
Full code
Anticipated Discharge: > 48 hours
Subjective/Interval History
-
Date of Service: May 02, 2024
no complains overnight
feeling subjectively better
dobhoff remains in place
Objective Data
-
Labs:
Laboratory Results
05/02/24
12:02
WBC 14.2 H
Hgb 12.0
Hct 38.4
Plt Count 306
PT 14.7 H
INR 1.12
Sodium Pending
Potassium Pending
Chloride Pending
Carbon Dioxide Pending
BUN Pending
Creatinine Pending
Glucose Pending
Calcium Pending
Vital Signs:
Vital Signs
Temp Pulse Resp BP Pulse Ox
99.3 F 85 18 108/61 98
05/02/24 11:15 05/02/24 11:15 05/02/24 11:15 05/02/24 11:15 05/02/24 11:15
I&O
05/01/24 05/02/24 05/03/24
06:59 06:59 06:59
Intake Total 1240 / 1310 1340 / 1340
Balance 1240 / 1310 1340 / 1340
Review of Systems
-
Respiratory: Reports No Symptoms
Cardiac: Reports No Symptoms
Abdomen/GI: Reports No Symptoms
Physical Exam
-
General: Comfortable
HEENT: Oxygen (2L NC) and Other (Dobhoff out)
Respiratory: Clear to Auscultation
Cardiac: Regular Rhythm, S1/S2, Tachycardic and Bradycardic; Negative Murmur or Rub
GI: Soft, Nontender and Nondistended
Neuro: Awake, Alert and Oriented
Psych: Calm
[2024-05-02 14:26] LABS: Blood Urea Nitrogen 28 mg/dl (7-17); Calcium 8.8 mg/dl (8.4-10.2); Carbon Dioxide 36 mmol/L (22-30); Chloride 97 mmol/L (98-107); Estimated Creatinine Clearance 88 ml/min; Glucose 134 mg/dl (70-99); Potassium 4.5 mmol/L (3.5-5.1); Sodium 139 mmol/L (135-145); Triglycerides 110 mg/dl (10-149); eGFR > 60.00
[2024-05-02] MEDS: PROTONIX 40 MG PO (14:52)
--- NOTE | 2024-05-02 15:16 | W.PN.ONC2 ---
Today's Communication / Plan
-
PLEX # 5 of 5 scheduled 05/03, further MG management per neurology. Hematology will sign off upon PLEX completion tomorrow.
Impression
Impression
myasthenia gravis exacerbation
Plan
Plan
management per neurology
continue plasmapheresis facilitated by [facility] - as per neurology recommendations - every other day x5.
For PLEX #5 of 5 05/02
daily cbc, fibrinogen, coags.
Subjective/Objective
Chief Complaint
no new complaints. neurological symptoms improving
Subjective
Vital Signs:
Vital Signs
Temp Pulse Resp BP Pulse Ox
99.3 F 85 18 108/61 98
05/02/24 11:15 05/02/24 11:15 05/02/24 11:15 05/02/24 11:15 05/02/24 11:15
Lab Results:
Laboratory Data
WBC 14.2 10^3/uL (4.8-10.8) H 05/02/24 12:02
Hgb 12.0 g/dL (12.0-16.0) 05/02/24 12:02
Plt Count 306 10^3/uL (130-400) 05/02/24 12:02
PT 14.7 Sec (11.4-14.6) H 05/02/24 12:02
INR 1.12 05/02/24 12:02
APTT 29.0 Sec (23.4-35.0) 04/30/24 03:29
eGFR > 60.00 05/02/24 12:02
Physical Exam
HEENT: Moist Mucous Membranes and Other (feeding tube via nare); No Jaundice
Cardiology: S1 and S2
GI: Soft
Extremities: No Edema
Orders
Orders
Orders From Last 24 Hours
05/03/24 10:00
Albumin Human 5% 250 ml [Albumin 5%] 12.5 grams in 250 ml INTRACATH 1,666.667 mls/hr
Calcium Gluconate [Calcium Gluconate 10% Injection] 3,300 mg 0.9% Sodium Chloride 250 ml [Nss] 250 ml IV ONCE
Heparin See Dose Instructions INTRACATH ONCE ONE
--- NOTE | 2024-05-02 16:12 | CON.MR ---
Consultation
Consultation Request
Date/Time Consultation Performed: 05/02/2024 1520
Performing Provider: Dr. Ambriz
Reason for Consultation: Myasthenia gravis
Medical History
-
Chief Complaint: Weakness
History of Present Illness:
I had the opportunity to see Sujatha Seaman in rehabilitation consultation today. This is a 68-year-old female with past medical history of recent diagnosed myasthenia gravis, depression/anxiety, history of iron deficiency anemia, history of
gastric bypass, history of right TKR, restless leg syndrome, osteoarthritis, history of vitamin B12 deficiency, overactive bladder who was brought to ER for worsening swallowing difficulty and slurred speech, as well as described as more 'nasally
speech' at home. Patient had been diagnosed with myasthenia gravis earlier this month and was started on palliative treatment and discharged home. Patient started having more generalized weakness/fatigue at home and noticing choking
episode/regurgitation.
Diagnosed with abrupt exacerbation of myasthenia. Initiated IVIG but had reaction to the treatment with tongue swelling and switched to plasmapheresis - with 5 treatments. Was intubated on 04/26 for airway protection, extubated on 04/28. Has been
on IV steroids, and noted with bradycardia on pyridostigmine and the dose was decreased. Finished IV steroids and now on maintenance oral prednisone.
Hospital course also with prolonged QTC and NSVT episode - now improved. Last QTC 480's. Last round of plasmapheresis tomorrow. Cleared [facility] video swallow eval today and started on IDDSI 4/thickened liquid diet. Still to have dobhoff for another
couple of days just for backup.
Patient seen at bedside this afternoon. Sitting up in bedside chair. States feeling a lot better. Was happy she was able to swallow more today - took some oral pills. Denies any chest pain or SOB. Some fatigue with the therapies today, but
tolerated well. Denies any pain currently. No SOB or Chest pain. No nausea or GI complaints. Denies any vision changes, double vision or blurring.
Past medical history:
Chappell's palsy syndrome, MATHIEU, chronic pain syndrome, major depression disorder, MONISHA, RLS, history of left Dupuytren's contractures, osteoarthritis, lumbar spinal stenosis, vitamin B12 deficiency, stress incontinence
Social History
Functional Level Premorbidity:
Independent for all activities. States has a walker at home but was previously ambulatory without it, prior to recent functional decline
Current Funct Level: Ambulation, Transfer, UE/LE Dressing:
Min A transfers, Min A ambulation 15' x2.
Personal: Single
Living: With Family (Son and his )
Number of Floors: 2 (Split level - she has her quarters on lower level. )
# Steps to Enter: 6 down, but ramp access to main level (son is wheelchair dependent)
Potential First Floor Set Up: No
Allergies / Home Medications
Allergy/AdvReac Type Severity Reaction Status Date / Time
immune globulin,gamma (IgG) Allergy See Verified 04/28/24 14:54
human comments
Penicillins Allergy Anaphylaxis Verified 04/29/24 21:10
�Medication �Instructions �Recorded �Confirmed �Last Taken �Type
bupropion HCl 300 mg 24 hr tablet, 300 mg PO DAILY Depression 10/11/22 04/24/24 04/24/24 History
extended release (Wellbutrin XL)
buspirone 10 mg tablet 10 mg PO BID Mental Health/Anxiety 10/11/22 04/24/24 04/11/24 History
hydrocodone 7.5 mg-acetaminophen 1 tab PO QIDPRN PRN SEVERE pain 10/11/22 04/24/24 04/11/24 History
325 mg tablet
cyclobenzaprine 5 mg tablet 5 mg PO HS pain/muscle spasms 04/11/24 04/24/24 04/23/24 History
denosumab 60 mg/mL subcutaneous 60 mg SC [id number] osteoporosis 04/11/24 04/24/24 Unknown History
syringe (Prolia)
ropinirole 2 mg tablet 4 mg PO TID restless legs 04/11/24 04/24/24 04/24/24 History
acetaminophen 500 mg tablet 1,000 mg PO Q6HPRN PRN MILD PAIN 04/24/24 04/24/24 04/24/24 History
escitalopram oxalate 20 mg tablet 20 mg PO DAILY Mental 04/24/24 04/24/24 Unknown History
Health/Anxiety
loperamide 2 mg capsule 2 mg PO DAILY PRN DIARRHEA 04/24/24 04/24/24 04/23/24 History
pyridostigmine bromide 60 mg tablet 60 mg PO TID Neurological Condition 04/28/24 04/24/24 04/24/24 History
Review Of Systems
-
History Source: Patient
All other systems: Negative unless noted
Constitutional: Reports Fatigue
Eye: Reports No Symptoms
EENT: Reports No Symptoms
Respiratory: Reports No Symptoms
Cardiac: Reports No Symptoms
Abdomen/GI: Reports No Symptoms
: Reports No Symptoms
Musculoskeletal: Reports No Symptoms
Integumentary: Reports No Symptoms
Neurological: Reports Weakness
Psych: Reports No Symptoms
Endocrine: Reports No Symptoms
Hematologic/Lymphatic: Reports No Symptoms
Immunology: Reports No Symptoms
Physical Exam
Active Medications
Generic Name Dose Route Start Last Admin
Trade Name Freq PRN Reason Stop Dose Admin
Acetaminophen 650 mg 05/01/24 23:46 05/01/24 23:52
Acetaminophen (Oral Solution) 650 Mg/20.3 Ml Cup TUBE 05/29/24 23:45 650 mg
Q4HPRN PRN Administration
mild pain/DE LEON/temp> 100.4F
Bisacodyl 10 mg 04/24/24 12:26
Bisacodyl 10 Mg Rectal Suppository RECTAL 05/22/24 12:25
[id number] PRN
constipation
Bupropion HCl 150 mg 04/30/24 11:00 05/02/24 08:50
Bupropion Regular Release 75 Mg Tablet TUBE 05/28/24 10:59 150 mg
BID ANDREA Administration
Buspirone HCl 10 mg 04/29/24 11:41 05/02/24 08:50
Buspirone 10 Mg Tablet TUBE 05/25/24 10:59 10 mg
BID ANDREA Administration
Enoxaparin Sodium 40 mg 04/24/24 18:00 05/01/24 16:38
Enoxaparin Sodium 40 Mg/0.4 Ml Syringe SC 05/22/24 17:59 40 mg
QPM ANDREA Administration
Escitalopram Oxalate 20 mg 04/24/24 12:26 04/27/24 08:12
Escitalopram 20 Mg Tablet PO 05/22/24 12:25 20 mg
DAILY ANDREA Administration
Famotidine 20 mg 04/29/24 20:00 05/02/24 08:50
Famotidine 20 Mg Tablet TUBE 05/27/24 19:59 20 mg
BID ANDREA Administration
Ferrous Sulfate 325 mg 04/29/24 11:42 05/02/24 08:50
Ferrous Sulfate 325 Mg Tablet TUBE 05/27/24 10:59 325 mg
DAILY ANDREA Administration
Heparin Sodium 0 units 05/03/24 10:00
Heparin (1000 Units/Ml) 10,000 Units/10 Ml Vial INTRACATH 05/03/24 10:01
ONCE ONE
Albumin Human 12.5 grams in 250 mls @ 1,666.667 mls/hr 05/03/24 10:00
Albumin 5% INTRACATH 05/03/24 11:56
.Q9M ANDREA
Calcium Gluconate 3,300 mg/ 283 mls @ 0 mls/hr 05/03/24 10:00
Sodium Chloride IV 05/03/24 10:01
ONCE ONE
As Directed
Insulin Aspart 0 units 04/26/24 12:00 05/02/24 13:09
Insulin Aspart Moderate Resistance 300 Units/3 Ml Pen.Injctr SC 05/24/24 11:59 Not Given
Q6 ANDREA
Protocol
Metoprolol Tartrate 12.5 mg 04/29/24 11:42 05/02/24 08:50
Metoprolol 12.5 Mg Regular Release Dose (1/2 Of 25 Mg Tablet) TUBE 05/22/24 19:59 12.5 mg
BID ANDREA Administration
Pantoprazole Sodium 40 mg 05/02/24 12:00 05/02/24 14:52
Pantoprazole 40 Mg Delayed Release Tablet PO 05/30/24 11:59 40 mg
DAILY ANDREA Administration
Polyethylene Glycol 17 grams 04/27/24 08:00 05/02/24 08:51
Polyethylene Glycol Powder 17 Grams Packet TUBE 05/25/24 07:59 Not Given
DAILY ANDREA
Polyethylene Glycol 17 grams 04/29/24 11:43
Polyethylene Glycol Powder 17 Grams Packet TUBE 05/22/24 12:25
DAILYPRN PRN
constipation
Prednisone 60 mg 05/01/24 12:00 05/02/24 08:49
Prednisone 20 Mg Tablet TUBE 05/29/24 11:59 60 mg
DAILY ANDREA Administration
Pyridostigmine [place] 60 mg 04/30/24 15:00 05/02/24 14:53
Pyridostigmine 60 Mg Tablet TUBE 05/23/24 14:59 60 mg
QID ANDREA Administration
Ropinirole HCl 4 mg 04/26/24 10:40 05/02/24 08:51
Ropinirole 2 Mg Tablet TUBE 05/22/24 15:59 4 mg
TID ANDREA Administration
Senna/Docusate Sodium 1 tablet 04/29/24 11:42
Docusate W/Senna (Sofie-Colace) Tablet TUBE 05/22/24 12:25
BIDPRN PRN
constipation
Sodium Chloride 0 flush 04/24/24 13:00
Sodium Chloride 0.9% (Flush) Syringe IV 05/22/24 12:59
PER PROTOCOL ANDREA
Vital Signs
Temp Pulse Resp BP Pulse Ox
97.7 F 94 17 109/62 99
05/02/24 15:15 05/02/24 15:15 05/02/24 15:15 05/02/24 15:15 05/02/24 15:15
Height 5 ft 8 in
Actual Weight 78.585 kg
Body Mass Index (BMI) 26.3
Physical Exam
Physical Exam:
General Appearance/Observation: Well-developed, well-nourished individual in no apparent distress. Sitting up in chair
Pain/Comfort Assessment: Denies
Mood/Affect: Appropriate - good spirits
Eyes: Conjunctiva/Lids: normal Pupils: pupils equal round and reactive to light and Accommodation
Ears/Nose/Throat: oral mucosa moist, throat clear. Dobhoff tube in place. Lips/Teeth/Gums: normal
Cardiovascular: Heart: regular, no murmur
Pulses: dorsalis pedis 2+ bilaterally
Respiratory: Respiratory Effort/Chest Expansion: normal Auscultation: Clear to auscultation bilaterally
Gastrointestinal: abdomen not tender, no distension, normal abdominal bowel sounds
Extremities: Edema: None Cyanosis: None Trophic changes: None
Neurology Exam:
Orientation: Alert, Oriented to self, Time, Place
Memory: Intact immediately and at 3 minutes
Higher cortical function
Speech: Intact
Comprehension: Intact
Two step command: Intact
Cranial Nerves:
CNII: Pupillary light reflex: Intact Visual Field: Intact
CN III, IV, : Extraocular muscles: Intact
CN V: Facial Sensation at Forehead: Intact , Maxilla: Intact, Mandible: Intact
CN VII: Facial movement: Symmetric
CN VIII: Hearing: Normal
CN IX/X: Speech & swallow: Normal, Position of Uvula: Midline
CN XI: Shoulder shrug: Symmetric
CN XII: Tongue protrusion: Midline
Sensory:
Light touch: Intact in bilateral upper and lower extremities
Reflexes:
Biceps: 1+ bilaterally
Patellar: 1+ bilaterally
Achilles: 1+ bilaterally
Babinski: Downgoing bilaterally
Clonus: None
Jorge: Negative bilaterally
Cerebellar: Dysmetria/Ataxia: None
Musculoskeletal:
OA changes diffusely in IP joints, no tenderness.
FDI atrophy L>R and some dupuytren's contracture changes L palm more than right. no tenderness.
Motor: (Manual muscle scale 0-5)
Muscle SA EF WE EE FF FA HF KE DF EHL PF
Right 4 5 5 5 4+ 4+ 4 5 5 5 5
Left 4 5 5 5 4+ 4 4 5 5 5 5
Tone: Normal in all extremities
Range of Motion: Passively within normal limits in all extremities
Lab Results
05/02/24 12:02
05/02/24 12:02
WBC 14.2 10^3/uL (4.8-10.8) H 05/02/24 12:02
Hgb 12.0 g/dL (12.0-16.0) 05/02/24 12:02
Hct 38.4 % (37.0-47.0) 05/02/24 12:02
MCV 96.2 fL (81.0-99.0) 05/02/24 12:02
Plt Count 306 10^3/uL (130-400) 05/02/24 12:02
PT 14.7 Sec (11.4-14.6) H 05/02/24 12:02
INR 1.12 05/02/24 12:02
Sodium 139 mmol/L (135-145) 05/02/24 12:02
Potassium 4.5 mmol/L (3.5-5.1) 05/02/24 12:02
Chloride 97 mmol/L (98-107) L 05/02/24 12:02
Carbon Dioxide 36 mmol/L (22-30) H 05/02/24 12:02
BUN 28 mg/dl (7-17) H 05/02/24 12:02
Creatinine 0.5 mg/dL (0.6-1.0) L 05/02/24 12:02
eGFR > 60.00 05/02/24 12:02
Glucose 134 mg/dl (70-99) H 05/02/24 12:02
Calcium 8.8 mg/dl (8.4-10.2) 05/02/24 12:02
Phosphorus 2.3 mg/dl (2.5-4.5) L 04/30/24 03:29
Magnesium 2.2 mg/dl (1.6-2.3) 05/01/24 03:31
Total Bilirubin 0.5 mg/dl (0.2-1.3) 04/28/24 03:37
AST 21 U/L (14-36) 04/28/24 03:37
ALT 16 U/L (0-35) 04/28/24 03:37
Alkaline Phosphatase < 20 U/L (38-126) L 04/28/24 03:37
Total Protein 4.9 g/dl (6.3-8.2) L 04/28/24 03:37
Albumin 3.5 g/dl (3.5-5.0) 04/28/24 03:37
Diagnostic Results
As per HPI.
Comorbidities / Impairment Group
Comorbidities:
Impairment Group:
Myasthenia Gravis
Assessment / Plan
Plan
Assessment:
68 year old female with myasthenia gravis exacerbation. Recent diagnosis earlier this month with worsening progression. Now s/p PLEX x5. Had initial reaction to IVIG treatment. Initial respiratory failure, extubated and steadily improving.
PM&R PT/OT to increase independence with ADLs, improve balance, coordination, endurance, strength, mobility, community reintegration, decreased burden of care on others and family education.
Myasthenia Gravis: On Mestinon - dose adjusted due to initial bradycardia. On prednisone PO 60mg daily
Dysphagia: speech evaluation - now cleared for modified diet, thickened liquids and continue to monitor progress. Dobhoff for couple days for backup.
- aspiration precautions. Advance diet as tolerated.
Dysphonia: speech evaluation
Pulmonary: ARF resolved - now off of O2.
HTN: continue lopressor, monitor closely
Psych: On Buspirone, Buspar, Lexapro. Consider Psychology consult. Monitor mood, adjust medications as needed.
Skin: monitor for pressure sores/rashes/lesions.
Pain: acetaminophen as needed.
Bowel: Colace and Senna, PRN bisacodyl.
GI Prophylaxis: Pantoprazole
DVT Prophylaxis: Lovenox
Pulmonary: Incentive spirometry
Safety: Continue to reinforce assistance with all transfers.
Code Status: Full code
Dispo (date/plan/equipment needs): Eventual home with family care. Social history reviewed.
Functional and Medical Goals: Modified Independent with ADL�s, ambulation, transfers
Summary
-
Things that must be addressed in Hospital prior to discharge:
1. Please continue bedside PT/OT.
2. Please continue speech and swallowing eval/treatment.
3. Blood pressure must be less than 180 systolic and 100 diastolic for 24 hours before being stable for transfer to SNF/acute rehab.
Discharge Destination: Acute rehab when medically stable
Summary of recommendations:
- Discharge Destination: Acute rehab/[facility]
- Still finishing PLEX 5th treatment over weekend.
- Continue to advance diet as tolerated - potential Dobhoff removal prior to ARF transfer.
- QTC prolongation - ? medication related. Is getting routine EKG - if stable and no further need for continued re-evaluation, can then consider ARF transfer.
Will continue to follow patient.
Thank you for allowing me to care for your patient. Please contact me with any questions or concerns.
Data Reviewed
-
Radiology: Report Reviewed by me
Labs: Labs Reviewed by me
Comments
-
This note was dictated using a voice recognition system. Please excuse any typographical errors from route delivery manager. If you believe there are any discrepancies, please notify our office.
--- NOTE | 2024-05-02 16:50 | PTCARENOTE ---
Received call from [facility]. They will be here tomorrow for plasmapheresis between 1130 and 1230. Pharmacy made aware so they can have albumin and calcium gluconate ready.
[2024-05-02] MEDS: LOVENOX 40 MG SC (17:49)
[2024-05-02] MEDS: LOPRESSOR TUBE (20:51)
[2024-05-03] VITALS (10 sets, daily range): BP systolic 89–114; BP diastolic 44–69; PULSE 89; O2SAT 99
[2024-05-03] MEDS: NOVOLOG FLEXPEN-MODERATE RESISTANCE SC ×5 (01:21→18:22)
[2024-05-03 07:14] LABS: % Basophils 0.1 % (0-2); % Eosinophils 2.4 % (0-6); % Immature Granulocytes 0.7 % (0-0.5); % Lymphocytes 17.7 % (20.5-51.1); % Monocytes 6.5 % (1.7-9.3); % Neutrophils 72.6 % (42.2-75.2); Absolute Eosinophils 0.3 10^3/uL (0-0.7); Absolute Immature Granulocytes 0.1 10^3/uL (0-0.05); Absolute Lymphocytes 2.1 10^3/uL (1.2-3.4); Absolute Monocytes 0.8 10^3/uL (0.1-0.6); Absolute Neutrophils 8.6 10^3/uL (1.4-6.5); Hemoglobin 10.9 g/dL (12.0-16.0); Mean Corp Hgb Conc. 32.1 g/dL (33.0-37.0); Mean Corpuscular Hgb 30.3 pg (27.0-31.0); Mean Corpuscular Volume 94.4 fL (81.0-99.0); Mean Platelet Volume 11.7 fL (7.4-10.4); Nucleated Red Blood Cells % 0 %; Platelet Count 331 10^3/uL (130-400); White Blood Cell Count 11.8 10^3/uL (4.8-10.8)
[2024-05-03 07:24] LABS: APTT 27.2 Sec (23.4-35.0); INR 1.05
[2024-05-03 07:25] LABS: Fibrinogen 251 MG/DL (199-459)
[2024-05-03 07:57] LABS: Blood Urea Nitrogen 29 mg/dl (7-17); Calcium 8.7 mg/dl (8.4-10.2); Carbon Dioxide 37 mmol/L (22-30); Chloride 98 mmol/L (98-107); Estimated Creatinine Clearance 75 ml/min; Glucose 79 mg/dl (70-99); Magnesium 2.3 mg/dl (1.6-2.3); Potassium 3.5 mmol/L (3.5-5.1); Sodium 140 mmol/L (135-145); eGFR > 60.00
[2024-05-03] MEDS: FEOSOL 325 MG TUBE (08:52)
[2024-05-03] MEDS: PEPCID 20 MG TUBE (08:52)
[2024-05-03] MEDS: MESTINON 60 MG TUBE ×2 (08:52→13:06)
[2024-05-03] MEDS: PROTONIX 40 MG PO (08:52)
[2024-05-03] MEDS: DELTASONE 60 MG TUBE (08:52)
[2024-05-03] MEDS: LOPRESSOR 12.5 MG TUBE (08:53)
[2024-05-03] MEDS: REQUIP 4 MG TUBE ×2 (08:53→15:59)
[2024-05-03] MEDS: BUSPAR 10 MG TUBE (08:53)
[2024-05-03] MEDS: WELLBUTRIN REGULAR RELEASE 150 MG TUBE (08:53)
[2024-05-03] MEDS: MIRALAX TUBE (08:55)
[2024-05-03 09:04] LABS: Glucose - Point of Care 96 mg/dl (70-99)
[2024-05-03] MEDS: CALCIUM GLUCONATE 10% INJECTION 283 MG IV (11:23)
--- NOTE | 2024-05-03 11:34 | W.PN.HOSP.TC ---
Today's Communication/Plan
-
DC Dobhoff
Pt on Pureed diet at this time
Final Plasmapharesis today
Assessment / Plan
Assessment / Plan
1. Myasthenia gravis flare up
-Recent diagnosis earlier in the month and was on pyridostigmine 60 mg 3 times daily
-Came in with difficulty with swallowing/dyspnea/slurred speech
04/25
-Patient have tongue swelling/slurred speech 04/25 in morning suspected allergic reaction to IVIG, stopping further IVIG
-Discussed with neurology and recommended to initiate plasmapheresis. Hem/onc and IRAD consulted. Patient got a temp cath
-[place] has been notified and consent has been obtained from patient. Son has been notified about the process as well.
-Neurology also recommended Dobbhoff tube placement as patient has been failing speech therapy, GI help requested in this regard
04/26
Speech therapy input appreciated: VIDEOFLUOROSCOPIC SWALLOWING EXAMINATION (VSE) completed. Overall, pt with mild oral and mild-mod pharyngeal dysphagia. Supraglottic penetration noted at times with responsive aspiration only noted with thin
liquids via straw when utilized as a liquid wash post puree. No other aspiration noted. Pharyngeal residue noted, which decreased with dry swallows and liquid washes.
Recommend:
(1) Initiate IDDSI Level 4 (Puree) and mildly thick liquids
(2) Aspiration precautions: sit upright, single sips, slow rate, intermittently clear throat and reswallow, frequent sips of liquids during meals, only eat when not fatigued
(3) Meds crushed in puree or via DHT
(4) Allow sips of thin liquids via straw between meals post oral care per Aspiration Risk Hydration Protocol (ARHP)
(5) [employer] to continue to follow
Will DC Dobhoff
-Patient had rapid response 7 in the morning and was in some resp distress/anxious and more restless
-Stat ABG showing Ph 7.35 pco2 54 and pow 93 on o2
-Moved to ICU for further monitoring, provided racemic epinephrine
-Finished 4 of 1g solumedrol dosing
-Got Plasma-pharesis Sunday and sunday
-Discussed with manager zone, may get trial of SBT
04/29
-currently extubated on o2 through NC
-speech remains mumbled/low volume
-Finished steroid course
-Plan to get Plasma-pheresis round 5 today
-Maintain on Mestinon per neuro recommendation
-will provide pre-pheresis Kphos to prevent severe electrolyte depletion and resultant increased risk of ventricular arrhythmia
04/30
-increased dose of Mestinon to 60mg QID - monitor for bradycardia
-Discussed with neurology and patient started on prednisone 60 mg daily
-Neurology considering to eventually start patient on azathioprine, hepatitis panel/QuantiFERON check ordered per neurology recommendation
-Currently on pyridostigmine 60 mg 4 times daily, further dose adjustment deferred to neurology
-Patient getting 4/5 of plasmapheresis today
2. Ventilator dependent respiratory failure -resolved
Extubated 04/28
-Intubated on 04/26 morning for airway protection and hypoxia/dyspnea
-ABG did not significant hypoxia, was requiring high flow o2 nonetheless.
-Currently on o2 through NC
3. QTc prolongation -resolved
Episode of NSVT
-Patient QTc of 650ms yesterday
-Medication reviewed and patient discontinued from Lexapro/Wellbutrin
-Repleted potassium/magnesium/phosphorus, goal more than 4/2/2.5 respectively
-Patient had run of NSVT and started on lidocaine drip 04/27 evening
-Required 48 hours of lidocaine drip
-TTE reviewed, preserved EF, no wall motion deficit
-Continue daily EKG. QTc 481ms on 05/02
4. Low fibrinogen - resolved
-Fibrinogen ~ 110 > 200 > 160 > 215 today
-Likely effect from plasmapheresis, patient is getting albumin as replacement
-No bleeding diathesis, continue monitoring
-on DVT PPX with lovenox and will need to be held if not improved
5. Depression/anxiety
-Resume back on buspirone/Wellbutrin. Hold Lexapro due to QTc prolongation effect
6. Sinus tachycardia -resolved
Sinus bradycardia
-Patient fluctuates between bradycardia and tachycardia already depending on mestinon use
-Lopressor as needed use ordered if patient gets tachycardic
7. Hypernatremia - Resolved
-Improved with free water flushes
8. Asymptomatic bacteriuria
-no dysuria/discomfort at admission
-UA reviewed, minimal pyuria present. WBC elevated from high dose steroids. Afebrile
-Urine cs growing Ecoli.
-will recheck UA
history of iron deficiency anemia
history of gastric bypass
history of right TKR
restless leg syndrome
osteoarthritis
history of vitamin B12 deficiency
overactive bladder
DVT PPX - lovenox
Full code
Anticipated Discharge: > 48 hours
Subjective/Interval History
-
Date of Service: May 03, 2024
To have 5/5 Plasmapharesis in near future today
Objective Data
-
Labs:
Laboratory Results
05/03/24
06:34
WBC 11.8 H
Hgb 10.9 L
Hct 34.0 L
Plt Count 331
PT 14.0
INR 1.05
APTT 27.2
Sodium 140
Potassium 3.5
Chloride 98
Carbon Dioxide 37 H
BUN 29 H
Creatinine 0.7
Glucose 79
Calcium 8.7
Vital Signs:
Vital Signs
Temp Pulse Resp BP Pulse Ox
98.4 F 100 20 111/66 95
05/03/24 08:33 05/03/24 08:33 05/03/24 08:33 05/03/24 08:33 05/03/24 08:33
I&O
05/02/24 05/03/24 05/04/24
06:59 06:59 06:59
Intake Total 1340 / 1340 660 / 660
Output Total
Balance 1340 / 1340 657 / 657
Review of Systems
-
History Source: Patient and Coordinated Provider
Constitutional: Denies Fever
Respiratory: Reports No Symptoms
Cardiac: Reports No Symptoms
Abdomen/GI: Reports No Symptoms
Physical Exam
-
General: Comfortable
HEENT: Oxygen (2L NC) and Other (Dobhoff in place)
Respiratory: Clear to Auscultation
Cardiac: Regular Rhythm, S1/S2, Tachycardic and Bradycardic; Negative Murmur or Rub
GI: Soft, Nontender and Nondistended
Neuro: Awake, Alert and Oriented
Psych: Calm
--- NOTE | 2024-05-03 11:54 | PTCARENOTE ---
Addendum entered by Chica Chiang RN 05/03/24 13:10:
Ended approx 1235 pm.
Original Note:
Plasmapheresis began at 1145 am. This is the last dose.
--- NOTE | 2024-05-03 12:25 | W.PN.NEURO.1 ---
Today's Communication / Plan
-
.
Neuro Assessment/Plan
Assessment
Acute onset of severe dysarthria, difficulty swallowing, and weakness, due to myasthenia gravis exacerbation for unclear reasons
Patient experienced likely allergic reaction to immunoglobulins on 04/25/2024
Replaced immunoglobulins (single dose) with plasmapheresis due to probable allergic reaction, patient has received plasma exchange since 04/25/2024
Intubated 04/26/2024 due to airway protection need
Plan
Continue plasma exchange for total of 5, second on 04/27/2024
continue methylprednisone 1000 mg IV total of 5 doses, fourth dose on 04/27/2024
Due to bradycardia, will reduce dosing of pyridostigmine from 60 mg 4 times a day to dosing of 30 mg 4 times a day
Continue ropinirole 4 mg 3 times a day via Dobbhoff tube
Attempt extubation when possible
Attempt to reduce sedation when possible
Will follow
Subjective/Objective
Subjective Data
Date of Service: May 03, 2024
Neurology Follow-up Note.
Ms. Seaman hopes for her Supramedube will be removed today. She is on puree and mildly thick liquids diet with no reported difficulties. Tolerates Mestinon 60 mg 4 times daily well.
PMH: seropositive generalized myasthenia gravis; h/o L Chappell's palsy, anemia, chronic pain s-me, MDD, MONISHA, RLS, left Dupuytren contractures, lumbar spinal stenosis
PSH: R IJ, gastric bypass, left hand surgery, R TKA, BL cataract surgery
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
FH: Not contributory to current presentation
All: Penicillin, IVIG
ROS: Negative for headache, chest pain, dizziness, abdominal pain, cramping
General: In no acute distress
Cardio: Regular rate and rhythm
Neuro:
Mental Status: Awake, fully oriented, follows complex requests.
CN: Orthophoric primary gaze. Pupils 3 mm, reactive. Limited horizontal extraocular movements with no diplopia. No ptosis. No dysarthria, mild dysphonia
Motor: Normal tone and bulk. Strength 5 out of 5 including neck flexor and extensors except for bilateral deltoides 4 out of 5.
Reflexes: No clonus at the ankles
Coordination: No tremors myoclonic movements
Gait: deferred
Assessment and Plan:
I. Seropositive generalized myasthenia gravis, clinically improved.
II. Dysphagia, improved
III. RLS
-Aspiration precautions
-Continue PLEX for 5 doses total
-QuantiFERON, Thiopurine S-methyltransferase, hep B
-Continue Mestinon 60 mg 4 times daily and prednisone 60 mg once a day
-PT
-DVT and GI prophylaxis
-Outpatient neurology follow-up in 1-2 weeks
I personally reviewed all radiology and labs along with past medical records pertinent to current medical problems. Total time spent in patient care is 35 minutes.
Objective Data
Vital Signs
Temp Pulse Resp BP Pulse Ox
36.9 C 100 20 111/66 95
05/03/24 08:33 05/03/24 08:33 05/03/24 08:33 05/03/24 08:33 05/03/24 08:33
Lab Results
05/03/24 06:34
05/03/24 06:34
PT 14.0 Sec (11.4-14.6) 05/03/24 06:34
INR 1.05 05/03/24 06:34
APTT 27.2 Sec (23.4-35.0) 05/03/24 06:34
Sodium 140 mmol/L (135-145) 05/03/24 06:34
Potassium 3.5 mmol/L (3.5-5.1) 05/03/24 06:34
BUN 29 mg/dl (7-17) H 05/03/24 06:34
Glucose 79 mg/dl (70-99) 05/03/24 06:34
Calcium 8.7 mg/dl (8.4-10.2) 05/03/24 06:34
Phosphorus 2.3 mg/dl (2.5-4.5) L 04/30/24 03:29
Patient Allergies
immune globulin,gamma (IgG) human Allergy (Verified 04/28/24 14:54)
See comments
Penicillins Allergy (Verified 04/29/24 21:10)
Anaphylaxis
Vital Signs and Labs
-
Vital Signs and Labs:
Vital Signs
Temp Pulse Resp BP Pulse Ox
36.9 C 100 20 111/66 95
05/03/24 08:33 05/03/24 08:33 05/03/24 08:33 05/03/24 08:33 05/03/24 08:33
Lab Results
05/03/24 06:34
05/03/24 06:34
PT 14.0 Sec (11.4-14.6) 05/03/24 06:34
INR 1.05 05/03/24 06:34
APTT 27.2 Sec (23.4-35.0) 05/03/24 06:34
Sodium 140 mmol/L (135-145) 05/03/24 06:34
Potassium 3.5 mmol/L (3.5-5.1) 05/03/24 06:34
BUN 29 mg/dl (7-17) H 05/03/24 06:34
Glucose 79 mg/dl (70-99) 05/03/24 06:34
Calcium 8.7 mg/dl (8.4-10.2) 05/03/24 06:34
Phosphorus 2.3 mg/dl (2.5-4.5) L 04/30/24 03:29
Medications
-
Medications:
Generic Name Dose Route Start Last Admin
Trade Name Freq PRN Reason Stop Dose Admin
Acetaminophen 650 mg 05/01/24 23:46 05/01/24 23:52
Acetaminophen (Oral Solution) 650 Mg/20.3 Ml Cup TUBE 05/29/24 23:45 650 mg
Q4HPRN PRN Administration
mild pain/DE LEON/temp> 100.4F
Bisacodyl 10 mg 04/24/24 12:26
Bisacodyl 10 Mg Rectal Suppository RECTAL 05/22/24 12:25
[id number] PRN
constipation
Bupropion HCl 150 mg 04/30/24 11:00 05/03/24 08:53
Bupropion Regular Release 75 Mg Tablet TUBE 05/28/24 10:59 150 mg
BID ANDREA Administration
Buspirone HCl 10 mg 04/29/24 11:41 05/03/24 08:53
Buspirone 10 Mg Tablet TUBE 05/25/24 10:59 10 mg
BID ANDREA Administration
Dextrose 12.5 grams 05/03/24 09:00
Dextrose 50% (0.5 Grams/Ml) 50 Ml Syringe IV 05/31/24 08:59
[id number] PRN
hypoglycemia
Protocol
Enoxaparin Sodium 40 mg 04/24/24 18:00 05/02/24 17:49
Enoxaparin Sodium 40 Mg/0.4 Ml Syringe SC 05/22/24 17:59 40 mg
QPM ANDREA Administration
Escitalopram Oxalate 20 mg 04/24/24 12:26 04/27/24 08:12
Escitalopram 20 Mg Tablet PO 05/22/24 12:25 20 mg
DAILY ANDREA Administration
Famotidine 20 mg 04/29/24 20:00 05/03/24 08:52
Famotidine 20 Mg Tablet TUBE 05/27/24 19:59 20 mg
BID ANDREA Administration
Ferrous Sulfate 325 mg 04/29/24 11:42 05/03/24 08:52
Ferrous Sulfate 325 Mg Tablet TUBE 05/27/24 10:59 325 mg
DAILY ANDREA Administration
Glucagon 1 mg 05/03/24 09:00
Glucagon 1 Mg Vial IM 05/31/24 08:59
PRN PRN
hypoglycemia - no IV access
Protocol
Insulin Aspart 0 units 05/03/24 09:00 05/03/24 09:03
Insulin Aspart Moderate Resistance 300 Units/3 Ml Pen.Injctr SC 05/31/24 08:59 Not Given
AC ANDREA
Protocol
Metoprolol Tartrate 12.5 mg 04/29/24 11:42 05/03/24 08:53
Metoprolol 12.5 Mg Regular Release Dose (1/2 Of 25 Mg Tablet) TUBE 05/22/24 19:59 12.5 mg
BID ANDREA Administration
Pantoprazole Sodium 40 mg 05/02/24 12:00 05/03/24 08:52
Pantoprazole 40 Mg Delayed Release Tablet PO 05/30/24 11:59 40 mg
DAILY ANDREA Administration
Polyethylene Glycol 17 grams 04/27/24 08:00 05/03/24 08:55
Polyethylene Glycol Powder 17 Grams Packet TUBE 05/25/24 07:59 Not Given
DAILY ANDREA
Polyethylene Glycol 17 grams 04/29/24 11:43
Polyethylene Glycol Powder 17 Grams Packet TUBE 05/22/24 12:25
DAILYPRN PRN
constipation
Prednisone 60 mg 05/01/24 12:00 05/03/24 08:52
Prednisone 20 Mg Tablet TUBE 05/29/24 11:59 60 mg
DAILY ANDREA Administration
Pyridostigmine [place] 60 mg 04/30/24 15:00 05/03/24 08:52
Pyridostigmine 60 Mg Tablet TUBE 05/23/24 14:59 60 mg
QID ANDREA Administration
Ropinirole HCl 4 mg 04/26/24 10:40 05/03/24 08:53
Ropinirole 2 Mg Tablet TUBE 05/22/24 15:59 4 mg
TID ANDREA Administration
Senna/Docusate Sodium 1 tablet 04/29/24 11:42
Docusate W/Senna (Sofie-Colace) Tablet TUBE 05/22/24 12:25
BIDPRN PRN
constipation
Sodium Chloride 0 flush 04/24/24 13:00
Sodium Chloride 0.9% (Flush) Syringe IV 05/22/24 12:59
PER PROTOCOL ANDREA
Home Medications
-
Home Medications
bupropion HCl 300 mg 24 hr tablet, extended release (Wellbutrin XL) 300 mg PO DAILY Depression 10/11/22
buspirone 10 mg tablet 10 mg PO BID Mental Health/Anxiety 10/11/22
hydrocodone 7.5 mg-acetaminophen 325 mg tablet 1 tab PO QIDPRN PRN SEVERE pain 10/11/22
cyclobenzaprine 5 mg tablet 5 mg PO HS pain/muscle spasms 04/11/24
denosumab 60 mg/mL subcutaneous syringe (Prolia) 60 mg SC [id number] osteoporosis 04/11/24
ropinirole 2 mg tablet 4 mg PO TID restless legs 04/11/24
acetaminophen 500 mg tablet 1,000 mg PO Q6HPRN PRN MILD PAIN 04/24/24
escitalopram oxalate 20 mg tablet 20 mg PO DAILY Mental Health/Anxiety 04/24/24
loperamide 2 mg capsule 2 mg PO DAILY PRN DIARRHEA 04/24/24
pyridostigmine bromide 60 mg tablet 60 mg PO TID Neurological Condition 04/28/24
--- NOTE | 2024-05-03 12:38 | W.PN.PUL.V3 ---
Today's Communication / Plan
-
VC and MIP improving
DC nasogastric tube
Advance diet
Physical therapy
Last plasma exchange
Continue Mestinon and prednisone
Pulmonary will sign off-please call with questions
Assessment
-
68-year-old female with past medical history of recent diagnosis of myasthenia gravis, Chappell's palsy syndrome, chronic pain syndrome, depression/anxiety, iron deficiency anemia, gastric bypass, restless leg syndrome, osteoarthritis, overactive
bladder, iron deficiency anemia, vitamin D deficiency, lumbar spinal stenosis presented to the hospital hospital with increased difficulty swallowing and slurred speech. She was recently hospitalized from 04/11 to 04/12 where she presented with
similar symptoms. Improved with pyridostigmine. Acetylcholine receptor binding antibodies levels elevated at 8.1 and diagnosed with myasthenia gravis. Upon arriving here, she was admitted to IMU. She was started on steroids, IVIG and continued
on pyridostigmine with neurology following. Unfortunately, she started to develop increased tongue swelling suspected to be an allergic reaction to IVIG. Plasmapheresis was started. Her respiratory distress continued to worsen. She is ultimately
transferred to ICU and intubated on 04/26/2024. Cardiology now following as well due to prolonged QTc with unknown etiology on lidocaine drip. Heme-onc following for plasmapheresis. Extubated 04/28/24 now on 2L O2 for comfort. Able to
communicate, but difficult to understand with ongoing speech difficulties secondary to the MG.
Acute respiratory failure with hypoxemia and hypercapnia secondary to respiratory muscle weakness with myasthenia gravis (acetylcholine receptor antibodies 8.1 on 04/11/2024)
intubated 04/26/2024 in ICU -
extubated 04/28
NSVT/prolonged QTc
Myasthenia gravis acute exacerbation on pulse dose steroids + plasmapheresis s/p IVIG x2 complicated by tongue swelling
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
Leukocytosis likely secondary to steroids
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
Chappell's palsy syndrome
MATHIEU
Chronic pain syndrome
Major depression disorder/MONISHA
RLS
History of left Dupuytren's contractures
Osteoarthritis
Lumbar spinal stenosis
Vitamin B12 deficiency
Stress incontinence
Plan:
Respiratory status improving significantly
Tolerated extubation
Wean FiO2
Assess discharge supplemental oxygen needs
Aspiration precautions
Speech therapy following-advance diet
Discontinue nasogastric feedings
Nebulizers if needed-currently not bronchospastic
Follow VC and MIP-last checked-VC 1.4 L, MIP 20
MG flare noted, neurology following
Currently AAOx3
Pulse steroids methylprednisone course completed per neurology
Allergic reaction to IVIG with tongue swelling/edema -> plasmapheresis
Plasmapheresis status post 4/5 exchanges on 04/25, 04/27/2024, 04/29/2024, 05/01/24 and final 05/03/2024
Monitor fibrinogen and coags per heme onc
Pyridostigmine increase back to 60mg QID as no longer bradycardic
Prednisone 60 qd for MG maintenance
RLS - Continue ropinirole 4 mg 3 times a day via Dobbhoff tube for restless leg
Buspirone and Wellbutrin for depression
Long QTc
Improved after d/c escitalopram, bupropion and propofol gtt -> Restart bupropion, cont to hold escitalopram
Resolved, now 483
Cardiology following
NSVT on 04/27 -> 150cc amio -> lidocaine gtt -> d/c now monitor
Keep K > 4, mg > 2.5
Echo 50-55%
Cont. metoprolol
Maintain MAP greater than 65
Monitor H&H -Transfuse <7
Monitor ptl. Keep >20 unless signs of bleeding then keep >50
Leukocytoses in setting of high dose steroids - downtrending
DVT ppx
PT/OT
Rehab when medically stable
Respiratory status has improved significantly-continue to follow daily VC/MIP-pulmonary will sign off-please call with questions
Diagnostic Data
CXR 04/26/24- Progressed probable atelectasis in left lower lung field. Developing pneumonia not excluded.
CT Chest 04/12/24- 1. No acute findings in the chest. Scattered pulmonary micronodules which are likely infectious/inflammatory.
2. No evidence of mediastinal lesion.
3. Hepatic steatosis.
4. Patulous esophagus with small hiatal hernia and postoperative changes along the gastroesophageal junction.
ECHO 04/28/24- Normal left ventricular size, wall thickness and systolic function. No regional wall motion abnormalities are seen. LV ejection fraction is 50-55% by visual assessment. Mild mitral regurgitation. Mild pulmonic regurgitation.No prior
study available for comparison.
Total time spent on this encounter __50__ minutes which includes review of history, physical exam, medications, laboratory data, personal review of imaging, extensive review of outpatient records, discussion with care team and respiratory therapy.
Subjective Data
-
Date of Service:
Date of Service: May 03, 2024
Chief Complaint: Pulmonary Follow Up and Dyspnea Follow Up
Subjective:
Feels much improved, less short of breath, no swallowing difficulties, no chest pain or abdominal pain
Review of Systems
General: Other (Per HPI)
Objective Data
Data Reviewed
Vital Signs / I&O:
Vital Signs
Temp Pulse Resp BP Pulse Ox
98.4 F 100 20 111/66 95
05/03/24 08:33 05/03/24 08:33 05/03/24 08:33 05/03/24 08:33 05/03/24 08:33
Intake and Output
05/02/24 05/03/24 05/04/24
06:59 06:59 06:59
Intake Total 1340 / 1340 660 / 660
Output Total 3 / 3
Balance 1340 / 1340 657 / 657
SaO2: 95
Nasal Cannula flow liters per minute: 3
Physical Exam
General: Comfortable and Other (NAD)
HEENT: Normocephalic, Anicteric and Moist Mucous Membranes (edentulous)
Cardiovascular: S1-S2 and Regular Rhythm
Respiratory: Clear and Non-Labored Respirations
GI: Soft, Non Distended, Non Tender and NG Tube
Neurology: Awake, Alert and Oriented
Skin: Warm, Dry and Good Color
Labs/Micro/Reports
Lab Data
05/03/24 06:34
05/03/24 06:34
Laboratory Results
05/02/24 05/03/24
12:02 06:34
PT 14.7 H 14.0
INR 1.12 1.05
APTT 27.2
[2024-05-03 13:06] LABS: Glucose - Point of Care 132 mg/dl (70-99)
[2024-05-03] MEDS: LOVENOX 40 MG SC (17:20)
[2024-05-03] MEDS: MESTINON 60 MG PO ×2 (18:15→21:14)
[2024-05-03 18:19] LABS: Glucose - Point of Care 118 mg/dl (70-99)
[2024-05-03] MEDS: REQUIP 4 MG PO (21:10)
[2024-05-03] MEDS: WELLBUTRIN REGULAR RELEASE 150 MG PO (21:13)
[2024-05-03] MEDS: PEPCID 20 MG PO (21:14)
[2024-05-03] MEDS: BUSPAR 10 MG PO (21:15)
[2024-05-03] MEDS: LOPRESSOR 12.5 MG PO (21:15)
[2024-05-03 22:04] LABS: Glucose - Point of Care 88 mg/dl (70-99)
[2024-05-04 03:52] VITALS: BP 107/49
[2024-05-04 05:54] LABS: INR 1.22; PT 15.7 Sec (11.4-14.6)
[2024-05-04 05:59] LABS: Fibrinogen 133 MG/DL (199-459)
[2024-05-04 06:09] LABS: Blood Urea Nitrogen 25 mg/dl (7-17); Calcium 8.7 mg/dl (8.4-10.2); Carbon Dioxide 34 mmol/L (22-30); Chloride 100 mmol/L (98-107); Estimated Creatinine Clearance 88 ml/min; Glucose 84 mg/dl (70-99); Magnesium 2.1 mg/dl (1.6-2.3); Potassium 3.2 mmol/L (3.5-5.1); Sodium 141 mmol/L (135-145); eGFR > 60.00
[2024-05-04 06:25] LABS: Hematocrit 32.8 % (37.0-47.0); Hemoglobin 10.3 g/dL (12.0-16.0); Mean Corp Hgb Conc. 31.4 g/dL (33.0-37.0); Mean Corpuscular Hgb 30.1 pg (27.0-31.0); Mean Corpuscular Volume 95.9 fL (81.0-99.0); Mean Platelet Volume 11.6 fL (7.4-10.4); Platelet Count 348 10^3/uL (130-400); Red Blood Cell Count 3.42 10^6/uL (4.20-5.40); Red Cell Dist. Width 15.2 % (11.5-14.5)
[2024-05-04 08:07] LABS: Glucose - Point of Care 75 mg/dl (70-99)
[2024-05-04] MEDS: DELTASONE 60 MG PO (08:21)
[2024-05-04] MEDS: BUSPAR 10 MG PO ×2 (08:22→20:29)
[2024-05-04] MEDS: PEPCID 20 MG PO ×2 (08:22→20:29)
[2024-05-04] MEDS: WELLBUTRIN REGULAR RELEASE 150 MG PO ×2 (08:22→20:28)
[2024-05-04] MEDS: PROTONIX 40 MG PO (08:22)
[2024-05-04] MEDS: REQUIP 4 MG PO ×3 (08:22→21:16)
[2024-05-04] MEDS: FEOSOL 325 MG PO (08:22)
[2024-05-04] MEDS: MESTINON 60 MG PO ×4 (08:22→21:16)
[2024-05-04] MEDS: LOPRESSOR 12.5 MG PO ×2 (08:26→20:28)
[2024-05-04] MEDS: NOVOLOG FLEXPEN-MODERATE RESISTANCE SC ×3 (08:29→16:34)
[2024-05-04 08:40] VITALS: BP 110/57
[2024-05-04 09:58] LABS: Quantiferon Mitogen minus NIL 2.37 IU/mL; Quantiferon NIL 0.04 IU/mL; Quantiferon TB Gold Plus Negative (Negative)
[2024-05-04 13:20] LABS: Glucose - Point of Care 123 mg/dl (70-99)
--- NOTE | 2024-05-04 15:40 | W.PN.HOSP.TC ---
Today's Communication/Plan
-
Consult Physiatry for possible transfer to [place]
DC Int Jug line
recheck UA
Assessment / Plan
Assessment / Plan
1. Myasthenia gravis flare up
-Recent diagnosis earlier in the month and was on pyridostigmine 60 mg 3 times daily
-Came in with difficulty with swallowing/dyspnea/slurred speech
04/25
-Patient have tongue swelling/slurred speech 04/25 in morning suspected allergic reaction to IVIG, stopping further IVIG
-Discussed with neurology and recommended to initiate plasmapheresis. Hem/onc and IRAD consulted. Patient got a temp cath
-[place] has been notified and consent has been obtained from patient. Son has been notified about the process as well.
-Neurology also recommended Dobbhoff tube placement as patient has been failing speech therapy, GI help requested in this regard
04/26, removed 05/03
05/02 Speech therapy input appreciated: VIDEOFLUOROSCOPIC SWALLOWING EXAMINATION (VSE) completed. Overall, pt with mild oral and mild-mod pharyngeal dysphagia. Supraglottic penetration noted at times with responsive aspiration only noted with
thin liquids via straw when utilized as a liquid wash post puree. No other aspiration noted. Pharyngeal residue noted, which decreased with dry swallows and liquid washes.
Recommend:
(1) Initiate IDDSI Level 4 (Puree) and mildly thick liquids
(2) Aspiration precautions: sit upright, single sips, slow rate, intermittently clear throat and reswallow, frequent sips of liquids during meals, only eat when not fatigued
(3) Meds crushed in puree or via DHT
(4) Allow sips of thin liquids via straw between meals post oral care per Aspiration Risk Hydration Protocol (ARHP)
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
Dobhoff dc'ed
-Finished / of 1g solumedrol dosing
now on 60 mg Prednisone daily
-GCompleted Plasmapharesis 5 sessions
-Maintain on Mestinon per neuro recommendation
-increased dose of Mestinon to 60mg QID - monitor for bradycardia
-Neurology considering to eventually start patient on azathioprine, hepatitis panel/QuantiFERON check ordered per neurology recommendation
-Currently on pyridostigmine 60 mg 4 times daily, further dose adjustment deferred to neurology
2. Ventilator dependent respiratory failure -resolved
Extubated 04/28
-Intubated on 04/26 morning for airway protection and hypoxia/dyspnea
-ABG did not significant hypoxia, was requiring high flow o2 nonetheless.
3. QTc prolongation -resolved
Episode of NSVT
-Repleted potassium/magnesium/phosphorus, goal more than 4/2/2.5 respectively
-Patient had run of NSVT and started on lidocaine drip 04/27 evening
-Required 48 hours of lidocaine drip
-TTE reviewed, preserved EF, no wall motion deficit
-Continue daily EKG. QTc 481ms on 05/02
4. Low fibrinogen - resolved
-Likely effect from plasmapheresis, patient is getting albumin as replacement
-No bleeding diathesis, continue monitoring
-on DVT PPX with lovenox and will need to be held if not improved
5. Depression/anxiety
-Resume back on buspirone/Wellbutrin.
6. Sinus tachycardia -resolved
Sinus bradycardia
-Patient fluctuates between bradycardia and tachycardia already depending on mestinon use
-Lopressor as needed use ordered if patient gets tachycardic
7. Hypernatremia - Resolved
-Improved with free water flushes
8. Asymptomatic bacteriuria
-no dysuria/discomfort at admission
-UA reviewed, minimal pyuria present. WBC elevated from high dose steroids. Afebrile
-Urine cs growing Ecoli.
-will recheck UA, awaiting results
history of iron deficiency anemia
history of gastric bypass
history of right TKR
restless leg syndrome
osteoarthritis
history of vitamin B12 deficiency
overactive bladder
DVT PPX - lovenox
Full code
Anticipated Discharge: 24 - 48 hours
Subjective/Interval History
-
Date of Service: May 04, 2024
Generally feels much improved, but no endurance with easy fatigue
Objective Data
-
Labs:
Laboratory Results
05/04/24
05:15
WBC 10.0
Hgb 10.3 L
Hct 32.8 L
Plt Count 348
PT 15.7 H
INR 1.22
APTT 30.0
Sodium 141
Potassium 3.2 L
Chloride 100
Carbon Dioxide 34 H
BUN 25 H
Creatinine 0.6
Glucose 84
Calcium 8.7
Vital Signs:
Vital Signs
Temp Pulse Resp BP Pulse Ox
97.5 F 70 22 110/57 98
05/04/24 08:40 05/04/24 08:40 05/04/24 08:40 05/04/24 08:40 05/04/24 08:40
I&O
05/03/24 05/04/24 05/05/24
06:59 06:59 06:59
Intake Total 660 / 660 793 / 793
Output Total 3 / 3
Balance 657 / 657 793 / 793
Review of Systems
-
History Source: Patient and Coordinated Provider
Constitutional: Denies Fever
Respiratory: Reports No Symptoms
Cardiac: Reports No Symptoms
Abdomen/GI: Reports No Symptoms
Physical Exam
-
General: Comfortable
HEENT: Oxygen (no longer in place, SaO2 98% on rm air) and Other (Dobhoff has been removed)
Respiratory: Clear to Auscultation
Cardiac: Regular Rhythm, S1/S2, Tachycardic and Bradycardic; Negative Murmur or Rub
GI: Soft, Nontender and Nondistended
Neuro: Awake, Alert and Oriented
Psych: Calm
[2024-05-04] MEDS: LOVENOX 40 MG SC (16:09)
[2024-05-04] MEDS: KCL 20 MEQ PO (16:09)
[2024-05-04 16:31] LABS: Glucose - Point of Care 144 mg/dl (70-99)
[2024-05-04 16:40] VITALS: BP 114/52
[2024-05-04 22:12] LABS: Glucose - Point of Care 79 mg/dl (70-99)
[2024-05-04 22:23] LABS: Urine Albumin Trace (Neg - Trace); Urine Bilirubin Negative (Negative); Urine Character Very Cloudy (Clear); Urine Color Yellow; Urine Glucose Negative (Negative); Urine Ketone Trace (Negative); Urine Leukocyte 2+ (Negative); Urine Nitrite Positive (Negative); Urine Occult Blood Negative (Negative); Urine Specific Gravity 1.025 (<1.030); Urine Urobilinogen Negative (Neg - 1+)
[2024-05-04 22:32] LABS: Urine Bacteria Many (Negative); Urine Red Blood Cell 0-2 /HPF (0-2)
[2024-05-04 23:00] VITALS: BP 100/59
[2024-05-05 07:04] LABS: % Basophils 0.1 % (0-2); % Immature Granulocytes 0.8 % (0-0.5); % Lymphocytes 25.8 % (20.5-51.1); % Monocytes 7.7 % (1.7-9.3); % Neutrophils 63.6 % (42.2-75.2); Absolute Eosinophils 0.2 10^3/uL (0-0.7); Absolute Immature Granulocytes 0.1 10^3/uL (0-0.05); Absolute Lymphocytes 2.3 10^3/uL (1.2-3.4); Absolute Monocytes 0.7 10^3/uL (0.1-0.6); Absolute Neutrophils 5.6 10^3/uL (1.4-6.5); Hematocrit 33.2 % (37.0-47.0); Hemoglobin 10.3 g/dL (12.0-16.0); Mean Corpuscular Hgb 29.7 pg (27.0-31.0); Mean Corpuscular Volume 95.7 fL (81.0-99.0); Mean Platelet Volume 11.2 fL (7.4-10.4); Nucleated Red Blood Cells % 0 %; Platelet Count 356 10^3/uL (130-400); Red Blood Cell Count 3.47 10^6/uL (4.20-5.40); Red Cell Dist. Width 15.6 % (11.5-14.5); White Blood Cell Count 8.8 10^3/uL (4.8-10.8)
[2024-05-05 07:15] VITALS: BP 94/46
[2024-05-05 07:18] LABS: INR 1.11; PT 14.6 Sec (11.4-14.6)
[2024-05-05 07:19] LABS: APTT 26.4 Sec (23.4-35.0)
[2024-05-05 07:30] LABS: Fibrinogen 166 MG/DL (199-459)
[2024-05-05] MEDS: FEOSOL 325 MG PO (08:06)
[2024-05-05] MEDS: WELLBUTRIN REGULAR RELEASE 150 MG PO ×2 (08:06→21:26)
[2024-05-05] MEDS: DELTASONE 60 MG PO (08:06)
[2024-05-05] MEDS: MESTINON 60 MG PO ×4 (08:06→21:27)
[2024-05-05] MEDS: REQUIP 4 MG PO ×3 (08:06→21:26)
[2024-05-05] MEDS: PROTONIX 40 MG PO (08:06)
[2024-05-05] MEDS: KCL 20 MEQ PO (08:07)
[2024-05-05] MEDS: PEPCID 20 MG PO ×2 (08:07→21:27)
[2024-05-05] MEDS: BUSPAR 10 MG PO ×2 (08:08→21:26)
[2024-05-05] MEDS: LOPRESSOR PO (08:08)
[2024-05-05 08:10] LABS: Glucose - Point of Care 61 mg/dl (70-99)
[2024-05-05] MEDS: NOVOLOG FLEXPEN-MODERATE RESISTANCE SC ×2 (08:10→11:56)
[2024-05-05 08:32] LABS: Blood Urea Nitrogen 24 mg/dl (7-17); Carbon Dioxide 28 mmol/L (22-30); Chloride 102 mmol/L (98-107); Estimated Creatinine Clearance 88 ml/min; Glucose 75 mg/dl (70-99); Magnesium 2.1 mg/dl (1.6-2.3); Potassium 3.5 mmol/L (3.5-5.1); Sodium 141 mmol/L (135-145); Triglycerides 108 mg/dl (10-149); eGFR > 60.00
[2024-05-05 08:36] LABS: Glucose - Point of Care 107 mg/dl (70-99)
[2024-05-05 11:53] LABS: Glucose - Point of Care 81 mg/dl (70-99)
[2024-05-05 13:44] VITALS: PULSE 97; O2SAT 96
[2024-05-05 13:55] VITALS: PULSE 97; O2SAT 96
[2024-05-05 14:19] VITALS: PULSE 97; O2SAT 96
--- NOTE | 2024-05-05 14:50 | PTOTSP ---
Speech Language Pathology
Pt seen for dysphagia tx. Pt reported feeling much better. Walking in room with walker without assistance on RETAIL ATTENDANT arrival. Speech and voice improved from 05/02. Completed 5/5 rounds on plasmapheresis on 05/03. DHT now removed. P.O. trials of
puree, regular solids, and thin liquids provided. Slightly prolonged mastication of regular solids noted, secondary to edentulous status. No overt signs of aspiration. Pt talking extensively during session with no significant change in speech
intelligibility/vocal quality.
Recommend:
(1) Upgrade to IDDSI Level 6 (soft/bite-sized) and thin liquids
(2) Aspiration precautions: sit upright, slow rate, single sips
(3) Meds as tolerated
(4) RETAIL ATTENDANT to continue to follow
--- NOTE | 2024-05-05 14:51 | W.PN.HOSP.TC ---
Today's Communication/Plan
-
await results of repeat Ur Cx and input from [facility]
Assessment / Plan
Assessment / Plan
1. Myasthenia gravis flare up
-Recent diagnosis earlier in the month and was on pyridostigmine 60 mg 3 times daily
-Came in with difficulty with swallowing/dyspnea/slurred speech
04/25
-Patient have tongue swelling/slurred speech 04/25 in morning suspected allergic reaction to IVIG, stopping further IVIG
-Discussed with neurology and recommended to initiate plasmapheresis. Hem/onc and IRAD consulted. Patient got a temp Internal Jug cath
has been removed as of05/05
-[place] has been notified and consent has been obtained from patient. Son has been notified about the process as well.
-Neurology also recommended Dobbhoff tube placement as patient has been failing speech therapy, GI help requested in this regard
04/26, removed 05/03
05/02 Speech therapy input appreciated: VIDEOFLUOROSCOPIC SWALLOWING EXAMINATION (VSE) completed. Overall, pt with mild oral and mild-mod pharyngeal dysphagia. Supraglottic penetration noted at times with responsive aspiration only noted with
thin liquids via straw when utilized as a liquid wash post puree. No other aspiration noted. Pharyngeal residue noted, which decreased with dry swallows and liquid washes.
Recommend:
(1) Initiate IDDSI Level 4 (Puree) and mildly thick liquids
(2) Aspiration precautions: sit upright, single sips, slow rate, intermittently clear throat and reswallow, frequent sips of liquids during meals, only eat when not fatigued
(3) Meds crushed in puree or via DHT
(4) Allow sips of thin liquids via straw between meals post oral care per Aspiration Risk Hydration Protocol (ARHP)
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
Dooff dc'ed
-Finished 09/12 of 1g solumedrol dosing
now on 60 mg Prednisone daily
05/[address] Amaya, pt to be discharged on Prednisone 50 mg daily and will taper as outpatient
-GCompleted Plasmapharesis 5 sessions
-Maintain on Mestinon per neuro recommendation
-increased dose of Mestinon to 60mg QID - monitor for bradycardia
-Neurology considering to eventually start patient on azathioprine, hepatitis panel/QuantiFERON check ordered per neurology recommendation
-Currently on pyridostigmine 60 mg 4 times daily, further dose adjustment deferred to neurology
2. Ventilator dependent respiratory failure -resolved
Extubated 04/28
-Intubated on 04/26 morning for airway protection and hypoxia/dyspnea
-ABG did not significant hypoxia, was requiring high flow o2 nonetheless.
3. QTc prolongation -resolved
Episode of NSVT, now resolved
-Repleted potassium/magnesium/phosphorus, goal more than 4/2/2.5 respectively
-Patient had run of NSVT and started on lidocaine drip 04/27 evening
-Required 48 hours of lidocaine drip
-TTE reviewed, preserved EF, no wall motion deficit
-Continue daily EKG. QTc 481ms on 05/02
4. Low fibrinogen - resolved
-Likely effect from plasmapheresis, patient is getting albumin as replacement
-No bleeding diathesis, continue monitoring
-on DVT PPX with lovenox
5. Depression/anxiety
-Resume back on buspirone/Wellbutrin.
6. Sinus tachycardia -resolved
Sinus bradycardia
-Patient fluctuates between bradycardia and tachycardia already depending on mestinon use
-Lopressor as needed use ordered if patient gets tachycardic
7. Hypernatremia - Resolved
-Improved with free water flushes
8. Asymptomatic bacteriuria
-no dysuria/discomfort at admission
-UA reviewed, minimal pyuria present. WBC elevated from high dose steroids. Afebrile
-Urine cs growing Ecoli.
-will recheck UA Cx, awaiting results
history of iron deficiency anemia
history of gastric bypass
history of right TKR
restless leg syndrome
osteoarthritis
history of vitamin B12 deficiency
overactive bladder
Reviewed with DELIA and Dr. Grullon. Pt generally doing well except for swallowing issues, await decision on Acute Rehab
DVT PPX - lovenox
Full code
Anticipated Discharge: 24 - 48 hours
Subjective/Interval History
-
Date of Service: May 05, 2024
Awake, alert, conversant
Objective Data
-
Labs:
Laboratory Results
05/05/24
06:34
WBC 8.8
Hgb 10.3 L
Hct 33.2 L
Plt Count 356
PT 14.6
INR 1.11
APTT 26.4
Sodium 141
Potassium 3.5
Chloride 102
Carbon Dioxide 28
BUN 24 H
Creatinine 0.6
Glucose 75
Calcium 9.0
Vital Signs:
Vital Signs
Temp Pulse Resp BP Pulse Ox
97.5 F 73 18 94/46 96
05/05/24 07:15 05/05/24 07:15 05/05/24 07:15 05/05/24 07:15 05/05/24 07:15
I&O
05/04/24 05/05/24 05/06/24
06:59 06:59 06:59
Intake Total 793 / 793 780 / 780 720 / 720
Balance 793 / 793 780 / 780 720 / 720
Review of Systems
-
History Source: Patient and Coordinated Provider
Constitutional: Denies Fever
Respiratory: Reports No Symptoms
Cardiac: Reports No Symptoms
Abdomen/GI: Reports No Symptoms
Neuro: Reports Weakness (with exertion); Denies Dizzy or Headache
Physical Exam
-
General: Well Developed, Well Nourished and No Apparent Distress
HEENT: Normocephalic, Atraumatic and Moist Mucous Membranes
Respiratory: Clear to Auscultation
Cardiac: Regular Rhythm, S1/S2, Tachycardic and Bradycardic; Negative Murmur or Rub
GI: Soft, Nontender and Nondistended
Neuro: Awake, Alert and Oriented
Psych: Calm
[2024-05-05 15:15] VITALS: BP 98/59
--- NOTE | 2024-05-05 15:23 | CM ---
CM reviewed pt with Dr Gasca- ARABELLA tomorrow
Calls with [facility] admissions/[facility]
After therapy today, pt denied at [facility]
Too ambulatory and mobile for acute program
Update to pt bedside
Out reach to [facility] admissions
Awaiting response
Discharge Disposition- denied at [facility], [facility] pending
--- NOTE | 2024-05-05 15:54 | PN.CDI ---
CDI
- -
CDI:
Physician Documentation Request
Admit Date: 04/24/24 11:14
Dear Doctor Campos,
Patient admitted with exacerbation of Myasthenia gravis.
Hospitalist progress state 'Ventilator dependent respiratory failure... Intubated on 04/26 morning for airway protection and hypoxia....'
Pulmonary progress notes state ' Acute respiratory failure with hypoxemia and hypercapnia secondary to respiratory muscle weakness with myasthenia gravis'
04/26 SOFTWARE ADMINISTRATOR notes states 'Rapid response called. Patient noted to be tachycardia on the monitor, patient reported having difficulty breathing...... also with audible stridor, RT confirmed no strider noted. Patient AAO, noted to protruding tongue in and
out, with thick speech. tachypneic 24, tachycardic 120, oxygen level 96-100%.'
Nursing notes 'pt restless and thrashing in bed. pt with audible stridor, oxygen dropping to 88%... non rebreather in place. ....'
In an attempt to clarify potentially conflicting documentation, please clarify the reason for intubation:
Acute respiratory failure with hypoxemia and hypercapnia
Airway protection
Other
Use of terms such as suspected, likely, concern for, or probable (associated with a specific diagnosis that is being evaluated, monitored, or treated as if it exists) are acceptable and can be coded in the inpatient setting, when documented at the
time of discharge.
Thank you,
Rachelle Valencia RN, BSN
CDI Specialist
tiger text
Please use your independent medical judgment in providing your response.
[2024-05-05 16:42] LABS: Glucose - Point of Care 228 mg/dl (70-99)
[2024-05-05] MEDS: NOVOLOG FLEXPEN-MODERATE RESISTANCE 3 UNITS SC (16:50)
[2024-05-05] MEDS: LOVENOX 40 MG SC (17:01)
[2024-05-05 21:21] LABS: Glucose - Point of Care 85 mg/dl (70-99)
[2024-05-05] MEDS: LOPRESSOR 12.5 MG PO (21:29)
[2024-05-05 22:30] VITALS: BP 118/66
[2024-05-06 03:16] LABS: Glucose - Point of Care 87 mg/dl (70-99)
[2024-05-06 08:05] VITALS: BP 99/58
[2024-05-06] MEDS: KCL 20 MEQ PO (08:07)
[2024-05-06] MEDS: REQUIP 4 MG PO ×2 (08:08→15:48)
[2024-05-06] MEDS: BUSPAR 10 MG PO (08:09)
[2024-05-06] MEDS: FEOSOL 325 MG PO (08:09)
[2024-05-06] MEDS: PROTONIX 40 MG PO (08:09)
[2024-05-06] MEDS: DELTASONE 60 MG PO (08:09)
[2024-05-06] MEDS: WELLBUTRIN REGULAR RELEASE 150 MG PO (08:09)
[2024-05-06] MEDS: PEPCID 20 MG PO (08:09)
[2024-05-06] MEDS: MESTINON 60 MG PO ×2 (08:09→12:21)
[2024-05-06] MEDS: LOPRESSOR PO (08:12)
[2024-05-06] MEDS: NOVOLOG FLEXPEN-MODERATE RESISTANCE SC ×2 (08:14→12:21)
[2024-05-06 08:15] LABS: Glucose - Point of Care 84 mg/dl (70-99)
[2024-05-06 12:20] LABS: Glucose - Point of Care 152 mg/dl (70-99)
--- NOTE | 2024-05-06 12:58 | CM ---
CM reviewed pt with Dr Gasca- ready for dc today
Confirmed with [facility] admissions- bed available today
Bedside meeting with pt- she is in agreement with plan
Pt does not qualify for ambulance, WC van will be required
Pt in agreement with fees and number provided for payment
IMM verbally completed- copy provided
Discharge Disposition- [facility] via WC van (1700 pickup)
Phone- [phone] Fax- [phone]
[2024-05-06 15:00] VITALS: BP 122/61
--- NOTE | 2024-05-06 15:39 | W.PN.HOSP.TC ---
Addendum entered and electronically signed by Jerzy Gasca MD 05/06/24 16:07:
extensive review with son by phone, pt handed me her phone while talking to son and requested he get a full review prior to her being discharged
Also call placed to Dr. Amaya to make him aware of planned dc and confirm doses of medications
Original Note:
Today's Communication/Plan
-
dc to [facility]
Assessment / Plan
Assessment / Plan
1. Myasthenia gravis flare up
-Recent diagnosis earlier in the month and was on pyridostigmine 60 mg 3 times daily
-Came in with difficulty with swallowing/dyspnea/slurred speech
04/25
-Patient have tongue swelling/slurred speech 04/25 in morning suspected allergic reaction to IVIG, stopping further IVIG
-Discussed with neurology and recommended to initiate plasmapheresis. Hem/onc and IRAD consulted. Patient got a temp Internal Jug cath
has been removed as of05/05
-[place] has been notified and consent has been obtained from patient. Son has been notified about the process as well.
-Neurology also recommended Dobbhoff tube placement as patient has been failing speech therapy, GI help requested in this regard
04/26, removed 05/03
05/02 Speech therapy input appreciated: VIDEOFLUOROSCOPIC SWALLOWING EXAMINATION (VSE) completed. Overall, pt with mild oral and mild-mod pharyngeal dysphagia. Supraglottic penetration noted at times with responsive aspiration only noted with
thin liquids via straw when utilized as a liquid wash post puree. No other aspiration noted. Pharyngeal residue noted, which decreased with dry swallows and liquid washes.
Recommend:
(1) Initiate IDDSI Level 4 (Puree) and mildly thick liquids
(2) Aspiration precautions: sit upright, single sips, slow rate, intermittently clear throat and reswallow, frequent sips of liquids during meals, only eat when not fatigued
(3) Meds crushed in puree or via DHT
(4) Allow sips of thin liquids via straw between meals post oral care per Aspiration Risk Hydration Protocol (ARHP)
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
Dobhoff dc'ed
-Finished 09/12 of 1g solumedrol dosing
now on 60 mg Prednisone daily
05/[address] Amaya, pt to be discharged on Prednisone 50 mg daily and will taper as outpatient
-GCompleted Plasmapharesis 5 sessions
-Maintain on Mestinon per neuro recommendation
-increased dose of Mestinon to 60mg QID - monitor for bradycardia
-Neurology considering to eventually start patient on azathioprine, hepatitis panel/QuantiFERON check ordered per neurology recommendation
-Currently on pyridostigmine 60 mg 4 times daily, further dose adjustment deferred to neurology
2. Ventilator dependent respiratory failure -resolved
Extubated 04/28
-Intubated on 04/26 morning for airway protection and hypoxia/dyspnea as well as
Acute respiratory failure with hypoxemia and hypercapnia
-ABG did not significant hypoxia, was requiring high flow o2 nonetheless.
3. QTc prolongation -resolved
Episode of NSVT, now resolved
-Repleted potassium/magnesium/phosphorus, goal more than 4/2/2.5 respectively
-Patient had run of NSVT and started on lidocaine drip 04/27 evening
-Required 48 hours of lidocaine drip
-TTE reviewed, preserved EF, no wall motion deficit
-stop daily EKG. QTc 481ms on 05/02
4. Low fibrinogen - resolved
-Likely effect from plasmapheresis, patient is getting albumin as replacement
-No bleeding diathesis, continue monitoring
-on DVT PPX with lovenox
5. Depression/anxiety
-Resume back on buspirone/Wellbutrin.
6. Sinus tachycardia -resolved
Sinus bradycardia
-Patient fluctuates between bradycardia and tachycardia already depending on mestinon use
-Lopressor as needed use ordered if patient gets tachycardic
7. Hypernatremia - Resolved
-Improved with free water flushes
8. Asymptomatic bacteriuria
-no dysuria/discomfort at admission
-UA reviewed, minimal pyuria present. WBC elevated from high dose steroids. Afebrile
-Urine cs growing Ecoli.
-will recheck UA Cx, awaiting results
still with E. Coli, will order short course of abx (Macrobid) post dc
history of iron deficiency anemia
history of gastric bypass
history of right TKR
restless leg syndrome
osteoarthritis
history of vitamin B12 deficiency
overactive bladder
Reviewed with CM, just notified that pt is felt to be to be too good for [facility] and will be dc to [facility]
DVT PPX - lovenox
Full code
More than 30 minutes spent in discharge including
Final examination of the patient
Summarizing hospital stay
Instructions for continuing care to all relevant caregivers
Preparation of discharge records, prescriptions, and referral forms
Total time spent (in minutes): 45
Anticipated Discharge: Today
Subjective/Interval History
-
Date of Service: May 06, 2024
Feels better overall
Objective Data
-
Vital Signs:
Vital Signs
Temp Pulse Resp BP Pulse Ox
97.6 F 78 16 99/58 100
05/06/24 08:05 05/06/24 08:12 05/06/24 08:05 05/06/24 08:12 05/06/24 08:05
I&O
05/05/24 05/06/24 05/07/24
06:59 06:59 06:59
Intake Total 780 / 780 2890 / 2890
Balance 780 / 780 2890 / 2890
Review of Systems
-
History Source: Patient and Coordinated Provider
Constitutional: Denies Fever
Respiratory: Reports No Symptoms
Cardiac: Reports No Symptoms
Abdomen/GI: Reports No Symptoms
Neuro: Reports Weakness (with exertion); Denies Dizzy or Headache
Physical Exam
-
General: Well Developed, Well Nourished and No Apparent Distress
HEENT: Normocephalic, Atraumatic and Moist Mucous Membranes
Respiratory: Clear to Auscultation
Cardiac: Regular Rhythm, S1/S2, Tachycardic and Bradycardic; Negative Murmur or Rub
GI: Soft, Nontender and Nondistended
Neuro: Awake, Alert and Oriented
Psych: Calm
--- NOTE | 2024-05-06 18:53 | W.DS.TRANS ---
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
-
Discharge Instructions:
Discharge Diagnosis/Procedures Myasthenia Gravis
Diet Grind all food
Additional Diets will need swallowing evaluation
Activity With assistance
Driving Restrictions No driving
Bathing Restrictions None
Blood Work CBC, BMP, UA with C&S in 1 week
Instructions:
Stand-Alone Forms:
Changes to Home Medications: Yes
Discharge Medications:
DC Medications w/original date entered in [employer]
bupropion HCl 300 mg 24 hr tablet, extended release (Wellbutrin XL) 300 mg PO DAILY Depression 10/11/22
buspirone 10 mg tablet 10 mg PO BID Mental Health/Anxiety 10/11/22
cyclobenzaprine 5 mg tablet 5 mg PO HS pain/muscle spasms 04/11/24
denosumab 60 mg/mL subcutaneous syringe (Prolia) 60 mg SC [id number] osteoporosis 04/11/24
ropinirole 2 mg tablet 4 mg PO TID restless legs 04/11/24
acetaminophen 500 mg tablet 1,000 mg PO Q6HPRN PRN MILD PAIN 04/24/24
escitalopram oxalate 20 mg tablet 20 mg PO DAILY Mental Health/Anxiety 04/24/24
loperamide 2 mg capsule 2 mg PO DAILY PRN DIARRHEA 04/24/24
famotidine 20 mg tablet 20 mg PO BID #0 tabs 05/06/24
ferrous sulfate 325 mg (65 mg iron) tablet (FeroSul) 325 mg PO DAILY #0 tabs 05/06/24
insulin aspart U-100 100 unit/mL subcutaneous cartridge See Rx Instructions .Route .COMPLEX #15 mL 05/06/24
metoprolol tartrate 25 mg tablet 12.5 mg (1/2 x 25 mg) PO BID #60 tabs 05/06/24
nitrofurantoin monohydrate/macrocrystals 100 mg capsule (Macrobid) 100 mg PO BID #6 caps 05/06/24
pantoprazole 40 mg tablet,delayed release 40 mg PO DAILY #0 tabs 05/06/24
polyethylene glycol 3350 17 gram oral powder packet 17 g PO DAILY #0 ea 05/06/24
prednisone 10 mg tablet 10 mg PO DIRECTED #90 tabs 05/06/24
pyridostigmine bromide 60 mg tablet 60 mg PO QID #0 tabs 05/06/24
Home Medication Changes
Prednisone 50 mg viviana started
Mestinon increased to 60 mg qid
3 days of Macrobid for low grade UTI
Insulin sliding scale coverage ordered while on Prednisone, can be stopped once glucose normalizes
Pending Results: No
== END 2024-05-06 16:50 | DRG 56 ==
LOC: 3 WEST ACU 11:14
PROVIDERS: Internal Medicine Critical Care Medicine; Nurse Practitioner Acute Care; Nurse Practitioner Family; Nurse Practitioner Gerontology; Nurse Practitioner Primary Care; Physician Assistant; Radiology Neuroradiology; Radiology Vascular & Interventional Radiology; ADMITTING PHYSICIAN Hospitalist; ATTENDING PHYSICIAN Internal Medicine; CONSULT PHYSICIAN Internal Medicine Cardiovascular Disease; CONSULT PHYSICIAN Internal Medicine Critical Care Medicine; CONSULT PHYSICIAN Psychiatry & Neurology Neurology; EMERGENCY PHYSICIAN Emergency Medicine; FAMILY PHYSICIAN Family Medicine; OTHER PHYSICIAN Internal Medicine Hematology & Oncology; OTHER PHYSICIAN Physical Medicine & Rehabilitation
PROC: 30233S1 Transfusion of Nonautologous Globulin into Peripheral Vein, Percutaneous Approach (ICD-10-PCS; 2024-04-25)
PROC: 02HV33Z Insertion of Infusion Device into Superior Vena Cava, Percutaneous Approach (ICD-10-PCS; 2024-04-25)
PROC: 6A551Z3 Pheresis of Plasma, Multiple (ICD-10-PCS; 2024-04-26)
PROC: 5A1945Z Respiratory Ventilation, 24-96 Consecutive Hours (ICD-10-PCS; 2024-04-26)
PROC: 0BH18EZ Insertion of Endotracheal Airway into Trachea, Via Natural or Artificial Opening Endoscopic (ICD-10-PCS; 2024-04-26)
PROC: 5A0935A Assistance with Respiratory Ventilation, Less than 24 Consecutive Hours, High Flow/Velocity Cannula (ICD-10-PCS; 2024-04-28)
PROC: 0BP1XDZ Removal of Intraluminal Device from Trachea, External Approach (ICD-10-PCS; 2024-04-28)
PROC: 0DH67UZ Insertion of Feeding Device into Stomach, Via Natural or Artificial Opening (ICD-10-PCS; 2024-04-30)
DX: G70.01 Myasthenia gravis with (acute) exacerbation (principal); J96.01 Acute respiratory failure with hypoxia; J96.02 Acute respiratory failure with hypercapnia; D80.3 Selective deficiency of immunoglobulin G [IgG] subclasses; I47.20 Ventricular tachycardia, unspecified; E87.0 Hyperosmolality and hypernatremia; Z99.11 Dependence on respirator [ventilator] status; F05 Delirium due to known physiological condition; F32.9 Major depressive disorder, single episode, unspecified; G25.81 Restless legs syndrome; T50.Z15A Adverse effect of immunoglobulin, initial encounter; T38.0X5A Adverse effect of glucocorticoids and synthetic analogues, initial encounter; N39.3 Stress incontinence (female) (male); G51.0 Bell's palsy; G89.4 Chronic pain syndrome; N32.81 Overactive bladder; D50.9 Iron deficiency anemia, unspecified; E53.8 Deficiency of other specified B group vitamins; I10 Essential (primary) hypertension; R60.0 Localized edema; F41.1 Generalized anxiety disorder; M48.061 Spinal stenosis, lumbar region without neurogenic claudication; R73.9 Hyperglycemia, unspecified; R33.8 Other retention of urine; R00.1 Bradycardia, unspecified; E87.6 Hypokalemia; E83.39 Other disorders of phosphorus metabolism; R47.81 Slurred speech; Z22.359 Carrier of Enterobacterales, unspecified; R13.12 Dysphagia, oropharyngeal phase; R94.31 Abnormal electrocardiogram [ECG] [EKG]; Y92.239 Unspecified place in hospital as the place of occurrence of the external cause; Z98.84 Bariatric surgery status; Z96.651 Presence of right artificial knee joint; Z88.0 Allergy status to penicillin; Z79.899 Other long term (current) drug therapy
CPT/HCPCS: 36556; 36600; 71045; 74018; 74230; 76937; 77001; 80048; 80053; 81003; 81015; 82728; 82784; 82805; 82962; 83615; 83735; 84100; 84478; 84484; 85025; 85027; 85384; 85610; 85730; 86480; 86704; 86706; 86803; 87077; 87086; 87088; 87186; 87340; 92523; 92526; 92610; 92611; 93005; 93306; 94002; 94003; 94640; 96365; 97116; 97163; 97164; 97165; 97168; 97530; 97535; 99285; C1752; J1569; J2358; P9045

== ENCOUNTER → 2024-05-12 09:53 | Outpatient (REF) | payer MEDICARE, SELFPAY ==
[2024-05-12 10:56] LABS: Hematocrit 32.1 % (37.0-47.0); Mean Corp Hgb Conc. 31.2 g/dL (33.0-37.0); Mean Corpuscular Volume 99.4 fL (81.0-99.0); Mean Platelet Volume 11.4 fL (7.4-10.4); Platelet Count 394 10^3/uL (130-400); Red Blood Cell Count 3.23 10^6/uL (4.20-5.40); Urine Albumin Negative (Neg - Trace); Urine Bilirubin Negative (Negative); Urine Character Slightly Cloudy (Clear); Urine Color Yellow; Urine Glucose Negative (Negative); Urine Ketone Negative (Negative); Urine Leukocyte 2+ (Negative); Urine Nitrite Positive (Negative); Urine Occult Blood Negative (Negative); Urine Urobilinogen Negative (Neg - 1+); White Blood Cell Count 7.8 10^3/uL (4.8-10.8)
[2024-05-12 11:01] LABS: Blood Urea Nitrogen 16 mg/dl (7-17); Calcium 8.6 mg/dl (8.4-10.2); Carbon Dioxide 32 mmol/L (22-30); Chloride 101 mmol/L (98-107); Glucose 89 mg/dl (70-99); Potassium 3.9 mmol/L (3.5-5.1); Sodium 141 mmol/L (135-145); eGFR > 60.00
[2024-05-12 11:22] LABS: Urine Amorphous Seen; Urine Squamous Cell >30 /LPF (Few)
[2024-05-12 11:23] LABS: Urine Bacteria Many (Negative); Urine Calcium Oxalate Crystals Seen; Urine Red Blood Cell 0-2 /HPF (0-2); Urine White Cell >100 /HPF (0-5)
== END ==
LOC: OLABP 09:53
PROVIDERS: ATTENDING PHYSICIAN Family Medicine
DX: G70.01 Myasthenia gravis with (acute) exacerbation (principal); M62.81 Muscle weakness (generalized); R26.2 Difficulty in walking, not elsewhere classified; D68.2 Hereditary deficiency of other clotting factors; F32.9 Major depressive disorder, single episode, unspecified; R00.0 Tachycardia, unspecified; E87.0 Hyperosmolality and hypernatremia; R82.71 Bacteriuria; N39.0 Urinary tract infection, site not specified; B96.20 Unspecified Escherichia coli [E. coli] as the cause of diseases classified elsewhere; D50.9 Iron deficiency anemia, unspecified; M19.90 Unspecified osteoarthritis, unspecified site; G25.81 Restless legs syndrome
CPT/HCPCS: 80048; 81003; 81015; 85027; 87077; 87086; 87186

== ENCOUNTER 2024-08-06 14:24 | Emergency (ER) | payer MEDICARE, SELFPAY ==
[2024-08-06 14:32] VITALS: BP 111/76
--- NOTE | 2024-08-06 14:59 | ED.GENMED ---
History of Present Illness
General
Chief Complaint: Crisis Evaluation
Time Seen by Provider: 08/06/24 14:59
History of Present Illness
History of Present Illness:
TIME OF INITIAL ENCOUNTER: 3 PM
HPI: The patient comes in due to concerns of passive suicidal thoughts. She has no plan to hurt herself. She was recently diagnosed with myasthenia gravis about 4 months ago and required intubation. She had been receiving IVIG, and is taking
pyriodstigmine 4 times a day. Son is concerned because she lives with the son in the basement and is up all night and he is concerned that she may take her medications. The patient tells me she does not think that would be possible because her
pills are so big and she does not like taking them to begin with. She does not feel that she would necessarily hurt herself. She is known to a psychiatrist in [place]. They are trying to switch her from Lexapro to Effexor.
EXAM:
GENERAL: Well appearing in no distress
HEENT: Moist oral mucosa, minimal ptosis bilaterally
CARDIOVASCULAR: No murmurs, normal heart rate, regular rhythm, No chest wall tenderness
PULMONARY: No respiratory distress, breath sounds are clear and equal
ABDOMEN: Soft with no peritoneal signs, no tenderness
NEUROLOGIC: Excellent strength all extremities, no coordination deficits
PSYCHIATRIC: Appropriate mental status, normal insight and judgement, appears slightly anxious/depressed
EXTREMITIES: Nontender, no edema, moves all extremities equally
SKIN: No rash, no lesions
NUMBER AND COMPLEXITY OF PROBLEMS ADDRESSED AT THE ENCOUNTER
� Chronic conditions affecting care: Myasthenia gravis, anxiety/depression, history of gastric bypass
� Acute Exacerbation and/or Progression of Chronic Illness: This is an acute exacerbation of a chronic problem
� Differential Diagnosis includes: Worsening anxiety/depression, SI, the patient reports no worsening of her MG currently
AMOUNT AND/OR COMPLEXITY OF DATA TO BE REVIEWED AND ANALYZED
� I performed an independent evaluation of and my interpretation is:
EKG:
CT:
X-rays:
Laboratory Studies: White count hemoglobin are normal, chemistries unremarkable, urinalysis without any definite sign of infection (2+ leukocyte esterase however there is only 3-5 white cells)
Other:
� Review of other/old records: I reviewed records, the patient was admitted here for 12 days about 4 months ago�at that time she had been recently diagnosed with myasthenia gravis and was admitted with profound weakness and
ultimately required intubation/mechanical ventilation and was on IVIG
� Clinical information was obtained by an independent historian: I spoke to son at bedside
� Prescriptions/Medications Considered but not given:
� Further testing considered but not performed:
RISK OF COMPLICATIONS AND/OR MORBIDITY OR MORTALITY OF PATIENT MANAGEMENT
� Social determinants of health affecting care: Lives at home with her son in their basement; uses a cane at 3:10 PM, I discussed case with crisis who will come evaluate the patient
� Discussion with other providers: At 3:10 PM, I discussed case with crisis and they will evaluate the patient.
� Escalation of care including admission/observation vs risk of discharge considered: At 4:05 PM, I spoke to Willa who will start a bed search at a psych facility. There have been no acute medical issues here.
ANY OTHER UPDATES:
8 PM: Patient transferred to psych facility
Past History
Past History
ED Past Medical History: Psychiatric (Anxiety/depression, takes Lexapro 20, Wellbutrin 150, Requip 2 mg for restless leg, temazepam 15 mg at bedtime), Other (Myasthenia gravis, restless leg syndrome) and Other (Chronic arthritic pain, takes
hydrocodone 7.5/325 as needed.)
ED Past Surgical History: Other (N/A)
Social History
Tobacco: Vaping
Alcohol: None
Living: with family
Employment: Retired
Family History
Family History: Other (Reviewed and noncontributory)
Phy Exam
Physical Exam
Physical Exam:
See HPI
Course
Orders/Labs/Results
Orders:
Orders
08/06/24 14:31
Crisis Consult Urgent
Reason for Consult: depression
08/06/24 16:55
Complete Blood Count/With Diff Urgent
Comprehensive Metabolic Panel Urgent
Urinalysis Reflex To Culture Urgent
Date Specimen was Collected: 08/06/24
Time Specimen was Collected: 16:48
Urine Microscopic Reflex Cult Urgent
Urine Culture Urgent
YOSELYN Source: U
Specimen Description:
Date Specimen was Collected: 08/06/24
Time Specimen was Collected: 16:48
Abnormal Lab Results
08/06/24
16:55
RBC 3.96 L 10^6/uL
(4.20-5.40)
MCHC 31.3 L g/dL
(33.0-37.0)
RDW 15.3 H %
(11.5-14.5)
MPV 11.2 H fL
(7.4-10.4)
Absolute Lymphs (auto) 1.0 L 10^3/uL
(1.2-3.4)
Lymphocytes % 17.0 L %
(20.5-51.1)
Monocytes % 9.8 H %
(1.7-9.3)
Glucose 122 H mg/dl
(70-99)
Total Protein 5.6 L g/dl
(6.3-8.2)
Leukocyte Esterase Rfl 2+ A
(Negative)
Urine Bacteria (Reflex) Few A
(Negative)
08/06/24 16:55
08/06/24 16:55
Vital Signs
Initial and Last Documented VS:
Initial Vital Signs
Temp Pulse Resp BP Pulse Ox
36.6 C 109 18 111/76 99
08/06/24 14:32 08/06/24 14:32 08/06/24 14:32 08/06/24 14:32 08/06/24 14:32
Last Documented Vital Signs
Temp Pulse Resp BP Pulse Ox
36.9 C 77 18 111/61 99
08/06/24 17:12 08/06/24 17:12 08/06/24 14:32 08/06/24 17:12 08/06/24 17:12
*Critical Care Note
Total Time (30-74mins, 75-104mins- exclusive of procedures): Not Applicable
ED Attending Note
-
Portions of this chart may have been created with voice recognition software.� Occasional wrong word or��sound alike� substitutions may have occurred due to the inherent limitations of voice recognition software.
Discharge Plan
Departure
Patient Disposition: Psych Facility
Date of Disposition: 08/06/24
Time of Disposition: 16:05
Discharge Problem:
Depression
Prescriptions:
No Action
buspirone 10 mg Tablet
10 mg PO BID
bupropion HCl [Wellbutrin XL] 300 mg Tablet Extended Release 24 Hr
300 mg PO DAILY
cyclobenzaprine 5 mg Tablet
5 mg PO HS
Prolia 60 mg/mL Syringe
60 mg SC [id number]
ropinirole 2 mg tablet
4 mg PO TID
loperamide 2 mg Capsule
2 mg PO DAILY PRN (Reason: DIARRHEA)
acetaminophen 500 mg Tablet
1,000 mg PO Q6HPRN PRN (Reason: MILD PAIN)
escitalopram oxalate 20 mg Tablet
20 mg PO DAILY
ferrous sulfate [FeroSul] 325 mg (65 mg iron) Tablet
325 mg PO DAILY Qty: 0 0RF
metoprolol tartrate 25 mg Tablet
12.5 mg PO BID Qty: 60 0RF
Rx Instructions:
hold for HR <60 or sys BP <100
polyethylene glycol 3350 17 gram Powder In Packet
17 g PO DAILY Qty: 0 0RF
pyridostigmine bromide 60 mg Tablet
60 mg PO QID Qty: 0 0RF
insulin aspart U-100 100 unit/mL cartridge
See Rx Instructions .ROUTE .COMPLEX Qty: 15 0RF
Rx Instructions:
Accucheck glu qid with low resistance SSI
famotidine 20 mg Tablet
20 mg PO BID Qty: 0 0RF
pantoprazole 40 mg Tablet,Delayed Release (Dr/Ec)
40 mg PO DAILY Qty: 0 0RF
prednisone 10 mg tablet
10 mg PO DIRECTED Qty: 90 0RF
Rx Instructions:
5 tablets every morning until evaluation by neurologist
nitrofurantoin monohyd/m-cryst [Macrobid] 100 mg capsule
100 mg PO BID Qty: 6 0RF
Referrals:
Leida Mendez E, DO [Family Provider] -
Interventions
Interventions:
*Risk Screen - Suicide Last Done: 08/06/24 14:25
*General Assessment Last Done: 08/06/24 14:32
*Neglect/Abuse Screening Last Done: 08/06/24 14:32
ED- Fall Risk Assessment Last Done: 08/06/24 15:10
*ED COVID-19 Vaccine History Last Done: 08/06/24 15:10
*Nursing Disposition Last Done: 08/06/24 19:35
ED-Psychological Assessment Last Done: 08/06/24 15:10
Discharge Date and Time
Discharge Date/Time: 08/06/24 19:35
Print Language: VIETNAMESE
[2024-08-06 15:06] VITALS: BMI 27.0
[2024-08-06 17:04] LABS: Urine Albumin Negative (Neg - Trace); Urine Bilirubin Negative (Negative); Urine Character Clear (Clear); Urine Color Yellow; Urine Glucose Negative (Negative); Urine Ketone Negative (Negative); Urine Leukocyte 2+ (Negative); Urine Nitrite Negative (Negative); Urine Occult Blood Negative (Negative); Urine Urobilinogen Negative (Neg - 1+)
[2024-08-06 17:09] LABS: % Basophils 1.3 % (0-2); % Eosinophils 4.9 % (0-6); % Immature Granulocytes 0.2 % (0-0.5); % Monocytes 9.8 % (1.7-9.3); % Neutrophils 66.8 % (42.2-75.2); Absolute Basophils 0.1 10^3/uL (0-0.2); Absolute Eosinophils 0.3 10^3/uL (0-0.7); Absolute Monocytes 0.6 10^3/uL (0.1-0.6); Absolute Neutrophils 4.1 10^3/uL (1.4-6.5); Hematocrit 38.6 % (37.0-47.0); Hemoglobin 12.1 g/dL (12.0-16.0); Mean Corp Hgb Conc. 31.3 g/dL (33.0-37.0); Mean Corpuscular Hgb 30.6 pg (27.0-31.0); Mean Corpuscular Volume 97.5 fL (81.0-99.0); Mean Platelet Volume 11.2 fL (7.4-10.4); Nucleated Red Blood Cells % 0 %; Platelet Count 312 10^3/uL (130-400); Red Blood Cell Count 3.96 10^6/uL (4.20-5.40); Red Cell Dist. Width 15.3 % (11.5-14.5); White Blood Cell Count 6.1 10^3/uL (4.8-10.8)
[2024-08-06 17:12] VITALS: BP 111/61
[2024-08-06 17:19] LABS: Urine Bacteria Few (Negative); Urine Calcium Oxalate Crystals Present; Urine Red Blood Cell 0-2 /HPF (0-2); Urine Squamous Cell 0-2 /LPF (Few)
[2024-08-06 17:23] LABS: ALT (SGPT) 20 U/L (0-35); AST (SGOT) 23 U/L (14-36); Albumin 3.8 g/dl (3.5-5.0); Alkaline Phosphatase 92 U/L (38-126); Blood Urea Nitrogen 12 mg/dl (7-17); Calcium 9.2 mg/dl (8.4-10.2); Carbon Dioxide 29 mmol/L (22-30); Chloride 103 mmol/L (98-107); Estimated Creatinine Clearance 75 ml/min; Glucose 122 mg/dl (70-99); Potassium 5.1 mmol/L (3.5-5.1); Sodium 137 mmol/L (135-145); Total Bilirubin 0.5 mg/dl (0.2-1.3); Total Protein 5.6 g/dl (6.3-8.2); eGFR > 60.00
== END 2024-08-06 19:35 ==
LOC: EMR 14:24
PROVIDERS: EMERGENCY PHYSICIAN Emergency Medicine; FAMILY PHYSICIAN Family Medicine
DX: F32.A Depression, unspecified (principal); G70.00 Myasthenia gravis without (acute) exacerbation; F41.8 Other specified anxiety disorders; G25.81 Restless legs syndrome; F17.290 Nicotine dependence, other tobacco product, uncomplicated
CPT/HCPCS: 99285; 80053; 81003; 81015; 85025; 87086

== ENCOUNTER 2024-09-05 14:37 | Emergency (ER) | payer MEDICARE, SELFPAY ==
[2024-09-05 14:58] VITALS: BP 111/82
[2024-09-05 15:35] LABS: % Basophils 1.1 % (0-2); % Eosinophils 5.5 % (0-6); % Immature Granulocytes 0.9 % (0-0.5); % Lymphocytes 31.5 % (20.5-51.1); % Monocytes 10.7 % (1.7-9.3); % Neutrophils 50.3 % (42.2-75.2); Absolute Basophils 0.1 10^3/uL (0-0.2); Absolute Eosinophils 0.3 10^3/uL (0-0.7); Absolute Immature Granulocytes 0.1 10^3/uL (0-0.05); Absolute Lymphocytes 1.8 10^3/uL (1.2-3.4); Absolute Monocytes 0.6 10^3/uL (0.1-0.6); Absolute Neutrophils 2.8 10^3/uL (1.4-6.5); Hematocrit 40.3 % (37.0-47.0); Hemoglobin 12.9 g/dL (12.0-16.0); Mean Corpuscular Hgb 30.6 pg (27.0-31.0); Mean Corpuscular Volume 95.5 fL (81.0-99.0); Mean Platelet Volume 11.4 fL (7.4-10.4); Nucleated Red Blood Cells % 0 %; Platelet Count 323 10^3/uL (130-400); Red Blood Cell Count 4.22 10^6/uL (4.20-5.40); Red Cell Dist. Width 13.7 % (11.5-14.5); White Blood Cell Count 5.6 10^3/uL (4.8-10.8)
[2024-09-05 15:44] LABS: ALT (SGPT) 16 U/L (0-35); AST (SGOT) 23 U/L (14-36); Albumin 4.2 g/dl (3.5-5.0); Alkaline Phosphatase 88 U/L (38-126); Blood Urea Nitrogen 11 mg/dl (7-17); Calcium 10.1 mg/dl (8.4-10.2); Carbon Dioxide 33 mmol/L (22-30); Chloride 101 mmol/L (98-107); Glucose 73 mg/dl (70-99); Potassium 4.4 mmol/L (3.5-5.1); Sodium 140 mmol/L (135-145); Total Bilirubin 0.4 mg/dl (0.2-1.3); Total Protein 6.3 g/dl (6.3-8.2); eGFR > 60.00
--- NOTE | 2024-09-05 16:37 | ED.GENMED ---
History of Present Illness
General
Chief Complaint: Breathing Problem
Source: patient
Time Seen by Provider: 09/05/24 16:19
History of Present Illness
History of Present Illness:
68-year-old female presents to the emergency room complaining of having an episode of shortness of breath and feeling like some difficulty swallowing that occurred around 1 PM. Patient was concerned she was having an exacerbation of myasthenia
gravis. Patient was hospitalized and intubated this past April for myasthenia gravis. She had been doing well up until today. Her symptoms however have completely resolved. She feels like she is at her baseline at this point. Patient denies
any fever, chills, nausea or vomiting. She denies any chest pain.
Past History
Past History
ED Past Medical History: Psychiatric (Anxiety/depression, takes Lexapro 20, Wellbutrin 150, Requip 2 mg for restless leg, temazepam 15 mg at bedtime), Other (Myasthenia gravis, restless leg syndrome) and Other (Chronic arthritic pain, takes
hydrocodone 7.5/325 as needed.)
ED Past Surgical History: Other (N/A)
Social History
Tobacco: Vaping
Alcohol: None
Living: with family
Employment: Retired
Family History
Family History: Other (Reviewed and noncontributory)
Phy Exam
Physical Exam
Physical Exam:
General: Awake, Alert, Oriented X3. No acute distress. Cachectic, appears chronically ill stigmata of COPD
Vitals: unremarkable
Head: Atraumatic
Eyes: Pupils equal, EOMI
Throat: Airway intact, no exudates
Neck: Trachea midline
Lungs: Clear and equal b/l
Heart: Regular rate, no murmurs
Abd: Soft, Nontender, No pulsatile mass
Neuro: Cranial nerves intact, muscle strength equal bilaterally, cerebellar exam normal
Skin: Warm, dry, no rash
Extremities: pulses equal b/l, no edema
Scores
Heart Failure Risk
Heart Failure Risk Score: Not Applicable
Course
Orders/Labs/Results
Orders:
Orders
09/05/24 15:02
EKG [Electrocardiogram (*1)] Urgent
Reason for Study: Shortness of Breath
EKG- Treatment ONCE
09/05/24 15:12
CBC/With Diff [Complete Blood Count/With Diff] Urgent
Comprehensive Metabolic Panel Urgent
09/05/24 16:38
CR Chest - 2 Views Urgent
Comment:
Reason For Exam: sob
Abnormal Lab Results
09/05/24
15:12
MCHC 32.0 L g/dL
(33.0-37.0)
MPV 11.4 H fL
(7.4-10.4)
Abs Immat Gran (auto) 0.1 H 10^3/uL
(0-0.05)
Immature Gran % 0.9 H %
(0-0.5)
Monocytes % 10.7 H %
(1.7-9.3)
Carbon Dioxide 33 H mmol/L
(22-30)
09/05/24 15:12
09/05/24 15:12
Vital Signs
Initial and Last Documented VS:
Initial Vital Signs
Temp Pulse Resp BP Pulse Ox
98.6 F 106 16 111/82 98
09/05/24 14:58 09/05/24 14:58 09/05/24 14:58 09/05/24 14:58 09/05/24 14:58
Last Documented Vital Signs
Temp Pulse Resp BP Pulse Ox
98.6 F 92 20 111/82 96
09/05/24 14:58 09/05/24 17:27 09/05/24 17:27 09/05/24 14:58 09/05/24 17:27
MDM/Problems Addressed
Differential Diagnosis Includes:
Dysrhythmia, pneumonia, heart failure, pneumothorax, exacerbation of myasthenia gravis
MDM/Problems Addressed:
Patient felt short of breath and difficulty swelling for a relatively short period of time today. Her symptoms fully resolved. She now thinks she might be having a bit of an anxiety attack. She has no focal neurologic deficits on exam. Labs are
unremarkable. Patient observed for couple hours without any significant abnormalities. Patient stable for discharge home.
*Radiology
Radiology exam reviewed: preliminary read by ED provider (No acute abnormalities)
*Pulse Oximetry
Patient hypoxic: no
*EKG
Interpreted by ED Provider?: Yes
Heart Rate: 106
Rate: tachycardiac
Rhythm: PAC's and sinus tachycardia
[place]: normal axis
Interval: normal interval
QRS Pattern: normal QRS
Ischemia: non-specific ST changes
*Trucking Supervisor Interpretation
Rate: tachycardiac
Interpretation: abnormal
Heart Rate: 106
Rhythm: sinus tachycardia
*Critical Care Note
Total Time (30-74mins, 75-104mins- exclusive of procedures): Not Applicable
ED Attending Note
-
Portions of this chart may have been created with voice recognition software.� Occasional wrong word or��sound alike� substitutions may have occurred due to the inherent limitations of voice recognition software.
Discharge Plan
Departure
Patient Disposition: Home (Routine Discharge)
Date of Disposition: 09/05/24
Time of Disposition: 16:56
Patient with high blood pressure during this ER visit?: No
Condition: Good
Discharge Problem:
Mild shortness of breath
Instructions: Shortness of Breath (Dyspnea) (DC)
Prescriptions:
No Action
buspirone 10 mg Tablet
10 mg PO BID
bupropion HCl [Wellbutrin XL] 300 mg Tablet Extended Release 24 Hr
300 mg PO DAILY
cyclobenzaprine 5 mg Tablet
5 mg PO HS
Prolia 60 mg/mL Syringe
60 mg SC [id number]
ropinirole 2 mg tablet
4 mg PO TID
loperamide 2 mg Capsule
2 mg PO DAILY PRN (Reason: DIARRHEA)
acetaminophen 500 mg Tablet
1,000 mg PO Q6HPRN PRN (Reason: MILD PAIN)
escitalopram oxalate 20 mg Tablet
20 mg PO DAILY
ferrous sulfate [FeroSul] 325 mg (65 mg iron) Tablet
325 mg PO DAILY Qty: 0 0RF
metoprolol tartrate 25 mg Tablet
12.5 mg PO BID Qty: 60 0RF
Rx Instructions:
hold for HR <60 or sys BP <100
polyethylene glycol 3350 17 gram Powder In Packet
17 g PO DAILY Qty: 0 0RF
pyridostigmine bromide 60 mg Tablet
60 mg PO QID Qty: 0 0RF
insulin aspart U-100 100 unit/mL cartridge
See Rx Instructions .ROUTE .COMPLEX Qty: 15 0RF
Rx Instructions:
Accucheck glu qid with low resistance SSI
famotidine 20 mg Tablet
20 mg PO BID Qty: 0 0RF
pantoprazole 40 mg Tablet,Delayed Release (Dr/Ec)
40 mg PO DAILY Qty: 0 0RF
prednisone 10 mg tablet
10 mg PO DIRECTED Qty: 90 0RF
Rx Instructions:
5 tablets every morning until evaluation by neurologist
nitrofurantoin monohyd/m-cryst [Macrobid] 100 mg capsule
100 mg PO BID Qty: 6 0RF
Referrals:
Leida Mendez, [Family Provider] -
Activity Restrictions/Additional Instructions:
Your blood work here today is normal. Follow up with your family doctor.
Interventions
Interventions:
*Risk Screen - Suicide Last Done: 09/05/24 14:58
*General Assessment Last Done: 09/05/24 16:44
*Neglect/Abuse Screening Last Done: 09/05/24 14:58
*ED- Fall Risk Assessment Last Done: 09/05/24 16:44
*ED COVID-19 Vaccine History Last Done: 09/05/24 16:44
*Nursing Disposition Last Done: 09/05/24 17:28
ED- Cardiac Assessment Last Done: 09/05/24 16:44
ED- Pulmonary Assessment Last Done: 09/05/24 16:44
Discharge Date and Time
Discharge Date/Time: 09/05/24 17:30
Print Language: WELSH
== END 2024-09-05 17:30 | disposition home or self-care (01) ==
LOC: EMR 14:37
PROVIDERS: Student in an Organized Health Care Education/Training Program; EMERGENCY PHYSICIAN Emergency Medicine; FAMILY PHYSICIAN Family Medicine
DX: R06.02 Shortness of breath (principal); G70.00 Myasthenia gravis without (acute) exacerbation; F41.8 Other specified anxiety disorders; G25.81 Restless legs syndrome; F17.290 Nicotine dependence, other tobacco product, uncomplicated
CPT/HCPCS: 99283; 71046; 80053; 85025; 93005

== ENCOUNTER 2024-12-27 14:02 | Emergency (ER) | payer MEDICARE, SELFPAY ==
[2024-12-27 14:07] VITALS: BP 103/61
[2024-12-27 14:34] LABS: Hematocrit 37.8 % (37.0-47.0); Hemoglobin 12.1 g/dL (12.0-16.0); Mean Corp Hgb Conc. 32.0 g/dL (33.0-37.0); Mean Corpuscular Volume 97.2 fL (81.0-99.0); Nucleated Red Blood Cells % 0 %; Platelet Count 305 10^3/uL (130-400); Red Cell Dist. Width 14.5 % (11.5-14.5); Urine Character Clear (Clear)
[2024-12-27 14:39] LABS: Urine Red Blood Cell 0-2 /HPF (0-2)
[2024-12-27 14:51] LABS: ALT (SGPT) 19 U/L (0-35); AST (SGOT) 24 U/L (14-36); Albumin 3.7 g/dl (3.5-5.0); Alkaline Phosphatase 121 U/L (38-126); Blood Urea Nitrogen 15 mg/dl (7-17); Calcium 9.4 mg/dl (8.4-10.2); Carbon Dioxide 31 mmol/L (22-30); Chloride 104 mmol/L (98-107); Glucose 271 mg/dl (70-99); Potassium 5.0 mmol/L (3.5-5.1); Sodium 138 mmol/L (135-145); Total Protein 5.6 g/dl (6.3-8.2); eGFR > 60.00
[2024-12-27 18:24] VITALS: BP 117/60
[2024-12-27 18:25] VITALS: BMI 25.9
[2024-12-27 18:26] VITALS: BP 117/60
[2024-12-27 19:00] VITALS: BP 121/64
--- NOTE | 2024-12-27 20:17 | ED.GENMED ---
History of Present Illness
General
Chief Complaint: Anxiety
Time Seen by Provider: 12/27/24 18:38
History of Present Illness
History of Present Illness:
69-year-old female presents to the emergency department for evaluation of increasing anxiety and restlessness occurring intermittently. Her son states that she has bouts of time where she seems to be inconsolable and pacing around the house. The
patient also notes that she has brain fog during these episodes, apparently began driving erratically recently. Son notes that she seems to be worse when she does not sleep well, after a good night of sleep she seems to be normal again. Patient
denies any suicidal or homicidal ideation. Apparently last night while pacing around her room she tripped and fell and hit her head, also complaining of right wrist pain. She notes that she was recently diagnosed with myasthenia gravis and is
taking Mestinon. She has an upcoming EEG and MRI for further workup of her myasthenia. She is also planning to schedule with a neuropsychiatrist
Past History
Past History
ED Past Medical History: Psychiatric (Anxiety/depression, takes Lexapro 20, Wellbutrin 150, Requip 2 mg for restless leg, temazepam 15 mg at bedtime), Other (Myasthenia gravis, restless leg syndrome) and Other (Chronic arthritic pain, takes
hydrocodone 7.5/325 as needed.)
ED Past Surgical History: Other (N/A)
Social History
Tobacco: Vaping
Alcohol: None
Living: with family
Employment: Retired
Family History
Family History: Other (Reviewed and noncontributory)
Review of Systems
Review of Systems
Allergies reviewed?: Yes
All Other Systems: ROS reviewed and negative except as documented in HPI and ROS
Phy Exam
Physical Exam
Physical Exam:
GEN: Well appearing, NAD, WDWN, appears restless
HEENT: Oral mucosa moist, no scleral icterus
Cardiac: Regular rate and rhythm
Lung: No respiratory distress, no tachypnea
MSK: No gross deformity or injuries, no deformity to the right wrist, range of motion normal
Skin: Good color, no pallor or jaundice, no rashes
Neuro: AO x3, moves all extremities freely
Psych: Calm, cooperative, appropriate affect, pleasant and conversant
Course
Orders/Labs/Results
Orders:
Orders
12/27/24 14:26
Complete Blood Count/With Diff Urgent
Comprehensive Metabolic Panel Urgent
TSH Reflex To Free T4 Urgent
Urinalysis Reflex To Culture Urgent
Date Specimen was Collected: 12/27/24
Time Specimen was Collected: 14:14
Urine Microscopic Reflex Cult Urgent
Urine Culture Urgent
YOSELYN Source: U
Specimen Description:
Date Specimen was Collected: 12/27/24
Time Specimen was Collected: 14:14
12/27/24 16:55
CT Head W/o Iv Contrast Urgent
Comment:
Reason For Exam: head injury
CR Wrist - Right Min 3 Views Urgent
Comment:
Reason For Exam: pain after fall
Ribs, Right 3 View W/PA Chest [CR Ribs-right 3 Vw W/pa Chest*] Urgent
Comment:
Reason For Exam: pain after fall
12/27/24 20:42
Temazepam [Restoril] 15 mg PO NOW STA
12/27/24 20:45
Temazepam [Restoril] 15 mg PO NOW STA
Abnormal Lab Results
12/27/24
14:26
RBC 3.89 L 10^6/uL
(4.20-5.40)
MCH 31.1 H pg
(27.0-31.0)
MCHC 32.0 L g/dL
(33.0-37.0)
MPV 10.8 H fL
(7.4-10.4)
Absolute Lymphs (auto) 0.4 L 10^3/uL
(1.2-3.4)
Neutrophils % 90.1 H %
(42.2-75.2)
Lymphocytes % 6.6 L %
(20.5-51.1)
Carbon Dioxide 31 H mmol/L
(22-30)
Glucose 271 H mg/dl
(70-99)
Total Protein 5.6 L g/dl
(6.3-8.2)
Leukocyte Esterase Rfl 1+ A
(Negative)
Urine Bacteria (Reflex) Moderate A
(Negative)
12/27/24 14:26
12/27/24 14:26
Vital Signs
Initial and Last Documented VS:
Initial Vital Signs
Pulse Resp BP Pulse Ox
78 20 103/61 98
12/27/24 14:07 12/27/24 14:07 12/27/24 14:07 12/27/24 14:07
Last Documented Vital Signs
Temp Pulse Resp BP Pulse Ox
98.5 F 77 16 119/77 96
12/27/24 18:26 12/27/24 21:10 12/27/24 21:10 12/27/24 21:10 12/27/24 21:10
MDM/Problems Addressed
MDM/Problems Addressed:
Medically speaking the patient is stable with normal labs and a negative urinalysis. CT of the head obtained due to fall with head trauma and this was negative. No evidence for bony injury to the wrist. In regards to her increasing anxiety she
does note it seems worse after poor sleep. She was given temazepam by her primary care physician and I encouraged her to start using this. She is not homicidal or suicidal does not appear to be responding to internal stimuli and thus I do not feel
there is any indication for crisis intervention as the patient does not meet inpatient behavioral health services at this time. I have encouraged her to follow-up with her primary care physician for further evaluation if symptoms do not improve
with treatment of her insomnia
*Pulse Oximetry
SaO2: 100
Oxygen Mode of Delivery: Room air
Patient hypoxic: no
*Critical Care Note
Total Time (30-74mins, 75-104mins- exclusive of procedures): Not Applicable
ED Attending Note
-
Portions of this chart may have been created with voice recognition software.� Occasional wrong word or��sound alike� substitutions may have occurred due to the inherent limitations of voice recognition software.
Discharge Plan
Departure
Patient Disposition: Home (Routine Discharge)
Date of Disposition: 12/27/24
Time of Disposition: 20:23
Patient with high blood pressure during this ER visit?: No
Discharge Problem:
Acute insomnia, Anxiety
Instructions: Anxiety, Adult (DC)
Prescriptions:
No Action
bupropion HCl [Wellbutrin XL] 300 mg Tablet Extended Release 24 Hr
300 mg PO DAILY
Prolia 60 mg/mL Syringe
60 mg SC [id number]
ropinirole 2 mg tablet
2 mg PO BID
loperamide 2 mg Capsule
2 mg PO DAILYPRN PRN (Reason: DIARRHEA)
pyridostigmine bromide 60 mg Tablet
60 mg PO QID Qty: 0 0RF
pantoprazole 40 mg Tablet,Delayed Release (Dr/Ec)
40 mg PO DAILY Qty: 0 0RF
venlafaxine [Effexor XR] 75 mg Capsule,Extended Release 24hr
75 mg PO BID
temazepam 15 mg Capsule
15 mg PO HSPRN PRN (Reason: sleep)
ropinirole 2 mg Tablet
4 mg PO HS
mirabegron [Myrbetriq] 50 mg Tablet Extended Release 24 Hr
50 mg PO DAILY
metoprolol tartrate 25 mg tablet
12.5 mg PO DAILY
melatonin 5 mg Tablet
5 mg PO HSPRN PRN (Reason: sleep)
Rystiggo 140 mg/mL Solution
420 mg SC DIRECTED
cyanocobalamin (vitamin B-12) 1,000 mcg Tablet
1,000 mcg PO DAILY
prednisone 20 mg Tablet
20 mg PO DAILY
Referrals:
Leida Mendez, DO [Family Provider]
Activity Restrictions/Additional Instructions:
Please begin your temazepam as we discussed at 15 mg. Try this for 2 to 3 days and if not effective you may increase to 30 mg nightly
Follow-up with your psychiatrist and neurologist regarding the symptoms
Interventions
Interventions:
*Risk Screen - Suicide Last Done: 12/27/24 14:07
*General Assessment Last Done: 12/27/24 14:07
*Neglect/Abuse Screening Last Done: 12/27/24 18:26
*ED- Fall Risk Assessment Last Done: 12/27/24 18:26
*ED COVID-19 Vaccine History Last Done: 12/27/24 18:26
*Nursing Disposition Last Done: 12/27/24 21:10
ED-Musculoskeletal Assessment Last Done: 12/27/24 18:26
ED- Neurological Assessment Last Done: 12/27/24 18:26
ED-Psychological Assessment Last Done: 12/27/24 18:26
ED-Skin Assessment Last Done: 12/27/24 18:26
Discharge Date and Time
Discharge Date/Time: 12/27/24 21:10
Print Language: [id number]
[2024-12-27] MEDS: RESTORIL 15 MG PO (21:04)
[2024-12-27 21:10] VITALS: BP 119/77
== END 2024-12-27 21:10 | disposition home or self-care (01) ==
LOC: EMR 14:02
PROVIDERS: Student in an Organized Health Care Education/Training Program; EMERGENCY PHYSICIAN Emergency Medicine; FAMILY PHYSICIAN Family Medicine
DX: F41.9 Anxiety disorder, unspecified (principal); R45.1 Restlessness and agitation; M25.531 Pain in right wrist; S09.90XA Unspecified injury of head, initial encounter; W01.0XXA Fall on same level from slipping, tripping and stumbling without subsequent striking against object, initial encounter; G47.00 Insomnia, unspecified; F17.290 Nicotine dependence, other tobacco product, uncomplicated; G70.00 Myasthenia gravis without (acute) exacerbation
CPT/HCPCS: 99285; 70450; 71101; 73110; 80053; 81003; 81015; 84443; 85025; 87086

== ENCOUNTER → 2024-12-29 10:55 | Outpatient (REF) | payer MEDICARE, SELFPAY ==
--- NOTE | 2024-12-29 15:56 | EEG.RPT ---
Electroencephalogram Report
Recording
Date of EE12/29/24
Type of EEG: Routine
Length of EEG recordin minutes
Done with Video Recording: Yes
Patient Status: Inpatient
Recording Conditions: Awake and Drowsy
Hyperventilation Performed: No
Photic Stimulation Performed: Yes
Report
LESS THAN 1 HOUR EEG INTERPRETATION:
Unremarkable EEG for age
CLINICAL CORRELATION:
A normal EEG does not rule out a diagnosis of epilepsy. If clinical suspicion for seizure persists, a prolonged recording may be warranted.
Clinical correlation is advised.
METHODS:
A 21 channel digitized electroencephalogram (EEG) was performed using the 10/20 international system of electrode placement and one-lead of ECG recorded. The [employer] quantitative EEG system was utilized.
ELECTROENCEPHALOGRAPHER IMPRESSION(S):
Quality of study
Good
Background
There was an unremarkable anterior-posterior voltage gradient of alpha frequency.
With eye opening the background activity changed to a low voltage mixture of frequencies.
There were no significant asymmetries of background activity noted.
Sleep
Drowsiness present
Stage 1 present
Stage 2 present
Hyperventilation
No activation
Photic Stimulation
No activation
ECG
Normal sinus rhythm
== END ==
LOC: EEG 10:55
PROVIDERS: ATTENDING PHYSICIAN Psychiatry & Neurology Neurology; FAMILY PHYSICIAN Family Medicine
DX: G93.40 Encephalopathy, unspecified (principal)
CPT/HCPCS: 95813

== ENCOUNTER → 2025-01-20 10:43 | Outpatient (REF) | payer MEDICARE, SELFPAY | LOC: PAVMRI 10:43 | PROVIDERS: ATTENDING PHYSICIAN Psychiatry & Neurology Neurology; FAMILY PHYSICIAN Family Medicine | DX: G93.40 Encephalopathy, unspecified (principal) | CPT/HCPCS: 70553; A9575 ==

== ENCOUNTER 2025-04-14 18:26 | Observation (INO) | payer MEDICARE, SELFPAY ==
[2025-04-14 13:39] VITALS: BP 115/67
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
[2025-04-14 16:33] VITALS: BP 92/68; PULSE 86; O2SAT 98
[2025-04-14 16:59] VITALS: BP 92/68; PULSE 86; O2SAT 98
--- NOTE | 2025-04-14 17:09 | ED.GENMED ---
History of Present Illness
<Mal De La Cruz PA-C - Last Filed: 04/14/25 17:13>
General
Chief Complaint: Social Service Referral
Source: patient
Time Seen by Provider: 04/14/25 16:43
History of Present Illness
History of Present Illness:
69-year-old female presenting to the emergency department for evaluation after she had a fall 1 week ago while visiting a friend in [place], unfortunately broke her left femur that required surgery, was recommended to go to rehab but this facility
was too far from home in [place] so patient left AGAINST MEDICAL ADVICE and came to this emergency department as it is much closer to home. Patient stating that she is not safe to be at home, family unfortunately is unable to care for her and that
she does need rehab/SNF. Patient is otherwise without any other concerns at this time.
Past History
<Mal De La Cruz PA-C - Last Filed: 04/14/25 17:13>
Past History
ED Past Medical History: Psychiatric (Anxiety/depression, takes Lexapro 20, Wellbutrin 150, Requip 2 mg for restless leg, temazepam 15 mg at bedtime), Other (Myasthenia gravis, restless leg syndrome) and Other (Chronic arthritic pain, takes
hydrocodone 7.5/325 as needed.)
ED Past Surgical History: Other (N/A)
Social History
Tobacco: Vaping
Alcohol: None
Drug: None
Personal:
Living: with family
Employment: Retired
Family History
Family History: Other (Reviewed and noncontributory)
Review of Systems
<GELACIO Tanner Last Filed: 04/14/25 17:13>
Review of Systems
All Other Systems: ROS reviewed and negative except as documented in HPI and ROS
Phy Exam
<Mal De La Cruz PA-C - Last Filed: 04/14/25 17:13>
Physical Exam
Physical Exam:
GENERAL: Alert , in no apparent distress
EYE: conjunctiva clear
Head: Normocephalic atraumatic
NECK: Supple,
ENT: mmm.
LUNGS: no acute respiratory distress
NEUROLOGICAL: Alert and oriented
SKIN: Warm and dry, skin intact.
MUSCULOSKELETAL: well perfused.
PSYCH: Normal and appropriate interaction.
Scores
<Mal De La Cruz PA-C - Last Filed: 04/14/25 17:13>
Heart Failure Risk
Heart Failure Risk Score: Not Applicable
Heart Score for Chest Pain Patients
STEMI patient?: Not applicable
Withdrawal Assessment of Alcohol
Withdrawal Assessment Completed?: Not applicable
Course
<Mal De La Cruz PA-C - Last Filed: 04/14/25 17:13>
Orders/Labs/Results
Orders:
Orders
04/14/25 13:42
Case Management Consult ONCE
Case Management Consult: Other
Requested By:: NURSING
Comment: Pt needs rehab facility after hip fracture repair
04/14/25 15:09
OT Consult [Ot Eval And Treat] Urgent
Pt Eval And Treat Urgent
Treatment: assessment for rehab
Activity Level: Ambulate
04/14/25 17:08
Basic Metabolic Panel Urgent
Complete Blood Count/With Diff Urgent
04/14/25 18:02
Admit/Transfer Patient As Directed
Co-Sign Provider:
Level of Care: Observation services
Assign to:: Medical/Surgical
Physician / Group: Jacinto Hart
Diagnosis: ambulatory dysfunction, s/p left hip fracture and repair
PRN Pain Medication Management As Directed
May give lesser potent ordered pain med per pt: Yes
preference::
Protocol:: Medication orders for pain may be administered in a
manner that supports deferring to patient preference
when the pt is:
- Requesting an ordered lesser potent pain medication.
Least to most potent pain medications are defined
as: acetaminophen < NSAID < tramadol < opioids
(morphine, oxycodone, hydromorphone).
- Requesting a lesser dose of the same medication IF
ORDERED.
- Requesting a less intrusive route of administration
if both routes are prescribed by the provider (PO <
IV).
04/14/25 18:04
Code Status As Directed
Resuscitation Status: Full Code
Abnormal Lab Results
04/14/25
17:08
MCV 100.9 H fL
(81.0-99.0)
MCH 31.9 H pg
(27.0-31.0)
MCHC 31.6 L g/dL
(33.0-37.0)
Absolute Lymphs (auto) 0.8 L 10^3/uL
(1.2-3.4)
Neutrophils % 81.9 H %
(42.2-75.2)
Lymphocytes % 12.3 L %
(20.5-51.1)
Sodium 134 L mmol/L
(135-145)
Glucose 128 H mg/dl
(70-99)
04/14/25 17:08
04/14/25 17:08
Vital Signs
Initial and Last Documented VS:
Initial Vital Signs
Temp Pulse Resp BP Pulse Ox
36.6 C 61 16 115/67 98
04/14/25 13:39 04/14/25 13:39 04/14/25 13:39 04/14/25 13:39 04/14/25 13:39
Last Documented Vital Signs
Temp Pulse Resp BP Pulse Ox
36.6 C 61 16 115/67 98
04/14/25 13:39 04/14/25 13:39 04/14/25 13:39 04/14/25 13:39 04/14/25 17:13
<Mike Art, - Last Filed: 04/14/25 19:07>
Orders/Labs/Results
Orders:
Orders
04/14/25 13:42
Case Management Consult ONCE
Case Management Consult: Other
Requested By:: NURSING
Comment: Pt needs rehab facility after hip fracture repair
04/14/25 15:09
OT Consult [Ot Eval And Treat] Urgent
Pt Eval And Treat Urgent
Treatment: assessment for rehab
Activity Level: Ambulate
04/14/25 17:08
Basic Metabolic Panel Urgent
Complete Blood Count/With Diff Urgent
04/14/25 18:02
Admit/Transfer Patient As Directed
Co-Sign Provider:
Level of Care: Observation services
Assign to:: Medical/Surgical
Physician / Group: Jacinto Hart
Diagnosis: ambulatory dysfunction, s/p left hip fracture and repair
PRN Pain Medication Management As Directed
May give lesser potent ordered pain med per pt: Yes
preference::
Protocol:: Medication orders for pain may be administered in a
manner that supports deferring to patient preference
when the pt is:
- Requesting an ordered lesser potent pain medication.
Least to most potent pain medications are defined
as: acetaminophen < NSAID < tramadol < opioids
(morphine, oxycodone, hydromorphone).
- Requesting a lesser dose of the same medication IF
ORDERED.
- Requesting a less intrusive route of administration
if both routes are prescribed by the provider (PO <
IV).
04/14/25 18:04
Code Status As Directed
Resuscitation Status: Full Code
Abnormal Lab Results
04/14/25
17:08
MCV 100.9 H fL
(81.0-99.0)
MCH 31.9 H pg
(27.0-31.0)
MCHC 31.6 L g/dL
(33.0-37.0)
Absolute Lymphs (auto) 0.8 L 10^3/uL
(1.2-3.4)
Neutrophils % 81.9 H %
(42.2-75.2)
Lymphocytes % 12.3 L %
(20.5-51.1)
Sodium 134 L mmol/L
(135-145)
Glucose 128 H mg/dl
(70-99)
04/14/25 17:08
04/14/25 17:08
Vital Signs
Initial and Last Documented VS:
Initial Vital Signs
Temp Pulse Resp BP Pulse Ox
36.6 C 61 16 115/67 98
04/14/25 13:39 04/14/25 13:39 04/14/25 13:39 04/14/25 13:39 04/14/25 13:39
Last Documented Vital Signs
Temp Pulse Resp BP Pulse Ox
36.6 C 61 16 115/67 98
04/14/25 13:39 04/14/25 13:39 04/14/25 13:39 04/14/25 13:39 04/14/25 17:13
<Mal De La Cruz PA-C - Last Filed: 04/14/25 17:13>
MDM/Problems Addressed
Differential Diagnosis Includes:
ambulatory services representative referral
Inability to perform ADL
No concern for post op complication/infection
MDM/Problems Addressed:
69-year-old female presenting to the ER for evaluation and for ultimate placement at SNF/rehab facility in the setting of recent left hip/femur fracture. Patient left her other facility AGAINST MEDICAL ADVICE as this was too far from home for her.
Patient had case management, PT/OT evaluation already completed by time of my exam. Physical therapy recommended inpatient rehab. Case management had started the process of finding a bed but unfortunately would be unable to get patient placed
today so is recommending admission here until they are able to find a bed for the patient. Will notify hospitalist team.
<Mal De La Cruz PA-C - Last Filed: 04/14/25 17:13>
*Pulse Oximetry
SaO2: 98
Oxygen Mode of Delivery: Room air
Patient hypoxic: no
*Critical Care Note
Total Time (30-74mins, 75-104mins- exclusive of procedures): Not Applicable
Data Reviewed
Review of Other/Old Records Reveals: Records
Source: patient, records and family
<Mal De La Cruz PA-C - Last Filed: 04/14/25 17:13>
Patient Management
Discussion with other providers: Hospitalist
Escalation/DeEscalation of care consider admission/obs:
Hospitalist team notified and accepts for continued evaluation and treatment
ED Attending Note
<Mal De La Cruz PA-C - Last Filed: 04/14/25 17:13>
-
Portions of this chart may have been created with voice recognition software.� Occasional wrong word or��sound alike� substitutions may have occurred due to the inherent limitations of voice recognition software.
<Mike Art DO - Last Filed: 04/14/25 19:07>
ED Attending Note
Patient seen and examined by attending physician: Yes
I performed the substantive portion of visit, reviewed & personally made and approve the management plan that is documented in note by myself or SANDRA.: Yes
ED Attending Note:
I evaluated the patient at bedside. The patient had her hip repaired at [facility] in [place]. She also has a sacral fracture. I spoke to her son at bedside. Her cousin drove her from [facility] to her home 1 week ago but she has been doing
poorly at home. They were unable to place her at rehab at [facility] in the [facility]. Unable to immediately place at rehab from the ER; planning to admit for continued efforts for placement. Of note, the patient has been missing her
myasthenia gravis infusions that she usually gets as an outpatient.
Discharge Plan
Departure
Patient Disposition: Admit
Date of Disposition: 04/14/25
Time of Disposition: 17:14
Presentation/result/management discussed w/ accepting MD/DO: Hospitalist
Discharge Problem:
S/p left hip fracture
Interventions
Interventions:
*Risk Screen - Suicide Last Done: 04/14/25 13:39
*Neglect/Abuse Screening Last Done: 04/14/25 13:39
--- NOTE | 2025-04-14 17:13 | HPS.HSE ---
Addendum entered and electronically signed by Jacinto Hart MD 04/14/25 19:42:
This is an addendum to H&P written by Melinda Leggett on 04/14/25. �Patient seen and examined independently with USED [employer] READY WORKER.
69-year-old female past medical history of myasthenia gravis, iron deficiency anemia, anxiety/depression, gastric bypass, osteoarthritis, restless leg syndrome, presenting after a fall 1 week ago with while visiting a friend in [place] left femur
fracture requiring surgery. �She was recommend to go to rehab but came left AGAINST MEDICAL ADVICE here because closer to home.
Vital signs unremarkable.
Labs pending.
Patient with recent left femur fracture status post surgery. �She requires rehab placement. �Seen by PT OT and case management and cannot be placed today.
She has chronic intermittent diarrhea for which she takes Imodium as needed and had an episode of diarrhea today. �Continue to monitor for further episodes check stool studies as needed.
Original Note:
Family Physician
-
Family Physician: Leida Mendez, DO
Chief Complaint
-
weakness
History of Present Illness
Patient is a 69-year-old female with past medical history significant for myasthenia gravis, depression/anxiety, overactive bladder, restless leg syndrome, osteoarthritis and GERD who presented to [facility] ED for evaluation to get rehab placement.
Patient was visiting cousin in [place] area when she sustained mechanical fall and broke left hip 04/03/2025. She was seen and treated at [facility]. She under went surgical repair and then had discharge home on 04/07/2025 as [facility] was unable to
secure rehab closer to home. Patient son and POA has been attempting to get rehab placement since she returned home and had been having issues with insurance. Today patient was having increased difficulty with ADLs so son brought patient to ED for
assessment and help finding rehab placement. Patient mentioned chronic intermittent diarrhea. Denies any fever, chills, cough, shortness of breath, chest pain, nausea, vomiting or urinary symptoms.
Medical History
Past Medical History
Past Medical History: Reports Other
Additional Past Medical History:
myasthenia gravis
depression/anxiety
overactive bladder
restless leg syndrome
osteoarthritis
GERD
history of vitamin B12 deficiency
history of iron deficiency anemia
Past Surgical History: Reports Other
Additional Past Surgical History:
right total knee replacement
gastric bypass
right total hip
left hip repair
Social History
Tobacco: Non-smoker
Alcohol: Occasional
Drug: Marijuana (Not current )
Personal:
Living: With Family
Employment: Not Employed
Family History
Family History: Not pertinent
Allergies / Home Medications
Allergies reflects when Allergies were last updated in [facility].
Home Medications with original date entered in [facility]
Allergy/Medication List:
Allergies
Allergy/AdvReac Type Severity Reaction Status Date / Time
immune globulin,gamma (IgG) Allergy See Verified 12/27/24 14:09
human comments
Penicillins Allergy Anaphylaxis Verified 12/27/24 14:09
Home Medications
bupropion HCl 300 mg 24 hr tablet, extended release (Wellbutrin XL) 300 mg PO DAILY Depression 10/11/22
denosumab 60 mg/mL subcutaneous syringe (Prolia) 60 mg SC [id number] osteoporosis 04/11/24
ropinirole 2 mg tablet 2 mg PO BID restless legs 04/11/24
loperamide 2 mg capsule 2 mg PO DAILYPRN PRN DIARRHEA 04/24/24
pantoprazole 40 mg tablet,delayed release 40 mg PO DAILY #0 tabs 05/06/24
pyridostigmine bromide 60 mg tablet 60 mg PO QID #0 tabs 05/06/24
cyanocobalamin (vitamin B-12) 1,000 mcg tablet 1,000 mcg PO DAILY 12/27/24
metoprolol tartrate 25 mg tablet 12.5 mg PO BID 12/27/24
mirabegron 50 mg tablet,extended release 24 hr (Myrbetriq) 50 mg PO DAILY 12/27/24
ropinirole 2 mg tablet 4 mg PO HS 12/27/24
rozanolixizumab-cristino 140 mg/mL subcutaneous solution (Rystiggo) 420 mg SC DIRECTED 12/27/24
temazepam 15 mg capsule 7.5 mg PO HSPRN PRN sleep 12/27/24
venlafaxine 75 mg capsule,extended release 24 hr (Effexor XR) 75 mg PO DAILY 12/27/24
acetaminophen 325 mg tablet 650 mg PO Q6H PRN mild pain/fever/DE LEON 04/14/25
enoxaparin 40 mg/0.4 mL subcutaneous syringe (Lovenox) 40 mg SC DAILY 04/14/25
escitalopram oxalate 10 mg tablet 10 mg PO DAILY 04/14/25
prednisone 10 mg tablet 15 mg PO DAILY 04/14/25
Review of Systems
-
History Source: Patient
Constitutional: Denies Fever or Chills
EENT: Denies Sore Throat
Respiratory: Denies Cough, Hemoptysis or Trouble Breathing
Cardiac: Denies Chest Pain, Diaphoresis, Palpitations or Syncope
Abdomen/GI: Reports Diarrhea (1 episode today ); Denies Abdominal Pain, Nausea or Vomiting
: Denies Dysuria, Frequency or Urgency
Musculoskeletal: Reports Joint Pain (left hip discomfort )
Skin: Denies Rash
Neurological: Denies Dizzy, Headache, Weakness or Numbness
Physical Exam
Vital Signs
Vital Signs
Temp Pulse Resp BP Pulse Ox
98 F 61 16 115/67 98
04/14/25 13:39 04/14/25 13:39 04/14/25 13:39 04/14/25 13:39 04/14/25 17:13
Physical Exam
General: Well Developed, Well Nourished, No Apparent Distress, Comfortable and Conversant
HEENT: NormoCephalic, Moist mucous membranes, PERRLA, Nose Appears Normal and Ears Appear Normal
Respiratory: Clear and Non Labored Respirations
Cardiac: S1/S2 and Regular Rhythm; No Murmur
GI: Soft, Non Tender, Non Distended and Normal Bowel Sounds
Musculoskeletal: No Clubbing, No Cyanosis and No Edema
Skin: Warm and IV/Catheter Site
Neuro: Awake and AO x 3
Psych: Calm and Intact Judgment/Insight
Data Reviewed
-
Lab Data: Labs Reviewed by me
Impression/Plan
-
IMPRESSION/PLAN:
#ambulatory dysfunction s/p left hip fracture requiring surgical repair
patient fracture left hip s/p fall 04/03/2025, underwent surgical repair, discharge home 04/07/2025
labs unremarkable
- Admit to med/surg
- consult PT/OT
- consult case management
- pain regimen
#chronic intermittent diarrhea
last episode today, 04/14/2025
- monitor and if continues consider stool cultures
#myasthenia gravis
- continue prednisone and Rystiggo
#depression/anxiety
- continue bupropion, escitalopram and venlafaxine
#overactive bladder
- continue mirabegron
#restless leg syndrome
- continue ropinirole
#osteoarthritis
- continue prolia out patient
#GERD
- continue pantoprazole
#history of vitamin B12 deficiency
#history of iron deficiency anemia
Code status: full code
DVT prophylaxis: lovenox sq
[2025-04-14 17:30] LABS: Hematocrit 43.0 % (37.0-47.0); Hemoglobin 13.6 g/dL (12.0-16.0); Mean Corp Hgb Conc. 31.6 g/dL (33.0-37.0); Mean Corpuscular Volume 100.9 fL (81.0-99.0); Nucleated Red Blood Cells % 0 %; Platelet Count 373 10^3/uL (130-400); Red Cell Dist. Width 13.4 % (11.5-14.5)
[2025-04-14 17:38] LABS: Blood Urea Nitrogen 13 mg/dl (7-17); Calcium 9.5 mg/dl (8.4-10.2); Carbon Dioxide 30 mmol/L (22-30); Chloride 102 mmol/L (98-107); Glucose 128 mg/dl (70-99); Potassium 4.5 mmol/L (3.5-5.1); Sodium 134 mmol/L (135-145); eGFR > 60.00
--- NOTE | 2025-04-14 21:40 | PTCARENOTE ---
Pt admitted to 408-2 from ED. Ambulated from stretcher to bed, with stand by assist x 1. Oriented to environment. Call hernandez within reach.
[2025-04-14 21:44] VITALS: BMI 25.8
[2025-04-14 21:48] VITALS: BP 114/65
[2025-04-14] MEDS: MESTINON 60 MG PO (22:14)
[2025-04-14] MEDS: LOPRESSOR 12.5 MG PO (22:14)
[2025-04-14] MEDS: REQUIP 4 MG PO (22:44)
[2025-04-14] MEDS: RESTORIL 7.5 MG PO (22:46)
[2025-04-14 23:58] VITALS: BP 121/63
[2025-04-15 07:00] VITALS: BP 98/62
[2025-04-15] MEDS: DELTASONE 15 MG PO (09:14)
[2025-04-15] MEDS: PROTONIX 40 MG PO (09:14)
[2025-04-15] MEDS: LEXAPRO 10 MG PO (09:15)
[2025-04-15] MEDS: REQUIP 2 MG PO ×2 (09:15→17:25)
[2025-04-15] MEDS: VITAMIN B-12 1000 MCG PO (09:15)
[2025-04-15] MEDS: MESTINON 60 MG PO ×3 (09:15→17:25)
[2025-04-15] MEDS: EFFEXOR XR 75 MG PO (09:15)
[2025-04-15] MEDS: WELLBUTRIN XL (24 hour extended release) 300 MG PO (09:15)
[2025-04-15] MEDS: LOVENOX 40 MG SC (09:16)
[2025-04-15] MEDS: TYLENOL 650 MG PO (09:22)
[2025-04-15] MEDS: LOPRESSOR PO (10:56)
[2025-04-15] MEDS: ZOFRAN 4 MG IV (10:57)
[2025-04-15] MEDS: NSS 1000 IV (10:57)
--- NOTE | 2025-04-15 12:52 | W.PN.HOSP.TC ---
Today's Communication/Plan
-
Monitor vital signs and see plan
PT recommending rehab
clinical informatics manager aware
Discharge today if has placement
Assessment / Plan
Assessment / Plan
General: Well Developed, Well Nourished, No Apparent Distress, Comfortable and Conversant
HEENT: NormoCephalic, Moist mucous membranes, PERRLA, Nose Appears Normal and Ears Appear Normal
Respiratory: Clear and Non Labored Respirations
Cardiac: S1/S2 and Regular Rhythm; No Murmur
GI: Soft, Non Tender, Non Distended and Normal Bowel Sounds
Musculoskeletal: No Edema
Neuro: Awake and AO x 3
Psych: Calm and Intact Judgment/Insight
ambulatory dysfunction s/p left hip fracture requiring surgical repair
patient fracture left hip s/p fall 04/03/2025, underwent surgical repair, discharge home 04/07/2025
PT/OT recommending rehab. Discussed with case fitter that was on yesterday in the ED, she reported she sent several referrals however patient was unable to be placed from ER
Discussed with case fitter here, need rehab
- pain regimen
#chronic intermittent diarrhea
- monitor and if continues consider stool cultures
Hyponatremia
Monitor
#myasthenia gravis
- continue prednisone and Rystiggo
#depression/anxiety
- continue bupropion, escitalopram and venlafaxine
#overactive bladder
- continue mirabegron
#restless leg syndrome
- continue ropinirole
#osteoarthritis
- continue prolia out patient
#GERD
- continue pantoprazole
#history of vitamin B12 deficiency
#history of iron deficiency anemia
Code status: full code
DVT prophylaxis: lovenox sq
Anticipated Discharge: Today
Subjective/Interval History
-
Date of Service: April 15, 2025
Denies pain
Objective Data
-
Vital Signs:
Vital Signs
Temp Pulse Resp BP Pulse Ox
98.4 F 62 16 89/48 97
04/15/25 07:00 04/15/25 07:00 04/15/25 07:00 04/15/25 10:56 04/15/25 07:00
I&O
04/14/25 04/15/25 04/16/25
06:59 06:59 06:59
Intake Total 240 / 240
Balance 240 / 240
[2025-04-15 13:44] VITALS: BP 118/58; BP 126/59; PULSE 63; O2SAT 98
[2025-04-15 13:50] VITALS: BP 126/59
--- NOTE | 2025-04-15 14:05 | CM ---
TC to [facility] [phone], spoke with Kaya in Care Management, patient was admitted inpatient 04/03/25-04/07/25 for a fx hip.
[2025-04-15 15:00] VITALS: BP 99/64
--- NOTE | 2025-04-15 15:24 | W.DCSUMMARY ---
Discharge Summary
Discharge Data
Date of Admission: 04/14/25
Date of Discharge: 04/15/25
-
Pending Results: No
Hospital Course
69-year-old female with recent left hip fracture status post repair, chronic intermittent diarrhea, myasthenia gravis, depression/anxiety, overactive bladder, restless leg syndrome, osteoarthritis, GERD, vitamin B12 deficiency, iron deficiency
anemia came to the hospital for ambulatory dysfunction. Physical therapy and Occupational Therapy both recommended SNF. With case consultant assistance patient was placed to short-term rehab and was discharged from the hospital with instructions to
follow-up with all her physicians outpatient.
Discharge Plan
-
Patient Disposition: Long-Term/SNF
Discharge Diagnosis/Procedures: Ambulatory dysfunction s/p left hip fracture requiring surgical repair
Chronic intermittent diarrhea
Hyponatremia
Myasthenia gravis
Diet: As tolerated
Activity: With assistance and As tolerated
Driving Restrictions: Not until seen by your Dr
Bathing Restrictions: None
Activity Restrictions/Additional Instructions:
Please follow-up with the orthopedic surgeon outpatient
Referrals:
Leida Mendez, [Family Provider] - in less than 1 week
Prescriptions:
Continued
bupropion HCl [Wellbutrin XL] 300 mg Tablet Extended Release 24 Hr
300 mg PO DAILY
Prolia 60 mg/mL Syringe
60 mg SC [id number]
ropinirole 2 mg tablet
2 mg PO BID
loperamide 2 mg Capsule
2 mg PO DAILYPRN PRN (Reason: DIARRHEA)
pyridostigmine bromide 60 mg Tablet
60 mg PO QID Qty: 0 0RF
pantoprazole 40 mg Tablet,Delayed Release (Dr/Ec)
40 mg PO DAILY Qty: 0 0RF
venlafaxine [Effexor XR] 75 mg Capsule,Extended Release 24hr
75 mg PO DAILY
ropinirole 2 mg Tablet
4 mg PO HS
mirabegron [Myrbetriq] 50 mg Tablet Extended Release 24 Hr
50 mg PO DAILY
metoprolol tartrate 25 mg tablet
12.5 mg PO BID
Rystiggo 140 mg/mL Solution
420 mg SC DIRECTED
cyanocobalamin (vitamin B-12) 1,000 mcg Tablet
1,000 mcg PO DAILY
acetaminophen 325 mg Tablet
650 mg PO Q6H PRN (Reason: mild pain/fever/DE LEON)
prednisone 10 mg Tablet
15 mg PO DAILY
enoxaparin [Lovenox] 40 mg/0.4 mL Syringe
40 mg SC DAILY
escitalopram oxalate 10 mg Tablet
10 mg PO DAILY
temazepam 15 mg Capsule
7.5 mg PO HSPRN PRN (Reason: sleep) Qty: 3 0RF
Discharge Orders:
Discharge Patient (As Directed); Ordered 04/15/25
Ordered By: Louis Christianson
Discharge Date and Time
Discharge Date/Time: 04/15/25 17:38
Print Language: NEPALI
--- NOTE | 2025-04-15 15:54 | CM ---
Addendum entered by Jacqueline Larson 04/15/25 17:11:
Pt did not quality for MSSP. Pt qualified for SNF by having 3 day inpatient stay within the past month at [facility]
Original Note:
[facility]
Report: [phone]

Pt is discharged to [facility] via wheelchair van. Transport papers completed. Pt and son made aware.
Plan: [facility]/ 5:15pm pickup
== END 2025-04-15 17:38 ==
LOC: 4 EAST ACU 18:26
PROVIDERS: Physician Assistant Medical; ADMITTING PHYSICIAN Hospitalist; ATTENDING PHYSICIAN Internal Medicine; EMERGENCY PHYSICIAN Emergency Medicine; FAMILY PHYSICIAN Family Medicine
DX: R26.2 Difficulty in walking, not elsewhere classified (principal); Z02.2 Encounter for examination for admission to residential institution; E87.1 Hypo-osmolality and hyponatremia; F41.9 Anxiety disorder, unspecified; G25.81 Restless legs syndrome; G70.00 Myasthenia gravis without (acute) exacerbation; F17.290 Nicotine dependence, other tobacco product, uncomplicated; S72.002D Fracture of unspecified part of neck of left femur, subsequent encounter for closed fracture with routine healing; W19.XXXD Unspecified fall, subsequent encounter; M19.90 Unspecified osteoarthritis, unspecified site; D50.9 Iron deficiency anemia, unspecified; F32.A Depression, unspecified; R19.7 Diarrhea, unspecified; N32.81 Overactive bladder; K21.9 Gastro-esophageal reflux disease without esophagitis; E53.8 Deficiency of other specified B group vitamins; Z98.84 Bariatric surgery status; Z96.651 Presence of right artificial knee joint; Z88.0 Allergy status to penicillin; Z79.899 Other long term (current) drug therapy; Z79.52 Long term (current) use of systemic steroids
CPT/HCPCS: 80048; 85025; 93005; 97530; 99284; G0378